=== PATIENT | male | born 1935 | race Caucasian/White ===

== ENCOUNTER 2018-04-18 07:54 | Inpatient (IN) | payer MEDICARE, MEDICAID, SELFPAY ==
[2018-04-12 12:10] VITALS: BMI 32.4
[2018-04-18] VITALS (24 sets, daily range): BP systolic 114–146; BP diastolic 55–81; PULSE 58–79; RESP 12–22; TEMP 36.2–36.8; O2SAT 90–100; BMI 32.4
--- NOTE | 2018-04-18 | DI.RAD.S_ITS ---
PROCEDURE: XR LUMBAR SPINE 2-3V INDICATIONS: L4-5 TLIF TECHNIQUE: 2 views of the lumbar spine were acquired. COMPARISON: None. FINDINGS: Spot fluoroscopic intraoperative images demonstrating L4-L5 posterior spinal fixation with paraspinal johann and pedicle screws. There is also interbody L4-L5 cage graft. Residual grade 1 anterolisthesis of L4 on L5. There is expected intraoperative alignment. Dictated by: Johnathon Isaac M.D. on 04/18/2018 at 14:58 Approved by: Johnathon Isaac M.D. on 04/18/2018 at 15:00
[2018-04-18] MEDS: LACTATED RINGERS 1,000 ML 42 ML IV ×2 (09:15→12:35)
--- NOTE | 2018-04-18 10:31 | PM.PREOP ---
Pre-operative Note Interval Note Pre-op Check: Yes History & Physical Reviewed by Physician, Yes Exam Performed and Yes History & Physical exam performed today by Physician Changes: No
[2018-04-18] MEDS: CEFAZOLIN 2 GM/100 ML FROZ.PIGGY IV ×2 (11:10→19:23)
--- NOTE | 2018-04-18 11:59 | SUR.OPER ---
Prone on spine table, head in foam head support, padded chest and pelvic supports, gel pad at knees, lower legs supported by pillows; nipples, genitalia and toes free of pressure, arms secured on foam padded arm boards at <90 degrees abduction. Tape over blanket at thigh secured to table.
[2018-04-18] MEDS: BUPIVACAINE 0.25% W/ EPI VIAL 30 ML INJ (12:08)
[2018-04-18] MEDS: BUPIVACAINE LIPOSOME 266 MG/20 ML VIAL INJ (12:08)
[2018-04-18] MEDS: ACETAMINOPHEN IV 1,000 MG/100 ML VIAL 400 MG IV (13:52)
--- NOTE | 2018-04-18 14:27 | PM.OP.1 ---
Operative Date/Time/Diagnoses Date of procedure: 04/18/18 Time of procedure: 11:49 Pre-op diagnosis: 1. L3-4, L4-5 spinal stenosis 2. L4-5 spondylolisthesis 3. 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 L4-5 Postero-lateral and posterior interbody fusion 2. L4-5 interbody cage placement. 3. L4-5 decompressive laminectomy with bilateral facetecomies 4. L4-5 Posterior non-segmental instrumentation 5. L3-4 hemilaminectomy 6. [place] of bone marrow from iliac crest 7. Utilization of microsurgical technique and operating microscope Same procedure as scheduled: Yes Indications: Patient has been having chronic back pain and worsening lumbar radiculopathy. Patient failed multiple conservative management with worsening pain weakness and numbness in her lower extremity. Patient has been having difficulty performing activity of daily living. After discussing risks benefits of treatment options, patient elected proceed with surgery. Surgeon: Ed Quezada Inpatient Pharmacist: Moon Wright Click Yes if Unassisted: No Anesthesia Type: General Operative Notes Closure Type: primary Specimen(s): none sent Implants & Drains: Globus revolve screws, Rise cage Estimated Blood Loss (mL): 50 Blood products transfused: none Procedure in detail: Patient was seen in the preoperative area. Risks and benefits of the surgery was discussed with the patient. Informed consent was obtained from the patient and placed in the chart. Surgical site was marked. Patient was taken to the operative room. General anesthesia was administered. Prophylactic antibiotic was given to the patient less than 30 min before the incision was made. Patient was placed into a prone position on the Adolfo table. Patient's back was then prepped and draped in the sterile fashion. Time-out was performed at this time. Using AP and lateral C-arm imaging the interval between L3-4 L4-5 was identified and marked on patient's back. A 2 inch incision 2 in from midline was made on the left side first. The fascia was incised in line with skin incision. Globus MARS retractors was placed inside the incision and docked onto the L4 lamina. Using microsurgical technique and operating microscope, a L4 laminectomy and L4-5 facetectomy was performed using a Kerrison rongeur. The disc space at L4-5 was identified. And a total diskectomy was performed at L4-5 level. The endplates were decorticated using a rasp and shaver. The total diskectomy and decortication was performed at L4-5 level in order to to accomplish a L4-5 fusion. The local bone from the laminectomy and facetectomy was saved for local bone grafting. After the total diskectomy and decortication was completed, Globus viacell bone graft material was combined with local bone that was harvested earlier. At this time, a separate skin is incision was made over the iliac crest. A Jamshidi needle was inserted into the iliac crest through a separate skin incision. 5 cc of bone marrow aspiration was obtained through the separate skin incision using a Jamshidi needle from the iliac crest. The bone marrow aspiration was combined with local bone and the via cell bone grafting material. The bone grafting material was placed into the L4-5 interbody space along with a expandable cage. The cage was expanded to its maximum height using the torque limiting screwdriver. At this time the MARS retractor was redirected over the L3 lamina. Using microsurgical technique and operating microscope, a L3-4 heminectomy was performed using the Kerrison rongeur. The ligamentum flavum was also resected at the side of the hemilaminectomy for further decompression of the epidural space. At this time a mirror image incision was made on the right side. The fascia was incised in line with the skin incision. Globus MARS retractor was inserted and docked onto the L4-5 posterolateral gutter. Using the power drill, posterior-lateral decortication was performed at L4-5 level until bleeding cortical bone was identified. The remaining bone grafting material was placed into the L4-5 posterior lateral gutter he order to accomplish posterolateral fusion at the L4-5 level. Using the double C-arm technique, pedicle screws were placed into the L4 and L5 pedicles bilaterally. This was done by placing the Jamshidi needle into the pedicles, then placing the guidewires over the Jamshidi needle, and finally placing the cannulated screws over the guidewires bilaterally. After the pedicle screws were placed, 2 titanium rods was locked into the heads of the pedicle screws using locking caps and torque limiting screwdriver. After all the hardware was placed, and confirmed with AP and lateral C-arm imaging, the wound was then irrigated with sterile normal saline and packed with Ray-Kimber gauze for 3 min to accomplish hemostasis. After the gauze was removed the deep fascia was closed with #1 Vicryl suture. The subcutaneous layer was closed with 2-0 Vicryl. The skin was closed with skin lina. Patient tolerated the procedure well. There were no complications. Complications: none Condition: stable Disposition: PACU Plan for aftercare: Admit to inpatient hospital
[2018-04-18] MEDS: HYDROMORPHONE 2 MG INJ 0.5 MG IV ×4 (15:05→15:27)
[2018-04-18] MEDS: fentaNYL 100 MCG/2 ML INJ 50 MCG IV ×2 (15:33→15:42)
--- NOTE | 2018-04-18 15:47 | SUR.PHASEI ---
stable pacu stay, pt arrived, cpap in place after water obtained, sats on 4 l with cpap 93-95% dressing to back remained c/d/i. pain 01/14- 10/14. pt states this is a tolerable level. report attempted x 2 both times rn unavailable.
--- NOTE | 2018-04-18 16:24 | SUR.PHASEI ---
p-t medicated for pain with fentanyl and dilaudid, pt transported via bed on 5/ n/c 02 and left in stable condition under the care of colleen alanis.
--- NOTE | 2018-04-18 16:33 | PC.NURSE ---
Pt admitted to AC from PACU. Alert/oriented. Gibraltarian speaking. Daughter at bedside to assist with admission. Pain 10/14, shift RN aware. Oriented to room and call light use. Bed alarm on. Working on getting impregnating helper phone to bedside.
[2018-04-18] MEDS: SODIUM CHLORIDE 0.9% 1,000 ML 100 ML IV (17:14)
[2018-04-18] MEDS: TIMOLOL 0.5% OPHTH 1 DROPS EYE-BOTH (20:46)
[2018-04-18] MEDS: ONDANSETRON 4 MG/2 ML INJ IV (20:53)
[2018-04-19] VITALS (16 sets, daily range): BP systolic 65–127; BP diastolic 35–71; PULSE 56–73; RESP 16–19; TEMP 37.1–37.5; O2SAT 86–99
[2018-04-19] MEDS: OXYCODONE IR 5 MG TABLET 10 MG PO ×3 (02:06→11:52)
--- NOTE | 2018-04-19 02:44 | PC.NURSE ---
Addendum entered by Christiane Dee R.N. 04/19/18 06:02: Slept most of shift. O2 sat this morning is 99% so oxygen decreased to 3L/min. No further complaints of pain and is currently asleep. Original Note: Patient is Solomon Islander speaking so assessment done using liquid flavor compounder phone. Patient is alert and oriented. Breath sounds CTA with sat of 96% with CPAP + 4.5L/min oxygen; noted to be at 80% on RA. HRR. BT present and abdomen is soft. Voiding per urinal and calls/bangs on side rail when needing to urinate. Is able to turn with minimal assistance. Dressing to back is CDI. Indicates pain is 8/10 using face chart provided; medicated with Oxycodone. CMS is intact. Wearing bilateral foot SCD's. Fall risk score is high and bed alarm is activated
[2018-04-19] MEDS: SODIUM CHLORIDE 0.9% 1,000 ML 100 ML IV ×2 (03:02→13:28)
[2018-04-19] MEDS: CEFAZOLIN 2 GM/100 ML FROZ.PIGGY IV (03:04)
[2018-04-19 05:49] LABS: Hematocrit 37.9 % (41-53); Hemoglobin 12.9 g/dL (13.5-17.5)
[2018-04-19] MEDS: hydrOXYzine pamoate 25 MG CAPSULE PO ×2 (08:34→13:29)
--- NOTE | 2018-04-19 09:30 | CM.DANOTE ---
Addendum entered by Connie Moe LPN 04/19/18 10:04: Met briefly with pt with intent for introduction of self and role. PT was in room at time. They confirmed that pt is Martiniquais speaking only and that his daughter Neema is expected to arrive soon. WB is updated. KEITH Parker is aware and will alert this dc conference planner when Neema arrives. PT in process of using the bilingual executive assistant phone as she begins her eval with pt. Pt is an 82 year old male who admitted yesterday for a planned spinal surgery. Surgeon: Dr. Quezada. Payer: Medicare and Medicaid. Will be following as POC unfolds to assist with d/c issues and options. Original Note: Discharge Planning/Care Management DCP: assessment: CM Discharge Assessment Start: 04/19/18 09:28 Freq: Status: Active Protocol: Document 04/19/18 09:30 ITV (Rec: 04/19/18 09:30 ITV [id number]) Discharge Planning Assessment History Provided By Medical Record Prior Living Arrangements Apartment/Condo Household Members spouse Whiteboard Updated in Patient Room with Yes name and ext. # of Office Manager Review Status In Process Next Review Type Continued Stay Review Pre-Anesthesia Assessment Start: 04/12/18 12:10 Freq: Status: Complete Protocol: Document 04/12/18 12:10 VLJ (Rec: 04/12/18 12:41 [id number] [id number]) Pre-Anesthesia Assessment Patient Information Reviewed Via Chart Review Lab Results EKG Primary Care Provider Jacob Kamara Seen Specialist in Last 12 Months Yes Specialist Seen Orthopedist Primary Language Martiniquais Director Of Testing Required Yes Comment Confirmed w/office that we will us the phone interpretive service Height 165.1 cm Weight 88.451 kg Body Mass Index (BMI) 32.4 Anesthesia Review Requested Yes: Unlisted Domestic Housekeeper No Musculoskeletal Symptoms Abnormal Gait Back Pain Difficulty Walking Neck Pain Patient is completely paralyzed or No: Exceedingly sedentary completely immobile Prosthesis or Orthotic Device Wheelchair Comment Motorized scooter Does patient have WAGGONER/SOB Yes Hx Sleep Apnea Yes CPAP/BIPAP use prescribed and used routinely Currently Taking a Beta Parvez Yes: Carvedilol; Can You Climb a Flight of Stairs Without No SOB Hx Chest Pain Yes: Chronic, non-cardiac per cardiology record Hx SOB Yes Has a [employer] Yes Hx Pacemaker/ICD No Pacemaker Rep Required? No Cardiac Clearance Received Yes Comment Intermediate Risk dysphagia Yes Diabetes Yes HgbA1C 5.8 Comment February
[2018-04-19] MEDS: DOCUSATE 100 MG CAPSULE PO ×2 (11:41→21:18)
[2018-04-19] MEDS: CARVEDILOL 25 MG TABLET PO (11:41)
[2018-04-19] MEDS: FINASTERIDE 5 MG TABLET PO (11:42)
[2018-04-19] MEDS: GABAPENTIN 300 MG CAPSULE 600 MG PO (11:43)
[2018-04-19] MEDS: AMLODIPINE 5 MG TABLET 10 MG PO (11:45)
[2018-04-19] MEDS: DOXAZOSIN 4 MG TABLET PO (11:45)
[2018-04-19] MEDS: LISINOPRIL 20 MG TABLET PO (11:45)
[2018-04-19] MEDS: TIMOLOL 0.5% OPHTH 1 DROPS EYE-BOTH ×2 (11:46→21:19)
--- NOTE | 2018-04-19 12:57 | PM.PNPO.1 ---
Subjective Date Patient Seen: 04/19/18 Time Patient Seen: 12:57 Interval history: POD #1 Status post L4-5 TLIF, and L3-[address] Quezada. Patient's daughter is translating today. Patient's pain was not well controlled last night. Nursing noted he only took 1 pill at 2:00 a.m.. Patient's blood sugars were well controlled, at 105 this morning. Patient has been slow to mobilize with physical therapy. Exam Vital Signs (past 8 hours): - 04/19/18 05:28 04/19/18 07:55 04/19/18 11:36 Temperature 99.3 F 98.8 F Pulse Rate 66 65 66 Respiratory Rate 16 18 Blood Pressure 127/66 105/62 118/63 Pulse Oximetry 99 96 Oxygen Delivery Method Room Air Oxygen Flow Rate 4.5 Narrative Exam Narrative: Patient lying in bed in no acute distress. He is alert and oriented x3. Sensation intact to light touch except for left lateral thigh, which he had prior to surgery. Calves are soft, compressible, nontender bilaterally. He is able to actively dorsiflex and plantar flex. Pulses are symmetrical. Objective Labs Result Diagrams: 04/19/18 05:09 Labs: Laboratory Results - last 24 hr 04/19/18 05:09 Hgb 12.9 L Hct 37.9 L Assessment & Plan Post-op (1) S/P lumbar fusion: Current Visit: Yes Status: Acute Postoperative Procedures Operation Date: 04/18/18 10:45 Actual Procedures Side Surgeon p L3-4 Hemilaminectomy, L4-5 TLIF w/Posterior Instru. Not Applicable Ed Quezada MD Patient will continue to mobilize with physical therapy. No excessive bending, lifting, or twisting. Continue current pain control, and recommending he take regular doses throughout the night. Continue to monitor blood sugars. Patient will discharged once mobilizing safely, and pain is adequately controlled, likely in next 1-2 days. Quality VTE Deep Vein Thrombosis/Pulmonary Embolism Present on Admission: No
--- NOTE | 2018-04-19 13:02 | P.PN_ITS ---
Subjective Date Patient Seen: 04/19/18 Time Patient Seen: 12:57 Interval history: POD #1 Status post L4-5 TLIF, and L3-[address] Quezada. Patient's daughter is translating today. Patient's pain was not well controlled last night. Nursing noted he only took 1 pill at 2:00 a.m.. Patient 's blood sugars were well controlled, at 105 this morning. Patient has been slow to mobilize with physical therapy. Exam Vital Signs (past 8 hours): - 04/19/18 05:28 04/19/18 07:55 04/19/18 11:36 Temperature 99.3 F 98.8 F Pulse Rate 66 65 66 Respiratory Rate 16 18 Blood Pressure 127/66 105/62 118/63 Pulse Oximetry 99 96 Oxygen Delivery Method Room Air Oxygen Flow Rate 4.5 Narrative Exam Narrative: Patient lying in bed in no acute distress. He is alert and oriented x3. Sensation intact to light touch except for left lateral thigh, which he had prior to surgery. Calves are soft, compressible, nontender bilaterally. He is able to actively dorsiflex and plantar flex. Pulses are symmetrical. Objective Labs Result Diagrams: 04/19/18 05:09 Labs: Laboratory Results - last 24 hr 04/19/18 05:09 Hgb 12.9 L Hct 37.9 L Assessment & Plan Post-op (1) S/P lumbar fusion: Current Visit: Yes Status: Acute Postoperative Procedures Operation Date: 04/18/18 10:45 Actual Procedures Side Surgeon p L3-4 Hemilaminectomy, L4-5 TLIF w/Posterior Instru. Not Applicable Ed Quezada MD Patient will continue to mobilize with physical therapy. No excessive bending , lifting, or twisting. Continue current pain control, and recommending he take regular doses throughout the night. Continue to monitor blood sugars. Patient will discharged once mobilizing safely, and pain is adequately controlled, likely in next 1-2 days. Quality VTE Deep Vein Thrombosis/Pulmonary Embolism Present on Admission: No
--- NOTE | 2018-04-19 13:08 | PT.IPTN ---
Addendum entered and electronically signed by Nella Montana PT 04/19/18 14:58: This is to certify that I have reviewed this documentation and POC. Original Note: Current Diagnoses Type 2 diabetes mellitus without complications (04/18/18) Obesity, unspecified (04/18/18) Hyperlipidemia, unspecified (04/18/18) Obstructive sleep apnea (adult) (pediatric) (04/18/18) Unspecified right bundle-branch block (04/18/18) Gastro-esophageal reflux disease without esophagitis (04/18/18) Cough (04/18/18) Dyspnea, unspecified (04/18/18) Dysphagia, unspecified (04/18/18) Personal history of transient ischemic attack (TIA), and cerebral infarction without residual deficits (04/18/18) Arthrodesis status (04/18/18) Dependence on other enabling machines and devices (04/18/18) Surgery Performed Operation Date: 04/18/18 10:45 Actual Procedures p L3-4 Hemilaminectomy, L4-5 TLIF w/Posterior Instru.(Not Applicable) - Ed Quezada MD Physical Therapy Treatment Note M2 PT-IP Current Condition Start: 04/18/18 17:06 Freq: NEEDED Status: Active Protocol: Document 04/19/18 10:53 (Rec: 04/19/18 12:18 [id number]) Physical Therapy Current Condition Current Condition Evaluation Date 04/19/18 Treatment Diagnosis Lumbar laminectomy/fusion; impaired mobility Onset Date 04/18/18 Precautions Lumbar Precautions Log Roll No Twisting Limit Bending Lifting Restriction of 10 lbs Gait Belt above Incisional Area Other Precautions fall risk M3 PT-IP Subjective Start: 04/18/18 17:06 Freq: NEEDED Status: Active Protocol: Document 04/19/18 13:08 (Rec: 04/19/18 14:34 [email or web address]) Subjective Physical Therapy Visit Type Type Treatment Note Visit Start Time 13:08 Visit Stop Time 13:31 Total Visit Minutes 23 Number of ELECTROMYOGRAPHIC TECHNICIAN Visits 0 Physical Therapy Visit Comments Patient Comments Daughter and present for visit. Pt in pleasant mood sitting up in chair when PT enters. Agreeable to mobilize and requesting to get back to bed. Therapy Pain Assessment Pain Present Pain Present Pain Reported Location Back Intensity 7 Scale Used Numeric (1 - 10) Pain Management Techniques Modification of Treatment Re-positioning Timing of Activity with Medications M4 PT-IP Mobility and Gait Start: 04/18/18 17:06 Freq: NEEDED Status: Active Protocol: Document 04/19/18 13:08 (Rec: 04/19/18 14:34 [email or web address]) PT-Bed Mobility Assessment Scooting Scooting to Edge of Bed Maximum Assistance PT-Transfer Assessment Sit to and From Stand Sit to and from Stand Maximum Assistance 2 Person Assistance Use of Upper Extremities Comments Mobility Comments Sit <> stand with fww requires maxAx2 and max cues and pt unable to complete on first 2 attempts. Able to complete on 3rd attempt and stands ~10 seconds priort to pt c/o of dizziness. Pt seated in recliner and instruced in deep breathing. Seated BP 72/41 HR 59. Nurse aware and present for the rest of session. After 1-2 mins. resting in seated BP is 65/38 HR 58. Pt reclined immediately in recliner and cued to continue deep breathing. After 1-2 mins. in reclined position BP 64/38 HR 59. Pt is left in reclined position with nursing. M5 PT-IP Objective Assessments Start: 04/18/18 17:06 Freq: NEEDED Status: Active Protocol: Document 04/19/18 10:53 (Rec: 04/19/18 12:18 [id number]) Orientation Orientation/Cognition Level of Alertness Alert Orientation Name Age Birthday Month Date Year Day of Week Place Situation Safety Awareness Decreased Safety Awareness Comments Pt is Montserratian speaking. Gross Range of Motion Lower Extremity ROM Assessment Within Functional Limits Strength Lower Extremity Strength Assessment Bilaterally Impaired Comments Strength Comments BLE 3+/5. Symetrical. Sensation Assessment Sensation Gross Sensation Right UE Impaired Left UE Impaired Right LE Impaired Left LE Impaired Light Touch Impaired Sensation Description Numbness Tingling Comments Sensation Comments Pt reports numbness and tingling in BUE. Reports B numbness in BLE. States sensation impairments are consistent with previous deficits due to prior health conditions (neck surgery and neuropathy) M6 PT-IP Treatment Start: 04/18/18 17:06 Freq: NEEDED Status: Active Protocol: Document 04/19/18 10:53 (Rec: 04/19/18 12:18 [id number]) Physical Therapy Treatment Education Education Provided Precautions Weight Bearing Status Post-Op Packet Safety M7 PT-IP Assessment and Plan Start: 04/18/18 17:06 Freq: NEEDED Status: Active Protocol: Document 04/19/18 13:08 (Rec: 04/19/18 14:34 [email or web address]) PT Summary Assessment and Plan Potential Rehabilitation Potential Fair Summary Impairments Pain ROM Strength Balance Bed Mobility Transfers Gait Activity Tolerance Assessment Summary Pt requiring 2p max to stand with fww and has significant drop in BP that did not stabilize during session. Pt was left with nursing. Continue to recomend d/c to SNF when pt is medically ready . Goals Bed Mobility Goal Minimal Assistance Transfer Goal Minimal Assistance Front Wheeled Walker Gait Goal Minimal Assistance Front Wheel Walker Gait Distance 5 Days to Meet Goals 3 Frequency of Treatment Frequency Of Treatment Twice a Day Treatment Plan Physical Therapy Treatment Plan Bed Mobility Training Transfer Training Gait Training Therapeutic Exercise Balance Retraining Post Op Education Discharge Planning Hot or Cold Pack Neuromuscular Re-ed Coordination Retraining Manual Therapy Other Recommendations and Next Treatment Family will be present at 930 Focus am for translation. Continue with bed mobitiy and transfer training. Review log roll and precautions. Recommendations To Nursing Amount of Assist Needed Mechanical Lift Discharge Recommendations PT Discharge Recommendations SNF Rehab
--- NOTE | 2018-04-19 13:08 | PT.IIE ---
Addendum entered and electronically signed by Nella Montana PT 04/19/18 14:40: This is to certify that I have reviewed this documenation and POC Original Note: Current Diagnoses Type 2 diabetes mellitus without complications (04/18/18) Obesity, unspecified (04/18/18) Hyperlipidemia, unspecified (04/18/18) Obstructive sleep apnea (adult) (pediatric) (04/18/18) Unspecified right bundle-branch block (04/18/18) Gastro-esophageal reflux disease without esophagitis (04/18/18) Cough (04/18/18) Dyspnea, unspecified (04/18/18) Dysphagia, unspecified (04/18/18) Personal history of transient ischemic attack (TIA), and cerebral infarction without residual deficits (04/18/18) Arthrodesis status (04/18/18) Dependence on other enabling machines and devices (04/18/18) Surgery Performed Operation Date: 04/18/18 10:45 Actual Procedures p L3-4 Hemilaminectomy, L4-5 TLIF w/Posterior Instru.(Not Applicable) - Ed Quezada MD Surgical History (Last Updated 04/12/18 @ 12:41 by Kenyatta Cherry, RN) History of colonoscopy with polypectomy (Acute ~04/2017) Hx of cardiac cath (Acute ~11/2013) Medical History (Last Updated 04/12/18 @ 12:53 by Kenyatta Cherry, RN) Arthritis (Acute) Chronic cough (Acute) Diabetes (Acute) Dysphagia (Acute) Dyspnea (Acute) First degree AV block (Acute) GERD (gastroesophageal reflux disease) (Acute) History of CVA (cerebrovascular accident) (Acute) Hyperlipidemia (Acute) Hypertension (Acute) Incomplete RBBB (Acute) Liver cyst (Acute) Low back pain (Acute) Non-cardiac chest pain (Acute) Normal echocardiogram (Acute ~10/2014) DONNA on CPAP (Acute) Obesity (Acute) Other spondylosis with radiculopathy, lumbar region (Acute) Raynauds disease (Acute) Sinus bradycardia (Acute) Spinal stenosis, lumbar region with neurogenic claudication (Acute) Spondylolisthesis, lumbar region (Acute) Stroke (Acute) Physical Therapy Inpatient Evaluation/Re-Eval M1 PT/OT-IP Prior Functional Status Start: 04/18/18 17:06 Freq: NEEDED Status: Active Protocol: Document 04/19/18 10:53 (Rec: 04/19/18 12:18 [id number]) Medical Review Prior Functional Status Medical History Reviewed Yes Communication Pt is Faroese Speaking. Daughter present to translate. No deficits noted. Mobility and Gait Previously very limited activity. Pt performs modified independent transfers . He performs squat-pivot transfers to manual wheelchair using no AD. Pt is modificed independent using manual wheelchair for all mobility. His Daughter or assist him with dressing and showering. He is modified indep for toileting. Prior Functional Level (Other details) Several recent falls are reported when pt performs transfers. 2 in the past month. Social History Household Members spouse Living Arrangements Apartment/Condo Number of Floors (Floors) One Floor Number of Stairs To Enter/Railing? no steps to enter. Home Environment Standard Height Toilet Tub/Shower Home Equipment Front Wheel Walker Four Wheel Walker Manual Wheelchair Power Wheelchair/Scooter Shower Seat with Backrest Hospital Bed Grab Bars In Shower Employment Status Retired Additional Social History Comment Pt has safety rails around toilet. M2 PT-IP Current Condition Start: 04/18/18 17:06 Freq: NEEDED Status: Active Protocol: Document 04/19/18 10:53 (Rec: 04/19/18 12:18 [id number]) Physical Therapy Current Condition Current Condition Evaluation Date 04/19/18 Treatment Diagnosis Lumbar laminectomy/fusion; impaired mobility Onset Date 04/18/18 Precautions Lumbar Precautions Log Roll No Twisting Limit Bending Lifting Restriction of 10 lbs Gait Belt above Incisional Area Other Precautions fall risk M3 PT-IP Subjective Start: 04/18/18 17:06 Freq: NEEDED Status: Active Protocol: Document 04/19/18 10:53 (Rec: 04/19/18 12:18 [id number]) Subjective Physical Therapy Visit Type Type Initial Evaluation Visit Start Time 10:53 Visit Stop Time 11:45 Total Visit Minutes 52 Number of SENIOR LOGISTICS MANAGER Visits 0 Physical Therapy Visit Comments Patient Comments Pt agreeable to mobilize with PT. His daughter and are present. Daughter acts as patrol police sergeant and assists with PLOF and environmental details Patient Goals Pt planning to d/c to [facility]. Therapy Pain Assessment Pain When Pain Assessed At Rest Pain Present Pain Present Pain Reported Location Back Scale Used not rated Pain Management Techniques Apply Cold Modification of Treatment Re-positioning Timing of Activity with Medications M4 PT-IP Mobility and Gait Start: 04/18/18 17:06 Freq: NEEDED Status: Active Protocol: Document 04/19/18 10:53 (Rec: 04/19/18 12:18 [id number]) PT-Bed Mobility Assessment Rolling Type of Rolling Log Rolling Roll to Left Level of Assist Maximal Assistance 1 Person Assistance 2 Person Assistance Supine to Sit Supine to Sit Maximum Assistance 1 Person Assistance 2 Person Assistance Bedrails Scooting Scooting to Edge of Bed Maximum Assistance PT-Transfer Assessment Sit to and From Stand Sit to and from Stand Maximum Assistance 2 Person Assistance Use of Upper Extremities Equipment Transfer Assistive Device Gait Belt Front Wheeled Walker Orthotic/Prosthetic Devices or Brace: No Transfers Transfer Destination Chair Transfer Technique Stand Step Pivot Transfer Ability Level of Assist Maximum Assistance 2 Person Assistance Use of Upper Extremities Comments Mobility Comments Resting/supine/HOB elevated BP 108/55. Pt performes supine > sit with maxA 1-2p and max cues for log rolling technique . Pt reporting dizziness. Seated BP 123/60. Pt instructed in deep breathing and rests 1-2 mins. prior to standing. Pt requiring minAX1 for seated balance. Pt stating dizziness is decreased . [id number] transfer with fww is performed with 2p max and 3rd person SBA. Pt noted to rely heavily on BUE for support and requires max cues. He is unable to control decent and plops in chair. PT-Balance Assessment Sitting Balance and Reactions Static Sitting Balance Ability Poor Dynamic Sitting Balance Ability Poor Standing Balance and Reactions Static Standing Balance Ability Poor Dynamic Standing Balance Ability Poor Device Used fww M5 PT-IP Objective Assessments Start: 04/18/18 17:06 Freq: NEEDED Status: Active Protocol: Document 04/19/18 10:53 (Rec: 04/19/18 12:18 [id number]) Orientation Orientation/Cognition Level of Alertness Alert Orientation Name Age Birthday Month Date Year Day of Week Place Situation Safety Awareness Decreased Safety Awareness Comments Pt is Faroese speaking. Gross Range of Motion Lower Extremity ROM Assessment Within Functional Limits Strength Lower Extremity Strength Assessment Bilaterally Impaired Comments Strength Comments BLE 3+/5. Symetrical. Sensation Assessment Sensation Gross Sensation Right UE Impaired Left UE Impaired Right LE Impaired Left LE Impaired Light Touch Impaired Sensation Description Numbness Tingling Comments Sensation Comments Pt reports numbness and tingling in BUE. Reports B numbness in BLE. States sensation impairments are consistent with previous deficits due to prior health conditions (neck surgery and neuropathy) M6 PT-IP Treatment Start: 04/18/18 17:06 Freq: NEEDED Status: Active Protocol: Document 04/19/18 10:53 (Rec: 04/19/18 12:18 [id number]) Physical Therapy Treatment Education Education Provided Precautions Weight Bearing Status Post-Op Packet Safety M7 PT-IP Assessment and Plan Start: 04/18/18 17:06 Freq: NEEDED Status: Active Protocol: Document 04/19/18 10:53 (Rec: 04/19/18 12:18 [id number]) PT Summary Assessment and Plan Potential Rehabilitation Potential Fair Status of Condition at Evaluation Stable Summary Impairments Pain ROM Strength Balance Bed Mobility Transfers Gait Activity Tolerance Assessment Summary Pt s/p lumbar laminectomy. Pt requiring 2-3 person assist with mobilities and is only able to complete stand-step- pivot transfer. Recommend d/c to SNF to improve pt mobilities when pt is medically stable. Goals Bed Mobility Goal Minimal Assistance Transfer Goal Minimal Assistance Front Wheeled Walker Gait Goal Minimal Assistance Front Wheel Walker Gait Distance 5 Days to Meet Goals 3 Frequency of Treatment Frequency Of Treatment Twice a Day Treatment Plan Physical Therapy Treatment Plan Bed Mobility Training Transfer Training Gait Training Therapeutic Exercise Balance Retraining Post Op Education Discharge Planning Hot or Cold Pack Neuromuscular Re-ed Coordination Retraining Manual Therapy Other Recommendations and Next Treatment Continue with bed mobitiy and Focus transfer training. Review log roll and precautions. Recommendations To Nursing Amount of Assist Needed Mechanical Lift Discharge Recommendations PT Discharge Recommendations SNF Rehab
[2018-04-19] MEDS: SODIUM CHLORIDE 0.9% 500 ML 1000 ML IV (13:40)
--- NOTE | 2018-04-19 14:13 | OT.IP.TRT ---
Current Diagnoses Type 2 diabetes mellitus without complications (04/18/18) Obesity, unspecified (04/18/18) Hyperlipidemia, unspecified (04/18/18) Obstructive sleep apnea (adult) (pediatric) (04/18/18) Unspecified right bundle-branch block (04/18/18) Gastro-esophageal reflux disease without esophagitis (04/18/18) Cough (04/18/18) Dyspnea, unspecified (04/18/18) Dysphagia, unspecified (04/18/18) Personal history of transient ischemic attack (TIA), and cerebral infarction without residual deficits (04/18/18) Arthrodesis status (04/18/18) Dependence on other enabling machines and devices (04/18/18) Surgery Performed Operation Date: 04/18/18 10:45 Actual Procedures p L3-4 Hemilaminectomy, L4-5 TLIF w/Posterior Instru.(Not Applicable) - Ed Quezada MD Occupational Therapy Treatment Note M3 OT- IP Subjective and Pain Start: 04/19/18 14:08 Freq: Status: Active Protocol: Document 04/19/18 14:09 [facility] (Rec: 04/19/18 14:12 [facility] [id number]) OT- Subjective Occupational Therapy Visit Type Type Administrative Note Notes Per PT and PT student just worked with pt and having low BP, therefore to check on pt tomorrow for OT eval when more medically appropriate.
--- NOTE | 2018-04-19 15:52 | PC.NURSE ---
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 Pt oriented to name, year, hospital, back surgery. CPAP removed this AM, pt 93% O2 on RA. Rates 8/10 pain to mid/low back, pain management plan discussed. Pt also reported having spasms. Prn Oxycodone given X2 at 0835/1150. Vistaril prn given at 0835/1330. Pt wanted to wait until his daughter Charline arrived before giving pt his regular scheduled medications. Pt OOB with PT/OT assist only. Pt to chair around 1130. Scheduled medications given after review with Charline at bedside. IVF remained infusing at current order. PT attempted to get pt out of chair and pt became light-headed and diaphoretic, pt assisted back to sitting in chair at BP 72/41 and HR 59. Pt placed in fully reclined position in chair. Rechecked at 1328 for BP 64/38 HR 59. Called and spoke with MONA Childs at 1340. order rec'd for NS 500ml bolus X1. BP and HR rechecked several times, see VS flowsheet. And pt stated feeling better around 1400, half way through NS bolus. Pt assisted back to bed at 1430 via ceiling lift. Latest vitals at 1435 were BP 68/35 and HR 67. O2 sat checked for 88% on RA, 2L NC placed and O2 increased to 93%.
[2018-04-19] MEDS: ROSUVASTATIN 10 MG TABLET 20 MG PO (18:59)
[2018-04-19] MEDS: SENNOSIDES 8.6 MG TABLET 17.2 MG PO (21:18)
[2018-04-19] MEDS: INSULIN GLARGINE 100 UNIT/ML 3ML PEN 30 UNIT SUBCUT (21:20)
--- NOTE | 2018-04-19 22:51 | PC.NURSE ---
PATIENTS IV FLUIDS REMAIN IN PLACE DUE TO LOWER BPS ,MANUAL BPS IN THE 110/60 AND A LITTLE ABOVE RANGE.PATIENT IS RESTING QUIETLY WITH CPAP AND 2L BLEED-IN. REPOSIONING,USING URINAL WELL.SCDS ACTIVE
[2018-04-20] VITALS (18 sets, daily range): BP systolic 90–105; BP diastolic 41–58; PULSE 64–78; RESP 14–22; TEMP 36.8–38.1; O2SAT 87–96
--- NOTE | 2018-04-20 | DI.RAD.S_ITS ---
PROCEDURE: XR CHEST 1V INDICATIONS: fever TECHNIQUE: One view of the chest was acquired. COMPARISON: None. FINDINGS: Surgical changes and devices: Cervical spinal fusion hardware and surgical clips are partially imaged on this exam. Lungs and pleura: No pleural effusions or pneumothorax. Mild right basilar hazy pulmonary opacities are noted. Mediastinum: Mediastinal contours appear normal. Heart size is normal. Bones and chest wall: There is mild separation of the right acromioclavicular joint. IMPRESSION: Mild hazy opacities at the right lung base, which are favored to represent atelectasis (versus pneumonia). Dictated by: Kian Albright M.D. on 04/20/2018 at 10:22 Approved by: Kian Albright M.D. on 04/20/2018 at 10:25
[2018-04-20] MEDS: OXYCODONE IR 5 MG TABLET 10 MG PO ×4 (02:27→14:32)
--- NOTE | 2018-04-20 02:49 | PC.NURSE ---
Addendum entered by Christiane Dee R.N. 04/20/18 06:26: Slept most of shift. Does indicated 8/10 pain using faces chart this morning so medicated with Oxycodone. Remains on O2 at 3L/min + CPAP with sat of 94% at this time. Original Note: Patient is alert but speaks only Bol[place]ian although can follow simple direction with use of gestures. Attempted to utilize detailer furniture phone but was told there is no [place]ian detailer furniture available at this time so complete assessment is not obtainable. Unknown as to what orientation is. Breath sounds CTA with sat of 92% on CPAP + 3L/min oxygen. HRR. BT present and abdomen is soft but round. Voiding per urinal. Can turn in bed with some assistance. Wearing bilateral foot SCD's. Color and capillary refill WNL. Does indicate pain in back and points to 8 on faces scale so medicated with Oxycodone. Dressing to back is CDI. Fall risk score is high as per previous reports does have hx of falls; bed alarm is activated.
[2018-04-20] MEDS: SODIUM CHLORIDE 0.9% 1,000 ML 100 ML IV ×2 (05:37→16:24)
--- NOTE | 2018-04-20 09:27 | PM.PNPO.1 ---
Subjective Date Patient Seen: 04/20/18 Time Patient Seen: 09:28 Interval history: Patient is Citizen Of [place] speaking and grandson helps interpret. Denies feeling feverish but does have chills. Denies cough, nausea, vomiting. Pain is 8/10. Exam Vital Signs (past 8 hours): - 04/20/18 03:57 04/20/18 05:46 04/20/18 07:15 Temperature 98.3 F Pulse Rate 76 Respiratory Rate 16 Blood Pressure 102/54 L Pulse Oximetry 92 93 88 L 04/20/18 07:20 04/20/18 08:10 Temperature 99.9 F H Pulse Rate 75 Respiratory Rate 20 Blood Pressure 94/48 L Pulse Oximetry 91 87 L Oxygen Delivery Method CPAP Oxygen Flow Rate 0 Narrative Exam Narrative: 82-year-old male resting comfortably in bed in no apparent distress. Patient is warming clammy. Dressing clean, dry and intact. Neurovascular status is grossly intact bilateral lower extremities. Objective Labs Result Diagrams: 04/19/18 05:09 Assessment & Plan Post-op Postoperative Procedures Operation Date: 04/18/18 10:45 Actual Procedures Side Surgeon p L3-4 Hemilaminectomy, L4-5 TLIF w/Posterior Instru. Not Applicable Ed Quezada MD Postop day 2 lumbar fusion. Mobilize with physical therapy. Limit bending, lifting, twisting. Will continue to work on pain control. Patient running low grade fever which is trending up and will order respiratory therapy, chest x-ray, CBC. Encourage use of incentive spirometer. Quality VTE Deep Vein Thrombosis/Pulmonary Embolism Present on Admission: No
--- NOTE | 2018-04-20 09:33 | P.PN_ITS ---
Subjective Date Patient Seen: 04/20/18 Time Patient Seen: 09:28 Interval history: Patient is Faroese speaking and grandson helps interpret. Denies feeling feverish but does have chills. Denies cough, nausea, vomiting. Pain is 8/10. Exam Vital Signs (past 8 hours): - 04/20/18 03:57 04/20/18 05:46 04/20/18 07:15 Temperature 98.3 F Pulse Rate 76 Respiratory Rate 16 Blood Pressure 102/54 L Pulse Oximetry 92 93 88 L 04/20/18 07:20 04/20/18 08:10 Temperature 99.9 F H Pulse Rate 75 Respiratory Rate 20 Blood Pressure 94/48 L Pulse Oximetry 91 87 L Oxygen Delivery Method CPAP Oxygen Flow Rate 0 Narrative Exam Narrative: 82-year-old male resting comfortably in bed in no apparent distress. Patient is warming clammy. Dressing clean, dry and intact. Neurovascular status is grossly intact bilateral lower extremities. Objective Labs Result Diagrams: 04/19/18 05:09 Assessment & Plan Post-op Postoperative Procedures Operation Date: 04/18/18 10:45 Actual Procedures Side Surgeon p L3-4 Hemilaminectomy, L4-5 TLIF w/Posterior Instru. Not Applicable Ed Quezada MD Postop day 2 lumbar fusion. Mobilize with physical therapy. Limit bending, lifting, twisting. Will continue to work on pain control. Patient running low grade fever which is trending up and will order respiratory therapy, chest x- ray, CBC. Encourage use of incentive spirometer. Quality VTE Deep Vein Thrombosis/Pulmonary Embolism Present on Admission: No
[2018-04-20] MEDS: DOCUSATE 100 MG CAPSULE PO ×2 (09:53→20:58)
[2018-04-20] MEDS: GABAPENTIN 600 MG TABLET PO ×3 (09:54→20:58)
[2018-04-20] MEDS: FINASTERIDE 5 MG TABLET PO (09:54)
--- NOTE | 2018-04-20 10:08 | PT.IPTN ---
Current Diagnoses Type 2 diabetes mellitus without complications (04/18/18) Obesity, unspecified (04/18/18) Hyperlipidemia, unspecified (04/18/18) Obstructive sleep apnea (adult) (pediatric) (04/18/18) Unspecified right bundle-branch block (04/18/18) Gastro-esophageal reflux disease without esophagitis (04/18/18) Cough (04/18/18) Dyspnea, unspecified (04/18/18) Dysphagia, unspecified (04/18/18) Personal history of transient ischemic attack (TIA), and cerebral infarction without residual deficits (04/18/18) Arthrodesis status (04/18/18) Dependence on other enabling machines and devices (04/18/18) Surgery Performed Operation Date: 04/18/18 10:45 Actual Procedures p L3-4 Hemilaminectomy, L4-5 TLIF w/Posterior Instru.(Not Applicable) - Ed Quezada MD Physical Therapy Treatment Note M2 PT-IP Current Condition Start: 04/18/18 17:06 Freq: NEEDED Status: Active Protocol: Document 04/19/18 10:53 (Rec: 04/19/18 12:18 [id number]) Physical Therapy Current Condition Current Condition Evaluation Date 04/19/18 Treatment Diagnosis Lumbar laminectomy/fusion; impaired mobility Onset Date 04/18/18 Precautions Lumbar Precautions Log Roll No Twisting Limit Bending Lifting Restriction of 10 lbs Gait Belt above Incisional Area Other Precautions fall risk M3 PT-IP Subjective Start: 04/18/18 17:06 Freq: NEEDED Status: Active Protocol: Document 04/20/18 10:08 AB (Rec: 04/20/18 11:44 AB [id number]) Subjective Physical Therapy Visit Type Visit Start Time 10:08 Visit Stop Time 11:15 Total Visit Minutes 40 Notes pt seen for split tx this morning Number of STITCHER AROUND Visits 0 Physical Therapy Visit Comments Patient Comments grandson present and assisted with translation. pt stated that he is feeling weak and cannot keep his eyes open Therapy Pain Assessment Pain When Pain Assessed At Rest Pain Present Pain Present Pain Reported Location Back Intensity 8 Scale Used Numeric (1 - 10) Pain Management Techniques Apply Cold Modification of Treatment Re-positioning Timing of Activity with Medications M4 PT-IP Mobility and Gait Start: 04/18/18 17:06 Freq: NEEDED Status: Active Protocol: Document 04/20/18 10:08 AB (Rec: 04/20/18 11:44 AB [id number]) PT-Bed Mobility Assessment Rolling Type of Rolling Log Rolling Level of Assist Maximal Assistance 1 Person Assistance Supine to Sit Supine to Sit Maximum Assistance 2 Person Assistance Bedrails Scooting Scooting to Edge of Bed Dependent Scooting Up and Down in Bed Dependent PT-Transfer Assessment Comments Mobility Comments pt requires constant cues to stay awake. completed supine to sit max A x 2 and max cues. pt was able to sit on EOB requiring max A to maintain sitting balance. noted increase posterior and lateral trunk leaning to the L during sitting on EOB. pt stated that he is too weak and sleepy to do any standing. pt dozing off in between mobility and opted to just assist pt back in bed and required max A x 2 for sit to supine. pt is dependent with scooting and positioning in bed. BP supine: 90/50 ; sitting on EOB: 108/55 supine in bed after sitting on EOB: 86/38 nurse aware of BP PT-Balance Assessment Sitting Balance and Reactions Static Sitting Balance Ability Poor Dynamic Sitting Balance Ability Poor M5 PT-IP Objective Assessments Start: 04/18/18 17:06 Freq: NEEDED Status: Active Protocol: Document 04/19/18 10:53 (Rec: 04/19/18 12:18 [id number]) Orientation Orientation/Cognition Level of Alertness Alert Orientation Name Age Birthday Month Date Year Day of Week Place Situation Safety Awareness Decreased Safety Awareness Comments Pt is Tongan speaking. Gross Range of Motion Lower Extremity ROM Assessment Within Functional Limits Strength Lower Extremity Strength Assessment Bilaterally Impaired Comments Strength Comments BLE 3+/5. Symetrical. Sensation Assessment Sensation Gross Sensation Right UE Impaired Left UE Impaired Right LE Impaired Left LE Impaired Light Touch Impaired Sensation Description Numbness Tingling Comments Sensation Comments Pt reports numbness and tingling in BUE. Reports B numbness in BLE. States sensation impairments are consistent with previous deficits due to prior health conditions (neck surgery and neuropathy) M6 PT-IP Treatment Start: 04/18/18 17:06 Freq: NEEDED Status: Active Protocol: Document 04/20/18 10:08 AB (Rec: 04/20/18 11:44 AB [id number]) Physical Therapy Treatment Education Education Provided Precautions Safety M7 PT-IP Assessment and Plan Start: 04/18/18 17:06 Freq: NEEDED Status: Active Protocol: Document 04/20/18 10:08 AB (Rec: 04/20/18 11:44 AB [id number]) PT Summary Assessment and Plan Potential Rehabilitation Potential Fair Summary Impairments Pain ROM Strength Balance Coordination Sensation Tone Cognition Bed Mobility Transfers Gait Activity Tolerance Progress Towards Goals Slow Progress due to Pain Slow Progress due to Medical Issues Slow Progress due to Activity Tolerance Assessment Summary pt requiring 2 person max A with mobility and will need SNF rehab to improve strength and function. pt has decrease activity tolerance and unable to do much this morning due to c/o drowsiness. Goals Bed Mobility Goal Minimal Assistance Transfer Goal Minimal Assistance Front Wheeled Walker Gait Goal Minimal Assistance Front Wheel Walker Gait Distance 5 Days to Meet Goals 5 Frequency of Treatment Frequency Of Treatment Twice a Day Treatment Plan Physical Therapy Treatment Plan Bed Mobility Training Transfer Training Gait Training Therapeutic Exercise Balance Retraining Post Op Education Discharge Planning Hot or Cold Pack Neuromuscular Re-ed Coordination Retraining Manual Therapy Other Recommendations and Next Treatment Family will be present at 930 Focus am for translation. Continue with bed mobitiy and transfer training. Review log roll and precautions. Recommendations To Nursing Amount of Assist Needed Mechanical Lift Discharge Recommendations PT Discharge Recommendations SNF Rehab
[2018-04-20 12:39] LABS: Add Manual Diff / Slide Review NO; Basophils Percent Auto 0.7 % (0-2); Eosinophils Percent Auto 0.4 % (2-4); Hematocrit 34.5 % (41-53); Hemoglobin 11.8 g/dL (13.5-17.5); Lymphocytes Percent Auto 23.9 % (25-40); Mean Corpuscular HGB Conc 34.3 % (30-36); Mean Corpuscular Hemoglobin 31.3 PG (26-34); Mean Corpuscular Volume 91.2 fL (80-100); Monocytes Percent Auto 12.3 % (3-14); Neutrophils Absolute Auto 3600 /uL (1500-7000); Neutrophils Percent Auto 62.7 % (50-75); Platelet Count 178 X10^3/uL (150-400); Red Blood Cell Count 3.78 X10^6/uL (4.5-5.9); Red Cell Distribution Width 14.3 % (11.6-14.8); White Blood Cell Count 5.8 X10^3/uL (4.5-11.0)
--- NOTE | 2018-04-20 15:02 | PT.IPTN ---
Current Diagnoses Type 2 diabetes mellitus without complications (04/18/18) Obesity, unspecified (04/18/18) Hyperlipidemia, unspecified (04/18/18) Obstructive sleep apnea (adult) (pediatric) (04/18/18) Unspecified right bundle-branch block (04/18/18) Gastro-esophageal reflux disease without esophagitis (04/18/18) Cough (04/18/18) Dyspnea, unspecified (04/18/18) Dysphagia, unspecified (04/18/18) Personal history of transient ischemic attack (TIA), and cerebral infarction without residual deficits (04/18/18) Arthrodesis status (04/18/18) Dependence on other enabling machines and devices (04/18/18) Surgery Performed Operation Date: 04/18/18 10:45 Actual Procedures p L3-4 Hemilaminectomy, L4-5 TLIF w/Posterior Instru.(Not Applicable) - Ed Quezada MD Physical Therapy Treatment Note M2 PT-IP Current Condition Start: 04/18/18 17:06 Freq: NEEDED Status: Active Protocol: Document 04/19/18 10:53 (Rec: 04/19/18 12:18 [id number]) Physical Therapy Current Condition Current Condition Evaluation Date 04/19/18 Treatment Diagnosis Lumbar laminectomy/fusion; impaired mobility Onset Date 04/18/18 Precautions Lumbar Precautions Log Roll No Twisting Limit Bending Lifting Restriction of 10 lbs Gait Belt above Incisional Area Other Precautions fall risk M3 PT-IP Subjective Start: 04/18/18 17:06 Freq: NEEDED Status: Active Protocol: Document 04/20/18 15:02 AB (Rec: 04/20/18 16:30 AB [id number]) Subjective Physical Therapy Visit Type Type Treatment Note Visit Start Time 15:02 Visit Stop Time 15:29 Total Visit Minutes 27 Number of FRAME OPENER Visits 0 Physical Therapy Visit Comments Patient Comments pt agreeable to do PT Therapy Pain Assessment Pain When Pain Assessed At Rest Pain Present Pain Present Pain Reported Location Back Scale Used pain scale not stated Pain Management Techniques Modification of Treatment Timing of Activity with Medications M4 PT-IP Mobility and Gait Start: 04/18/18 17:06 Freq: NEEDED Status: Active Protocol: Document 04/20/18 15:02 AB (Rec: 04/20/18 16:30 AB [id number]) PT-Bed Mobility Assessment Rolling Type of Rolling Log Rolling Level of Assist Maximal Assistance 2 Person Assistance Supine to Sit Supine to Sit Maximum Assistance 2 Person Assistance Head of Bed Elevated Sit to Supine Sit to Supine Maximum Assistance 2 Person Assistance Scooting Scooting to Edge of Bed Dependent Scooting Up and Down in Bed Dependent PT-Transfer Assessment Sit to and From Stand Sit to and from Stand Maximum Assistance 2 Person Assistance Use of Upper Extremities Equipment Transfer Assistive Device Gait Belt Front Wheeled Walker Orthotic/Prosthetic Devices or Brace: No Comments Mobility Comments pt continues to be drowsy but agreeable to do PT. HOB elevated to assist with supine to sit requiring max A x 2 to total A x 2 and max cues. pt was able to sit on EOB with initial max A and cues but able to sit with min A after repositioning. pt completed sit to stand max A x 2 and max cues and required max A x 2 to maintain standing using FWW for support. Assisted pt back in bed requiring total A x 2 and max cues. positioned pt in bed. call light and table placed within reach. BP prior to mobility: 97/54 in supine sitting on EOB: 100/ 55 M5 PT-IP Objective Assessments Start: 04/18/18 17:06 Freq: NEEDED Status: Active Protocol: Document 04/19/18 10:53 (Rec: 04/19/18 12:18 [id number]) Orientation Orientation/Cognition Level of Alertness Alert Orientation Name Age Birthday Month Date Year Day of Week Place Situation Safety Awareness Decreased Safety Awareness Comments Pt is Israeli speaking. Gross Range of Motion Lower Extremity ROM Assessment Within Functional Limits Strength Lower Extremity Strength Assessment Bilaterally Impaired Comments Strength Comments BLE 3+/5. Symetrical. Sensation Assessment Sensation Gross Sensation Right UE Impaired Left UE Impaired Right LE Impaired Left LE Impaired Light Touch Impaired Sensation Description Numbness Tingling Comments Sensation Comments Pt reports numbness and tingling in BUE. Reports B numbness in BLE. States sensation impairments are consistent with previous deficits due to prior health conditions (neck surgery and neuropathy) M6 PT-IP Treatment Start: 04/18/18 17:06 Freq: NEEDED Status: Active Protocol: Document 04/20/18 15:02 AB (Rec: 04/20/18 16:30 AB [id number]) Physical Therapy Treatment Education Education Provided Safety M7 PT-IP Assessment and Plan Start: 04/18/18 17:06 Freq: NEEDED Status: Active Protocol: Document 04/20/18 15:02 AB (Rec: 04/20/18 16:30 AB [id number]) PT Summary Assessment and Plan Potential Rehabilitation Potential Fair Summary Impairments Pain ROM Strength Balance Coordination Sensation Tone Cognition Bed Mobility Transfers Gait Activity Tolerance Progress Towards Goals Slow Progress due to Pain Slow Progress due to Medical Issues Slow Progress due to Activity Tolerance Assessment Summary pt able to stand this afternoon requiring max A x 2 and max cues. continues to require 2 person assist with mobility. pt will require SNF rehab to improve strength and functional mobility. Goals Bed Mobility Goal Minimal Assistance Transfer Goal Minimal Assistance Front Wheeled Walker Gait Goal Minimal Assistance Front Wheel Walker Gait Distance 10 Days to Meet Goals 5 Frequency of Treatment Frequency Of Treatment Twice a Day Treatment Plan Physical Therapy Treatment Plan Bed Mobility Training Transfer Training Gait Training Therapeutic Exercise Balance Retraining Post Op Education Discharge Planning Hot or Cold Pack Neuromuscular Re-ed Coordination Retraining Manual Therapy Other Recommendations and Next Treatment Family will be present 1100 to Focus assist with translation. bed mobility, transfer training Recommendations To Nursing Amount of Assist Needed Mechanical Lift Discharge Recommendations PT Discharge Recommendations SNF Rehab
[2018-04-20] MEDS: ACETAMINOPHEN 325 MG TABLET 650 MG PO (15:08)
--- NOTE | 2018-04-20 16:06 | CM.DPC ---
DCP: continued: met with pt and his daughter/Brazilian speaking only and his grandson Moe Munoz: [phone], here as spokesman today for the family. All were aware that the therapy team is recommending snf rehab and Moe stated that a family member Malcolm Mustafa had already had an initial discussion with [facility] in [place] re need for snf rehab. Sounds like this was done prior to the surgery. Called [facility] and spoke with weekend admission person: Sol. She confirmed that Malcolm works as a PT in their facility and said was happy to accept the referral and would bring it to the attention of the primary admission nurse Em for her review on Sunday. She noted that they could not accept pt over the weekend and it also does not appear that pt will be ready for a d/c before then. Pain management is a challenge at this time per care team report. Have now faxed info and including the scanned H&P to Em and Sol's attention: fx: [phone]. Tel # of the CC is #[phone] P: [facility] when stable for same. DCP team will need to check in with them on Sunday. Need: PASRR.
--- NOTE | 2018-04-20 16:11 | PC.NURSE ---
Day Shift- Family at bedside, pt's grandson and daughter used as interpreters at bedside. Pt A&OX4, states name, , hospital, unsure of which one, April 20, 2018, Dr. Quezada performed operation. Able to follow direction with cueing. AE to bases diminished with coarseness bilaterally. O2 sat 88% on RA, 2L NC placed throughout shift and pt 90-94% on 2L NC. Signal Operator Technical enc use of IS when checking in on pt and had him demonstrate. Pt using urinal in bed with staff assistance. Oxycodone po prn given X2 at 0950 & 1425 for 8/10 pain, pt uses paper face pain scale. When pain better controlled pain 7/10. Pt has no facial grimacing, guarding, restlessness. Very sleepy today, arouses when name called outloud or with touch. Temp 100.4F orally this afternoon, pt given tylenol po prn around 1510.
--- NOTE | 2018-04-20 17:31 | OT.IP.EVAL ---
Current Diagnoses Type 2 diabetes mellitus without complications (04/18/18) Obesity, unspecified (04/18/18) Hyperlipidemia, unspecified (04/18/18) Obstructive sleep apnea (adult) (pediatric) (04/18/18) Unspecified right bundle-branch block (04/18/18) Gastro-esophageal reflux disease without esophagitis (04/18/18) Cough (04/18/18) Dyspnea, unspecified (04/18/18) Dysphagia, unspecified (04/18/18) Personal history of transient ischemic attack (TIA), and cerebral infarction without residual deficits (04/18/18) Arthrodesis status (04/18/18) Dependence on other enabling machines and devices (04/18/18) Surgery Performed Operation Date: 04/18/18 10:45 Actual Procedures p L3-4 Hemilaminectomy, L4-5 TLIF w/Posterior Instru.(Not Applicable) - Ed Quezada MD Past Medical History (Last Updated 04/12/18 @ 12:53 by Kenyatta Cherry RN) Arthritis (Acute) Chronic cough (Acute) Diabetes (Acute) Dysphagia (Acute) Dyspnea (Acute) First degree AV block (Acute) GERD (gastroesophageal reflux disease) (Acute) History of CVA (cerebrovascular accident) (Acute) Hyperlipidemia (Acute) Hypertension (Acute) Incomplete RBBB (Acute) Liver cyst (Acute) Low back pain (Acute) Non-cardiac chest pain (Acute) Normal echocardiogram (Acute ~10/2014) DONNA on CPAP (Acute) Obesity (Acute) Other spondylosis with radiculopathy, lumbar region (Acute) Raynauds disease (Acute) Sinus bradycardia (Acute) Spinal stenosis, lumbar region with neurogenic claudication (Acute) Spondylolisthesis, lumbar region (Acute) Stroke (Acute) Surgical History (Last Updated 04/12/18 @ 12:41 by Kenyatta Cherry RN) History of colonoscopy with polypectomy (Acute ~04/2017) Hx of cardiac cath (Acute ~11/2013) Occupational Therapy Inpatient Evaluation/Re-Eval M1 PT/OT-IP Prior Functional Status Start: 04/18/18 17:06 Freq: NEEDED Status: Active Protocol: Document 04/19/18 10:53 (Rec: 04/19/18 12:18 [id number]) Medical Review Prior Functional Status Medical History Reviewed Yes Communication Pt is Swedish Speaking. Grandson present to translate. No deficits noted. Mobility and Gait Previously very limited activity. Pt performs modified independent transfers . He performs squat-pivot transfers to manual wheelchair using no AD. Pt is modificed independent using manual wheelchair for all mobility. His Daughter or assist him with dressing and showering. He is modified indep for toileting. Prior Functional Level (Other details) Several recent falls are reported when pt performs transfers. 2 in the past month. Social History Household Members spouse Living Arrangements Apartment/Condo Number of Floors (Floors) One Floor Number of Stairs To Enter/Railing? no steps to enter. Home Environment Standard Height Toilet Tub/Shower Home Equipment Front Wheel Walker Four Wheel Walker Manual Wheelchair Power Wheelchair/Scooter Shower Seat with [facility] Bed Grab Bars In Shower Employment Status Retired Additional Social History Comment Pt has safety rails around toilet. M1 PT/OT-IP Prior Functional Status Start: 04/19/18 14:08 Freq: NEEDED Status: Active Protocol: Document 04/20/18 17:17 [facility] (Rec: 04/20/18 17:30 [facility] [id number]) Medical Review Prior Functional Status Medical History Reviewed Yes Communication Pt is Swedish Speaking. Grandson present to translate. No deficits noted. Mobility and Gait Previously very limited activity. Pt performs modified independent transfers . He performs squat-pivot transfers to manual wheelchair using no AD. Pt is modificed independent using manual wheelchair for all mobility. His Daughter or assist him with dressing and showering. He is modified indep for toileting. Prior Functional Level (Other details) Several recent falls are reported when pt performs transfers. 2 in the past month. Social History Household Members spouse Living Arrangements Apartment/Condo Number of Floors (Floors) One Floor Number of Stairs To Enter/Railing? no steps to enter. Home Environment Standard Height Toilet Tub/Shower Home Equipment Front Wheel Walker Four Wheel Walker Manual Wheelchair Power Wheelchair/Scooter Shower Seat with [facility] Bed Grab Bars In Shower Employment Status Retired Additional Social History Comment Pt has safety rails around toilet. M2 OT-IP Current Condition Start: 04/19/18 14:08 Freq: Status: Active Protocol: Document 04/20/18 17:17 [facility] (Rec: 04/20/18 17:30 [facility] [id number]) Occupational Therapy Current Condition Current Condition Evaluation Date 04/20/18 Treatment Diagnosis spinal stenosis Diagnosis Onset Date 04/18/18 Post Operative Precautions Lumbar Precautions Log Roll No Twisting Limit Bending Lifting Restriction of 10 lbs Gait Belt above Incisional Area Other Precautions fall risk M3 OT- IP Subjective and Pain Start: 04/19/18 14:08 Freq: Status: Active Protocol: Document 04/20/18 17:17 [facility] (Rec: 04/20/18 17:30 [facility] [id number]) OT- Subjective Occupational Therapy Visit Type Type Initial Evaluation Visit Start Time 10:08 Visit Stop Time 11:15 Notes Pt seen for split txt due to wanting to wait until pain medications working. Occupational Therapy Visit Comments Patient/Caregiver Goals Pt and family to had pt go to skilled rehab prior to going home. OT Pain Assessment Pain When Pain Assessed At Rest Pain Present Pain Present Pain Reported Location Back Intensity 8 Scale Used Numeric (1 - 10) M4 OT- IP ADL's Start: 04/19/18 14:08 Freq: Status: Active Protocol: Document 04/20/18 17:17 [facility] (Rec: 04/20/18 17:30 [facility] [id number]) OT ADL-Grooming General Evaluation Grooming Ability Maximum Assistance Comments OT Grooming Comments Pt not able to use wash cloth to wash his face and needing assist. OT ADL-Dressing General Eval Upper Body Dressing Ability Total Assistance Lower Body Dressing Ability Total Assistance Comments OT Dressing Comments Total assist at this time. OT ADL-Toileting General Evaluation Toileting Ability Total Assistance Comments OT Toileting Comments bed moura or urinal M6 OT- IP Functional Cognition Start: 04/19/18 14:08 Freq: Status: Active Protocol: Document 04/20/18 17:17 [facility] (Rec: 04/20/18 17:30 [facility] [id number]) Cognitive Factors Limiting Selfcare Function Cognitive Ability Level of Alertness Drowsy Patient Orientation Name Cognitive Comments Cognitive Assessment Comments Pt very drowsy and falling asleep during treatment session. Pt Swedish is first language. M7 OT- IP Mobility and Balance Start: 04/19/18 14:08 Freq: Status: Active Protocol: Document 04/20/18 17:17 [facility] (Rec: 04/20/18 17:30 [facility] [id number]) OT- Bed Mobility Assessment Rolling Type of Rolling Roll to Right Level of Assistance Maximum Assistance 2 Person Assistance Supine to Sit Supine to Sit Assist Total Assistance 2 Person Assistance Scooting Scooting to Edge of Bed Total Assistance 2 Person Assistance Scooting Up and Down in Bed Maximum Assistance 2 Person Assistance OT-Transfer Assessment Comments Mobility Comments Pt MODA/MAX A to sit at edge of bed and MAX Ax2 to Total A for all bed mobilty at this time nd only able to tolerate sitting at edge of bed. OT- Balance Assessment Sitting Balance and Reactions Static Sitting Balance Ability Poor Dynamic Sitting Balance Ability Poor Standing Balance and Reactions Static Standing Balance Ability Poor Dynamic Standing Balance Ability Poor M8 OT- IP Objective Assessments Start: 04/19/18 14:08 Freq: Status: Active Protocol: Document 04/20/18 17:17 [facility] (Rec: 04/20/18 17:30 [facility] [id number]) OT Gross Range of Motion Upper Extremity Range of Motion Assessment Bilaterally Impaired OT Strength Comments Strength Comments Not able to fully assess due to pt very sleepy. M9 OT- IP Assessment and Plan Start: 04/19/18 14:08 Freq: Status: Active Protocol: Document 04/20/18 17:17 [facility] (Rec: 04/20/18 17:30 [facility] [id number]) OT Summary Assessment and Plan Potential Rehabilitation Potential Fair Analytic Complexity at Evaluation Moderate Summary OT Impairments Pain Range of Motion Strength Balance Coordination Functional Cognition Functional Mobility Self-Feeding Grooming Dressing Toileting Bathing Toilet Transfers Shower Transfers Progress Towards Goals Slow Progress due to Pain Slow Progress due to Medical Issues Slow Progress due to Activity Tolerance Slow Progress due to Cognition Assessment Summary Pt MOd complexity due to pain, decreased ability to follow commands, needing extensive ASSIST FOR adL'S, and pt far from prior mobility as prior able to squat pivot to wc on his own and now needing extensive assist of 2 to sit. Pt will benefit from SNF prior to going home. Goals Self-Feeding Goal Standby Assistance Grooming Goal Standby Assistance Dressing Goal Moderate Assistance Toileting Goal Moderate Assistance Toilet Transfer Goal Moderate Assistance Patient/Caregiver Education Goal Caregiver Independent Assisting Patient Days to Meet Goals 10 Frequency of Treatment Frequency Of Treatment Once a Day Treatment Plan OT Treatment Plan ADL Training Functional Cognition Training Functional Mobility Patient/Family Education Discharge Planning Other Treatment Recommendations and Next Transfer to [facility] with MAX A X2. Treatment Focus Discharge Recommendations OT Discharge Recommendations SNF Rehab
[2018-04-20] MEDS: ROSUVASTATIN 10 MG TABLET 20 MG PO (18:44)
[2018-04-20] MEDS: INSULIN GLARGINE 100 UNIT/ML 3ML PEN 30 UNIT SUBCUT (20:57)
[2018-04-20] MEDS: SENNOSIDES 8.6 MG TABLET 17.2 MG PO (20:58)
--- NOTE | 2018-04-20 23:49 | PC.NURSE ---
1500- assumed care o0f pt and pt asleep with nc on .5 L. saturation 90-93%. bed alarm on, sdie rails upx3. PT in to assess and work with pt. pt bp still low. fluids infusing. Pt states Pee pee for urinal. Pt Swazi speaking. pt can cooperate with nursing assessment. Pt slept the whole shift. arouses to pressure to sternum. Pt opens eyes but very sleepy and could not keep eyes open for very long. Pt compliant with med passes shook head and waved hands for eye drops. non admin. Pt back on cpap half hour after med pass. Pt put on cpap around 5, refused dinner. offered soups and apple sauces but pt refused. nc 1-2 l placed when pt off cpap. faced washed. moisture damage to bottom/ yamilka gluteal folds. pt repositioned on pillow and zinc barrier cream applied. diaper applied. bed alarm on. will continue to monitor.
[2018-04-21] VITALS (13 sets, daily range): BP systolic 97–134; BP diastolic 55–71; PULSE 57–73; RESP 15–20; TEMP 36.6–37.4; O2SAT 92–98
[2018-04-21] MEDS: SODIUM CHLORIDE 0.9% 1,000 ML 100 ML IV (02:26)
--- NOTE | 2018-04-21 03:46 | PC.NURSE ---
Addendum entered by Christiane Dee R.N. 04/21/18 06:03: Patient has slept entire shift except for when needing to urinate and/or be repositioned. This morning sat is 97% on CPAP + 3L oxygen. FLACC score remains 0. Original Note: 0230 Patient is alert and oriented but Italian speaking so communicates via spot sprayer phone and/or gestures. Does seem to understand and will follow direction. Breath sounds diminished and respirations are shallow. At shift change O2 sat was noted to be at 88% with 2L + CPAP so O2 was increased to 3L/min and now when asleep sats are 92%. HRR. BT present; has not had BM since 04/17. Voiding per urinal but has also been incontinent tonight. Is not turning himself and has been mostly sleeping so will schedule repositioning q2h. Evening RN reports perianal area to be macerated, but unable to assess due to zinc oxide cream on area. No verbal/nonverbal indications of pain when being repositioned and falls asleep quickly after cares completed so FLACC score is 0. Wearing bilateral foot SCD's. Does report chronic tingling/numbness in all extremities. Fall risk score is high and bed alarm is activated.
[2018-04-21] MEDS: OXYCODONE IR 5 MG TABLET 10 MG PO (10:23)
[2018-04-21] MEDS: GABAPENTIN 600 MG TABLET PO ×3 (10:23→20:38)
[2018-04-21] MEDS: FINASTERIDE 5 MG TABLET PO (10:23)
[2018-04-21] MEDS: DOCUSATE 100 MG CAPSULE PO ×2 (10:23→20:38)
--- NOTE | 2018-04-21 11:32 | PM.PN.1 ---
Exam Vital Signs (past 8 hours): - 04/21/18 06:30 04/21/18 08:00 Temperature 97.8 F 97.8 F Pulse Rate 61 59 L Respiratory Rate 18 20 Blood Pressure 97/63 107/55 L Pulse Oximetry 98 93 Fraction of Inspired Oxygen 24 Oxygen Delivery Method Nasal Cannula Oxygen Flow Rate 3 Objective Labs Result Diagrams: 04/20/18 11:31 Labs: Laboratory Results - last 24 hr 04/20/18 11:31 WBC 5.8 RBC 3.78 L Hgb 11.8 L Hct 34.5 L MCV 91.2 MCH 31.3 MCHC 34.3 RDW 14.3 Plt Count 178 Neut % (Auto) 62.7 Lymph % (Auto) 23.9 L [place] % (Auto) 12.3 Eos % (Auto) 0.4 L Baso % (Auto) 0.7 Neut # (Auto) 3600 Assessment & Plan Plan: Assessment/Plan Narrative: Patient is POD#3 s/p lumbar fusion. Patient had minimum mobility training up to this point. On exam, his incision and dressing is clean and dry. He is neuro intact with 4/5 hip flexion and knee extension unchanged compare to prior to surgery. Patient will need additional mobility training and then placement to SNF vs rehab. Has not had BM, will give patient medication to facilitate. Quality VTE Deep Vein Thrombosis/Pulmonary Embolism Present on Admission: No
--- NOTE | 2018-04-21 11:35 | P.PN_ITS ---
Exam Vital Signs (past 8 hours): - 04/21/18 06:30 04/21/18 08:00 Temperature 97.8 F 97.8 F Pulse Rate 61 59 L Respiratory Rate 18 20 Blood Pressure 97/63 107/55 L Pulse Oximetry 98 93 Fraction of Inspired Oxygen 24 Oxygen Delivery Method Nasal Cannula Oxygen Flow Rate 3 Objective Labs Result Diagrams: 04/20/18 11:31 Labs: Laboratory Results - last 24 hr 04/20/18 11:31 WBC 5.8 RBC 3.78 L Hgb 11.8 L Hct 34.5 L MCV 91.2 MCH 31.3 MCHC 34.3 RDW 14.3 Plt Count 178 Neut % (Auto) 62.7 Lymph % (Auto) 23.9 L [place] % (Auto) 12.3 Eos % (Auto) 0.4 L Baso % (Auto) 0.7 Neut # (Auto) 3600 Assessment & Plan Plan: Assessment/Plan Narrative: Patient is POD#3 s/p lumbar fusion. Patient had minimum mobility training up to this point. On exam, his incision and dressing is clean and dry. He is neuro intact with 4/ 5 hip flexion and knee extension unchanged compare to prior to surgery. Patient will need additional mobility training and then placement to SNF vs rehab. Has not had BM, will give patient medication to facilitate. Quality VTE Deep Vein Thrombosis/Pulmonary Embolism Present on Admission: No
--- NOTE | 2018-04-21 12:36 | PT.IPTN ---
Addendum entered and electronically signed by Neli Zheng, EDGAR 04/21/18 12:36: Supine BP 102/57, sitting BP 127/75, sitting BP after initial sit<>stand 117/17 Original Note: Current Diagnoses Type 2 diabetes mellitus without complications (04/18/18) Obesity, unspecified (04/18/18) Hyperlipidemia, unspecified (04/18/18) Obstructive sleep apnea (adult) (pediatric) (04/18/18) Unspecified right bundle-branch block (04/18/18) Atelectasis (04/18/18) Gastro-esophageal reflux disease without esophagitis (04/18/18) Cough (04/18/18) Dyspnea, unspecified (04/18/18) Dysphagia, unspecified (04/18/18) Personal history of transient ischemic attack (TIA), and cerebral infarction without residual deficits (04/18/18) Arthrodesis status (04/18/18) Dependence on other enabling machines and devices (04/18/18) Surgery Performed Operation Date: 04/18/18 10:45 Actual Procedures p L3-4 Hemilaminectomy, L4-5 TLIF w/Posterior Instru.(Not Applicable) - Ed Quezada MD Physical Therapy Treatment Note M2 PT-IP Current Condition Start: 04/18/18 17:06 Freq: NEEDED Status: Active Protocol: Document 04/19/18 10:53 (Rec: 04/19/18 12:18 [id number]) Physical Therapy Current Condition Current Condition Evaluation Date 04/19/18 Treatment Diagnosis Lumbar laminectomy/fusion; impaired mobility Onset Date 04/18/18 Precautions Lumbar Precautions Log Roll No Twisting Limit Bending Lifting Restriction of 10 lbs Gait Belt above Incisional Area Other Precautions fall risk M3 PT-IP Subjective Start: 04/18/18 17:06 Freq: NEEDED Status: Active Protocol: Document 04/21/18 11:55 CLB (Rec: 04/21/18 12:36 CLB [id number]) Subjective Physical Therapy Visit Type Type Treatment Note Visit Start Time 11:55 Visit Stop Time 12:20 Total Visit Minutes 25 Number of SALES REPRESENTATIVE ELECTRIC SERVICE Visits 1 Physical Therapy Visit Comments Patient Comments pt agreeable to do PT. Daughter present to translate tx. Therapy Pain Assessment Pain When Pain Assessed At Rest Pain Present Pain Present Pain Reported Location Back Intensity 8 Scale Used Numeric (1 - 10) Pain Management Techniques Modification of Treatment Timing of Activity with Medications M4 PT-IP Mobility and Gait Start: 04/18/18 17:06 Freq: NEEDED Status: Active Protocol: Document 04/21/18 11:55 CLB (Rec: 04/21/18 12:36 CLB [id number]) PT-Bed Mobility Assessment Rolling Type of Rolling Log Rolling Level of Assist Minimal Assistance 2 Person Assistance Supine to Sit Supine to Sit Moderate Assistance 2 Person Assistance Head of Bed Elevated Bedrails Sit to Supine Sit to Supine Maximum Assistance 2 Person Assistance Scooting Scooting to Edge of Bed Moderate Assistance Scooting Up and Down in Bed Dependent PT-Transfer Assessment Sit to and From Stand Sit to and from Stand Minimal Assistance 2 Person Assistance Use of Upper Extremities Equipment Transfer Assistive Device Gait Belt Front Wheeled Walker Orthotic/Prosthetic Devices or Brace: No Comments Mobility Comments Pt more alert today requiring less assist with Max cues for sequencing all bed mobility. Pt able to perform sit<>stand x2 but unable to ambulate due to LE weakness and pain. M5 PT-IP Objective Assessments Start: 04/18/18 17:06 Freq: NEEDED Status: Active Protocol: Document 04/19/18 10:53 (Rec: 04/19/18 12:18 [id number]) Orientation Orientation/Cognition Level of Alertness Alert Orientation Name Age Birthday Month Date Year Day of Week Place Situation Safety Awareness Decreased Safety Awareness Comments Pt is Stateless speaking. Gross Range of Motion Lower Extremity ROM Assessment Within Functional Limits Strength Lower Extremity Strength Assessment Bilaterally Impaired Comments Strength Comments BLE 3+/5. Symetrical. Sensation Assessment Sensation Gross Sensation Right UE Impaired Left UE Impaired Right LE Impaired Left LE Impaired Light Touch Impaired Sensation Description Numbness Tingling Comments Sensation Comments Pt reports numbness and tingling in BUE. Reports B numbness in BLE. States sensation impairments are consistent with previous deficits due to prior health conditions (neck surgery and neuropathy) M6 PT-IP Treatment Start: 04/18/18 17:06 Freq: NEEDED Status: Active Protocol: Document 04/20/18 15:02 AB (Rec: 04/20/18 16:30 AB [id number]) Physical Therapy Treatment Education Education Provided Safety M7 PT-IP Assessment and Plan Start: 04/18/18 17:06 Freq: NEEDED Status: Active Protocol: Document 04/21/18 11:55 CLB (Rec: 04/21/18 12:36 CLB [id number]) PT Summary Assessment and Plan Potential Rehabilitation Potential Fair Summary Impairments Pain ROM Strength Balance Coordination Sensation Tone Cognition Bed Mobility Transfers Gait Activity Tolerance Progress Towards Goals Slow Progress due to Pain Slow Progress due to Medical Issues Slow Progress due to Activity Tolerance Assessment Summary Pt requiring less assist with all bed mobility and was able to perform sit<>stand x2 with Min A x2. Pt continues to require max cues for all mobility for proper sequencing for safety. Goals Bed Mobility Goal Minimal Assistance Transfer Goal Minimal Assistance Front Wheeled Walker Gait Goal Minimal Assistance Front Wheel Walker Gait Distance 10 Days to Meet Goals 5 Frequency of Treatment Frequency Of Treatment Twice a Day Treatment Plan Physical Therapy Treatment Plan Bed Mobility Training Transfer Training Gait Training Therapeutic Exercise Balance Retraining Post Op Education Discharge Planning Hot or Cold Pack Neuromuscular Re-ed Coordination Retraining Manual Therapy Other Recommendations and Next Treatment bed mobility, sit<>stand, Focus transfers and gait as able. Recommendations To Nursing Amount of Assist Needed Mechanical Lift Discharge Recommendations PT Discharge Recommendations SNF Rehab
[2018-04-21] MEDS: MAGNESIUM HYDROXIDE 30 ML UDC PO (14:39)
--- NOTE | 2018-04-21 16:28 | PT.IPTN ---
Current Diagnoses Type 2 diabetes mellitus without complications (04/18/18) Obesity, unspecified (04/18/18) Hyperlipidemia, unspecified (04/18/18) Obstructive sleep apnea (adult) (pediatric) (04/18/18) Unspecified right bundle-branch block (04/18/18) Atelectasis (04/18/18) Gastro-esophageal reflux disease without esophagitis (04/18/18) Cough (04/18/18) Dyspnea, unspecified (04/18/18) Dysphagia, unspecified (04/18/18) Personal history of transient ischemic attack (TIA), and cerebral infarction without residual deficits (04/18/18) Arthrodesis status (04/18/18) Dependence on other enabling machines and devices (04/18/18) Surgery Performed Operation Date: 04/18/18 10:45 Actual Procedures p L3-4 Hemilaminectomy, L4-5 TLIF w/Posterior Instru.(Not Applicable) - Ed Quezada MD Physical Therapy Treatment Note M2 PT-IP Current Condition Start: 04/18/18 17:06 Freq: NEEDED Status: Active Protocol: Document 04/21/18 16:28 RCC (Rec: 04/21/18 16:35 [facility] [id number]) Physical Therapy Current Condition Current Condition Evaluation Date 04/19/18 Treatment Diagnosis Lumbar laminectomy/fusion; impaired mobility Onset Date 04/18/18 Precautions Lumbar Precautions Log Roll No Twisting Limit Bending Lifting Restriction of 10 lbs Gait Belt above Incisional Area Other Precautions fall risk M3 PT-IP Subjective Start: 04/18/18 17:06 Freq: NEEDED Status: Active Protocol: Document 04/21/18 16:28 RCC (Rec: 04/21/18 16:35 [facility] [id number]) Subjective Physical Therapy Visit Type Type Treatment Note Visit Start Time 16:08 Visit Stop Time 16:28 Total Visit Minutes 20 Number of DENTAL BILLING SPECIALIST Visits 0 Physical Therapy Visit Comments Patient Comments pt initially reporting pain, not wanting to get up but was agreeable to mobilize. Therapy Pain Assessment Pain When Pain Assessed At Rest Pain Present Pain Present Pain Reported M4 PT-IP Mobility and Gait Start: 04/18/18 17:06 Freq: NEEDED Status: Active Protocol: Document 04/21/18 16:28 RCC (Rec: 04/21/18 16:35 [facility] [id number]) PT-Bed Mobility Assessment Rolling Type of Rolling Log Rolling Level of Assist Maximal Assistance 1 Person Assistance Supine to Sit Supine to Sit Maximum Assistance 1 Person Assistance Sit to Supine Sit to Supine Maximum Assistance 1 Person Assistance Scooting Scooting to Edge of Bed Moderate Assistance Scooting Up and Down in Bed Dependent PT-Transfer Assessment Sit to and From Stand Sit to and from Stand Minimal Assistance 2 Person Assistance Use of Upper Extremities Equipment Transfer Assistive Device Gait Belt Front Wheeled Walker Orthotic/Prosthetic Devices or Brace: No Transfers Transfer Destination Bed Comments Mobility Comments sit<->stand x3 at bedside; attempted to weight shift pt anterior and lateral to initiate gait, pt unwilling to mobilize (no gait reaction). Standing at bedside, performed max weight assist weigh shifting laterally. M5 PT-IP Objective Assessments Start: 04/18/18 17:06 Freq: NEEDED Status: Active Protocol: Document 04/19/18 10:53 (Rec: 04/19/18 12:18 [id number]) Orientation Orientation/Cognition Level of Alertness Alert Orientation Name Age Birthday Month Date Year Day of Week Place Situation Safety Awareness Decreased Safety Awareness Comments Pt is Malawian speaking. Gross Range of Motion Lower Extremity ROM Assessment Within Functional Limits Strength Lower Extremity Strength Assessment Bilaterally Impaired Comments Strength Comments BLE 3+/5. Symetrical. Sensation Assessment Sensation Gross Sensation Right UE Impaired Left UE Impaired Right LE Impaired Left LE Impaired Light Touch Impaired Sensation Description Numbness Tingling Comments Sensation Comments Pt reports numbness and tingling in BUE. Reports B numbness in BLE. States sensation impairments are consistent with previous deficits due to prior health conditions (neck surgery and neuropathy) M6 PT-IP Treatment Start: 04/18/18 17:06 Freq: NEEDED Status: Active Protocol: Document 04/20/18 15:02 AB (Rec: 04/20/18 16:30 AB [id number]) Physical Therapy Treatment Education Education Provided Safety M7 PT-IP Assessment and Plan Start: 04/18/18 17:06 Freq: NEEDED Status: Active Protocol: Document 04/21/18 16:28 RCC (Rec: 04/21/18 16:35 [facility] [id number]) PT Summary Assessment and Plan Summary Progress Towards Goals Slow Progress due to Pain Slow Progress due to Medical Issues Slow Progress due to Activity Tolerance Assessment Summary Pt able to perform sit<->stand x3, no gait reaction with max assist weight-shifting anterior and lateral offloading the opposite side. Pt will require further intervention with rehabilitation prior to returning home. Goals Bed Mobility Goal Minimal Assistance Transfer Goal Minimal Assistance Front Wheeled Walker Gait Goal Minimal Assistance Front Wheel Walker Gait Distance 10 Days to Meet Goals 5 Frequency of Treatment Frequency Of Treatment Twice a Day Treatment Plan Other Recommendations and Next Treatment log roll, attempt transfer and Focus gait if able Recommendations To Nursing Amount of Assist Needed Mechanical Lift Discharge Recommendations PT Discharge Recommendations SNF Rehab
[2018-04-21] MEDS: ROSUVASTATIN 10 MG TABLET 20 MG PO (20:38)
[2018-04-21] MEDS: SENNOSIDES 8.6 MG TABLET 17.2 MG PO (20:39)
[2018-04-21] MEDS: SODIUM CHLORIDE 0.9% FLUSH 10 ML IV (20:40)
[2018-04-21] MEDS: INSULIN GLARGINE 100 UNIT/ML 3ML PEN 30 UNIT SUBCUT (20:40)
[2018-04-21] MEDS: TEMAZEPAM 15 MG CAPSULE PO (20:52)
[2018-04-22 04:00] VITALS: BP 117/69; PULSE 55; RESP 18; TEMP 36.2; O2SAT 95
--- NOTE | 2018-04-22 06:07 | PC.NURSE ---
Slept most of the night, asked if he's pain said no. Will cont. POC & monitor.
[2018-04-22 07:25] VITALS: BP 105/58; PULSE 61; RESP 18; TEMP 36.7; O2SAT 97
[2018-04-22 09:38] VITALS: BP 101/52; PULSE 70
[2018-04-22] MEDS: CARVEDILOL 25 MG TABLET PO (09:38)
[2018-04-22] MEDS: AMLODIPINE 5 MG TABLET 10 MG PO (09:38)
[2018-04-22] MEDS: GABAPENTIN 600 MG TABLET PO (09:38)
[2018-04-22] MEDS: LISINOPRIL 20 MG TABLET PO (09:39)
[2018-04-22] MEDS: TIMOLOL 0.5% OPHTH 1 DROPS EYE-BOTH (09:39)
[2018-04-22] MEDS: DOXAZOSIN 4 MG TABLET PO (09:39)
[2018-04-22] MEDS: DOCUSATE 100 MG CAPSULE PO (09:40)
[2018-04-22] MEDS: FINASTERIDE 5 MG TABLET PO (09:40)
[2018-04-22] MEDS: SODIUM CHLORIDE 0.9% FLUSH 10 ML IV (09:41)
[2018-04-22] MEDS: OXYCODONE IR 5 MG TABLET 10 MG PO ×2 (09:44→13:46)
[2018-04-22] MEDS: MAGNESIUM HYDROXIDE 30 ML UDC PO (09:45)
[2018-04-22 11:01] VITALS: O2SAT 95; O2SAT 97
--- NOTE | 2018-04-22 11:59 | PM.DS.1 ---
History of Present Illness Date Patient Seen: 04/22/18 Time Patient Seen: 12:00 Chief complaint: [id number] Narrative: Patient has been having chronic back pain and worsening lumbar radiculopathy. Patient failed multiple conservative management with worsening pain weakness and numbness in her lower extremity. Patient has been having difficulty performing activity of daily living. After discussing risks benefits of treatment options, patient elected proceed with surgery. Discharge Providers Date of admission: 04/18/18 07:54 Primary care physician: Davy Bai MD Consults: 04/12/18 12:53 Consult to Anesthesiology Routine Comment: Review: Cardiac per Dr. Quezada Consulting Provider: Anesthesiologist Reason for consultation: Abnormal EKG, Diabetes, DONNA w/CPAP, Stroke Consult to Respiratory Therapy Evaluate & Treat Comment: DONNA w/CPAP, chronic cough, SOB Physician Instructions: Evaluate and treat 04/18/18 16:18 Consult to Occupational Therapy Evaluate & Treat Comment: Physician Instructions: Evaluate and treat Consult to Physical Therapy Evaluate & Treat Comment: Physician Instructions: Evaluate and Treat 04/18/18 16:27 Consult to Cotton Chopper Routine Comment: Discharge provider: Jihan Lo PA-C Discharge Date: 04/22/18 Summary Discharge Diagnosis: s/p lumbar fusion History of stroke Parkinsons Disease History of NM Hypertension Diabetes Coronary artery disease Arthritis Hospital Course: Karlos was admitted for lumbar fusion with Dr. Quezada, and he consented to procedure. Hospital course was remarkable for slow to mobilize with therapy. On POD #4 patient was ready for DC to [facility]. He was eating and voiding without difficulty or assistance. He was working with physical therapy. He is requiring a Javed lift for assistance. Calves are soft, compressible, nontender bilaterally. Exam Vital Signs (past 8 hours): - 04/22/18 04:00 04/22/18 07:25 04/22/18 09:38 Temperature 97.1 F L 98.1 F Pulse Rate 55 L 61 70 Respiratory Rate 18 18 Blood Pressure 117/69 105/58 L 101/52 L Pulse Oximetry 95 97 04/22/18 11:01 Temperature Pulse Rate Respiratory Rate Blood Pressure Pulse Oximetry 95 Fraction of Inspired Oxygen 24 Oxygen Delivery Method Room Air Oxygen Flow Rate 2 Narrative Exam Narrative: Patient is sitting in bedside chair no acute distress. Background Investigator phone utilized today. He is alert and oriented x3. He is able to actively dorsiflex and plantar flex. Calves are soft, compressible, nontender bilaterally. Pulses are symmetrical. Dressing on back is CDI. Patient states his pain is tolerable. No complaints of shortness of breath or chest pain. He was encouraged to use his incentive spirometer. Objective Labs Result Diagrams: 04/20/18 11:31 Discharge Plan Discharge Plan Patient Disposition: SNF Other facility: [facility] Under care of provider: Facility MD Transportation: Cabulance Consult as needed: Dental, Hearing, Mental health, Podiatry and Vision I certify the postop hospital half-way care is medically necessary on a continuing basis for any conditions for which he/ she received care during this hospitalization.: Yes The receiving facility has agreed to accept transfer and provide medical treatment.: Yes Discharge Med Rec/Prescriptions Prescriptions: New acetaminophen 325 mg Tablet 650 mg PO Q6HR PRN (Reason: Pain, Mild (1-3)) Qty: 30 RF: 0 temazepam 15 mg Capsule 15 mg PO BEDTIME PRN (Reason: Insomnia) Qty: 30 RF: 0 oxycodone 5 mg capsule 5 mg PO Q4-6H PRN (Reason: pain) Qty: 60 RF: 0 Continue carvedilol 25 mg Tablet 25 mg PO BID RF: 0 sennosides [Senokot] 8.6 mg Tablet 8.6 mg PO DAILY PRN (Reason: Constipation) RF: 0 polyethylene glycol 3350 17 gram Powder In Packet 17 g PO DAILY RF: 0 lisinopril 20 mg Tablet 20 mg PO BID RF: 0 aspirin 81 mg Tablet,Delayed Release (Dr/Ec) 81 mg PO DAILY RF: 0 hydrocortisone [Proctosol HC] 2.5 % Cream With Perineal Applicator 1 applic OK BID PRN (Reason: Hemorrhoids or Pain) RF: 0 amlodipine 10 mg Tablet 10 mg PO DAILY RF: 0 timolol 0.5 % Drops 1 drp EYE-BOTH BID RF: 0 ranitidine HCl 150 mg Tablet 150 mg PO BID RF: 0 gabapentin 300 mg Capsule 600 mg PO TID RF: 0 doxazosin 4 mg Tablet 4 mg PO DAILY RF: 0 albuterol sulfate [Ventolin HFA] 90 mcg/actuation Hfa Aerosol Inhaler 2 puff INHALATION Q4-6H PRN (Reason: wheezing, shortness of breath) RF: 0 clotrimazole 1 % Cream 1 applic TOPICAL DAILY RF: 0 finasteride 5 mg Tablet 5 mg PO DAILY RF: 0 moxifloxacin [Vigamox] 0.5 % Drops 1 drp EYE-BOTH BID RF: 0 rosuvastatin 20 mg Tablet 20 mg PO QPM RF: 0 lactulose 10 gram/15 mL Solution 10 g PO BID RF: 0 budesonide [Pulmicort Flexhaler] 90 mcg/actuation Aerosol Powdr Breath Activated 1 inh INHALATION BID RF: 0 insulin glargine [Basaglar KwikPen U-100 Insulin] 100 unit/mL (3 mL) Insulin Pen 30 unit SUBCUT DAILY RF: 0 diclofenac sodium 1 % Gel 2 g TOPICAL QID PRN (Reason: Pain) RF: 0 magnesium oxide 400 mg magnesium Tablet 800 mg PO BEDTIME RF: 0 Discontinued tramadol 50 mg Tablet 50 mg PO Q6H PRN (Reason: Pain) RF: 0 temazepam 15 mg Capsule 15 mg PO BEDTIME PRN (Reason: Insomnia) RF: 0 Follow up/Referrals: Ed Quezada MD [Physician] - (Follow up in 10-14 days with PAYoni) Discharge Health Status Brief summary of current health status: Patient recovering following lumbar spine fusion. Patient slow to mobilizing requiring javed lift. Multidrug resistant organism: No MDRO Provider Discharge Instructions Diet: Diet as Tolerated Liquid consistency: Normal/Thin Food texture: Regular Activity: No excessive bending, lifting, or twisting. Cold/Heat Therapy: as needed Skin/Wound/Dressing Care Report to your healthcare provider any signs of infection, such as:: chills, fever, increased pain and unusual drainage Dressing: Leave dressing in place until appointment at 10-14 days. Call office if becomes saturated. Special Rehabilitation Services Reason for rehabilitation: Post-operative therapy Rehab type: Physical therapy and Occupational therapy Visit Report/Discharge Packet Instructions: DI for Transforaminal Lumbar Interbody Fusion Discharge Data Primary Care Provider: Davy Bai Attending Provider: Ed Quezada Admit Date/Time: 04/18/18 07:54 Quality VTE Deep Vein Thrombosis/Pulmonary Embolism Present on Admission: No
--- NOTE | 2018-04-22 12:01 | OT.IP.TRT ---
Current Diagnoses Type 2 diabetes mellitus without complications (04/18/18) Obesity, unspecified (04/18/18) Hyperlipidemia, unspecified (04/18/18) Obstructive sleep apnea (adult) (pediatric) (04/18/18) Unspecified right bundle-branch block (04/18/18) Atelectasis (04/18/18) Gastro-esophageal reflux disease without esophagitis (04/18/18) Cough (04/18/18) Dyspnea, unspecified (04/18/18) Dysphagia, unspecified (04/18/18) Personal history of transient ischemic attack (TIA), and cerebral infarction without residual deficits (04/18/18) Arthrodesis status (04/18/18) Dependence on other enabling machines and devices (04/18/18) Surgery Performed Operation Date: 04/18/18 10:45 Actual Procedures p L3-4 Hemilaminectomy, L4-5 TLIF w/Posterior Instru.(Not Applicable) - Ed Quezada MD Occupational Therapy Treatment Note M2 OT-IP Current Condition Start: 04/19/18 14:08 Freq: Status: Active Protocol: Document 04/20/18 17:17 [facility] (Rec: 04/20/18 17:30 [facility] [id number]) Occupational Therapy Current Condition Current Condition Evaluation Date 04/20/18 Treatment Diagnosis spinal stenosis Diagnosis Onset Date 04/18/18 Post Operative Precautions Lumbar Precautions Log Roll No Twisting Limit Bending Lifting Restriction of 10 lbs Gait Belt above Incisional Area Other Precautions fall risk M3 OT- IP Subjective and Pain Start: 04/19/18 14:08 Freq: Status: Active Protocol: Document 04/22/18 11:44 [facility] (Rec: 04/22/18 11:58 [facility] [id number]) OT- Subjective Occupational Therapy Visit Type Type Treatment Note Visit Start Time 10:52 Visit Stop Time 11:32 Total Visit Minutes 40 Occupational Therapy Visit Comments Patient Comments Pt agreeable to get up and try to take some steps with FWW. Cotxt with Pt and family present to translate. OT Pain Assessment Pain When Pain Assessed At Rest Pain Present Pain Present Pain Reported M4 OT- IP ADL's Start: 04/19/18 14:08 Freq: Status: Active Protocol: Document 04/22/18 11:44 [facility] (Rec: 04/22/18 11:58 [facility] [id number]) OT ADL-Grooming General Evaluation Grooming Ability Minimal Assistance Areas Needing Assistance Retrieving/Set-up of Grooming Items Comments OT Grooming Comments Pt able to brush his mouth with set-up and needing RIGO for completeness for his hair as pt has decreased Ruslan for BUE. OT ADL-Oral Care General Eval Oral Care Ability Independent OT ADL-Dressing General Eval Lower Body Dressing Ability Total Assistance Areas Needing Assistance Socks OT ADL-Toileting General Evaluation Toileting Ability Total Assistance Areas Needing Assistance Manage Clothing Perform Perineal Hygiene Devices Toileting Assistive Devices Urinal Comments OT Toileting Comments Pt able to stand with FWW and MOD x1 and another person to help hold urinal in place and assist for hygiene needs. M6 OT- IP Functional Cognition Start: 04/19/18 14:08 Freq: Status: Active Protocol: Document 04/22/18 11:44 [facility] (Rec: 04/22/18 11:58 [id number] Cognitive Factors Limiting Selfcare Function Cognitive Ability Level of Alertness Alert Patient Orientation Name Place Situation Attention Span Ability Capable of Focused Attention Capable of Sustained Attention Ability to Follow Commands Able to Follow One Step Commands Able to Follow Multi-Step Commands Memory Description Immediate Intact Short Term Impaired Cognitive Comments Cognitive Assessment Comments PT able to make signs for pt for back precautions in Bur[place]ian. Pt able to follow mulitple comands after translation from family and very cooperative. M7 OT- IP Mobility and Balance Start: 04/19/18 14:08 Freq: Status: Active Protocol: Document 04/22/18 11:44 [facility] (Rec: 04/22/18 11:58 [id number] OT-Transfer Assessment Sit to and From Stand Sit to and from Stand Minimal Assistance Moderate Assistance 2 Person Assistance Transfers Transfer Ability Minimal Assistance Moderate Assistance 2 Person Assistance Technique Transfer Destination Bed Chair Transfer Technique Stand Step Pivot Devices Transfer Assistive Devices Gait Belt Front Wheeled Walker Comments Mobility Comments Pt able to come to stand from MOD x2 to RIGO x2 to FWW, PT noted slight buckling to LLE and needing cues to tighten his quads. In addition when up taking steps , vc to keep his feet apart. Pt much imporved today and per Pt cleared to transfer [facility] nursing now -2 person transfer only. OT- Balance Assessment Sitting Balance and Reactions Static Sitting Balance Ability Normal Dynamic Sitting Balance Ability Good Standing Balance and Reactions Static Standing Balance Ability Poor M8 OT- IP Objective Assessments Start: 04/19/18 14:08 Freq: Status: Active Protocol: Document 04/20/18 17:17 [facility] (Rec: 04/20/18 17:30 [facility] [id number]) OT Gross Range of Motion Upper Extremity Range of Motion Assessment Bilaterally Impaired OT Strength Comments Strength Comments Not able to fully assess due to pt very sleepy. M9 OT- IP Assessment and Plan Start: 04/19/18 14:08 Freq: Status: Active Protocol: Document 04/22/18 11:44 [facility] (Rec: 04/22/18 11:58 [facility] [id number]) OT Summary Assessment and Plan Potential Rehabilitation Potential Good Analytic Complexity at Evaluation Moderate Summary OT Impairments Pain Range of Motion Strength Balance Coordination Functional Cognition Functional Mobility Self-Feeding Grooming Dressing Toileting Bathing Toilet Transfers Shower Transfers Progress Towards Goals Progressing Toward Goals Slow Progress due to Pain Slow Progress due to Activity Tolerance Assessment Summary Pt making good gains with mobility today and able to take a few steps with FWW and RIGO to MODA x 2. Pt will benefit from skilled rehab to continue to work on increasing independence with Adl and functional mobility needs. Goals Dressing Goal Moderate Assistance Toileting Goal Moderate Assistance Toilet Transfer Goal Moderate Assistance Patient/Caregiver Education Goal Caregiver Independent Assisting Patient Days to Meet Goals 5 Frequency of Treatment Frequency Of Treatment Once a Day Treatment Plan OT Treatment Plan ADL Training Functional Cognition Training Functional Mobility Patient/Family Education Discharge Planning Other Treatment Recommendations and Next LB dressing with AED. Treatment Focus Discharge Recommendations OT Discharge Recommendations SNF Rehab
--- NOTE | 2018-04-22 12:15 | PT.IPTN ---
Current Diagnoses Type 2 diabetes mellitus without complications (04/18/18) Obesity, unspecified (04/18/18) Hyperlipidemia, unspecified (04/18/18) Obstructive sleep apnea (adult) (pediatric) (04/18/18) Unspecified right bundle-branch block (04/18/18) Atelectasis (04/18/18) Gastro-esophageal reflux disease without esophagitis (04/18/18) Cough (04/18/18) Dyspnea, unspecified (04/18/18) Dysphagia, unspecified (04/18/18) Personal history of transient ischemic attack (TIA), and cerebral infarction without residual deficits (04/18/18) Arthrodesis status (04/18/18) Dependence on other enabling machines and devices (04/18/18) Surgery Performed Operation Date: 04/18/18 10:45 Actual Procedures p L3-4 Hemilaminectomy, L4-5 TLIF w/Posterior Instru.(Not Applicable) - Ed Quezada MD Physical Therapy Treatment Note M2 PT-IP Current Condition Start: 04/18/18 17:06 Freq: NEEDED Status: Active Protocol: Document 04/21/18 16:28 [facility] (Rec: 04/21/18 16:35 [facility] [id number]) Physical Therapy Current Condition Current Condition Evaluation Date 04/19/18 Treatment Diagnosis Lumbar laminectomy/fusion; impaired mobility Onset Date 04/18/18 Precautions Lumbar Precautions Log Roll No Twisting Limit Bending Lifting Restriction of 10 lbs Gait Belt above Incisional Area Other Precautions fall risk M3 PT-IP Subjective Start: 04/18/18 17:06 Freq: NEEDED Status: Active Protocol: Document 04/22/18 11:00 (Rec: 04/22/18 12:15 [id number]) Subjective Physical Therapy Visit Type Type Treatment Note Visit Start Time 11:00 Visit Stop Time 11:45 Total Visit Minutes 45 Notes Pt agreeable to mobilized with PT with family members at bedside. KEITH Diego reports pt was transferred to bedside chair with nury lift this morning due to pt's c/o pain. He sat in the chair since 9am this morning. Pt has not been amb yet. Physical Therapy Visit Comments Patient Comments Pt's family is able to translate today. Pt has pain 8/10 at his back but he is willing to try to walk today. Therapy Pain Assessment Pain When Pain Assessed At Rest Pain Present Pain Present Pain Reported Location Back Intensity 8 Scale Used Numeric (1 - 10) Description Acute Pain Management Techniques Re-positioning Timing of Activity with Medications M4 PT-IP Mobility and Gait Start: 04/18/18 17:06 Freq: NEEDED Status: Active Protocol: Document 04/22/18 11:00 [facility] (Rec: 04/22/18 12:15 [id number]) PT-Bed Mobility Assessment Scooting Scooting to Edge of Bed Contact Guard Assistance Minimal Assistance PT-Transfer Assessment Sit to and From Stand Sit to and from Stand Minimal Assistance Moderate Assistance Use of Upper Extremities Equipment Transfer Assistive Device Gait Belt Front Wheeled Walker Transfers Transfer Destination Bed Chair Toilet Transfer Technique Stand Step Pivot Transfer Ability Level of Assist Minimal Assistance Moderate Assistance Comments Mobility Comments sitting BP 102/63 HR 68 SpO2 95% post transfer BP 107/63 HR 95 SpO2 95% Pt was in his chair upon assessment. Pt scoot himself with min A for lateral shift to edge of chair. He then sit to stand with mod A x 2p for the first 3 trails and stand step pivot to EOB. Pt presents slight L knee buckling during transfer. Pt then transferred between EOB and bedside chair x 4 times with min to mod A. He requires cues to faciltiate L knee extension and maintain upright position. He then sit to stand x 3with min A FWW. Gait Assessment Gait Gait Assistance Required: Minimum Assistance Distance (Feet) 5 Assistive Devices Assistive Device Gait Belt Front Wheeled Walker Gait Deviations General Gait Pattern Antalgic Decreased Stride Length Decreased Feet Clearance Step-to Gait Factors Limiting Gait Function Factors Limiting Gait Function Decreased Activity Tolerance Decreased Strength Limited Range of Motion Pain Poor Balance Poor Safety Awareness Comments Gait Comments Pt amb from bedside commode to the sink with min A FWW x 1p followed with chair. Pt demonstrates decreased feet clearance, stride length and L antalgic gait due to pain. Pt demonstrates slight L knee buckling during transfer and amb and require cues to facilitate L knee quad contraction and maintain upright position. Pt also extensively uses his B UE to help in WB. PT-Balance Assessment Sitting Balance and Reactions Static Sitting Balance Ability Normal Dynamic Sitting Balance Ability Good Standing Balance and Reactions Static Standing Balance Ability Good Dynamic Standing Balance Ability Fair M5 PT-IP Objective Assessments Start: 04/18/18 17:06 Freq: NEEDED Status: Active Protocol: Document 04/19/18 10:53 (Rec: 04/19/18 12:18 [id number]) Orientation Orientation/Cognition Level of Alertness Alert Orientation Name Age Birthday Month Date Year Day of Week Place Situation Safety Awareness Decreased Safety Awareness Comments Pt is Mosotho speaking. Gross Range of Motion Lower Extremity ROM Assessment Within Functional Limits Strength Lower Extremity Strength Assessment Bilaterally Impaired Comments Strength Comments BLE 3+/5. Symetrical. Sensation Assessment Sensation Gross Sensation Right UE Impaired Left UE Impaired Right LE Impaired Left LE Impaired Light Touch Impaired Sensation Description Numbness Tingling Comments Sensation Comments Pt reports numbness and tingling in BUE. Reports B numbness in BLE. States sensation impairments are consistent with previous deficits due to prior health conditions (neck surgery and neuropathy) M6 PT-IP Treatment Start: 04/18/18 17:06 Freq: NEEDED Status: Active Protocol: Document 04/22/18 11:00 [facility] (Rec: 04/22/18 12:15 [id number]) Physical Therapy Treatment Exercises Exercises Quad Sets Other Treatments Other Treatment Performed standing L quad set Bilateral standing weight shift. M7 PT-IP Assessment and Plan Start: 04/18/18 17:06 Freq: NEEDED Status: Active Protocol: Document 04/22/18 11:00 [facility] (Rec: 04/22/18 12:15 [id number]) PT Summary Assessment and Plan Potential Rehabilitation Potential Good Status of Condition at Evaluation Evolving Summary Impairments Pain ROM Strength Balance Bed Mobility Transfers Gait Activity Tolerance Progress Towards Goals Slow Progress due to Pain Slow Progress due to Medical Issues Slow Progress due to Activity Tolerance Slow Progress - Other Assessment Summary Pt demonstrates significant improvements in overall functional mobility and strength today: increased amb distance, decreased assistance needed for transfer and improved B LE motor control. Pt is able to sit to stand with min/ mod A x 1/2p today followed by amb 5 feet with 1p min A. Pt reports his pain went down from 8 to 6 after amb. Pt was also given translated low back precaution handout today. Pt's family reports pt will be transferred to SNF in [place] for further whose son is a PT there that could also speak Mosotho. Communicated with KEITH Diego regarding pt's current assistance needed for transfer and amb. Recommend 2p mod A for OOB activity. Goals Bed Mobility Goal Contact Guard Assistance Transfer Goal Contact Guard Assistance Gait Goal Contact Guard Assistance Gait Distance 20 Other Goals commode transfer CGA Days to Meet Goals 3 Frequency of Treatment Frequency Of Treatment Twice a Day Treatment Plan Physical Therapy Treatment Plan Bed Mobility Training Transfer Training Gait Training Therapeutic Exercise Balance Retraining Post Op Education Discharge Planning Hot or Cold Pack Other Recommendations and Next Treatment sit to stand, stand pivot Focus transfer, bed mob Recommendations To Nursing Amount of Assist Needed 2 Person Assist Discharge Recommendations PT Discharge Recommendations SNF Rehab
--- NOTE | 2018-04-22 12:40 | CM.DPC ---
DCP Cont: Discussed patient with Luda Calix, [facility] [employer] [employer]. She is wanting to discharge patient today. Called [facility] and spoke to Sol in admissions. Stated that they received referral, wanted to discuss case with family member, Malcolm, before accepting, for she wants to be sure that there will be a discharge plan after he is in rehab. Sol called back from [facility]. Stated that after reviewing case with Malcolm, can accept patient today. Went ahead and faxed over signed med list and PASSR. Called S transport to set up transportation, as recommended by physical therapist. Set up for transport at 2:00. Updated nurse, Antony, [facility] P: [facility] is to be discharged today to [facility] in [place] via ambulance. Emelyn Gomez RN/Plan Examiner
--- NOTE | 2018-04-22 14:11 | PC.NURSE ---
Addendum entered by Johnathon Goff R.N. 04/22/18 14:39: Called report to nurse Sharp at [facility]. Original Note: 1345- Changed back dsg per SARINA from [facility]. Removed old dsg and replaced with clean opsite. Incisions are well approximated without drainage, swelling, redness. Pt tolerated well. Removed IV with cath tip intact. 1412- Pt transferred to stretcher 2PA MAX assist with FWW, gait belt. Left in no acute distress with BLS routine to transport to [facility]. All belongings gathered and sent with pt. Ambulance staff took paperwork packet.
== END 2018-04-22 14:12 | DRG 454 ==
PROVIDERS: Physician Assistant Medical; Admitting Provider Orthopaedic Surgery Orthopaedic Surgery of the Spine; PCP Family Medicine; Visit Provider Orthopaedic Surgery Orthopaedic Surgery of the Spine
PROC: 0SG00AJ Fusion of Lumbar Vertebral Joint with Interbody Fusion Device, Posterior Approach, Anterior Column, Open Approach (ICD-10-PCS; principal; 2018-04-18 10:45)
DX: M48.062 Spinal stenosis, lumbar region with neurogenic claudication (principal); J98.11 Atelectasis; M43.16 Spondylolisthesis, lumbar region; M47.26 Other spondylosis with radiculopathy, lumbar region; G20 Parkinson's disease; E11.9 Type 2 diabetes mellitus without complications; I10 Essential (primary) hypertension; I25.10 Atherosclerotic heart disease of native coronary artery without angina pectoris; G47.33 Obstructive sleep apnea (adult) (pediatric); E66.9 Obesity, unspecified; Z68.32 Body mass index [BMI] 32.0-32.9, adult; E78.5 Hyperlipidemia, unspecified; I44.39 Other atrioventricular block; Z79.4 Long term (current) use of insulin
CPT/HCPCS: 36415; 71045; 72100; 76001; 82962; 85014; 85018; 85025; 94760; 94762; 97116; 97163; 97166; 97530; 97535; C1776; C9290; J0131; J0330; J0690; J1100; J1170; J2405; J2704; J3010

== ENCOUNTER 2018-08-21 06:24 | Inpatient (IN) | payer MEDICARE, MEDICAID, SELFPAY ==
[2018-04-18 16:17] VITALS: BMI 32.4
[2018-08-19 10:51] VITALS: BMI 33.3
[2018-08-21] VITALS (18 sets, daily range): BP systolic 115–145; BP diastolic 50–82; PULSE 58–91; RESP 10–18; TEMP 36.3–37.4; O2SAT 94–100; BMI 33.3
--- NOTE | 2018-08-21 | DI.RAD.S_ITS ---
PROCEDURE: XR LUMBAR SPINE 2-3V INDICATIONS: L 3-4 TLIF TECHNIQUE: 2 views of the lumbar spine were acquired. COMPARISON: [facility], CR, XR LUMBAR SPINE 2-3V, 04/18/2018, 11:54. FINDINGS: Bones: Prior L4-5 fusion procedure. The current examination shows extension of fusion to now include L3-L5, with interbody cage disc prostheses devices and vertical fixation rods bilaterally. Soft tissues: Overlying bowel gas pattern is normal. No suspicious soft tissue calcifications. IMPRESSION: Normal alignment established after extension of lumbosacral spine fusion to now include the area from L3-L5 contiguously. Prior L4-L5 fusion have been performed. Dictated by: Ed Kennedy M.D. on 08/21/2018 at 13:09 Approved by: Ed Kennedy M.D. on 08/21/2018 at 13:11
[2018-08-21] MEDS: LACTATED RINGERS 1,000 ML 42 ML IV (07:30)
--- NOTE | 2018-08-21 07:58 | SUR.PREOP ---
PT SPEAKS NO LUXEMBOURGER, SPEAKS SOLOMON ISLANDER, HIS DAUGHTER KAREN IS INTERPRETING FOR HIM, PT IS VAGUE ON MANY HEALTH ISSUES AT TIME OF ASSESSMENT.
[2018-08-21] MEDS: CEFAZOLIN 2 GM/100 ML FROZ.PIGGY IV ×2 (09:22→16:54)
[2018-08-21] MEDS: BUPIVACAINE 0.25% W/ EPI 30 ML VIAL INJ (10:01)
[2018-08-21] MEDS: BUPIVACAINE LIPOSOME 266 MG/20 ML VIAL INJ (10:01)
[2018-08-21] MEDS: ACETAMINOPHEN IV 1,000 MG/100 ML VIAL 400 MG IV (11:40)
--- NOTE | 2018-08-21 12:32 | PM.OP.1 ---
Operative Date/Time/Diagnoses Date of procedure: 08/21/18 Time of procedure: 09:10 Pre-op diagnosis: 1. Hx of L4-5 fusion with hardware loosening 2. L2-3, L3-4, L4-5 spinal stenosis 3. Lumbar spondylosis with radiculopathy 4. Neurogenic claudication Post-op diagnosis: same Procedure & Clinicians Procedure: 1. L3-4 posterolateral and posterior interbody fusion 2. L3-4 posterior interbody cage placement 3. L4-5 posterior non-segmental instrumentation removal 4. L4-5 revision laminectomy with exploration of fusion 5. L3-4, L4-5 posterior segmental instrumentation with pedicle screw placement 6. L4-5 posterolatearl fusion 7. [place] of bone marrow from iliac crest through a separate incision 8. Utilization of microsurgical technique and operating microscope Same procedure as scheduled: Yes Indications: Patient has been having chronic back pain and worsening lumbar radiculopathy. Patient underwent L4-5 lumbar fusion with good improved strength in his legs initially. Patient had multiple falls over the last 6 weeks and worsening mobility. Repeat CT lumbar spine with myelogram shows worsened spinal stenosis. Patient failed multiple conservative management with worsening pain weakness and numbness in her lower extremity. Patient has been having difficulty performing activity of daily living. After discussing risks benefits of treatment options, patient elected proceed with surgery. Surgeon: Ed Quezada Mercerizing Range Controller: Moon Wright Click Yes if Unassisted: No Anesthesia Type: General Operative Notes Closure Type: primary Prosthetic devices, grafts, tissues, transplants, or devices: Globus revolve screws, Rise cage Applied: catheter Estimated Blood Loss (mL): 50 Blood products transfused: none Procedure in detail: Patient was seen in the preoperative area. Risks and benefits of the surgery was discussed with the patient. Informed consent was obtained from the patient and placed in the chart. Surgical site was marked. Patient was taken to the operative room. General anesthesia was administered. Prophylactic antibiotic was given to the patient less than 30 min before the incision was made. Patient was placed into a prone position on the Adolfo table. Patient's back was then prepped and draped in the sterile fashion. Time-out was performed at this time. Using patient's previous scar incision was made over the L2-3, L3-4 L4-5 interval on the right side. Fascia was incised in line with skin incision. Patient's previously placed hardware over the L4-5 level was identified by dissecting down to the level the hardware using a Bovie and a Pete. The locking caps which was removed using globus screwdriver. The locking johann was then removed from the tulips of the pedicle screws using a Vignesh. The pedicle screws were then removed using the screwdriver. The screws were found to have good purchase at L4 and loose at L5 bilaterally. The Globus and MARS retractors was then placed into the wound and docked onto the L2 and L3 lamina using C-arm guidance. Using microsurgical technique and operating microscope a laminectomy facetectomy was performed by removing the L2, L3 lamina and the L3-4 facet for decompression purposes. The disc space at L3-4 level was identified next. And a total diskectomy was performed at L3-4 level. The endplates were decorticated using a rasp and shaver. The total diskectomy and decortication was performed at L3-4 level in order to to accomplish a L3-4 fusion. The local bone from the laminectomy and facetectomy was saved for local bone grafting. After the total diskectomy and decortication was completed, Bio4 bone graft material was combined with local bone that was harvested earlier. At this time, a separate skin is incision was made over the iliac crest. A Jamshidi needle was inserted into the iliac crest through a separate skin incision. 5 cc of bone marrow aspiration was obtained through the separate skin incision using a Jamshidi needle from the iliac crest. The bone marrow aspiration was combined with local bone and the Bio4 bone grafting material. The bone grafting material was placed into the L3-4 interbody space along with a expandable cage. The cage was expanded to its maximum height using the torque limiting screwdriver. At this time a mirror image incision was made on the left side. The fascia was incised in line with the skin incision. Patient's previously placed hardware on the left side was then removed in the same fashion as it was on the right side. The hardware was also found to have good purchase. The fusion mass on the left side was exposed by performing a left-sided hemilaminectomy at L4-5 level. The hemilaminectomy was performed using the Kerrison rongeur to undercut the lamina as well removing additional epidural scar tissue for purpose of decompressing the epidural space. The fusion mass was explored and was found have visible motion indicating pseudoarthrosis. Globus MARS retractor was inserted and docked onto the L3-4 L4-5 posterolateral gutter. Using the power drill, posterior-lateral decortication was performed at L3-4 L4-5 level until bleeding cortical bone was identified. The remaining bone grafting material was placed into the L3-4 L4-5 posterior lateral gutter he order to accomplish posterolateral fusion at the L3-4 L4-5 level. Using the double C-arm technique, pedicle screws were placed into the L3, L4 and L5 pedicles bilaterally. This was done by placing the Jamshidi needle into the pedicles, then placing the guidewires over the Jamshidi needle, and finally placing the cannulated screws over the guidewires bilaterally. After the pedicle screws were placed, 2 titanium rods was locked into the heads of the pedicle screws using locking caps and torque limiting screwdriver. After all the hardware was placed, and confirmed with AP and lateral C-arm imaging, the wound was then irrigated with sterile normal saline and packed with Ray-Kimber gauze for 3 min to accomplish hemostasis. After the gauze was removed the deep fascia was closed with #1 Vicryl suture. The subcutaneous layer was closed with 2-0 Vicryl. The skin was closed with skin lina. Patient tolerated the procedure well. There were no complications. Complications: none Condition: stable Disposition: PACU Plan for aftercare: Admit to inpatient hospital
[2018-08-21] MEDS: fentaNYL 100 MCG/2 ML INJ 50 MCG IV ×2 (12:45→12:55)
[2018-08-21] MEDS: SODIUM CHLORIDE 0.9% 1,000 ML 100 ML IV (14:17)
[2018-08-21] MEDS: OXYCODONE IR 5 MG TABLET 10 MG PO ×2 (14:29→18:25)
[2018-08-21] MEDS: GABAPENTIN 600 MG TABLET PO ×2 (14:33→20:40)
--- NOTE | 2018-08-21 14:53 | PC.NURSE ---
POST OP ARRIVAL - 1345, dtr and spouse at bedside, 2l 94%, p 88, own cpap at bedside, thru dtr interpretation can state pain 8 on scale 0/10, barrier dsg back cdi, footie scd on, denies nausea and marlon cran juice in pacu, ramachandran w/cl yellow urine, able to move his fingers and wiggle toes on command and denies numbness, ns@ 100/hr started, given 10mg po oxycodone for discomfort.
--- NOTE | 2018-08-21 16:46 | PT.IPTN ---
Current Diagnoses Other spondylosis with radiculopathy, lumbar region (08/21/18) Spinal stenosis, lumbar region without neurogenic claudication (08/21/18) Arthrodesis status (08/21/18) Surgery Performed Operation Date: 08/21/18 08:45 Actual Procedures p L4-5 HWR, L3-4 TLIF, L2-3 Laminectomy, L3-4,L4-5 PSF w/Instru.(Not Applicable) - Ed Quezada MD Physical Therapy Treatment Note M3 PT-IP Subjective Start: 08/21/18 16:45 Freq: NEEDED Status: Active Protocol: Document 08/21/18 16:45 AB (Rec: 08/21/18 16:46 AB [id number]) Subjective Physical Therapy Visit Type Notes checked on pt and pt refused PT eval at this time but agreed to do it tomorrow. will f/u.
[2018-08-21] MEDS: ROSUVASTATIN 10 MG TABLET 20 MG PO (16:54)
[2018-08-21] MEDS: DOXAZOSIN 4 MG TABLET PO (20:38)
[2018-08-21] MEDS: CARVEDILOL 25 MG TABLET PO (20:39)
[2018-08-21] MEDS: AMLODIPINE 5 MG TABLET 10 MG PO (20:39)
[2018-08-21] MEDS: LISINOPRIL 20 MG TABLET PO (20:39)
[2018-08-21] MEDS: TEMAZEPAM 15 MG CAPSULE PO (20:40)
[2018-08-21] MEDS: DOCUSATE 100 MG CAPSULE PO (20:40)
[2018-08-21] MEDS: SENNOSIDES 8.6 MG TABLET 17.2 MG PO (20:41)
[2018-08-21] MEDS: LACTULOSE 20 GM/30 ML SOLUTION 10 GM PO (20:41)
[2018-08-22] VITALS (9 sets, daily range): BP systolic 77–119; BP diastolic 42–71; PULSE 59–100; RESP 13–20; TEMP 36–38.3; O2SAT 91–99
[2018-08-22] MEDS: SODIUM CHLORIDE 0.9% 1,000 ML 100 ML IV ×3 (01:05→19:54)
[2018-08-22] MEDS: CEFAZOLIN 2 GM/100 ML FROZ.PIGGY IV (01:06)
[2018-08-22] MEDS: OXYCODONE IR 5 MG TABLET 10 MG PO ×2 (01:11→09:15)
[2018-08-22] MEDS: ACETAMINOPHEN 325 MG TABLET 650 MG PO ×3 (01:11→21:03)
[2018-08-22] MEDS: HYDROMORPHONE 0.5 MG INJ IV (05:22)
[2018-08-22 06:04] LABS: Hematocrit 40.8 % (41-53); Hemoglobin 13.2 g/dL (13.5-17.5)
--- NOTE | 2018-08-22 06:49 | PC.NURSE ---
Addendum entered by Payal Grady R.N. 08/22/18 07:30: Spoke in person with the orthopedic PA Sharyn regarding pt's BP of 70/46. Pt remains alert and otherwise asymptomatic. H&H labs stable, BG stable at 125. Dressing to surgical site on lower back remains C/D/I. Pt is in no distress. [facility] acknowledged findings. Original Note: Call put in for Dr. Ashley answering service regarding pt's BP. Waiting for call back. yard coordinator informed. Pt alert and otherwise asymptomatic.
[2018-08-22] MEDS: SODIUM CHLORIDE 0.9% 500 ML 1000 ML IV (09:09)
[2018-08-22] MEDS: DOCUSATE 100 MG CAPSULE PO ×2 (09:10→21:02)
[2018-08-22] MEDS: GABAPENTIN 600 MG TABLET PO ×2 (09:11→14:40)
[2018-08-22] MEDS: CLOTRIMAZOLE 1% CRM 30 GM 1 APPLIC TOP (09:11)
[2018-08-22] MEDS: FINASTERIDE 5 MG TABLET PO (09:11)
--- NOTE | 2018-08-22 09:58 | P.PN_ITS ---
Subjective Date Patient Seen: 08/22/18 Time Patient Seen: 09:56 Interval history: Hospital day 2, postop day 1 following L4-5 hardware removal; L3-4, L4-5 TLIF, cage, posterior screw fixation by Dr. Quezada. Patient has remained stable postoperatively. Has had some low blood pressures in the 70/40 range he has not been out of bed since surgery. no physical therapy yet. Has been taking oxycodone 10 mg and occasional Dilaudid IV. H&H stable this morning. Patient is Malaysian speaking with limited Mozambican. He does not have any family members present at this time. Exam Vital Signs (past 8 hours): - 08/22/18 05:52 08/22/18 06:33 08/22/18 07:45 Temperature 96.8 F L 100.0 F H Pulse Rate 68 79 Respiratory Rate 16 13 Blood Pressure 77/44 L 80/42 L 89/52 L Pulse Oximetry 92 91 92 Oxygen Delivery Method Nasal Cannula Oxygen Flow Rate 0 Narrative Exam Narrative: Patient is alert and responsive appearing in no acute distress lying in bed. back. Dressing to lumbar area is dry. legs. No calf pain or swelling. Pulses symmetrical. Objective Labs Result Diagrams: 08/22/18 05:30 Labs: Laboratory Results - last 24 hr 08/22/18 05:30 Hgb 13.2 L Hct 40.8 L Assessment & Plan Post-op Postoperative Procedures Operation Date: 08/21/18 08:45 Actual Procedures Side Surgeon p L4-5 HWR, L3-4 TLIF, L2-3 Laminectomy, L3-4,L4-5 PSF w/Instru. Not Applicable Ed Quezada MD Plan: We will give patient a bolus of 500 mL NS. Observe for improvement in blood pressure. He will begin working with PT today. will DC IV Dilaudid and try to use only p.o. medication. Anticipate discharge home in the next 1-2 days if stable.
--- NOTE | 2018-08-22 10:53 | PC.NURSE ---
Addendum entered by Adrienne Gayle R.N. 08/22/18 14:10: PAIN - when dtr [place] and spouse arrived, questioned pt regarding pain, he does have back discomfort, pt did not want to eat today because he was fearful of having stool incont in bed, discussed bed moura, commode, pads and provided reassurance to pt and family that we would provide care with personal hygiene and we encourage pt to take po, while family here pt did marlon soup from home and 1/2 sandwich. Pain mgt discussed with family and they said pt does become lightheaded with narcotics, after meal, pt positioned for comfort and quickly fell asleep. Original Note: AM NOTE - pt awakens easily, at shift changed report of earlier decr bp and rechecked now, bp 70's/40's, hr reg 70, speech is limited, able respond to some questions, skin moist, temp 100 this am, spoke to Goran DUNN and a 500ml NS bolus completed, pt was repositioned, back dsg cdi, bs are coarse, ra 96%, states he has pain, holding up 6 fingers, signed onto interpreter translator service and asked questions regarding discomfort, back, side and lower abd area, asked if pt needed bm, states yes but when pt in to mobilize to bsc, pt declined, bed exercises performed, with assistance, phys therapy sat up dangle, pt would lean to side and unable to remain upright on his own, due to continued bps 70's - 80's/40's did not keep pt up, returned to comfortable position, RT in and pt was able to demonstrate use IS to approx 1000 with RT, footie scd's removed, small puncture site plantar aspect foot cleaned and replaced with bandaid, footies replaced, ramachandran w/paula urine, discussed bp with PA and will continue ns at 100'hr at this time, pt refused food but did drink a clear ensure and water, cbg 122 this am, given 10mg po oxycodone.
--- NOTE | 2018-08-22 11:16 | PT.IIE ---
Current Diagnoses Other spondylosis with radiculopathy, lumbar region (08/21/18) Spinal stenosis, lumbar region without neurogenic claudication (08/21/18) Arthrodesis status (08/21/18) Surgery Performed Operation Date: 08/21/18 08:45 Actual Procedures p L4-5 HWR, L3-4 TLIF, L2-3 Laminectomy, L3-4,L4-5 PSF w/Instru.(Not Applicable) - Ed Quezada MD Surgical History (Last Updated 08/19/18 @ 11:23 by Brigette Camacho RN) Hx of hernia repair (Acute) Hx of shoulder surgery (Acute) S/P cervical spinal fusion (Acute) History of colonoscopy with polypectomy (Acute ~04/2017) Hx of cardiac cath (Acute ~11/2013) S/P lumbar fusion (Acute 04/18/18) Medical History (Last Updated 08/19/18 @ 11:23 by Brigette Camacho RN) Adrenal gland cyst (Acute) Arthritis (Acute) Chronic cough (Acute) Diabetes (Acute) Dysphagia (Acute) Dyspnea (Acute) First degree AV block (Acute) GERD (gastroesophageal reflux disease) (Acute) History of CVA (cerebrovascular accident) (Acute) Hyperlipidemia (Acute) Hypertension (Acute) Incomplete RBBB (Acute) Liver cyst (Acute) Low back pain (Acute) Non-cardiac chest pain (Acute) Normal echocardiogram (Acute ~10/2014) DONNA on CPAP (Acute) Obesity (Acute) Other spondylosis with radiculopathy, lumbar region (Acute) Raynauds disease (Acute) Sinus bradycardia (Acute) Spinal stenosis, lumbar region with neurogenic claudication (Acute) Spondylolisthesis, lumbar region (Acute) Stroke (Acute) Physical Therapy Inpatient Evaluation/Re-Eval M1 PT/OT-IP Prior Functional Status Start: 08/21/18 16:45 Freq: NEEDED Status: Active Protocol: Document 08/22/18 09:45 (Rec: 08/22/18 11:16 [email or web address]) Medical Review Prior Functional Status Medical History Reviewed Yes Diet/Fluid Consistency Regular Communication Pt is Singaporean Speaking. Daughter did not present to translate upon assessment. No deficits noted. Mobility and Gait Per EMR from previous admission for his first back surgery in , Previously very limited activity. Pt performs modified independent transfers . He performs squat-pivot transfers to manual wheelchair using no AD. Pt is modificed independent using manual wheelchair for all mobility. His Daughter or assist him with dressing and showering. He is modified indep for toileting. However, pt has been mostly w/c bound over the last 2 months due to worsening back pain. [ End ] Activities of Daily Living and IADL's Dtr and assist most ADLs and all IADLS. Prior Functional Level (Other details) Pt reports bilateral low lweg numbness/ tingling and lower extremity instability/ weakness and spasms, which has caused severel recent falls. Social History Household Members spouse Living Arrangements Apartment/Condo Number of Floors (Floors) One Floor Number of Stairs To Enter/Railing? No SYBIL Home Environment Standard Height Toilet Tub/Shower Home Equipment Front Wheel Walker Four Wheel Walker Manual Wheelchair Power Wheelchair/Scooter Raised Toilet Seat w/Armrests Hospital Bed Grab Bars In Shower Employment Status Retired Additional Social History Comment Pt has safety rails around toilet. Per H&P, pt had L4-L5 HWR, L3-4 TLIF, L2-3 laminectomy, L3-5 PSF with instrumentation with . He is 4 months status post L3-4 hemilaminectomy, L4-5 TLIF done on 04/18/2018. He reports mild LBP and signfiicant persisting lower extremity pain. He also reports bilateral low leg numbeness/ tingling and lower extremity instability /weakness and spasms, which has casuses several recent falls. He reports that lately his legs are completely numb and make standing very difficult. He is nearly W/C bound due to right leg pain and weakness over the last 2 months. M2 PT-IP Current Condition Start: 08/21/18 16:45 Freq: NEEDED Status: Active Protocol: Document 08/22/18 09:45 (Rec: 08/22/18 11:16 [email or web address]) Physical Therapy Current Condition Current Condition Evaluation Date 08/21/18 Treatment Diagnosis L4-L5 HWR, L3-4 TLIF, L2-3 laminectomy, L3-5 PSF, impaired mobility Onset Date 08/21/18 Precautions Lumbar Precautions Log Roll No Twisting Limit Bending Lifting Restriction of 10 lbs Gait Belt above Incisional Area Weight Bearing Status Weight Bearing Status Weight Bear as Tolerated M3 PT-IP Subjective Start: 08/21/18 16:45 Freq: NEEDED Status: Active Protocol: Document 08/22/18 09:45 (Rec: 08/22/18 11:16 [email or web address]) Subjective Physical Therapy Visit Type Type Initial Evaluation Visit Start Time 09:45 Visit Stop Time 10:20 Total Visit Minutes 35 Notes Per RN Adrienne, pt has been c/o lower abdominal pain since AM possibly due to BM. Requested to assist pt to use BSC. Pt also has hypotension around 70s/40s since this AM. Number of VETERINARY TOXICOLOGIST Visits 0 Physical Therapy Visit Comments Patient Comments Pt states he has pain at low back area, lower abdominal and B distal LEs. Patient Goals unable to assess due to pt is danish speaking. Will reassess when dtr presents Therapy Pain Assessment Pain When Pain Assessed During Mobility Pain Present Pain Present Pain Reported Location Back Intensity 7 Scale Used Tonja (Faces) Description Acute Pain Behaviors Facial Grimacing Pain Management Techniques Modification of Treatment Re-positioning Timing of Activity with Medications M4 PT-IP Mobility and Gait Start: 08/21/18 16:45 Freq: NEEDED Status: Active Protocol: Document 08/22/18 09:45 (Rec: 08/22/18 11:16 [email or web address]) PT-Bed Mobility Assessment Rolling Type of Rolling Bilateral Level of Assist Maximal Assistance 2 Person Assistance Supine to Sit Supine to Sit Total Assistance 2 Person Assistance Bedrails Sit to Supine Sit to Supine Total Assistance 2 Person Assistance Bedrails PT-Transfer Assessment Comments Mobility Comments Pt is in elevated bed with BP at 77/46 HR 66 supine with BP 78/44 HR 74 sitting EOB with BP 82/46 HR 77 Pt is able to wiggle his toes and mobilize his ankles but limited movement with knees and hips. Pt has significant weakness with supine leg press . He required max A x 2 for rolling to side and max A x 3 for supine to sit. Pt has poor trunk control and sitting balance at this point and needed B UE for support on bed / bedrails. Pt also tends to lean towards his L side. Did not attempt transfer/ sit to stand due to weakness. Pt also denies his need for BM. Gait Assessment Comments Gait Comments unable to assess Stair Climbing Assessment Comments Stair Climbing Comments unable to assess PT-Balance Assessment Sitting Balance and Reactions Static Sitting Balance Ability Fair Dynamic Sitting Balance Ability Poor M5 PT-IP Objective Assessments Start: 08/21/18 16:45 Freq: NEEDED Status: Active Protocol: Document 08/22/18 09:45 HH (Rec: 08/22/18 11:16 [email or web address]) Orientation Orientation/Cognition Level of Alertness Alert Comments unable to assess due to language barrier. Will reassess when dtr is present Gross Range of Motion Upper Extremity ROM Assessment Within Functional Limits Lower Extremity ROM Assessment Bilaterally Impaired Strength Upper Extremity Strength Assessment Within Functional Limits Lower Extremity Strength Assessment Bilaterally Impaired Comments Strength Comments 3- to 3 /5 for B LEs strength Coordination Assessment Assessment Coordination Comments unable to assess due to language barrier. Will reassess when dtr is present Sensation Assessment Comments Sensation Comments unable to assess due to language barrier. Will reassess when dtr is present M6 PT-IP Treatment Start: 08/21/18 16:45 Freq: NEEDED Status: Active Protocol: Document 08/22/18 09:45 HH (Rec: 08/22/18 11:16 [email or web address]) Physical Therapy Treatment Exercises Exercises Quad Sets M7 PT-IP Assessment and Plan Start: 08/21/18 16:45 Freq: NEEDED Status: Active Protocol: Document 08/22/18 09:45 (Rec: 08/22/18 11:16 [email or web address]) PT Summary Assessment and Plan Potential Rehabilitation Potential Fair Status of Condition at Evaluation Evolving Summary Impairments Pain ROM Strength Balance Bed Mobility Transfers Gait Activity Tolerance Assessment Summary Pt is high complexity who required max A x 2/3 pa for bed mobility and nury lift for transfer at this point. Pt shows significant weakness grossly and currently has asymptomatic hypotension at 70s/40s. His BP elevates slightly after supine to sit but he was unable to transfer/ sit<>stand due to weakness and poor trunk control. Pt also c/o pain at low back, lower abdominal and B distal LEs by pointing at those areas . Although pt was mostly w/c bound prior to surgery, he is still far from baseline at this point who needs extensive assistance even for bed mobility. Pt will need cont assessment and to obtain more information regarding pt's recent PLOF from his dtr once she is present. Pt will need SNF care for his extensive medical/ mobility need at this point. Goals Bed Mobility Goal Minimal Assistance Transfer Goal Minimal Assistance Front Wheeled Walker Gait Goal Minimal Assistance Front Wheel Walker Gait Distance 10 Other Goals w/c / chair/ toilet transfer with min A Days to Meet Goals 10 Frequency of Treatment Frequency Of Treatment Twice a Day Treatment Plan Physical Therapy Treatment Plan Bed Mobility Training Transfer Training Gait Training Therapeutic Exercise Balance Retraining Post Op Education Discharge Planning Hot or Cold Pack Other Recommendations and Next Treatment attempt to see pt when his dtr Focus is here. Reassess pt's sensation, cognition, strength, VSS bed mob, transfer as marlon with 2/3 persons Recommendations To Nursing Amount of Assist Needed Mechanical Lift Discharge Recommendations PT Discharge Recommendations SNF Rehab Other Discharge Recommendations Although pt was mostly w/c bound prior to surgery, he is still far from baseline at this point who needs extensive assistance even for bed mobility. Pt will need cont assessment and to obtain more information regarding pt's recent PLOF from his dtr once she is present. Pt will need SNF care for his extensive medical/ mobility need at this point.
[2018-08-22] MEDS: LACTULOSE 20 GM/30 ML SOLUTION 10 GM PO ×2 (11:56→21:01)
[2018-08-22] MEDS: POLYETHYLENE GLYCOL 3350 17 GM POWD.PACK PO (11:57)
--- NOTE | 2018-08-22 16:03 | CM.DPNOTE ---
Faxed [facility] today per pt's family request. Jane at [facility] states pt has been accepted for admission earliest being Sunday if pt is DC. [facility] P# [phone] F# [phone] Following closely for coordination of safe DCP. Transportation TBD. TRINA Pardo
--- NOTE | 2018-08-22 16:07 | PT.IPTN ---
Current Diagnoses Other spondylosis with radiculopathy, lumbar region (08/21/18) Spinal stenosis, lumbar region without neurogenic claudication (08/21/18) Arthrodesis status (08/21/18) Surgery Performed Operation Date: 08/21/18 08:45 Actual Procedures p L4-5 HWR, L3-4 TLIF, L2-3 Laminectomy, L3-4,L4-5 PSF w/Instru.(Not Applicable) - Ed Quezada MD Physical Therapy Treatment Note M2 PT-IP Current Condition Start: 08/21/18 16:45 Freq: NEEDED Status: Active Protocol: Document 08/22/18 09:45 HH (Rec: 08/22/18 11:16 [email or web address]) Physical Therapy Current Condition Current Condition Evaluation Date 08/21/18 Treatment Diagnosis L4-L5 HWR, L3-4 TLIF, L2-3 laminectomy, L3-5 PSF, impaired mobility Onset Date 08/21/18 Precautions Lumbar Precautions Log Roll No Twisting Limit Bending Lifting Restriction of 10 lbs Gait Belt above Incisional Area Weight Bearing Status Weight Bearing Status Weight Bear as Tolerated M3 PT-IP Subjective Start: 08/21/18 16:45 Freq: NEEDED Status: Active Protocol: Document 08/22/18 16:04 SA (Rec: 08/22/18 16:07 SA [id number]) Subjective Physical Therapy Visit Type Type Patient Refusal Notes Pt sleeping, unable to arouse. Daughter/ present 12-1 most days, attempt to treat then as pt responds better when they are here and is Malian speaking only. M4 PT-IP Mobility and Gait Start: 08/21/18 16:45 Freq: NEEDED Status: Active Protocol: Document 08/22/18 09:45 HH (Rec: 08/22/18 11:16 [email or web address]) PT-Bed Mobility Assessment Rolling Type of Rolling Bilateral Level of Assist Maximal Assistance 2 Person Assistance Supine to Sit Supine to Sit Total Assistance 2 Person Assistance Bedrails Sit to Supine Sit to Supine Total Assistance 2 Person Assistance Bedrails PT-Transfer Assessment Comments Mobility Comments Pt is in elevated bed with BP at 77/46 HR 66 supine with BP 78/44 HR 74 sitting EOB with BP 82/46 HR 77 Pt is able to wiggle his toes and mobilize his ankles but limited movement with knees and hips. Pt has significant weakness with supine leg press . He required max A x 2 for rolling to side and max A x 3 for supine to sit. Pt has poor trunk control and sitting balance at this point and needed B UE for support on bed / bedrails. Pt also tends to lean towards his L side. Did not attempt transfer/ sit to stand due to weakness. Pt also denies his need for BM. Gait Assessment Comments Gait Comments unable to assess Stair Climbing Assessment Comments Stair Climbing Comments unable to assess PT-Balance Assessment Sitting Balance and Reactions Static Sitting Balance Ability Fair Dynamic Sitting Balance Ability Poor M5 PT-IP Objective Assessments Start: 08/21/18 16:45 Freq: NEEDED Status: Active Protocol: Document 08/22/18 09:45 (Rec: 08/22/18 11:16 [email or web address]) Orientation Orientation/Cognition Level of Alertness Alert Comments unable to assess due to language barrier. Will reassess when dtr is present Gross Range of Motion Upper Extremity ROM Assessment Within Functional Limits Lower Extremity ROM Assessment Bilaterally Impaired Strength Upper Extremity Strength Assessment Within Functional Limits Lower Extremity Strength Assessment Bilaterally Impaired Comments Strength Comments 3- to 3 /5 for B LEs strength Coordination Assessment Assessment Coordination Comments unable to assess due to language barrier. Will reassess when dtr is present Sensation Assessment Comments Sensation Comments unable to assess due to language barrier. Will reassess when dtr is present M6 PT-IP Treatment Start: 08/21/18 16:45 Freq: NEEDED Status: Active Protocol: Document 08/22/18 09:45 (Rec: 08/22/18 11:16 [email or web address]) Physical Therapy Treatment Exercises Exercises Quad Sets M7 PT-IP Assessment and Plan Start: 08/21/18 16:45 Freq: NEEDED Status: Active Protocol: Document 08/22/18 09:45 (Rec: 08/22/18 11:16 [email or web address]) PT Summary Assessment and Plan Potential Rehabilitation Potential Fair Status of Condition at Evaluation Evolving Summary Impairments Pain ROM Strength Balance Bed Mobility Transfers Gait Activity Tolerance Assessment Summary Pt is high complexity who required max A x 2/3 pa for bed mobility and nury lift for transfer at this point. Pt shows significant weakness grossly and currently has asymptomatic hypotension aat 70s/40s. His BP elevates slightly after supine to sit but he was unable to transfer/ sit<>stand due to weakness and poor trunk control. Pt also c/o pain at low back, lower abdominal and B distal LEs by pointing at those areas . Although pt was mostly w/c bound prior to surgery, he is still far from baseline at this point who needs extensive assistance even for bed mobility. Pt will need cont assessment and to obtain more information regarding pt's recent PLOF from his dtr once she is present. Pt will need SNF care for his extensive medical/ mobility need at this point. Goals Bed Mobility Goal Minimal Assistance Transfer Goal Minimal Assistance Front Wheeled Walker Gait Goal Minimal Assistance Front Wheel Walker Gait Distance 10 Other Goals w/c / chair/ toilet transfer with min A Days to Meet Goals 10 Frequency of Treatment Frequency Of Treatment Twice a Day Treatment Plan Physical Therapy Treatment Plan Bed Mobility Training Transfer Training Gait Training Therapeutic Exercise Balance Retraining Post Op Education Discharge Planning Hot or Cold Pack Other Recommendations and Next Treatment attempt to see pt when his dtr Focus is here. Reassess pt's sensation, cognition, strength, VSS bed mob, transfer as marlon with 2/3 persons Recommendations To Nursing Amount of Assist Needed Mechanical Lift Discharge Recommendations PT Discharge Recommendations SNF Rehab Other Discharge Recommendations Although pt was mostly w/c bound prior to surgery, he is still far from baseline at this point who needs extensive assistance even for bed mobility. Pt will need cont assessment and to obtain more information regarding pt's recent PLOF from his dtr once she is present. Pt will need SNF care for his extensive medical/ mobility need at this point.
--- NOTE | 2018-08-22 16:13 | OT.IP.TRT ---
Current Diagnoses Other spondylosis with radiculopathy, lumbar region (08/21/18) Spinal stenosis, lumbar region without neurogenic claudication (08/21/18) Arthrodesis status (08/21/18) Surgery Performed Operation Date: 08/21/18 08:45 Actual Procedures p L4-5 HWR, L3-4 TLIF, L2-3 Laminectomy, L3-4,L4-5 PSF w/Instru.(Not Applicable) - Ed Quezada MD Occupational Therapy Treatment Note M3 OT- IP Subjective and Pain Start: 08/22/18 16:08 Freq: Status: Active Protocol: Document 08/22/18 16:08 [facility] (Rec: 08/22/18 16:13 [facility] [id number]) OT- Subjective Occupational Therapy Visit Type Type Patient Unavailable Notes Pt still having low BP earlier when checked on and nurse requesting OT/REGIONAL BRANCH MANAGER to come back later. When checking on pt again,hard to arouse, and falling back asleep. To check on pt tomorrow when family present as pt a Hungarian speaking.
[2018-08-22] MEDS: ROSUVASTATIN 10 MG TABLET 20 MG PO (17:13)
[2018-08-22] MEDS: ALBUTEROL HFA 60 PUFF/8 GM INH INH (17:52)
[2018-08-22] MEDS: BUDESONIDE 60 PUFF/DEVICE INHALER INH (17:54)
[2018-08-22] MEDS: MAGNESIUM OXIDE 400 MG TABLET 800 MG PO (21:01)
[2018-08-22] MEDS: SENNOSIDES 8.6 MG TABLET 17.2 MG PO (21:02)
[2018-08-22] MEDS: INSULIN GLARGINE 100 UNIT/ML 3ML PEN 38 UNIT SUBCUT (21:04)
[2018-08-23] VITALS (30 sets, daily range): BP systolic 67–146; BP diastolic 42–78; PULSE 57–90; RESP 12–24; TEMP 36.9–39.6; O2SAT 90–99
--- NOTE | 2018-08-23 | DI.RAD.S_ITS ---
PROCEDURE: XR CHEST 1V INDICATIONS: r/o atelectasis, pneumonia TECHNIQUE: One view of the chest was acquired. COMPARISON: [facility], CR, XR CHEST 1V, 04/20/2018, 10:01. FINDINGS: Surgical changes and devices: Cervical fusion hardware is present. Lungs and pleura: Moderate air space opacity within the right lung base. Mild airspace opacity within the left medial lung base. No pleural effusions or pneumothorax. Mediastinum: Mediastinal contours appear normal. Heart size is normal. Bones and chest wall: No suspicious bony lesions. Overlying soft tissues appear unremarkable. IMPRESSION: Bibasilar pneumonia. Continued plain film surveillance is recommended to ensure resolution, and to exclude underlying or central malignancy. Dictated by: Ector Mckeon M.D. on 08/23/2018 at 8:36 Approved by: Ector Mckeon M.D. on 08/23/2018 at 8:36
[2018-08-23] MEDS: OXYCODONE IR 5 MG TABLET 10 MG PO (00:41)
[2018-08-23] MEDS: SODIUM CHLORIDE 0.9% 1,000 ML 100 ML IV ×2 (06:16→14:08)
[2018-08-23] MEDS: BUDESONIDE 60 PUFF/DEVICE INHALER INH ×2 (07:40→17:52)
[2018-08-23] MEDS: ACETAMINOPHEN 325 MG TABLET 650 MG PO ×2 (07:51→17:49)
[2018-08-23 08:17] LABS: Appearance Urine UA SL CLOUDY; Bilirubin Urine UA NEGATIVE (NEGATIVE); Color Urine UA YELLOW; Glucose Urine UA NEGATIVE (Negative); Ketones Urine UA NEGATIVE (NEGATIVE); Leukocyte Esterase Urine UA TRACE (NEGATIVE); Nitrite Urine UA NEGATIVE (Negative); Occult Blood Urine UA 1+ (Negative); Protein Urine UA TRACE (Negative); Urobilinogen Urine UA 0.2 E.U./dL (0.2)
[2018-08-23 08:28] LABS: Add Manual Diff / Slide Review NO; Basophils Absolute Auto 0 /uL (0-100); Basophils Percent Auto 0.4 % (0-2); Eosinophils Absolute Auto 0 /uL (0-450); Hematocrit 37.3 % (41-53); Hemoglobin 12.2 g/dL (13.5-17.5); Lymphocytes Absolute Auto 600 /uL (1100-4500); Lymphocytes Percent Auto 6.1 % (25-40); Mean Corpuscular HGB Conc 32.6 % (30-36); Mean Corpuscular Hemoglobin 29.4 PG (26-34); Mean Corpuscular Volume 90.2 fL (80-100); Monocytes Absolute Auto 400 /uL (0-900); Monocytes Percent Auto 4.6 % (3-14); Neutrophils Absolute Auto 8500 /uL (1500-7000); Neutrophils Percent Auto 88.9 % (50-75); Platelet Count 162 X10^3/uL (150-400); Red Blood Cell Count 4.14 X10^6/uL (4.5-5.9); Red Cell Distribution Width 14.4 % (11.6-14.8); White Blood Cell Count 9.6 X10^3/uL (4.5-11.0)
[2018-08-23 08:28] LABS: RBC Urine 1-5/HPF (0-5/HPF); WBC Urine 0-1/HPF (0-5/HPF)
[2018-08-23 08:29] LABS: Bacteria Urine Many (>30); Culture Indicated Urine Specimen Cultured
[2018-08-23 08:41] LABS: Blood Urea Nitrogen 17 mg/dL (9-20); Calcium 8.1 mg/dL (8.4-10.2); Carbon Dioxide 23 mmol/L (22-32); Chloride 106 mmol/L (98-107); Estimated Glomerular Filt Rate > 60.0 mL/min (>60); Glucose 86 mg/dL (80-110); HEMOLYSIS 34 (0-50); Potassium 3.7 mmol/L (3.4-5.1); Sodium 138 mmol/L (137-145)
--- NOTE | 2018-08-23 08:55 | P.PN_ITS ---
Subjective Date Patient Seen: 08/23/18 Interval history: Patient is seen bedside status post L4-5 HWR, L3-4 TLIF, L2-3 Laminectomy, L3-4,L4-[address] Quezada on 08/21/18. It is postop day 2. Patient has not been very mobile and hypotension yesterday. He was bolused yesterday and has fluids running 100 mL/hour today. This morning he had a T-max of 103?. He is also mildly hypotensive. His blood pressure medications were held this morning. Patient was essentially wheelchair-bound prior to surgery and is difficult to mobilize now. He has been having some anorexia as well. No chest pain, no nausea/vomiting. Exam Vital Signs (past 8 hours): - 08/23/18 00:20 08/23/18 05:13 Temperature 98.7 F 98.4 F Pulse Rate 58 L 86 Respiratory Rate 20 24 Blood Pressure 90/46 L 107/49 L Pulse Oximetry 99 95 Oxygen Delivery Method Nasal Cannula Oxygen Flow Rate 2 Narrative Exam Narrative: Well-developed well-nourished. Patient is flushed and alert. He speaks Burkinan. Incisions on lumbar spine are clean dry and intact. Sahu is in place. He has diminished breath sounds bilateral bases but no wheezes, crackles heard. Calves are soft and compressible. No focal deficits noted. Objective Labs Result Diagrams: 08/23/18 08:20 08/23/18 08:20 Assessment & Plan Post-op Postoperative Procedures Operation Date: 08/21/18 08:45 Actual Procedures Side Surgeon p L4-5 HWR, L3-4 TLIF, L2-3 Laminectomy, L3-4,L4-5 PSF w/Instru. Not Applicable Ed Quezada MD 1. Postop day 2. Status post above procedure-attempt to ambulate with therapy but be mindful of blood pressure. Continue fluids. He has been accepted to [facility], but discharge is dependent on medical stabilization. 2. Fever of unknown origin-chest x-ray as well as UA ordered to rule out atelectasis, pneumonia, UTI. Will consult hospitalist team for management this. Dispo-pending medical stabilization. Quality VTE Deep Vein Thrombosis/Pulmonary Embolism Present on Admission: No
[2018-08-23] MEDS: CLOTRIMAZOLE 1% CRM 30 GM 1 APPLIC TOP (09:04)
[2018-08-23] MEDS: TIMOLOL 0.5% OPHTH 1 DROPS EYE-BOTH ×2 (09:04→21:01)
[2018-08-23] MEDS: CEFTRIAXONE 2 GM/50 ML FROZ.PIGGY IV (09:04)
[2018-08-23 09:14] LABS: Procalcitonin 5.58 ng/mL (<0.5)
[2018-08-23] MEDS: LACTULOSE 20 GM/30 ML SOLUTION 10 GM PO ×2 (09:18→21:00)
[2018-08-23] MEDS: DOCUSATE 100 MG CAPSULE PO ×2 (09:18→20:56)
[2018-08-23] MEDS: POLYETHYLENE GLYCOL 3350 17 GM POWD.PACK PO (09:19)
[2018-08-23] MEDS: FINASTERIDE 5 MG TABLET PO (09:19)
[2018-08-23] MEDS: OXYCODONE IR 5 MG TABLET 2.5 MG PO (10:10)
[2018-08-23] MEDS: HYDROMORPHONE 0.5 MG INJ IV ×2 (10:52→12:10)
[2018-08-23] MEDS: SODIUM CHLORIDE 0.9% 1,000 ML 1000 ML IV (11:05)
--- NOTE | 2018-08-23 11:28 | PT.IPTN ---
Current Diagnoses Other spondylosis with radiculopathy, lumbar region (08/21/18) Spinal stenosis, lumbar region without neurogenic claudication (08/21/18) Arthrodesis status (08/21/18) Surgery Performed Operation Date: 08/21/18 08:45 Actual Procedures p L4-5 HWR, L3-4 TLIF, L2-3 Laminectomy, L3-4,L4-5 PSF w/Instru.(Not Applicable) - Ed Quezada MD Physical Therapy Treatment Note M2 PT-IP Current Condition Start: 08/21/18 16:45 Freq: NEEDED Status: Active Protocol: Document 08/22/18 09:45 HH (Rec: 08/22/18 11:16 HH [id number]) Physical Therapy Current Condition Current Condition Evaluation Date 08/21/18 Treatment Diagnosis L4-L5 HWR, L3-4 TLIF, L2-3 laminectomy, L3-5 PSF, impaired mobility Onset Date 08/21/18 Precautions Lumbar Precautions Log Roll No Twisting Limit Bending Lifting Restriction of 10 lbs Gait Belt above Incisional Area Weight Bearing Status Weight Bearing Status Weight Bear as Tolerated M3 PT-IP Subjective Start: 08/21/18 16:45 Freq: NEEDED Status: Active Protocol: Document 08/23/18 10:30 HH (Rec: 08/23/18 11:28 HH [id number]) Subjective Physical Therapy Visit Type Type Administrative Note Visit Start Time 10:30 Notes Per RN, Patient has not been very mobile and hypotension yesterday. He was bolused yesterday and has fluids running 100 mL/hour today. This morning he had a T-max of 103?. He is also mildly hypotensive. Pt's and dtr at bedside assisted for info of pt's PLOF. In the meantime, pt begins to appear in distress with new onset of abrupt resting tremors on BLEs , c/o cold, lips turning purple-cody. Pt's O2 also began to desat from 95% to 67% within minutre with HR elevated from 90s to 200s (may not be accurate due to tremors). Nursing and medical team were notified and staff emergency was activated. On hold for PT at this point due to unstable medical condition. Will consult with nursing before PT this pm.
[2018-08-23] MEDS: PIPERACILLIN-TAZO 3.375 GM/50 ML FROZ.PIGGY IV ×2 (11:44→17:54)
--- NOTE | 2018-08-23 12:10 | PC.NURSE ---
AM NOTE - at bedside report, noted pt to be flushed and diaphoretic, breathing labored, spoke to Felicitas DUNN and stat orders done cxr and ua from madie, given 650mg tylenol with water thru straw, pt was thirsty, repositioned, bs dim throughout, 02 sat 2L 93%, discussed pain mgt and narcotic reduced, PA consulted hospitalist and IV abx started, bp 90'2/40's, hr 80, at temp recheck, pt developed shaking chills, when it appeared that his lips were dusky a rapid response called, 02 incr 4L as sat decr mid 80's, pt dtr had been called earlier am to notify her that pt appeared to have post op complications and she left [facility] and arrived approx 1030, in a rapid response and stat orders were started, a stat order of 0.5mg iv dilaudid was admininstered, pt bp decr to 67/42, 67/52, as iv r hand had been compromised after turning, DI came up and a midline was placed with pt in trendelenburg position, subsequent bps 85/49, 87/[address] Bustos req placement of his cpap, pt could not tolerate and he did have 02 at 4L to maintain sat 94-95% while iv restarted, NS at 100ml/hr was updated to new order and a fluid bolus of NS started and new abx started, stat troponin ordered, pt was trsf to icu.
[2018-08-23 12:18] LABS: Creatine Kinase 435 U/L (55-170)
--- NOTE | 2018-08-23 12:22 | OT.IP.TRT ---
Current Diagnoses Other spondylosis with radiculopathy, lumbar region (08/21/18) Spinal stenosis, lumbar region without neurogenic claudication (08/21/18) Arthrodesis status (08/21/18) Surgery Performed Operation Date: 08/21/18 08:45 Actual Procedures p L4-5 HWR, L3-4 TLIF, L2-3 Laminectomy, L3-4,L4-5 PSF w/Instru.(Not Applicable) - Ed Quezada MD Occupational Therapy Treatment Note M3 OT- IP Subjective and Pain Start: 08/22/18 16:08 Freq: Status: Active Protocol: Document 08/23/18 12:19 [facility] (Rec: 08/23/18 12:22 [facility] [id number]) OT- Subjective Occupational Therapy Visit Type Type Administrative Note Notes Pt moved down to ICU at this time, per nursing hold pt from therapy today and to check on pt tomorrow when more medically stable for OT eval.
[2018-08-23 12:30] LABS: Troponin I 0.022 ng/mL (0.01-0.034)
[2018-08-23 12:33] LABS: CKMB % Relative Index 0.3 % (1.5-5.0); Creatine Kinase MB 1.31 ng/mL (<2.37)
--- NOTE | 2018-08-23 13:19 | PC.NURSE ---
PT TRANSFERRD TO ICU FROM FLOOR CARE AFTER BECOMING SIGNIFICANTLY HYPOTENSIVE AND DIAPHORETIC WELL SHAKING CHILLS - HE IS GUINE[place] SPEAKING ONLY AND HIS DAUGHTER ( WHEN AVAILABLE) IS VERY HELPFUL OTHERWISE MAY HAVE OT USE TRANSLATION PHONE- HIS LUNGS ARE DIM BUT NO ADVENTITIOUS SOUNDS HEARD, FOOT SCD'S IN PLACE - DRESSING TO BACK C/D/I. NEW MIDLINE PLACED TO LEFT UPPER ARM- NSR PER TELEMETRY, AND USING HOSPITAL CPAP MASK WITH 4L NC BLED IN FOR SPO2 98% - COMPLETED 1 LITER BOLUS OF NS AND GIVEN 0.5MG IV DILAUDID PER MD ORDERS UPON TRANSFER- DR. WILLS HERE TO ASSESS PT-DOE PATENT AND MRSA SWAB SENT
--- NOTE | 2018-08-23 13:43 | P.CONS_ITS ---
History of Present Illness Date Patient Seen: 08/23/18 Chief complaint: Translaminar Interbody Fusion/Laminotomy Reason for consult: Fever Requesting provider: Felicitas Becker Narrative: Karlos Valentino is an 82-year-old male with a past medical history significant for CAD status post TN, hypertension, hyperlipidemia, diabetes mellitus type 2, non-insulin using, chronic constipation on lactulose, GERD, BPH who presented for revision TLIF. The patient had revision TLIF successfully and without complication on 08/21/2018. He became hypotensive and significantly sedated yesterday which was thought to be secondary to narcotics, therefore, narcotic dose was decreased. The patient then spiked 103F temperature this morning and medicine team was consulted for possible infection. The patient became diaphoretic, tremulous, shaking and hypotensive and a rapid r esponse was called as I was arriving to the room. Requested the patient receive Dilaudid 0.5 mg IV x1 for back and left lower quadrant abdominal pain with relief and resolution of shaking. A peripheral IV infiltrated and IV access was lost. He continued to be hypotensive requiring Trendelenburg positioning. IV nurse was called and a midline was placed. The patient was bolused with 1 L NS with improvement in hypotension. Chest x-ray demonstrated bibasilar pneumonia versus atelectasis and urinalysis looked grossly positive for infection. Patient was started on ceftriaxone empirically which was switched to Zosyn was started for broad-spectrum coverage of gram-positive and gram-negative bacteria, as well as, anaerobes for possible aspiration. The patient did complain of shortness of breath and was on 4 L of supplemental oxygen. Requested patient be on CPAP when napping/sleeping. Transferred patient to ICU for closer monitoring and possible requirement of vasopressors. [facility] Medical History Adrenal gland cyst (Acute) Arthritis (Acute) Chronic cough (Acute) Diabetes (Acute) Dysphagia (Acute) Dyspnea (Acute) First degree AV block (Acute) GERD (gastroesophageal reflux disease) (Acute) History of CVA (cerebrovascular accident) (Acute) Hyperlipidemia (Acute) Hypertension (Acute) Incomplete RBBB (Acute) Liver cyst (Acute) Low back pain (Acute) Non-cardiac chest pain (Acute) Normal echocardiogram (Acute ~10/2014) DONNA on CPAP (Acute) Obesity (Acute) Other spondylosis with radiculopathy, lumbar region (Acute) Raynauds disease (Acute) Sinus bradycardia (Acute) Spinal stenosis, lumbar region with neurogenic claudication (Acute) Spondylolisthesis, lumbar region (Acute) Stroke (Acute) Surgical History Hx of hernia repair (Acute) Hx of shoulder surgery (Acute) S/P cervical spinal fusion (Acute) History of colonoscopy with polypectomy (Acute ~04/2017) Hx of cardiac cath (Acute ~11/2013) S/P lumbar fusion (Acute 04/18/18) Family History (Updated 08/23/18 @ 19:49 by Cyndy Bustos DO) Father Heart attack Mother No problems noted. Social History household members: spouse Smoking Status: Never smoker alcohol intake: never Family History Father Heart attack Mother No problems noted. Social History household members: spouse Smoking Status: Never smoker alcohol intake: never Meds Home Medications Medication Instructions Recorded Confirmed Type Basaglar KwikPen U-100 Insulin 38 unit SUBCUT BEDTIME 04/12/18 08/21/18 History Pulmicort Flexhaler 1 inh INHALATION BID 04/12/18 08/19/18 History albuterol sulfate [Ventolin HFA] 2 puff INHALATION Q4-6H PRN 04/12/18 08/21/18 History amlodipine 10 mg PO BEDTIME 04/12/18 08/19/18 History aspirin 81 mg PO DAILY 04/12/18 08/21/18 History carvedilol 25 mg PO BID 04/12/18 08/21/18 History clotrimazole 1 applic TOPICAL DAILY 04/12/18 08/19/18 History diclofenac sodium 2 g TOPICAL QID PRN 04/12/18 08/19/18 History doxazosin 4 mg PO BEDTIME 04/12/18 08/19/18 History finasteride 5 mg PO DAILY 04/12/18 08/19/18 History gabapentin 600 mg PO TID 04/12/18 08/19/18 History hydrocortisone [Proctosol HC] 1 applic [place] BID PRN 04/12/18 08/19/18 History lactulose 10 g PO BID 04/12/18 08/19/18 History lisinopril 20 mg PO BID 04/12/18 08/19/18 History magnesium oxide 800 mg PO BEDTIME 04/12/18 08/19/18 History polyethylene glycol 3350 17 g PO DAILY 04/12/18 08/19/18 History ranitidine HCl 150 mg PO BID 04/12/18 08/21/18 History rosuvastatin 20 mg PO QPM 04/12/18 08/19/18 History sennosides [Senokot] 8.6 mg PO DAILY PRN 04/12/18 08/19/18 History timolol 1 drp EYE-BOTH BID 04/12/18 08/19/18 History acetaminophen 650 mg PO Q6HR PRN #30 tab 04/22/18 08/19/18 Rx temazepam 15 mg PO BEDTIME PRN #30 cap 04/22/18 08/19/18 Rx tramadol 50 mg PO Q6H PRN 08/19/18 08/19/18 History Allergies Allergy/AdvReac Type Severity Reaction Status Date / Time nifedipine Allergy Mild Rash Verified 08/21/18 08:00 Review of Systems Review of Systems A 10 system comprehensive review of systems was conducted with the patient and found to be negative except as above in the History of Present Illness. Exam Vital Signs (past 8 hours): - 08/23/18 07:41 08/23/18 08:00 08/23/18 08:30 Temperature 103.2 F H 102.4 F H Pulse Rate 90 90 Respiratory Rate 20 23 Blood Pressure 96/48 L Pulse Oximetry 96 96 08/23/18 09:03 08/23/18 10:45 08/23/18 11:15 Temperature 99.8 F H 98.6 F 102.7 F H Pulse Rate 84 72 Respiratory Rate 22 22 Blood Pressure 123/78 88/43 L Pulse Oximetry 96 95 08/23/18 11:51 08/23/18 12:46 08/23/18 13:01 Temperature 98.9 F Pulse Rate 73 71 Respiratory Rate 15 16 Blood Pressure 67/42 L 104/53 L 100/47 L Pulse Oximetry 97 96 Oxygen Delivery Method CPAP Oxygen Flow Rate 4 Narrative Exam Narrative: General: Elderly gentleman lying in bed in mild distress, tremulous and shaking violently, diaphoretic, appropriately interactive. HEENT: Normocephalic, atraumatic. External ears without defect. Pupils equal, round, and reactive to light. Anicteric sclerae, moist conjunctivae, and no lid lag. Oropharynx free of erythema and cobble stoning with moist mucosa. Neck: Supple with full range of motion. No jugular venous distension. No bruits. No lymphadenopathy or thyromegaly. Cardiovascular: Regular rate and rhythm without murmurs, rubs, or gallops appreciated. Pulmonary: Diminished throughout with rhonchi at bilateral bases. Normal respiratory effort with no use of accessory muscles. Abdomen: Soft, obese, bowel sounds present, mild diffuse tenderness to palpation, nondistended. No hepatosplenomegaly or masses appreciated. Extremities: No clubbing, cyanosis, or edema. Back: Dressing in place at midline of low back C/D/I without surrounding erythema. Skin: Normal temperature, turgor, and texture; no rash, ulcers, or subcutaneous nodules appreciated. Neurological: Cranial nerves grossly intact. Psychiatric: Normal mood and affect. Alert and oriented to person, place, and time. Objective Labs Result Diagrams: 08/23/18 08:20 08/23/18 08:20 Labs: Laboratory Results - last 24 hr 08/23/18 08/23/18 08/23/18 08:00 08:20 08:20 WBC 9.6 RBC 4.14 L Hgb 12.2 L Hct 37.3 L MCV 90.2 MCH 29.4 MCHC 32.6 RDW 14.4 Plt Count 162 Neut % (Auto) 88.9 H Lymph % (Auto) 6.1 L [place] % (Auto) 4.6 Eos % (Auto) 0.0 L Baso % (Auto) 0.4 Neut # (Auto) 8500 H Lymph # (Auto) 600 L [place] # (Auto) 400 Eos # (Auto) 0 Baso # (Auto) 0 Sodium 138 Potassium 3.7 Chloride 106 Carbon Dioxide 23 BUN 17 Creatinine 1.00 Estimated GFR > 60.0 BUN/Creatinine Ratio 17.0 Glucose 86 Calcium 8.1 L Total Creatine Kinase CK-MB (CK-2) CK-MB (CK-2) Rel Index Troponin I Procalcitonin Urine Color Yellow Urine Appearance Sl cloudy Urine pH 5.0 Ur Specific [place] 1.020 Urine Protein Trace H Urine Glucose (UA) Negative Urine Ketones Negative Urine Occult Blood 1+ H Urine Nitrate Negative Urine Bilirubin Negative Urine Urobilinogen 0.2 Ur Leukocyte Esterase Trace H Urine RBC 1-5/hpf Urine WBC 0-1/hpf Urine Bacteria Many (>30) H Ur Culture Indicated? Specimen cultured Micro UA Comment 08/23/18 08/23/18 08:20 12:02 WBC RBC Hgb Hct MCV MCH MCHC RDW Plt Count Neut % (Auto) Lymph % (Auto) [place] % (Auto) Eos % (Auto) Baso % (Auto) Neut # (Auto) Lymph # (Auto) [place] # (Auto) Eos # (Auto) Baso # (Auto) Sodium Potassium Chloride Carbon Dioxide BUN Creatinine Estimated GFR BUN/Creatinine Ratio Glucose Calcium Total Creatine Kinase 435 H CK-MB (CK-2) 1.31 CK-MB (CK-2) Rel Index 0.3 L Troponin I 0.022 Procalcitonin 5.58 H Urine Color Urine Appearance Urine pH Ur Specific [place] Urine Protein Urine Glucose (UA) Urine Ketones Urine Occult Blood Urine Nitrate Urine Bilirubin Urine Urobilinogen Ur Leukocyte Esterase Urine RBC Urine WBC Urine Bacteria Ur Culture Indicated? Micro UA Comment Assessment & Plan Assessment & Plan narrative: Karlos Valentino is an 82-year-old male with a past medical history significant for CAD status post TN, hypertension, hyperlipidemia, diabetes mellitus type 2, insulin using, chronic constipation on lactulose, GERD, BPH who presented for revision TLIF. 1. Acute severe sepsis, not present on admission. Active. -Patient meets sepsis criteria with fever, hypotension, no leukocytosis but high a procalcitonin 5.58 with source both pulmonary and urinary. -Started early goal-directed therapy including: IV fluids and broad-spectrum antibiotics. -Did not check lactic acid as patient just underwent significant surgery. 2. Bilateral lower lobe pneumonia, not present on admission. Active. -Likely postoperative pneumonia versus aspiration. Patient does have likely restrictive lung disease due to being wheelchair bound and is on several inhale rs. Lung volumes very low on chest x-ray. -Chest x-ray interpreted by me demonstrated bilateral infiltrate on chronic atelectasis. -WBC 9.6 with 88.9% PMNs and Procalcitonin highly elevated at 5.58. Continue to trend daily. -Started Zosyn 3.375 g every 8 hours for broad-spectrum Gram-positive, Gram- negative and anaerobic coverage. Patient is diabetic so will cover pseudomonal species. -Ordered complete pneumonia workup including: Respiratory viral PCR, strep pneumoniae and Legionella urine antigens, sputum culture, and blood culture x2. -Continue IV fluids with normal saline at 75 mL/hr. Will bolus as needed for hypotension. Will be conservative with narcotic administration. If continues to be hypotensive and becomes fluid unresponsive may need to start vasopressor with Levophed. 3. Possible UTI, secondary to catheter, not present on admission. Active. -Urinalysis looks grossly positive. Urine culture pending. -Continue Zosyn 3.375 g every 8 hours as above. 4. Lumbar osteoarthritis status post revision TLIF, present on admission. Active. -Continue pain and postoperative management per Ortho. -Incision and bandage are clean, dry, intact. No surrounding erythema. 5. Coronary artery disease status post TN, chronic, present on admission. Stable. -Patient endorses chronic chest pain/pressure mostly at night that is unchanged. Troponin within normal limits at 0.022. -EKG demonstrated sinus rhythm, heart rate 67 borderline normal axis, significantly increased OH interval at 380 ms , otherwise normal intervals, incomplete right bundle branch block, q waves in V1-3, no acute ischemic changes such as ST elevation or depression. -Continue to monitor closely on telemetry. -Held cardiac meds including aspirin, amlodipine, carvedilol and lisinopril. Will restart as blood pressure allows. 6. Hypertension, chronic, present on admission. Stable. -Held amlodipine 10 mg daily at bedtime, carvedilol 25 mg twice daily, and lisinopril 20 mg twice daily. Will restart antihypertensives as blood pressure permits. 7. Hyperlipidemia, chronic, present on admission. Presumed stable. -Continue rosuvastatin 20 mg daily at bedtime. Aspirin has been held due to spinal surgery. 8. Diabetes mellitus type 2, insulin using, chronic, present on admission. Stable. -Ordered hemoglobin A1c, pending. -Decreased Lantus from 38 units to 25 units daily at bedtime as patient is not eating his usual amount of PO intake. -Ordered blood glucose checks ACHS and medium dose correctional scale insulin. -Continue gabapentin 600 mg 3 times daily. 9. Chronic constipation on lactulose, present on admission. Stable. -Continue lactulose 10 g twice daily. As needed bowel regimen in place. 10. GERD, chronic, present on admission. Stable. -Continue ranitidine 150 mg twice daily. 11. BPH, chronic, present on admission. Stable. -Continue finasteride 5 mg daily and doxazosin 4 mg daily at bedtime. Significant amount of time was spent on multiple occasions for repeat assess ments and interventions. Greater than 90 minutes ICU time. Thank you for consulting our services. We will continue to follow along with you. If the patient acutely decompensates overnight would recommend CT abdomen and pelvis with contrast to assess for other infectious sources in setting of c hronic constipation and LLQ pain, possible LP and initiation of vasopressors with Levophed if fluid unresponsive.
--- NOTE | 2018-08-23 13:48 | P.PN_ITS ---
Exam Vital Signs (past 8 hours): - 08/23/18 07:41 08/23/18 08:00 08/23/18 08:30 Temperature 103.2 F H 102.4 F H Pulse Rate 90 90 Respiratory Rate 20 23 Blood Pressure 96/48 L Pulse Oximetry 96 96 08/23/18 09:03 08/23/18 10:45 08/23/18 11:15 Temperature 99.8 F H 98.6 F 102.7 F H Pulse Rate 84 72 Respiratory Rate 22 22 Blood Pressure 123/78 88/43 L Pulse Oximetry 96 95 08/23/18 11:51 08/23/18 12:46 08/23/18 13:01 Temperature 98.9 F Pulse Rate 73 71 Respiratory Rate 15 16 Blood Pressure 67/42 L 104/53 L 100/47 L Pulse Oximetry 97 96 Oxygen Delivery Method CPAP Oxygen Flow Rate 4 Objective Labs Result Diagrams: 08/23/18 08:20 08/23/18 08:20 Labs: Laboratory Results - last 24 hr 08/23/18 08/23/18 08/23/18 08:00 08:20 08:20 WBC 9.6 RBC 4.14 L Hgb 12.2 L Hct 37.3 L MCV 90.2 MCH 29.4 MCHC 32.6 RDW 14.4 Plt Count 162 Neut % (Auto) 88.9 H Lymph % (Auto) 6.1 L [place] % (Auto) 4.6 Eos % (Auto) 0.0 L Baso % (Auto) 0.4 Neut # (Auto) 8500 H Lymph # (Auto) 600 L [place] # (Auto) 400 Eos # (Auto) 0 Baso # (Auto) 0 Sodium 138 Potassium 3.7 Chloride 106 Carbon Dioxide 23 BUN 17 Creatinine 1.00 Estimated GFR > 60.0 BUN/Creatinine Ratio 17.0 Glucose 86 Calcium 8.1 L Total Creatine Kinase CK-MB (CK-2) CK-MB (CK-2) Rel Index Troponin I Procalcitonin Urine Color Yellow Urine Appearance Sl cloudy Urine pH 5.0 Ur Specific [place] 1.020 Urine Protein Trace H Urine Glucose (UA) Negative Urine Ketones Negative Urine Occult Blood 1+ H Urine Nitrate Negative Urine Bilirubin Negative Urine Urobilinogen 0.2 Ur Leukocyte Esterase Trace H Urine RBC 1-5/hpf Urine WBC 0-1/hpf Urine Bacteria Many (>30) H Ur Culture Indicated? Specimen cultured Micro UA Comment 08/23/18 08/23/18 08:20 12:02 WBC RBC Hgb Hct MCV MCH MCHC RDW Plt Count Neut % (Auto) Lymph % (Auto) [place] % (Auto) Eos % (Auto) Baso % (Auto) Neut # (Auto) Lymph # (Auto) [place] # (Auto) Eos # (Auto) Baso # (Auto) Sodium Potassium Chloride Carbon Dioxide BUN Creatinine Estimated GFR BUN/Creatinine Ratio Glucose Calcium Total Creatine Kinase 435 H CK-MB (CK-2) 1.31 CK-MB (CK-2) Rel Index 0.3 L Troponin I 0.022 Procalcitonin 5.58 H Urine Color Urine Appearance Urine pH Ur Specific [place] Urine Protein Urine Glucose (UA) Urine Ketones Urine Occult Blood Urine Nitrate Urine Bilirubin Urine Urobilinogen Ur Leukocyte Esterase Urine RBC Urine WBC Urine Bacteria Ur Culture Indicated? Micro UA Comment Assessment & Plan Assessment & Plan narrative: Mr. Valentino is POD#2 status post revision lumbar fusion. He had episode of fever and hypotension. UA shows significant bracteremia being treated with antibiotics by hospitalist. His Hct is 37, unlike to be source of hypotension. Current systoic is 100's. Patient is A&O and responsive on exam. His incision is clean and dry and he is neuro intact. Will continue to follow and continue medical management. Quality VTE Deep Vein Thrombosis/Pulmonary Embolism Present on Admission: No
[2018-08-23] MEDS: SENNOSIDES 8.6 MG TABLET PO (14:12)
[2018-08-23] MEDS: GABAPENTIN 600 MG TABLET PO ×2 (14:12→20:59)
[2018-08-23] MEDS: OXYCODONE IR 5 MG TABLET PO ×3 (14:18→20:55)
--- NOTE | 2018-08-23 15:00 | CM.IDA ---
Hospitalist team consulted this morning, and subsequently, Pt was transferred to the ICU today after becoming significantly hypotensive, diaphoretic w/shaking chills. according to KEITH Deleon and Dr Bustos, pt is very compromised at this time. Following closely for coordination of safe DCP. Discharge Planning/Care Management CM Discharge Assessment Start: 08/23/18 09:53 Freq: Status: Active Protocol: Document 08/23/18 09:53 WENDIE (Rec: 08/23/18 14:33 WENDIE [id number]) Discharge Planning Assessment Assigned Financial Administration Officer TRINA Cesar DPOA/Assigned Designee Name spouse Yolanda Blackwell and dtr Anne Rodríguez assists w/translation Contact Information Spouse [phone], dtr Anne same number Advance Directives? Yes History Provided By Family Member Medical Record Prior Living Arrangements Apartment/Condo Household Members spouse Type of transporation used prior to Relies on Others admit Independent with ADL's No: electric w/c bound Is patient alert and oriented? Yes: Dutch speaking only, dtr assists w/translation Needs Assistance With Bathing Grooming Meal Prep Toileting Managing Medications Home Chores / Shopping Caregiver for Another No Comment Non compliant w/ CPAP Name of Agency [facility] Comment Pt has approx 100 hours of [facility] cg mo, likely will be increased soon per Dtr Anne. Anne provides caregiving, another dtr may be starting to provide care for pt soon. [facility] CM is Berta Michael P# [phone] ext [phone]. Pt's spouse Yolanda also recieves [facility] hours, amount unknown, same CM. Patient/Family Preference Senior Care Facility Comment Preference is [facility] in [place], family member that speaks fluent Dutch is a PT at this SNF Barriers to Discharge Yes Comment Needs SNF before return home. Discharge Plan Senior Care Facility Transportation Arrangement TBD Referrals Initiated Senior Care Additional Comment [facility] in [place] accepts Medicare Choice List Provided Yes Has Agency SNF been contacted Yes Whiteboard Updated in Patient Room with Yes name and ext. # of Financial Administration Officer Review Status In Process
[2018-08-23] MEDS: ROSUVASTATIN 10 MG TABLET 20 MG PO (17:49)
[2018-08-23] MEDS: DICLOFENAC 1% GEL 100 GM 1 APPLIC TOP (20:52)
[2018-08-23] MEDS: SENNOSIDES 8.6 MG TABLET 17.2 MG PO (21:01)
[2018-08-23] MEDS: MAGNESIUM OXIDE 400 MG TABLET 800 MG PO (21:01)
[2018-08-23] MEDS: SODIUM CHLORIDE 0.9% FLUSH 10 ML IV (21:03)
[2018-08-23] MEDS: INSULIN GLARGINE 100 UNIT/ML 3ML PEN 25 UNIT SUBCUT (21:10)
[2018-08-23] MEDS: TEMAZEPAM 15 MG CAPSULE PO (21:16)
[2018-08-23 22:37] LABS: Adenovirus Not Detected (Not Detect); Bordetella pertussis Not Detected (Not Detect); Chlamydophila pneumoniae Not Detected (Not Detect); Coronavirus 229E Not Detected (Not Detect); Coronavirus HKU1 Not Detected (Not Detect); Coronavirus NL 63 Not Detected (Not Detect); Coronavirus OC43 Not Detected (Not Detect); Human Metapneumovirus Not Detected (Not Detect); Human Rhinovirus/Enterovirus Not Detected (Not Detect); Influenza A Not Detected (Not Detect); Influenza B Not Detected (Not Detect); Mycoplasma pneumoniae Not Detected (Not Detect); Parainfluenza Virus 1 Not Detected (Not Detect); Parainfluenza Virus 2 Not Detected (Not Detect); Parainfluenza Virus 3 Not Detected (Not Detect); Parainfluenza Virus 4 Not Detected (Not Detect); Respiratory Syncytial Virus Not Detected (Not Detect)
--- NOTE | 2018-08-23 23:04 | PC.NURSE ---
preethi king pt medicated for pain twice with oxycodone. Pt is [place] speaking only and family went home. Used software administrator telephone once when pt obviously uncomfortable during repositioning and staff unable to figure out why. No answer from daughter's telephone. Pt has been wearing cpap mask while sleeping until 22:00. Pt did not want to wear mask. O2 at 2 L applied. Continuous pulse oximeter in place. Bedtime glucose was 113. Gave pt meds with Glucerna and did give new reduced dose of Lantus. HR dipping into 50s, B/P 90s/50s. Held doxazosin. Pt has poor fine motor control in hands, and is unable to use call light or information receptionist desk palumbo. Gave pt large plastic spoon and instructed him to bang it on side rail of bed if he needs help, or to call out.
[2018-08-24] VITALS (25 sets, daily range): BP systolic 86–130; BP diastolic 43–69; PULSE 53–74; RESP 12–19; TEMP 36.1–39.3; O2SAT 94–100
--- NOTE | 2018-08-24 | DI.CT.S_ITS ---
PROCEDURE: CT ABDOMEN PELVIS W CON INDICATIONS: Pain TECHNIQUE: After the administration of intravenous contrast, 5 mm thick sections acquired from the diaphragm to the symphysis. 5 mm coronal and sagittal reformats were acquired. For radiation dose reduction, the following was used: automated exposure control, adjustment of mA and/or kV according to patient size. COMPARISON: None. FINDINGS: Image quality: Mild patient motion artifact ABDOMEN: Lung bases: Bilateral pleural effusions with associated compressive atelectasis.. Heart size is normal. Solid organs: Liver is normal in size and enhancement. A few scattered hepatic hypodensities most of which are too small to characterize. The largest measures 1.8 cm in diameter and is noted in the right hepatic lobe measuring fluid attenuation. These are likely cysts versus hemangiomas. Gallbladder is mildly distended. No gallstones identified. Biliary system is non dilated. Pancreas enhances normally. Spleen is normal in size and enhancement. No adrenal nodules. Kidneys demonstrate normal size and enhancement, without hydronephrosis. There is a 3.2 cm right renal cyst. Subcentimeter renal hypodensities are too small to characterize but likely represent cysts as well. Peritoneum and bowel: Numerous scattered colonic diverticula without acute inflammation. The appendix is dilated measuring up to 1.4 cm in diameter with associated periappendiceal stranding and wall thickening. Inflammatory changes extend to the right lateral abdominal wall adjacent to the appendix. No free air or abscess formation. Bowel loops demonstrate normal wall thickness and caliber. No free fluid or air. Nodes and vessels: No retroperitoneal or mesenteric adenopathy by size criteria. Aorta and inferior vena cava are normal in size. Miscellaneous: No ventral hernias. PELVIS: Genitourinary: The bladder is decompressed by Sahu catheter. Miscellaneous: Small bilateral fat containing inguinal hernias. No pelvic adenopathy. Bones: No suspicious bony lesions. No acute vertebral body compression fractures. Postoperative changes from spinal fusion of L3-L5. IMPRESSION: 1. Acute appendicitis without evidence for perforation or abscess formation. 2. Scattered colonic diverticulosis without acute diverticulitis. 3. Small bilateral pleural effusions with associated compressive atelectasis. 4. Other chronic findings as above. Findings were discussed with patient's nurse, Jada, of the ICU. Dictated by: Mert Martins M.D. on 08/24/2018 at 12:41 Approved by: Mert Martins M.D. on 08/24/2018 at 12:52
[2018-08-24] MEDS: PIPERACILLIN-TAZO 3.375 GM/50 ML FROZ.PIGGY IV ×3 (00:26→17:06)
[2018-08-24] MEDS: SODIUM CHLORIDE 0.9% 500 ML 1000 ML IV (03:00)
[2018-08-24] MEDS: SODIUM CHLORIDE 0.9% 1,000 ML 75 ML IV (05:05)
[2018-08-24 05:12] LABS: Add Manual Diff / Slide Review NO; Basophils Absolute Auto 0 /uL (0-100); Basophils Percent Auto 0.6 % (0-2); Eosinophils Absolute Auto 100 /uL (0-450); Eosinophils Percent Auto 1.9 % (2-4); Hematocrit 31.7 % (41-53); Hemoglobin 10.3 g/dL (13.5-17.5); Lymphocytes Absolute Auto 500 /uL (1100-4500); Lymphocytes Percent Auto 7.5 % (25-40); Mean Corpuscular HGB Conc 32.6 % (30-36); Mean Corpuscular Hemoglobin 29.5 PG (26-34); Mean Corpuscular Volume 90.5 fL (80-100); Monocytes Absolute Auto 400 /uL (0-900); Monocytes Percent Auto 5.6 % (3-14); Neutrophils Absolute Auto 6100 /uL (1500-7000); Neutrophils Percent Auto 84.4 % (50-75); Platelet Count 139 X10^3/uL (150-400); Red Cell Distribution Width 14.6 % (11.6-14.8); White Blood Cell Count 7.3 X10^3/uL (4.5-11.0)
[2018-08-24 05:22] LABS: Alanine Aminotransferase 24 IU/L (21-72); Albumin 2.7 g/dL (3.5-5.0); Albumin Globulin Ratio 1.1 (1.0-2.8); Alkaline Phosphatase 41 U/L (38-126); Aspartate Aminotransferase 28 IU/L (17-59); BUN Creatinine Ratio 19.2 (6-22); Bilirubin Total 0.4 mg/dL (0.2-1.3); Blood Urea Nitrogen 25 mg/dL (9-20); Calcium 7.9 mg/dL (8.4-10.2); Carbon Dioxide 25 mmol/L (22-32); Chloride 109 mmol/L (98-107); Estimated Glomerular Filt Rate 53.1 mL/min (>60); Globulin 2.4 g/dL (1.7-4.1); Glucose 90 mg/dL (80-110); HEMOLYSIS < 15 (0-50); Magnesium 1.9 mg/dL (1.6-2.3); Potassium 3.5 mmol/L (3.4-5.1); Sodium 139 mmol/L (137-145); Total Protein 5.1 g/dL (6.3-8.2)
[2018-08-24 05:26] LABS: Hemoglobin A1C% w Est Avg Glu 5.6 % (4.0-6.0)
--- NOTE | 2018-08-24 05:29 | PC.NURSE ---
0250 VACUUM CLEANER REPAIRER entered pt room to check CBG and noted pt was quite diaphoretic. CBG 112, afebrile. BP mostly with MAPS >65, currently around 63. TERI Trevino to bedside, order for IVF bolus of 500 mL. BP responding well to fluids. 0500 BP trending down again and UO barely 30 mL/hour this shift. Orders for maintenance IVF obtained and started.
[2018-08-24 05:36] LABS: Procalcitonin 18.26 ng/mL (<0.5)
--- NOTE | 2018-08-24 07:15 | PM.PNPO.1 ---
Subjective Date Patient Seen: 08/24/18 Interval history: Patient is seen bedside Exam Vital Signs (past 8 hours): - 08/24/18 00:00 08/24/18 01:00 08/24/18 02:00 Temperature Pulse Rate 58 L 56 L 56 L Respiratory Rate 17 17 18 Blood Pressure 100/52 L 108/55 L 94/45 L Pulse Oximetry 98 97 97 08/24/18 03:18 08/24/18 04:00 08/24/18 05:00 Temperature 97.8 F Pulse Rate 56 L 53 L 55 L Respiratory Rate 16 16 15 Blood Pressure 103/52 L 99/51 L 97/43 L Pulse Oximetry 99 99 98 08/24/18 06:00 Temperature Pulse Rate 57 L Respiratory Rate 14 Blood Pressure 102/49 L Pulse Oximetry 99 Oxygen Delivery Method Nasal Cannula Oxygen Flow Rate 2 Objective Labs Result Diagrams: 08/24/18 04:50 08/24/18 04:50 Labs: Laboratory Results - last 24 hr 08/23/18 08/23/18 08/23/18 08:00 08:20 08:20 WBC 9.6 RBC 4.14 L Hgb 12.2 L Hct 37.3 L MCV 90.2 MCH 29.4 MCHC 32.6 RDW 14.4 Plt Count 162 Neut % (Auto) 88.9 H Lymph % (Auto) 6.1 L [place] % (Auto) 4.6 Eos % (Auto) 0.0 L Baso % (Auto) 0.4 Neut # (Auto) 8500 H Lymph # (Auto) 600 L [place] # (Auto) 400 Eos # (Auto) 0 Baso # (Auto) 0 Sodium 138 Potassium 3.7 Chloride 106 Carbon Dioxide 23 BUN 17 Creatinine 1.00 Estimated GFR > 60.0 BUN/Creatinine Ratio 17.0 Glucose 86 Hemoglobin A1c Calcium 8.1 L Magnesium Total Bilirubin AST ALT Alkaline Phosphatase Total Creatine Kinase CK-MB (CK-2) CK-MB (CK-2) Rel Index Troponin I Total Protein Albumin Globulin Albumin/Globulin Ratio Procalcitonin Urine Color Yellow Urine Appearance Sl cloudy Urine pH 5.0 Ur Specific [place] 1.020 Urine Protein Trace H Urine Glucose (UA) Negative Urine Ketones Negative Urine Occult Blood 1+ H Urine Nitrate Negative Urine Bilirubin Negative Urine Urobilinogen 0.2 Ur Leukocyte Esterase Trace H Urine RBC 1-5/hpf Urine WBC 0-1/hpf Urine Bacteria Many (>30) H Ur Culture Indicated? Specimen cultured Micro UA Comment Nasal Screen MRSA (PCR) Chlamy pneumoniae PCR Adenovirus (PCR) B.parapertussis DNA PCR Coronavirus OC43 (PCR) Coronavirus HKU1 (PCR) Coronavirus 229E (PCR) Coronavirus NL63 (PCR) Human Metapneumovir PCR Influenza Type A (PCR) Influenza Type B (PCR) M. pneumoniae (PCR) Parainfluenza 1 (PCR) Parainfluenza 2 (PCR) Parainfluenza 3 (PCR) Parainfluenza 4 (PCR) RSV (PCR) Entero/Rhino (PCR) 08/23/18 08/23/18 08/23/18 08:20 12:02 20:50 WBC RBC Hgb Hct MCV MCH MCHC RDW Plt Count Neut % (Auto) Lymph % (Auto) [place] % (Auto) Eos % (Auto) Baso % (Auto) Neut # (Auto) Lymph # (Auto) [place] # (Auto) Eos # (Auto) Baso # (Auto) Sodium Potassium Chloride Carbon Dioxide BUN Creatinine Estimated GFR BUN/Creatinine Ratio Glucose Hemoglobin A1c Calcium Magnesium Total Bilirubin AST ALT Alkaline Phosphatase Total Creatine Kinase 435 H CK-MB (CK-2) 1.31 CK-MB (CK-2) Rel Index 0.3 L Troponin I 0.022 Total Protein Albumin Globulin Albumin/Globulin Ratio Procalcitonin 5.58 H Urine Color Urine Appearance Urine pH Ur Specific [place] Urine Protein Urine Glucose (UA) Urine Ketones Urine Occult Blood Urine Nitrate Urine Bilirubin Urine Urobilinogen Ur Leukocyte Esterase Urine RBC Urine WBC Urine Bacteria Ur Culture Indicated? Micro UA Comment Nasal Screen MRSA (PCR) Negative for mrsa Chlamy pneumoniae PCR Adenovirus (PCR) B.parapertussis DNA PCR Coronavirus OC43 (PCR) Coronavirus HKU1 (PCR) Coronavirus 229E (PCR) Coronavirus NL63 (PCR) Human Metapneumovir PCR Influenza Type A (PCR) Influenza Type B (PCR) M. pneumoniae (PCR) Parainfluenza 1 (PCR) Parainfluenza 2 (PCR) Parainfluenza 3 (PCR) Parainfluenza 4 (PCR) RSV (PCR) Entero/Rhino (PCR) 08/23/18 08/24/18 08/24/18 21:15 04:50 04:50 WBC 7.3 RBC 3.50 L Hgb 10.3 L Hct 31.7 L MCV 90.5 MCH 29.5 MCHC 32.6 RDW 14.6 Plt Count 139 L Neut % (Auto) 84.4 H Lymph % (Auto) 7.5 L [place] % (Auto) 5.6 Eos % (Auto) 1.9 L Baso % (Auto) 0.6 Neut # (Auto) 6100 Lymph # (Auto) 500 L [place] # (Auto) 400 Eos # (Auto) 100 Baso # (Auto) 0 Sodium Potassium Chloride Carbon Dioxide BUN Creatinine Estimated GFR BUN/Creatinine Ratio Glucose Hemoglobin A1c Calcium Magnesium Total Bilirubin AST ALT Alkaline Phosphatase Total Creatine Kinase CK-MB (CK-2) CK-MB (CK-2) Rel Index Troponin I Total Protein Albumin Globulin Albumin/Globulin Ratio Procalcitonin 18.26 H Urine Color Urine Appearance Urine pH Ur Specific [place] Urine Protein Urine Glucose (UA) Urine Ketones Urine Occult Blood Urine Nitrate Urine Bilirubin Urine Urobilinogen Ur Leukocyte Esterase Urine RBC Urine WBC Urine Bacteria Ur Culture Indicated? Micro UA Comment Nasal Screen MRSA (PCR) Chlamy pneumoniae PCR Not detected Adenovirus (PCR) Not detected B.parapertussis DNA PCR Not detected Coronavirus OC43 (PCR) Not detected Coronavirus HKU1 (PCR) Not detected Coronavirus 229E (PCR) Not detected Coronavirus NL63 (PCR) Not detected Human Metapneumovir PCR Not detected Influenza Type A (PCR) Not detected Influenza Type B (PCR) Not detected M. pneumoniae (PCR) Not detected Parainfluenza 1 (PCR) Not detected Parainfluenza 2 (PCR) Not detected Parainfluenza 3 (PCR) Not detected Parainfluenza 4 (PCR) Not detected RSV (PCR) Not detected Entero/Rhino (PCR) Not detected 08/24/18 08/24/18 04:50 04:50 WBC RBC Hgb Hct MCV MCH MCHC RDW Plt Count Neut % (Auto) Lymph % (Auto) [place] % (Auto) Eos % (Auto) Baso % (Auto) Neut # (Auto) Lymph # (Auto) [place] # (Auto) Eos # (Auto) Baso # (Auto) Sodium 139 Potassium 3.5 Chloride 109 H Carbon Dioxide 25 BUN 25 H Creatinine 1.30 H Estimated GFR 53.1 L BUN/Creatinine Ratio 19.2 Glucose 90 Hemoglobin A1c 5.6 Calcium 7.9 L Magnesium 1.9 Total Bilirubin 0.4 AST 28 ALT 24 Alkaline Phosphatase 41 Total Creatine Kinase CK-MB (CK-2) CK-MB (CK-2) Rel Index Troponin I Total Protein 5.1 L Albumin 2.7 L Globulin 2.4 Albumin/Globulin Ratio 1.1 Procalcitonin Urine Color Urine Appearance Urine pH Ur Specific [place] Urine Protein Urine Glucose (UA) Urine Ketones Urine Occult Blood Urine Nitrate Urine Bilirubin Urine Urobilinogen Ur Leukocyte Esterase Urine RBC Urine WBC Urine Bacteria Ur Culture Indicated? Micro UA Comment Nasal Screen MRSA (PCR) Chlamy pneumoniae PCR Adenovirus (PCR) B.parapertussis DNA PCR Coronavirus OC43 (PCR) Coronavirus HKU1 (PCR) Coronavirus 229E (PCR) Coronavirus NL63 (PCR) Human Metapneumovir PCR Influenza Type A (PCR) Influenza Type B (PCR) M. pneumoniae (PCR) Parainfluenza 1 (PCR) Parainfluenza 2 (PCR) Parainfluenza 3 (PCR) Parainfluenza 4 (PCR) RSV (PCR) Entero/Rhino (PCR) Assessment & Plan Post-op Postoperative Procedures Operation Date: 08/21/18 08:45 Actual Procedures Side Surgeon p L4-5 HWR, L3-4 TLIF, L2-3 Laminectomy, L3-4,L4-5 PSF w/Instru. Not Applicable Ed Quezada MD 1. POD #3 s/p above procedure-mobilize as much as patient tolerates. Control pain. Follow lumbar activity restrictions. 2. Postoperative fever-appears to be caused by pneumonia, cultures growing out legionella at this time. Defer to medicine for antibiotic recommendations. Health departments in [facility] will be alerted. Tmax for past 24 hours 103.2 at 8:00am yesterday. Most recent temperature is 97.8. Blood pressure has stabilized and patient is currently not hypotensive. Medicine is handling all care in this regard. Dispo-d/c to [facility] when medically stabilized. Quality VTE Deep Vein Thrombosis/Pulmonary Embolism Present on Admission: No
[2018-08-24] MEDS: AZITHROMYCIN 500 MG in DEXTROSE 5% IN WATER 250 ML IV (08:38)
[2018-08-24] MEDS: OXYCODONE IR 5 MG TABLET PO ×3 (08:42→21:20)
[2018-08-24] MEDS: BUDESONIDE 60 PUFF/DEVICE INHALER INH ×2 (08:56→17:58)
--- NOTE | 2018-08-24 09:19 | P.PN_ITS ---
Subjective Date Patient Seen: 08/24/18 Time Patient Seen: 09:19 Interval history: He is seen today to follow-up the bilateral pneumonia, postoperative lumbar spine fusion, apparent sepsis. A phone assurance specialist is used and later in the day a 2nd visit with his daughter and is done. He sleeps very soundly. The white blood count of 7.3. His T-max was 100.3? at 9:00 p.m. last night. The metabolic panel is normal. The CK is 435. He did receive a IV fluid bolus of 500 mL last night and is now on some maintenance fluid. His albumin is 2.7. His procalcitonin is still high at 18.26. By my 2nd visit he was experiencing a mixture of abdominal pain and chest pain with the an EKG that showed T-wave changes in the precordial leads compared to yesterday's EKG. Exam Vital Signs (past 8 hours): - 08/24/18 02:00 08/24/18 03:18 08/24/18 04:00 Temperature 97.8 F Pulse Rate 56 L 56 L 53 L Respiratory Rate 18 16 16 Blood Pressure 94/45 L 103/52 L 99/51 L Pulse Oximetry 97 99 99 08/24/18 05:00 08/24/18 06:00 08/24/18 08:00 Temperature 97.4 F L Pulse Rate 55 L 57 L 66 Respiratory Rate 15 14 14 Blood Pressure 97/43 L 102/49 L 118/59 L Pulse Oximetry 98 99 97 08/24/18 08:56 08/24/18 09:00 Temperature Pulse Rate 61 61 Respiratory Rate 12 16 Blood Pressure 130/69 Pulse Oximetry 98 98 Oxygen Delivery Method Nasal Cannula Oxygen Flow Rate 2 Narrative Exam Narrative: He is sleeping very soundly and is difficult to wake up for the phone assurance specialist. He is oriented x3 and in no apparent distress but later on in the morning experiences some substernal chest pain. heart is regular rate and rhythm without murmur. Lungs have wheezes bilaterally. Extremities have no ankle edema. He does have a Sahu catheter in place. Strangely there is a large kitchen serving spoon in his right upper gown pocket. Objective Labs Result Diagrams: 08/24/18 04:50 08/24/18 04:50 Labs: Laboratory Results - last 24 hr 04/08/23/18 08/23/18 12:02 20:50 21:15 WBC RBC Hgb Hct MCV MCH MCHC RDW Plt Count Neut % (Auto) Lymph % (Auto) [place] % (Auto) Eos % (Auto) Baso % (Auto) Neut # (Auto) Lymph # (Auto) [place] # (Auto) Eos # (Auto) Baso # (Auto) Sodium Potassium Chloride Carbon Dioxide BUN Creatinine Estimated GFR BUN/Creatinine Ratio Glucose Hemoglobin A1c Calcium Magnesium Total Bilirubin AST ALT Alkaline Phosphatase Total Creatine Kinase 435 H CK-MB (CK-2) 1.31 CK-MB (CK-2) Rel Index 0.3 L Troponin I 0.022 Total Protein Albumin Globulin Albumin/Globulin Ratio Procalcitonin Nasal Screen MRSA (PCR) Negative for mrsa Chlamy pneumoniae PCR Not detected Adenovirus (PCR) Not detected B.parapertussis DNA PCR Not detected Coronavirus OC43 (PCR) Not detected Coronavirus HKU1 (PCR) Not detected Coronavirus 229E (PCR) Not detected Coronavirus NL63 (PCR) Not detected Human Metapneumovir PCR Not detected Influenza Type A (PCR) Not detected Influenza Type B (PCR) Not detected M. pneumoniae (PCR) Not detected Parainfluenza 1 (PCR) Not detected Parainfluenza 2 (PCR) Not detected Parainfluenza 3 (PCR) Not detected Parainfluenza 4 (PCR) Not detected RSV (PCR) Not detected Entero/Rhino (PCR) Not detected 08/24/18 08/24/18 08/24/18 04:50 04:50 04:50 WBC 7.3 RBC 3.50 L Hgb 10.3 L Hct 31.7 L MCV 90.5 MCH 29.5 MCHC 32.6 RDW 14.6 Plt Count 139 L Neut % (Auto) 84.4 H Lymph % (Auto) 7.5 L [place] % (Auto) 5.6 Eos % (Auto) 1.9 L Baso % (Auto) 0.6 Neut # (Auto) 6100 Lymph # (Auto) 500 L [place] # (Auto) 400 Eos # (Auto) 100 Baso # (Auto) 0 Sodium 139 Potassium 3.5 Chloride 109 H Carbon Dioxide 25 BUN 25 H Creatinine 1.30 H Estimated GFR 53.1 L BUN/Creatinine Ratio 19.2 Glucose 90 Hemoglobin A1c Calcium 7.9 L Magnesium 1.9 Total Bilirubin 0.4 AST 28 ALT 24 Alkaline Phosphatase 41 Total Creatine Kinase CK-MB (CK-2) CK-MB (CK-2) Rel Index Troponin I Total Protein 5.1 L Albumin 2.7 L Globulin 2.4 Albumin/Globulin Ratio 1.1 Procalcitonin 18.26 H Nasal Screen MRSA (PCR) Chlamy pneumoniae PCR Adenovirus (PCR) B.parapertussis DNA PCR Coronavirus OC43 (PCR) Coronavirus HKU1 (PCR) Coronavirus 229E (PCR) Coronavirus NL63 (PCR) Human Metapneumovir PCR Influenza Type A (PCR) Influenza Type B (PCR) M. pneumoniae (PCR) Parainfluenza 1 (PCR) Parainfluenza 2 (PCR) Parainfluenza 3 (PCR) Parainfluenza 4 (PCR) RSV (PCR) Entero/Rhino (PCR) 08/24/18 04:50 WBC RBC Hgb Hct MCV MCH MCHC RDW Plt Count Neut % (Auto) Lymph % (Auto) [place] % (Auto) Eos % (Auto) Baso % (Auto) Neut # (Auto) Lymph # (Auto) [place] # (Auto) Eos # (Auto) Baso # (Auto) Sodium Potassium Chloride Carbon Dioxide BUN Creatinine Estimated GFR BUN/Creatinine Ratio Glucose Hemoglobin A1c 5.6 Calcium Magnesium Total Bilirubin AST ALT Alkaline Phosphatase Total Creatine Kinase CK-MB (CK-2) CK-MB (CK-2) Rel Index Troponin I Total Protein Albumin Globulin Albumin/Globulin Ratio Procalcitonin Nasal Screen MRSA (PCR) Chlamy pneumoniae PCR Adenovirus (PCR) B.parapertussis DNA PCR Coronavirus OC43 (PCR) Coronavirus HKU1 (PCR) Coronavirus 229E (PCR) Coronavirus NL63 (PCR) Human Metapneumovir PCR Influenza Type A (PCR) Influenza Type B (PCR) M. pneumoniae (PCR) Parainfluenza 1 (PCR) Parainfluenza 2 (PCR) Parainfluenza 3 (PCR) Parainfluenza 4 (PCR) RSV (PCR) Entero/Rhino (PCR) Assessment & Plan Assessment & Plan narrative: 1. Acute severe sepsis, not present on admission. Active. -Patient met sepsis criteria with fever, hypotension, no leukocytosis but high procalcitonin 18.26 with source both pulmonary and urinary. -Started early goal-directed therapy yesterday including: IV fluids and broad- spectrum antibiotics. -Did not check lactic acid as patient just underwent significant surgery. 2. Bilateral lower lobe pneumonia, not present on admission. Active. -Likely postoperative pneumonia versus aspiration. 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 Lung volumes very low on chest x-ray. -Chest x-ray with bilateral infiltrates and chronic atelectasis. -WBC 7.3 today -continue Zosyn 3.375 g every 8 hours for broad-spectrum Gram-positive, Gram- negative and anaerobic coverage. Patient is diabetic so will cover pseudomonal species. -Ordered complete pneumonia workup including: Respiratory viral PCR, strep pneumoniae and Legionella urine antigens, sputum culture, and blood culture x2. -Continue IV fluids with normal saline at 75 mL/hr. Will bolus as needed for hypotension. Will be conservative with narcotic administration. If continues to be hypotensive and becomes fluid unresponsive may need to start vasopressor with Levophed. -the Legionella antigen report initially came back positive but was later changed to pending, or alternatively, several of us may have misinterpreted the original report. At this point there is no confirmed Legionella. 3. Possible UTI, secondary to catheter, not present on admission. Active. -Urinalysis looks grossly positive. Urine culture pending. -Continue Zosyn 3.375 g every 8 hours as above. 4. Lumbar osteoarthritis status post revision TLIF, present on admission. Active. -Continue pain and postoperative management per Ortho. -Incision and bandage are clean, dry, intact. No surrounding erythema. -no signs or symptoms so far of wound infection/postoperative infection. 5. Coronary artery disease status post AL, chronic, present on admission. Stable. -Patient endorses chronic chest pain/pressure mostly at night that is unchanged. Troponin within normal limits at 0.022 yesterday and will be repeated now that the EKG shows changes.. -EKG yesterday demonstrated sinus rhythm, heart rate 67 borderline normal axis, significantly increased LA interval at 380 ms , otherwise normal intervals, incomplete right bundle branch block, q waves in V1-3, no acute ischemic changes such as ST elevation or depression. -EKG today is changed only in the appearance of an inverted T-wave new in V3. -Continue to monitor closely on telemetry. -restart cardiac meds including aspirin, amlodipine, carvedilol and lisinopril as blood pressure allows. 6. Hypertension, chronic, present on admission. Stable. -Held amlodipine 10 mg daily at bedtime, carvedilol 25 mg twice daily, and lisinopril 20 mg twice daily. Will restart antihypertensives as blood pressure permits. 7. Hyperlipidemia, chronic, present on admission. Presumed stable. -Continue rosuvastatin 20 mg daily at bedtime. Aspirin has been held due to spinal surgery. 8. Diabetes mellitus type 2, insulin using, chronic, present on admission. Stable. -Ordered hemoglobin A1c, pending. -Decreased Lantus from 38 units to 25 units daily at bedtime as patient is not eating his usual amount of PO intake. -Continue blood glucose checks ACHS and medium dose correctional scale insulin. -Continue gabapentin 600 mg 3 times daily. 9. Chronic constipation on lactulose, present on admission. Stable. -Continue lactulose 10 g twice daily. As needed bowel regimen in place. 10. GERD, chronic, present on admission. Stable. -Continue ranitidine 150 mg twice daily. 11. BPH, chronic, present on admission. Stable. -Continue finasteride 5 mg daily and doxazosin 4 mg daily at bedtime. 12. Abdominal Pain -stat abdominal pelvic CT ordered He continue to need an ICU level of hospital care due to multiple medical factors and changes throughout the day. He remains unstable Quality VTE Deep Vein Thrombosis/Pulmonary Embolism Present on Admission: No
--- NOTE | 2018-08-24 10:00 | PC.NURSE ---
Addendum entered by Radha Dowd R.N. 08/24/18 13:48: 1045 pt reported chest pain, worsens with deep breath and abd pain. Dr. Cuellar notified. EKG done and 1 nitro given. when pt asked if pain lessened with nitro via [employer], he stated give me some time to think about it. reported abd pain 8 out of 10. family here at [address] cuellar in to speak with family. pt's Cpap brought in and is in closet. pt reported abd pain. CT done. surgery consult and pt now NPO. Dr. Cuellar in to speak with pt and family. pt bedrest. skin warm and moist. Original Note: pt resting with eyes closed. [employer] phone used with Dr. Cuellar, Felicitas DUNN, and for nursing care. pt alert and oriented while phone in use. at one time, sv[employer] business development with Dr. Cuellar stated, patient is talking gibberish. pt has a serving spoon with him he states because he is too weak to use bed buttons. CBG 69, pt drank one OJ box. reports feeling chilled; pt is afebrile, diaphoretic. warm blankets given to pt.
[2018-08-24] MEDS: LACTULOSE 20 GM/30 ML SOLUTION 10 GM PO ×2 (10:05→21:13)
[2018-08-24] MEDS: CEFTRIAXONE 2 GM/50 ML FROZ.PIGGY IV (10:05)
[2018-08-24] MEDS: DOXAZOSIN 4 MG TABLET PO (10:06)
[2018-08-24] MEDS: GABAPENTIN 600 MG TABLET PO ×3 (10:06→21:13)
[2018-08-24] MEDS: FINASTERIDE 5 MG TABLET PO (10:07)
[2018-08-24] MEDS: CLOTRIMAZOLE 1% CRM 30 GM 1 APPLIC TOP (10:07)
[2018-08-24] MEDS: DOCUSATE 100 MG CAPSULE PO (10:08)
[2018-08-24] MEDS: TIMOLOL 0.5% OPHTH 1 DROPS EYE-BOTH ×2 (10:09→21:14)
[2018-08-24] MEDS: SODIUM CHLORIDE 0.9% FLUSH 10 ML IV (10:09)
[2018-08-24] MEDS: POLYETHYLENE GLYCOL 3350 17 GM POWD.PACK PO (10:09)
[2018-08-24] MEDS: NITROGLYCERIN 0.4 MG SL TAB SL (11:00)
--- NOTE | 2018-08-24 11:01 | PT.IPTN ---
Current Diagnoses Other spondylosis with radiculopathy, lumbar region (08/21/18) Spinal stenosis, lumbar region without neurogenic claudication (08/21/18) Arthrodesis status (08/21/18) Surgery Performed Operation Date: 08/21/18 08:45 Actual Procedures p L4-5 HWR, L3-4 TLIF, L2-3 Laminectomy, L3-4,L4-5 PSF w/Instru.(Not Applicable) - Ed Quezada MD Physical Therapy Treatment Note M2 PT-IP Current Condition Start: 08/21/18 16:45 Freq: NEEDED Status: Active Protocol: Document 08/22/18 09:45 HH (Rec: 08/22/18 11:16 [id number]) Physical Therapy Current Condition Current Condition Evaluation Date 08/21/18 Treatment Diagnosis L4-L5 HWR, L3-4 TLIF, L2-3 laminectomy, L3-5 PSF, impaired mobility Onset Date 08/21/18 Precautions Lumbar Precautions Log Roll No Twisting Limit Bending Lifting Restriction of 10 lbs Gait Belt above Incisional Area Weight Bearing Status Weight Bearing Status Weight Bear as Tolerated M3 PT-IP Subjective Start: 08/21/18 16:45 Freq: NEEDED Status: Active Protocol: Document 08/24/18 11:00 GGD (Rec: 08/24/18 12:01 GGD [id number]) Subjective Physical Therapy Visit Type Type Administrative Note Notes attempt to assist pt out of bed, but had increase in moura to 8/10 in chest and abdominal . Will see when medically stable.
[2018-08-24 12:07] LABS: Troponin I 0.064 ng/mL (0.01-0.034)
[2018-08-24 13:51] LABS: Creatine Kinase 535 U/L (55-170)
[2018-08-24 14:03] LABS: Troponin I 0.086 ng/mL (0.01-0.034)
[2018-08-24 14:07] LABS: CKMB % Relative Index 0.5 % (1.5-5.0); Creatine Kinase MB 2.68 ng/mL (<2.37)
--- NOTE | 2018-08-24 14:10 | OT.IP.TRT ---
Current Diagnoses Other spondylosis with radiculopathy, lumbar region (08/21/18) Spinal stenosis, lumbar region without neurogenic claudication (08/21/18) Arthrodesis status (08/21/18) Surgery Performed Operation Date: 08/21/18 08:45 Actual Procedures p L4-5 HWR, L3-4 TLIF, L2-3 Laminectomy, L3-4,L4-5 PSF w/Instru.(Not Applicable) - Ed Quezada MD Occupational Therapy Treatment Note M3 OT- IP Subjective and Pain Start: 08/22/18 16:08 Freq: Status: Active Protocol: Document 08/24/18 14:09 CGR (Rec: 08/24/18 14:10 CGR [id number]) OT- Subjective Occupational Therapy Visit Type Type Administrative Note Notes Discussed with P.T. Pt with chest pain this AM with bed mobility. Stat EKG showed changes now going for Stat Ct. Will Hold today and continue to follow.
--- NOTE | 2018-08-24 14:50 | CM.DPNOTE ---
Faxed Dr Cuellar's prog note today to [facility] F# [phone] to update on medical status and expected LOS, DC date unknown at this time. WENDIE
--- NOTE | 2018-08-24 15:49 | PM.CN ---
History of Present Illness Date Patient Seen: 08/24/18 Time Patient Seen: 15:49 Chief complaint: Translaminar Interbody Fusion/Laminotomy Reason for consult: appendicitis Requesting provider: Kaylyn Cuellar Narrative: Medically complex 82yo M s/p lumbar fusion with subsequent development of BL lobar PNA, a UTI, and cardiac ischemia apparently from demand mismatch. He began to have some abd pain when sitting up two days ago, POD#1, but it was minimal. Yesterday it was primarily LLQ and pelvis. Today, pain is more diffuse and he c/o nausea but has not vomited. He is febrile with a normal WBC. CT today shows appendicitis without free fluid or appendicolith noted. Pt is awake and alert, non-toxic, oriented and appropriate. He feels quite weak overall. He has had no abd surgery but did have what looks like a retroperitoneal R adrenalectomy in the [facility] and has had an incisional hernia in this site fixed. Pt has had a few colonoscopies, last listed 2017 with polyp removal. His daughter assists with translation. [facility] Medical History Adrenal gland cyst (Acute) Arthritis (Acute) Chronic cough (Acute) Diabetes (Acute) Dysphagia (Acute) Dyspnea (Acute) First degree AV block (Acute) GERD (gastroesophageal reflux disease) (Acute) History of CVA (cerebrovascular accident) (Acute) Hyperlipidemia (Acute) Hypertension (Acute) Incomplete RBBB (Acute) Liver cyst (Acute) Low back pain (Acute) Non-cardiac chest pain (Acute) Normal echocardiogram (Acute ~10/2014) DONNA on CPAP (Acute) Obesity (Acute) Other spondylosis with radiculopathy, lumbar region (Acute) Raynauds disease (Acute) Sinus bradycardia (Acute) Spinal stenosis, lumbar region with neurogenic claudication (Acute) Spondylolisthesis, lumbar region (Acute) Stroke (Acute) Surgical History Hx of hernia repair (Acute) Hx of shoulder surgery (Acute) S/P cervical spinal fusion (Acute) History of colonoscopy with polypectomy (Acute ~04/2017) Hx of cardiac cath (Acute ~11/2013) S/P lumbar fusion (Acute 04/18/18) Family History Father Heart attack Mother No problems noted. Social History household members: spouse Smoking Status: Never smoker alcohol intake: never Family History Father Heart attack Mother No problems noted. Social History household members: spouse Smoking Status: Never smoker alcohol intake: never Meds Home Medications Medication Instructions Recorded Confirmed Type Basaglar KwikPen U-100 Insulin 38 unit SUBCUT BEDTIME 04/12/18 08/21/18 History Pulmicort Flexhaler 1 inh INHALATION BID 04/12/18 08/19/18 History albuterol sulfate [Ventolin HFA] 2 puff INHALATION Q4-6H PRN 04/12/18 08/21/18 History amlodipine 10 mg PO BEDTIME 04/12/18 08/19/18 History aspirin 81 mg PO DAILY 04/12/18 08/21/18 History carvedilol 25 mg PO BID 04/12/18 08/21/18 History clotrimazole 1 applic TOPICAL DAILY 04/12/18 08/19/18 History diclofenac sodium 2 g TOPICAL QID PRN 04/12/18 08/19/18 History doxazosin 4 mg PO BEDTIME 04/12/18 08/19/18 History finasteride 5 mg PO DAILY 04/12/18 08/19/18 History gabapentin 600 mg PO TID 04/12/18 08/19/18 History hydrocortisone [Proctosol HC] 1 applic RI BID PRN 04/12/18 08/19/18 History lactulose 10 g PO BID 04/12/18 08/19/18 History lisinopril 20 mg PO BID 04/12/18 08/19/18 History magnesium oxide 800 mg PO BEDTIME 04/12/18 08/19/18 History polyethylene glycol 3350 17 g PO DAILY 04/12/18 08/19/18 History ranitidine HCl 150 mg PO BID 04/12/18 08/21/18 History rosuvastatin 20 mg PO QPM 04/12/18 08/19/18 History sennosides [Senokot] 8.6 mg PO DAILY PRN 04/12/18 08/19/18 History timolol 1 drp EYE-BOTH BID 04/12/18 08/19/18 History acetaminophen 650 mg PO Q6HR PRN #30 tab 04/22/18 08/19/18 Rx temazepam 15 mg PO BEDTIME PRN #30 cap 04/22/18 08/19/18 Rx tramadol 50 mg PO Q6H PRN 08/19/18 08/19/18 History Allergies Allergy/AdvReac Type Severity Reaction Status Date / Time nifedipine Allergy Mild Rash Verified 08/21/18 08:00 Review of Systems Constitutional Constitutional: Reports as per HPI Exam Vital Signs (past 8 hours): - 08/24/18 08:00 08/24/18 08:56 08/24/18 09:00 Temperature 97.4 F L Pulse Rate 66 61 61 Respiratory Rate 14 12 16 Blood Pressure 118/59 L 130/69 Pulse Oximetry 97 98 98 08/24/18 10:00 08/24/18 11:00 08/24/18 12:00 Temperature 98.7 F Pulse Rate 64 64 69 Respiratory Rate 15 14 17 Blood Pressure 120/59 L 120/54 L 126/68 Pulse Oximetry 100 99 94 08/24/18 13:00 08/24/18 13:45 Temperature 102.2 F H Pulse Rate 74 Respiratory Rate 17 Blood Pressure 111/58 L Pulse Oximetry 94 Oxygen Delivery Method Nasal Cannula Oxygen Flow Rate 0 Narrative Exam Narrative: AAO, NAD, obese male EOMI, MMM, no scleral icterus unlabored NC abd soft, non-distended, moderate ttp RONNY & RLQ; small fat-containing UH MAEW visibile skin dry and intact Objective Labs Result Diagrams: 08/24/18 04:50 08/24/18 04:50 Labs: Laboratory Results - last 24 hr 08/23/18 08/23/18 08/24/18 20:50 21:15 04:50 WBC 7.3 RBC 3.50 L Hgb 10.3 L Hct 31.7 L MCV 90.5 MCH 29.5 MCHC 32.6 RDW 14.6 Plt Count 139 L Neut % (Auto) 84.4 H Lymph % (Auto) 7.5 L [place] % (Auto) 5.6 Eos % (Auto) 1.9 L Baso % (Auto) 0.6 Neut # (Auto) 6100 Lymph # (Auto) 500 L [place] # (Auto) 400 Eos # (Auto) 100 Baso # (Auto) 0 Sodium Potassium Chloride Carbon Dioxide BUN Creatinine Estimated GFR BUN/Creatinine Ratio Glucose Hemoglobin A1c Calcium Magnesium Total Bilirubin AST ALT Alkaline Phosphatase Total Creatine Kinase CK-MB (CK-2) CK-MB (CK-2) Rel Index Troponin I Total Protein Albumin Globulin Albumin/Globulin Ratio Procalcitonin Nasal Screen MRSA (PCR) Negative for mrsa Chlamy pneumoniae PCR Not detected Adenovirus (PCR) Not detected B.parapertussis DNA PCR Not detected Coronavirus OC43 (PCR) Not detected Coronavirus HKU1 (PCR) Not detected Coronavirus 229E (PCR) Not detected Coronavirus NL63 (PCR) Not detected Human Metapneumovir PCR Not detected Influenza Type A (PCR) Not detected Influenza Type B (PCR) Not detected M. pneumoniae (PCR) Not detected Parainfluenza 1 (PCR) Not detected Parainfluenza 2 (PCR) Not detected Parainfluenza 3 (PCR) Not detected Parainfluenza 4 (PCR) Not detected RSV (PCR) Not detected Entero/Rhino (PCR) Not detected 08/24/18 08/24/18 08/24/18 04:50 04:50 04:50 WBC RBC Hgb Hct MCV MCH MCHC RDW Plt Count Neut % (Auto) Lymph % (Auto) [place] % (Auto) Eos % (Auto) Baso % (Auto) Neut # (Auto) Lymph # (Auto) [place] # (Auto) Eos # (Auto) Baso # (Auto) Sodium 139 Potassium 3.5 Chloride 109 H Carbon Dioxide 25 BUN 25 H Creatinine 1.30 H Estimated GFR 53.1 L BUN/Creatinine Ratio 19.2 Glucose 90 Hemoglobin A1c 5.6 Calcium 7.9 L Magnesium 1.9 Total Bilirubin 0.4 AST 28 ALT 24 Alkaline Phosphatase 41 Total Creatine Kinase CK-MB (CK-2) CK-MB (CK-2) Rel Index Troponin I Total Protein 5.1 L Albumin 2.7 L Globulin 2.4 Albumin/Globulin Ratio 1.1 Procalcitonin 18.26 H Nasal Screen MRSA (PCR) Chlamy pneumoniae PCR Adenovirus (PCR) B.parapertussis DNA PCR Coronavirus OC43 (PCR) Coronavirus HKU1 (PCR) Coronavirus 229E (PCR) Coronavirus NL63 (PCR) Human Metapneumovir PCR Influenza Type A (PCR) Influenza Type B (PCR) M. pneumoniae (PCR) Parainfluenza 1 (PCR) Parainfluenza 2 (PCR) Parainfluenza 3 (PCR) Parainfluenza 4 (PCR) RSV (PCR) Entero/Rhino (PCR) 08/24/18 08/24/18 04:50 13:15 WBC RBC Hgb Hct MCV MCH MCHC RDW Plt Count Neut % (Auto) Lymph % (Auto) [place] % (Auto) Eos % (Auto) Baso % (Auto) Neut # (Auto) Lymph # (Auto) [place] # (Auto) Eos # (Auto) Baso # (Auto) Sodium Potassium Chloride Carbon Dioxide BUN Creatinine Estimated GFR BUN/Creatinine Ratio Glucose Hemoglobin A1c Calcium Magnesium Total Bilirubin AST ALT Alkaline Phosphatase Total Creatine Kinase 535 H CK-MB (CK-2) 2.68 H CK-MB (CK-2) Rel Index 0.5 L Troponin I 0.064 H 0.086 H Total Protein Albumin Globulin Albumin/Globulin Ratio Procalcitonin Nasal Screen MRSA (PCR) Chlamy pneumoniae PCR Adenovirus (PCR) B.parapertussis DNA PCR Coronavirus OC43 (PCR) Coronavirus HKU1 (PCR) Coronavirus 229E (PCR) Coronavirus NL63 (PCR) Human Metapneumovir PCR Influenza Type A (PCR) Influenza Type B (PCR) M. pneumoniae (PCR) Parainfluenza 1 (PCR) Parainfluenza 2 (PCR) Parainfluenza 3 (PCR) Parainfluenza 4 (PCR) RSV (PCR) Entero/Rhino (PCR) Assessment & Plan (1) Appendicitis: Current visit: Yes Status: Acute Assessment & Plan narrative: - appendicitis in the face of numerous other issues including post op spinal fusion, BLL PNA, cardiac demand ischemia, and a UTI --> given above, josefa with the acuity of the cardiac issue which is just recently diagnosed, general anesthesia would be quite a hit on him at the moment. It may also be difficult to extubate given his BLL PNA. per the imaging, no fluid/ perforation is noted and no appendicolith is noted. His abd is tender but not remarkably so and while he is febrile, he has no leukocytosis and his skin is perfused but not flushed and non-diaphoretic. The optimal current plan is to treat his appendicitis with antibiotics (Zosyn started yesterday) and continue to reassess for improvement or worsening as he hopefully improves his other medical parameters. If he seems to be worsening, we will revisit the discussion of surgery. Pt and family understand and agree with plan.
[2018-08-24] MEDS: ACETAMINOPHEN 650 MG SUPP PR (16:00)
--- NOTE | 2018-08-24 16:15 | SLP.IPNOTE ---
Order received for speech/swallow evaluation. Chart review completed. Pt too ill for ST at this time. Discussed with MD, who agreed. Will F/U on Sunday. Non-billable report.
[2018-08-24] MEDS: DEXTROSE 5%-0.9% NS 1,000 ML 84 ML IV (17:07)
--- NOTE | 2018-08-24 17:25 | PC.NURSE ---
Addendum entered by Marlene Juarez R.N. 08/24/18 21:40: 2130 - Pt significantly moist. Linen damp. Pt very resistive to repositioning. Pt nephew reports pt does not wish to be turned r/t increased in pain. Educated pt and family to skin integrity, moisture, and pain control. Pt agreeable to slight repositioning, however declines to have bottom sheet changed at this time. Removed extra blanket, however then pt c/o of feeling chilled. A-febril. Able to take med with sips of water although pt reports feeling too weak to hold glass independently. Mostly keeping eyes closed during care. Continues to be hypotensive, BP 86/47 MAP 63. Pt c/o pain to LLQ of abd as well as back. Grimace with care. Slight turn to right side, bed angle turned 2 degrees. Monitor. Original Note: Addendum entered by Marlene Juarez R.N. 08/24/18 18:41: 1840 - Dr. Cuellar follow up with pt status. Notified of low BP 87/48 MAP 62. Reviewed pain RX. Does not need home c-pap cultured at this time. RT notified that pt family requesting larger mask for hospital use c-pap machine however also state that pt is frequently non-compliant with use. Original Note: 1600 - Pt expressing to family that he does not like to use the automatic bandsaw tender phone. They say he is having difficulty hearing over the phone, family states that pt is requesting translation through family members and that they will be rotating their visits to assist pt with communication. Pt febril and c/o chills, face flushed. Also c/o pain to back and lower abd, 7 of 10, percolone and apap given. 1700 - Reinforced treatment plan with pt and his nephew at bedside. Pt stating that he was going to surgery. Reinforced conservative approach, antibiotics and monitoring. Encourage pt to notify staff with increased pain, nausea or return of chills. Dr. Cuellar notified of BG of 72, reviewed IVF and po medications. awaiting orders.
[2018-08-24] MEDS: SENNOSIDES 8.6 MG TABLET 17.2 MG PO (21:14)
[2018-08-25] VITALS (27 sets, daily range): BP systolic 93–125; BP diastolic 49–72; PULSE 58–76; RESP 12–23; TEMP 36.1–38.8; O2SAT 91–99
[2018-08-25] MEDS: OXYCODONE IR 5 MG TABLET PO (00:43)
[2018-08-25] MEDS: PIPERACILLIN-TAZO 3.375 GM/50 ML FROZ.PIGGY IV ×3 (01:18→16:46)
[2018-08-25] MEDS: DEXTROSE 5%-0.9% NS 1,000 ML 84 ML IV (05:52)
[2018-08-25 08:13] LABS: Add Manual Diff / Slide Review NO; Basophils Absolute Auto 0 /uL (0-100); Basophils Percent Auto 0.6 % (0-2); Eosinophils Absolute Auto 200 /uL (0-450); Eosinophils Percent Auto 2.4 % (2-4); Hematocrit 32.4 % (41-53); Hemoglobin 10.6 g/dL (13.5-17.5); Lymphocytes Absolute Auto 600 /uL (1100-4500); Mean Corpuscular HGB Conc 32.8 % (30-36); Mean Corpuscular Hemoglobin 29.7 PG (26-34); Mean Corpuscular Volume 90.4 fL (80-100); Monocytes Absolute Auto 300 /uL (0-900); Monocytes Percent Auto 4.7 % (3-14); Neutrophils Absolute Auto 5200 /uL (1500-7000); Neutrophils Percent Auto 82.3 % (50-75); Platelet Count 160 X10^3/uL (150-400); Red Blood Cell Count 3.59 X10^6/uL (4.5-5.9); Red Cell Distribution Width 14.6 % (11.6-14.8); White Blood Cell Count 6.3 X10^3/uL (4.5-11.0)
[2018-08-25 08:23] LABS: Blood Urea Nitrogen 18 mg/dL (9-20); Calcium 8.2 mg/dL (8.4-10.2); Carbon Dioxide 23 mmol/L (22-32); Chloride 109 mmol/L (98-107); Estimated Glomerular Filt Rate > 60.0 mL/min (>60); Glucose 79 mg/dL (80-110); HEMOLYSIS < 15 (0-50); Potassium 3.6 mmol/L (3.4-5.1); Sodium 141 mmol/L (137-145)
[2018-08-25] MEDS: BUDESONIDE 60 PUFF/DEVICE INHALER INH ×2 (08:24→21:03)
[2018-08-25 08:35] LABS: Troponin I 0.059 ng/mL (0.01-0.034)
[2018-08-25 08:42] LABS: Procalcitonin 7.73 ng/mL (<0.5)
[2018-08-25] MEDS: MORPHINE 2 MG/ML INJ IV ×2 (08:43→11:25)
[2018-08-25] MEDS: SODIUM CHLORIDE 0.9% FLUSH 10 ML IV (08:43)
[2018-08-25] MEDS: AZITHROMYCIN 500 MG in DEXTROSE 5% IN WATER 250 ML IV (08:43)
--- NOTE | 2018-08-25 08:58 | DI.ECHO.S_ITS ---
[place] +---------+ [facility] +---------+ : : [address] [place] [address] : : : : [id number] : : : : Phone: [phone]+ Echocardiogram Report + + :Name: SAUL GARCIA Study Date: 08/25/2018 Height: 65 in : :[facility] Weight: 206 lb : : Gender: Male BSA: 2.0 m2 : :: 1935 Age: 82 yrs BP: 107/63 mmHg: :Reason For Study: ACS : :Ordering Physician: Domingo : :Hospitalist Performed By: Harry Diop : :Referring: JOURDAN SCHUSTER : + + Interpretation Summary The left ventricle is normal in size. Left ventricular systolic function is normal. The ejection fraction is estimated to be 55-60%. Flattened septum is consistent with RV pressure/volume overload. Cannot rule out subtle anterior hypokinesis. The right ventricle is moderately dilated. Right ventricular systolic function is mildly reduced. There is RV free wall severe hypokinesis. RVSP is at at least moderately increased with flatenning of IVS as mentioned above. Findings should prompt PE workup. The right ventricular systolic pressure is estimated to be at least 48 mmHg based on an estimated right atrial pressure of 8 mm Hg. Borderline left atrial enlargement. The right atrium grossly appears normal in size. There is mild mitral regurgitation. There is mild aortic regurgitation. There is moderate tricuspid regurgitation. The ascending aorta is mildly enlarged. Procedure: A two-dimensional transthoracic echocardiogram with color flow and Doppler was performed. The study quality was technically adequate. A contrast injection of Definity was performed to improve assessment of LV function. There is no prior echocardiogram noted for this patient. Left Ventricle: The left ventricle is normal in size. There is normal left ventricular wall thickness. Left ventricular systolic function is normal. The ejection fraction is estimated to be 55-60%. Flattened septum is consistent with RV pressure/volume overload. Cannot rule out subtle anterior hypokinesis. Right Ventricle: The right ventricle is moderately dilated. Right ventricular systolic function is mildly reduced. There is RV free wall severe hypokinesis. RVSP is at at least moderately increased with flatenning of IVS as mentioned above. Findings should prompt PE workup. Atria: Borderline left atrial enlargement. The right atrium grossly appears normal in size. The interatrial septum is intact with no evidence for an atrial septal defect. Mitral Valve: The mitral valve is grossly normal. There is mild mitral regurgitation. Aortic Valve: The aortic valve is grossly normal. There is mild aortic regurgitation. Tricuspid Valve: The tricuspid valve is not well visualized, but is grossly normal. There is moderate tricuspid regurgitation. The right ventricular systolic pressure is estimated to be at least 48 mmHg based on an estimated right atrial pressure of 8 mm Hg. Pulmonic Valve: The pulmonic valve is not well visualized. Great Vessels: The aortic root is normal size. The ascending aorta is mildly enlarged. The pulmonary is not well visualized. The IVC is dilated (diameter is greater than 2.1 cm) yet it collapses greater than 50% with a sniff. This suggests a right atrial pressure of 8 mm Hg. Pericardium/ Pleura There is no pericardial effusion. There is no pleural effusion. MMode/2D Measurements & Calculations LVIDd: 4.9 cm LVOT diam: 2.2 cm LVIDs: 3.4 cm Ao root diam: 3.6 cm FS: 30.7 % asc Aorta Diam: 4.0 cm IVSd: 0.77 cm Ao Arch Diam (Prox Trans): 3.0 cm LVPWd: 0.80 cm LV farley. diameter/BSA (cm/m^2): 2.4 LV sys. diameter/BSA (cm/m^2): 1.7 LA A2 area: 20.6 cm2 RA long axis: 5.1 cm LA A4 area: 23.8 cm2 RA area: 16.6 cm2 LA length (vol): 6.7 cm RA vol: 46.0 ml LA vol: 62.1 ml RA : 23.0 ml/m2 LA vol index: 31.0 ml/m2 IVC diam: 2.3 cm RVD2 (mid): 4.7 cm TAPSE: 1.4 cm Doppler Measurements & Calculations Ao V2 max: 142.4 cm/sec LVOT Max Eliseo: 101.0 cm/sec Ao V2 mean: 105.7 cm/sec LV V1 max P.1 mmHg Ao max P.1 mmHg LV V1 VTI: 19.9 cm Ao mean P.8 mmHg TEO(I,D): 2.6 cm2 Ao V2 VTI: 27.5 cm TEO(V,D): 2.6 cm2 sev ratio: 0.72 TEO indexed to BSA (cm^2/m^2): 1.3 MV E max eliseo: 112.2 cm/sec TR max eliseo: 317.8 cm/sec MV A max eliseo: 56.6 cm/sec TR max P.4 mmHg MV E/A: 2.0 Med Peak E' Eliseo: 6.5 cm/sec E/E' med: 17.2 Lat Peak E' Eliseo: 6.6 cm/sec E/E' lat: 16.9 E/e' average: 17.1 MV dec time: 0.22 sec SV(LVOT): 72.8 ml Reading Physician:01:30 PM
--- NOTE | 2018-08-25 10:15 | PC.NURSE ---
COSTUME CUTTER note: Nurse notified of elevated temp as well as low pulse ox. 1L of O2 applied at 1010 as well as 1 blanket removed
[2018-08-25] MEDS: TIMOLOL 0.5% OPHTH 1 DROPS EYE-BOTH ×2 (10:34→21:02)
[2018-08-25] MEDS: CLOTRIMAZOLE 1% CRM 30 GM 1 APPLIC TOP (10:35)
--- NOTE | 2018-08-25 11:13 | PM.PNPO.1 ---
Subjective Date Patient Seen: 08/25/18 Time Patient Seen: 11:13 Interval history: The patient is now approximately 1 week status post posterior spinal instrumentation and fusion. His postoperative course has been complicated by sepsis, UTI and now appendicitis. There was a question of pneumonia but Dr. Pereira thinks this could be due to P and a CT scan has been ordered today. cultures are still pending. He has been on IV antibiotics. He reports pain in his back as well as in the anterior aspect of both thighs to about the knee level. He was having similar pain before surgery. he reports a lot of discomfort in his lower abdomen. Exam Vital Signs (past 8 hours): - 08/25/18 04:01 08/25/18 04:16 08/25/18 05:02 Temperature 98.6 F Pulse Rate 72 68 Respiratory Rate 18 19 Blood Pressure 105/52 L 94/55 L Pulse Oximetry 95 96 08/25/18 06:11 08/25/18 07:00 08/25/18 08:00 Temperature 99.0 F 99.2 F Pulse Rate 68 67 66 Respiratory Rate 20 15 Blood Pressure 105/52 L 101/55 L 114/61 Pulse Oximetry 92 97 08/25/18 08:25 08/25/18 09:00 08/25/18 10:00 Temperature 101.8 F H Pulse Rate 69 68 72 Respiratory Rate 12 22 Blood Pressure 107/63 93/50 L Pulse Oximetry 94 93 91 08/25/18 11:00 Temperature 100.2 F H Pulse Rate 67 Respiratory Rate 20 Blood Pressure 109/56 L Pulse Oximetry 98 Oxygen Delivery Method Room Air Oxygen Flow Rate 1 Narrative Exam Narrative: The patient is awake and alert. His daughter is present acting as an energy conservation engineer. He does not appear to be in acute distress. Dressings are dry. he is grossly neurovascularly intact throughout the lower extremities. Minimal swelling of the extremities. Objective Labs Result Diagrams: 08/25/18 08:00 08/25/18 08:00 Labs: Laboratory Results - last 24 hr 08/24/18 08/24/18 08/25/18 04:50 13:15 08:00 WBC 6.3 RBC 3.59 L Hgb 10.6 L Hct 32.4 L MCV 90.4 MCH 29.7 MCHC 32.8 RDW 14.6 Plt Count 160 Neut % (Auto) 82.3 H Lymph % (Auto) 10.0 L [place] % (Auto) 4.7 Eos % (Auto) 2.4 Baso % (Auto) 0.6 Neut # (Auto) 5200 Lymph # (Auto) 600 L [place] # (Auto) 300 Eos # (Auto) 200 Baso # (Auto) 0 Sodium Potassium Chloride Carbon Dioxide BUN Creatinine Estimated GFR BUN/Creatinine Ratio Glucose Calcium Total Creatine Kinase 535 H CK-MB (CK-2) 2.68 H CK-MB (CK-2) Rel Index 0.5 L Troponin I 0.064 H 0.086 H Procalcitonin 08/25/18 08/25/18 08:00 08:00 WBC RBC Hgb Hct MCV MCH MCHC RDW Plt Count Neut % (Auto) Lymph % (Auto) Mor[place] % (Auto) Eos % (Auto) Baso % (Auto) Neut # (Auto) Lymph # (Auto) Mor[place] # (Auto) Eos # (Auto) Baso # (Auto) Sodium 141 Potassium 3.6 Chloride 109 H Carbon Dioxide 23 BUN 18 Creatinine 1.00 Estimated GFR > 60.0 BUN/Creatinine Ratio 18.0 Glucose 79 L Calcium 8.2 L Total Creatine Kinase CK-MB (CK-2) CK-MB (CK-2) Rel Index Troponin I 0.059 H Procalcitonin 7.73 H Assessment & Plan Post-op Postoperative Procedures Operation Date: 08/21/18 08:45 Actual Procedures Side Surgeon p L4-5 HWR, L3-4 TLIF, L2-3 Laminectomy, L3-4,L4-5 PSF w/Instru. Not Applicable Ed Quezada MD Postoperative status narrative: One week status post posterior spinal instrumentation and fusion complicated by sepsis, UTI and appendicitis. The patient is scheduled for a chest CT to rule out PE. He will continue on current antibiotics as we await cultures. Medicine and General surgery will continue to follow and direct care as needed. Time Spent With Patient less than 15 minutes Quality VTE Deep Vein Thrombosis/Pulmonary Embolism Present on Admission: No
--- NOTE | 2018-08-25 11:28 | PC.NURSE ---
Addendum entered by Radha Dowd R.N. 08/25/18 14:27: Heparin bolus and gtt started at 1255. bed bath done and pt tolerated ok. Morphine 4mg IV given. Temp elevated and tylenol supp given. Original Note: pt back from CT of chest; Echo done. Temp 101.2. Morphine 2mg IV q2hr with moderate relief of abd pain. daughter in room to assist in translating. per daughter, pt doesn't hear the business objects report developer on the phone well enough to understand. family wants to help with translating 24hrs. Gilma Haro and Maggie in to see pt. pt reports chest pain/pressure, increasing with deep breath. abd pain moderate to severe and increases with any movement.
--- NOTE | 2018-08-25 11:56 | DI.CT.S_ITS ---
PROCEDURE: CT ANGIO CHEST PE PROTOCOL INDICATIONS: chest pain, r/o PE TECHNIQUE: After the administration of intravenous contrast, 2 mm thick sections acquired from the pulmonary apices to the posterior costophrenic angles. 3-dimensional maximum intensity projection (MIP) coronal and sagittal reformats were then acquired through the thorax. For radiation dose reduction, the following was used: automated exposure control, adjustment of mA and/or kV according to patient size. COMPARISON: [facility], CT, CT ABDOMEN PELVIS W CON, 08/24/2018, 12:03. FINDINGS: Image quality: Excellent. Pulmonary arteries: There are 2 subsegmental filling defects present in basilar right lower lobe pulmonary arteries. No central pulmonary emboli. Lungs and pleura: There is bibasilar atelectasis. There are small bilateral pleural effusions. Mediastinum: Heart size is normal, without pericardial effusion. Shoddy mediastinal adenopathy. Thoracic aorta is normal in caliber and enhancement. Esophagus is normal in caliber, without hiatal hernia. Bones and chest wall: No suspicious bony lesions. Ribs and thoracic spine appear intact throughout. Thyroid gland is unremarkable. No axillary or supraclavicular adenopathy. Abdomen: Visualized upper abdominal solid organs appear normal in the early arterial phase of enhancement. IMPRESSION: 1. There are 2 small, subsegmental right lower lobe basilar pulmonary emboli. 2. Bibasilar atelectasis. Small bilateral pleural effusions. Dictated by: Guillermo Gandhi M.D. on 08/25/2018 at 11:46 Approved by: Guillermo Gandhi M.D. on 08/25/2018 at 11:54
[2018-08-25] MEDS: HEPARIN 5,000 UNIT/ML VIAL 7500 UNIT IV (12:55)
[2018-08-25] MEDS: HEPARIN DRIP 25,000 UNIT/500 ML IV.SOLN 33.696 UNIT IV (12:55)
--- NOTE | 2018-08-25 13:14 | P.PN_ITS ---
Subjective Date Patient Seen: 08/25/18 Time Patient Seen: 09:43 Interval history: Doing well overall, c/o same abd pain and chest pressure- the latter increased some after recent morphine dose. Labs and vitals normal, breathing and talking comfortably. Exam Vital Signs (past 8 hours): - 08/25/18 06:11 08/25/18 07:00 08/25/18 08:00 Temperature 99.0 F 99.2 F Pulse Rate 68 67 66 Respiratory Rate 20 15 Blood Pressure 105/52 L 101/55 L 114/61 Pulse Oximetry 92 97 08/25/18 08:25 08/25/18 09:00 08/25/18 10:00 Temperature 101.8 F H Pulse Rate 69 68 72 Respiratory Rate 12 22 Blood Pressure 107/63 93/50 L Pulse Oximetry 94 93 91 08/25/18 11:00 08/25/18 12:34 Temperature 100.2 F H Pulse Rate 67 71 Respiratory Rate 20 23 Blood Pressure 109/56 L 107/61 Pulse Oximetry 98 93 Oxygen Delivery Method Room Air Oxygen Flow Rate 1 Narrative Exam Narrative: AAO, NAD, obese male EOMI, MMM unlabored RA soft, nd, moderate diffuse ttp, no peritoneal signs ramachandran in place with clear yellow drainage MAEW visible skin dry and intact Objective Labs Result Diagrams: 08/25/18 08:00 08/25/18 08:00 Labs: Laboratory Results - last 24 hr 08/24/18 08/25/18 08/25/18 13:15 08:00 08:00 WBC 6.3 RBC 3.59 L Hgb 10.6 L Hct 32.4 L MCV 90.4 MCH 29.7 MCHC 32.8 RDW 14.6 Plt Count 160 Neut % (Auto) 82.3 H Lymph % (Auto) 10.0 L Roberts % (Auto) 4.7 Eos % (Auto) 2.4 Baso % (Auto) 0.6 Neut # (Auto) 5200 Lymph # (Auto) 600 L Roberts # (Auto) 300 Eos # (Auto) 200 Baso # (Auto) 0 Sodium 141 Potassium 3.6 Chloride 109 H Carbon Dioxide 23 BUN 18 Creatinine 1.00 Estimated GFR > 60.0 BUN/Creatinine Ratio 18.0 Glucose 79 L Calcium 8.2 L Total Creatine Kinase 535 H CK-MB (CK-2) 2.68 H CK-MB (CK-2) Rel Index 0.5 L Troponin I 0.086 H 0.059 H Procalcitonin 08/25/18 08:00 WBC RBC Hgb Hct MCV MCH MCHC RDW Plt Count Neut % (Auto) Lymph % (Auto) Roberts % (Auto) Eos % (Auto) Baso % (Auto) Neut # (Auto) Lymph # (Auto) Roberts # (Auto) Eos # (Auto) Baso # (Auto) Sodium Potassium Chloride Carbon Dioxide BUN Creatinine Estimated GFR BUN/Creatinine Ratio Glucose Calcium Total Creatine Kinase CK-MB (CK-2) CK-MB (CK-2) Rel Index Troponin I Procalcitonin 7.73 H Assessment & Plan Assessment & Plan narrative: - still c/o abd pain but not worsening, no significant nausea --> WBC normal, afebrile, vitals normal - ECHO pending today, troponins downtrending --> also appears a CT chest is ordered to r/o PE likely due to his ongoing c/o chest pressure - still high risk for surgery and objective findings do not indicate worsening or uncontrolled infection so will continue non-operative mgmt unless course changes Quality VTE Deep Vein Thrombosis/Pulmonary Embolism Present on Admission: No
[2018-08-25] MEDS: ACETAMINOPHEN 650 MG SUPP PR (13:26)
--- NOTE | 2018-08-25 13:33 | PM.PN.1 ---
Subjective Date Patient Seen: 08/25/18 Interval history: Patient is critically ill and managed in ICU. He is Irish speaking but daughter is very reliable production consultant. He states he was unable to adequately hear the revenue inspector via telephone. He is postop day 4. Status post lumbar fusion on 08/21/2018. Postop course has been complicated by coincidental acute appendicitis developing in hospital, possible pneumonia, acute subsegmental PE diagnosed today based on ongoing chest pain and ECHO showing right heart strain. He has not been hypoxic. His major complaints are ongoing chest pain worse with movement and severe pain across his abdomen. No vomiting. Exam Vital Signs (past 8 hours): - 08/25/18 06:11 08/25/18 07:00 08/25/18 08:00 Temperature 99.0 F 99.2 F Pulse Rate 68 67 66 Respiratory Rate 20 15 Blood Pressure 105/52 L 101/55 L 114/61 Pulse Oximetry 92 97 08/25/18 08:25 08/25/18 09:00 08/25/18 10:00 Temperature 101.8 F H Pulse Rate 69 68 72 Respiratory Rate 12 22 Blood Pressure 107/63 93/50 L Pulse Oximetry 94 93 91 08/25/18 11:00 08/25/18 12:34 08/25/18 13:00 Temperature 100.2 F H 101.9 F H Pulse Rate 67 71 72 Respiratory Rate 20 23 23 Blood Pressure 109/56 L 107/61 115/59 L Pulse Oximetry 98 93 93 08/25/18 13:26 Temperature 101.2 F H Pulse Rate Respiratory Rate Blood Pressure Pulse Oximetry Oxygen Delivery Method Room Air Oxygen Flow Rate 0 Narrative Exam Narrative: GENERAL: Elderly male who looks uncomfortable HEENT: Pupils equal bilateral CHEST: Diminished in bases otherwise clear to auscultation CARDIAC: Regular rate and rhythm. ABDOMEN: Obese, bowel sounds present, diffusely tender with mild guarding, no rebound EXTREMITIES: no pretibial edema. NEUROLOGICAL: Alert, appears well oriented, nonfocal SKIN: Warm, dry, no petechiae, no rash Objective Labs Result Diagrams: 08/25/18 08:00 08/25/18 08:00 Labs: Laboratory Results - last 24 hr 08/24/18 08/25/18 08/25/18 13:15 08:00 08:00 WBC 6.3 RBC 3.59 L Hgb 10.6 L Hct 32.4 L MCV 90.4 MCH 29.7 MCHC 32.8 RDW 14.6 Plt Count 160 Neut % (Auto) 82.3 H Lymph % (Auto) 10.0 L [place] % (Auto) 4.7 Eos % (Auto) 2.4 Baso % (Auto) 0.6 Neut # (Auto) 5200 Lymph # (Auto) 600 L [place] # (Auto) 300 Eos # (Auto) 200 Baso # (Auto) 0 Sodium 141 Potassium 3.6 Chloride 109 H Carbon Dioxide 23 BUN 18 Creatinine 1.00 Estimated GFR > 60.0 BUN/Creatinine Ratio 18.0 Glucose 79 L Calcium 8.2 L Total Creatine Kinase 535 H CK-MB (CK-2) 2.68 H CK-MB (CK-2) Rel Index 0.5 L Troponin I 0.086 H 0.059 H Procalcitonin 08/25/18 08:00 WBC RBC Hgb Hct MCV MCH MCHC RDW Plt Count Neut % (Auto) Lymph % (Auto) [place]oup % (Auto) Eos % (Auto) Baso % (Auto) Neut # (Auto) Lymph # (Auto) [place]oup # (Auto) Eos # (Auto) Baso # (Auto) Sodium Potassium Chloride Carbon Dioxide BUN Creatinine Estimated GFR BUN/Creatinine Ratio Glucose Calcium Total Creatine Kinase CK-MB (CK-2) CK-MB (CK-2) Rel Index Troponin I Procalcitonin 7.73 H Assessment & Plan Assessment & Plan narrative: Patient is 82-year-old male status post lumbar fusion on 08/21/2018. Postop course has been complicated by coincidental acute appendicitis developing in hospital, possible pneumonia, acute subsegmental PE diagnosed 08/25/2018 based on ongoing chest pain and ECHO showing right heart strain. 1. Acute appendicitis -findings on CT 08/24/2018 -patient is being managed conservatively due to very high surgical risk with postop lumbar surgery status, acute PE, possible pneumonia -continue Zosyn 3.375 g q.8 hours and IV fluid -morphine 2-4 mg IV q.2 hours as needed -NPO status -Dr. Seaman following for surgery 2. Acute PE, right lung subsegmental -noted on CT angio 08/25/2018 which was ordered due to ongoing chest pain and echo findings of dilated RV with septal flattening and decreased RV function -started heparin bolus and drip on 08/25/2018, per Ortho considered patient's postop lumbar surgery status was not contraindication to anticoagulation for PE -bilateral venous duplex ultrasound ordered for Sunday -monitor PTT, platelets on IV heparin 3. Possible pneumonia -lung imaging CT and x-ray showing consolidation versus atelectasis in lower lobes -patient does not have cough or hypoxia and therefore postop atelectasis is more likely -already covered on antibiotic as for acute appendicitis 4. Sepsis, likely due to acute appendicitis -remains febrile though blood pressure improved with antibiotics and IV fluids -WBC has been normal and creatinine improving (was up to 1.3 and now 1.00) -continue treating underlying infection 5. Troponin leak -history of CAD not well documented -likely demand related ischemia from sepsis and/or right heart strain due to acute PE -EKG on 08/24/2018 showed incomplete right bundle branch block, new slight T-wave inversion anteriorly which was new, no change in EKG on 08/25/2018, no ST depression or elevation -no acute ME with troponin staying below ME cut off -holding patient's routine aspirin and other cardiac meds to NPO status and BP fluctuations with sepsis 6. Lumbar osteoarthritis status post revision TLIF, present on admission. Active. -Continue pain and postoperative management per Ortho. -Incision and bandage are clean, dry, intact. No surrounding erythema. -no signs or symptoms so far of wound infection/postoperative infection. 7. Type 2 diabetes, insulin using -has been mildly hypoglycemic with NPO status -long-acting insulin was discontinued -A1c 5.6 -continue as needed insulin with D5 in IV fluids Patient is critically ill and managed in ICU. Total critical care time of approximately 60 minutes during course of this day's encounter. Quality VTE Deep Vein Thrombosis/Pulmonary Embolism Present on Admission: No
[2018-08-25] MEDS: MORPHINE 4 MG/ML INJ IV ×3 (13:45→21:03)
[2018-08-25 13:46] LABS: INR 1.3 (0.9-1.3); Prothrombin Time 14.8 SECONDS (10.1-12.7)
[2018-08-25 13:48] LABS: PTT Partial Thromboplastin Tim 32 SECONDS (26.4-36.2)
--- NOTE | 2018-08-25 13:57 | P.PN_ITS ---
Subjective Date Patient Seen: 08/25/18 Interval history: Patient is critically ill and managed in ICU. He is Nicaraguan speaking but daughter is very reliable director correctional agency. He states he was unable to adequately hear the website project manager via telephone. He is postop day 4. Status post lumbar fusion on 08/21/2018. Postop course has been complicated by coincidental acute appendicitis developing in hospital, possible pneumonia, acute subsegmental PE diagnosed today based on ongoing chest pain and ECHO showing right heart strain. He has not been hypoxic. His major complaints are ongoing chest pain worse with movement and severe pain across his abdomen. No vomiting. Exam Vital Signs (past 8 hours): - 08/25/18 06:11 08/25/18 07:00 08/25/18 08:00 Temperature 99.0 F 99.2 F Pulse Rate 68 67 66 Respiratory Rate 20 15 Blood Pressure 105/52 L 101/55 L 114/61 Pulse Oximetry 92 97 08/25/18 08:25 08/25/18 09:00 08/25/18 10:00 Temperature 101.8 F H Pulse Rate 69 68 72 Respiratory Rate 12 22 Blood Pressure 107/63 93/50 L Pulse Oximetry 94 93 91 08/25/18 11:00 08/25/18 12:34 08/25/18 13:00 Temperature 100.2 F H 101.9 F H Pulse Rate 67 71 72 Respiratory Rate 20 23 23 Blood Pressure 109/56 L 107/61 115/59 L Pulse Oximetry 98 93 93 08/25/18 13:26 Temperature 101.2 F H Pulse Rate Respiratory Rate Blood Pressure Pulse Oximetry Oxygen Delivery Method Room Air Oxygen Flow Rate 0 Narrative Exam Narrative: GENERAL: Elderly male who looks uncomfortable HEENT: Pupils equal bilateral CHEST: Diminished in bases otherwise clear to auscultation CARDIAC: Regular rate and rhythm. ABDOMEN: Obese, bowel sounds present, diffusely tender with mild guarding, no rebound EXTREMITIES: no pretibial edema. NEUROLOGICAL: Alert, appears well oriented, nonfocal SKIN: Warm, dry, no petechiae, no rash Objective Labs Result Diagrams: 08/25/18 08:00 08/25/18 08:00 Labs: Laboratory Results - last 24 hr 08/24/18 08/25/18 08/25/18 13:15 08:00 08:00 WBC 6.3 RBC 3.59 L Hgb 10.6 L Hct 32.4 L MCV 90.4 MCH 29.7 MCHC 32.8 RDW 14.6 Plt Count 160 Neut % (Auto) 82.3 H Lymph % (Auto) 10.0 L [place]ok % (Auto) 4.7 Eos % (Auto) 2.4 Baso % (Auto) 0.6 Neut # (Auto) 5200 Lymph # (Auto) 600 L [place] # (Auto) 300 Eos # (Auto) 200 Baso # (Auto) 0 Sodium 141 Potassium 3.6 Chloride 109 H Carbon Dioxide 23 BUN 18 Creatinine 1.00 Estimated GFR > 60.0 BUN/Creatinine Ratio 18.0 Glucose 79 L Calcium 8.2 L Total Creatine Kinase 535 H CK-MB (CK-2) 2.68 H CK-MB (CK-2) Rel Index 0.5 L Troponin I 0.086 H 0.059 H Procalcitonin 08/25/18 08:00 WBC RBC Hgb Hct MCV MCH MCHC RDW Plt Count Neut % (Auto) Lymph % (Auto) [place]ok % (Auto) Eos % (Auto) Baso % (Auto) Neut # (Auto) Lymph # (Auto) [place] # (Auto) Eos # (Auto) Baso # (Auto) Sodium Potassium Chloride Carbon Dioxide BUN Creatinine Estimated GFR BUN/Creatinine Ratio Glucose Calcium Total Creatine Kinase CK-MB (CK-2) CK-MB (CK-2) Rel Index Troponin I Procalcitonin 7.73 H Assessment & Plan Assessment & Plan narrative: Patient is 82-year-old male status post lumbar fusion on 08/21/2018. Postop course has been complicated by coincidental acute appendicitis developing in hospital, possible pneumonia, acute subsegmental PE diagnosed 08/25/2018 based on ongoing chest pain and ECHO showing right heart strain. 1. Acute appendicitis -findings on CT 08/24/2018 -patient is being managed conservatively due to very high surgical risk with postop lumbar surgery status, acute PE, possible pneumonia -continue Zosyn 3.375 g q.8 hours and IV fluid -morphine 2-4 mg IV q.2 hours as needed -NPO status -Dr. Seaman following for surgery 2. Acute PE, right lung subsegmental -noted on CT angio 08/25/2018 which was ordered due to ongoing chest pain and echo findings of dilated RV with septal flattening and decreased RV function -started heparin bolus and drip on 08/25/2018, per Ortho considered patient's postop lumbar surgery status was not contraindication to anticoagulation for PE -bilateral venous duplex ultrasound ordered for Sunday -monitor PTT, platelets on IV heparin 3. Possible pneumonia -lung imaging CT and x-ray showing consolidation versus atelectasis in lower lobes -patient does not have cough or hypoxia and therefore postop atelectasis is more likely -already covered on antibiotic as for acute appendicitis 4. Sepsis, likely due to acute appendicitis -remains febrile though blood pressure improved with antibiotics and IV fluids -WBC has been normal and creatinine improving (was up to 1.3 and now 1.00) -continue treating underlying infection 5. Troponin leak -history of CAD not well documented -likely demand related ischemia from sepsis and/or right heart strain due to acute PE -EKG on 08/24/2018 showed incomplete right bundle branch block, new slight T- wave inversion anteriorly which was new, no change in EKG on 08/25/2018, no ST depression or elevation -no acute PA with troponin staying below PA cut off -holding patient's routine aspirin and other cardiac meds to NPO status and BP fluctuations with sepsis 6. Lumbar osteoarthritis status post revision TLIF, present on admission. Active. -Continue pain and postoperative management per Ortho. -Incision and bandage are clean, dry, intact. No surrounding erythema. -no signs or symptoms so far of wound infection/postoperative infection. 7. Type 2 diabetes, insulin using -has been mildly hypoglycemic with NPO status -long-acting insulin was discontinued -A1c 5.6 -continue as needed insulin with D5 in IV fluids Patient is critically ill and managed in ICU. Total critical care time of approximately 60 minutes during course of this day's encounter. Quality VTE Deep Vein Thrombosis/Pulmonary Embolism Present on Admission: No
--- NOTE | 2018-08-25 16:49 | PT.IPTN ---
Current Diagnoses Unspecified appendicitis (08/21/18) Other spondylosis with radiculopathy, lumbar region (08/21/18) Spinal stenosis, lumbar region without neurogenic claudication (08/21/18) Arthrodesis status (08/21/18) Surgery Performed Operation Date: 08/21/18 08:45 Actual Procedures p L4-5 HWR, L3-4 TLIF, L2-3 Laminectomy, L3-4,L4-5 PSF w/Instru.(Not Applicable) - Ed Quezada MD Physical Therapy Treatment Note M2 PT-IP Current Condition Start: 08/21/18 16:45 Freq: NEEDED Status: Active Protocol: Document 08/22/18 09:45 HH (Rec: 08/22/18 11:16 [email or web address]) Physical Therapy Current Condition Current Condition Evaluation Date 08/21/18 Treatment Diagnosis L4-L5 HWR, L3-4 TLIF, L2-3 laminectomy, L3-5 PSF, impaired mobility Onset Date 08/21/18 Precautions Lumbar Precautions Log Roll No Twisting Limit Bending Lifting Restriction of 10 lbs Gait Belt above Incisional Area Weight Bearing Status Weight Bearing Status Weight Bear as Tolerated M3 PT-IP Subjective Start: 08/21/18 16:45 Freq: NEEDED Status: Active Protocol: Document 08/25/18 16:48 NFW (Rec: 08/25/18 16:49 [id number]) Subjective Physical Therapy Visit Type Type Treatment Note Notes Contacted nursing, hold on PT due to Pulmonary Embolism. M4 PT-IP Mobility and Gait Start: 08/21/18 16:45 Freq: NEEDED Status: Active Protocol: Document 08/22/18 09:45 HH (Rec: 08/22/18 11:16 [email or web address]) PT-Bed Mobility Assessment Rolling Type of Rolling Bilateral Level of Assist Maximal Assistance 2 Person Assistance Supine to Sit Supine to Sit Total Assistance 2 Person Assistance Bedrails Sit to Supine Sit to Supine Total Assistance 2 Person Assistance Bedrails PT-Transfer Assessment Comments Mobility Comments Pt is in elevated bed with BP at 77/46 HR 66 supine with BP 78/44 HR 74 sitting EOB with BP 82/46 HR 77 Pt is able to wiggle his toes and mobilize his ankles but limited movement with knees and hips. Pt has significant weakness with supine leg press . He required max A x 2 for rolling to side and max A x 3 for supine to sit. Pt has poor trunk control and sitting balance at this point and needed B UE for support on bed / bedrails. Pt also tends to lean towards his L side. Did not attempt transfer/ sit to stand due to weakness. Pt also denies his need for BM. Gait Assessment Comments Gait Comments unable to assess Stair Climbing Assessment Comments Stair Climbing Comments unable to assess PT-Balance Assessment Sitting Balance and Reactions Static Sitting Balance Ability Fair Dynamic Sitting Balance Ability Poor M5 PT-IP Objective Assessments Start: 08/21/18 16:45 Freq: NEEDED Status: Active Protocol: Document 08/22/18 09:45 HH (Rec: 08/22/18 11:16 [email or web address]) Orientation Orientation/Cognition Level of Alertness Alert Comments unable to assess due to language barrier. Will reassess when dtr is present Gross Range of Motion Upper Extremity ROM Assessment Within Functional Limits Lower Extremity ROM Assessment Bilaterally Impaired Strength Upper Extremity Strength Assessment Within Functional Limits Lower Extremity Strength Assessment Bilaterally Impaired Comments Strength Comments 3- to 3 /5 for B LEs strength Coordination Assessment Assessment Coordination Comments unable to assess due to language barrier. Will reassess when dtr is present Sensation Assessment Comments Sensation Comments unable to assess due to language barrier. Will reassess when dtr is present M6 PT-IP Treatment Start: 08/21/18 16:45 Freq: NEEDED Status: Active Protocol: Document 08/22/18 09:45 HH (Rec: 08/22/18 11:16 [email or web address]) Physical Therapy Treatment Exercises Exercises Quad Sets M7 PT-IP Assessment and Plan Start: 08/21/18 16:45 Freq: NEEDED Status: Active Protocol: Document 08/22/18 09:45 HH (Rec: 08/22/18 11:16 [email or web address]) PT Summary Assessment and Plan Potential Rehabilitation Potential Fair Status of Condition at Evaluation Evolving Summary Impairments Pain ROM Strength Balance Bed Mobility Transfers Gait Activity Tolerance Assessment Summary Pt is high complexity who required max A x 2/3 pa for bed mobility and nury lift for transfer at this point. Pt shows significant weakness grossly and currently has asymptomatic hypotension aat 70s/40s. His BP elevates slightly after supine to sit but he was unable to transfer/ sit<>stand due to weakness and poor trunk control. Pt also c/o pain at low back, lower abdominal and B distal LEs by pointing at those areas . Although pt was mostly w/c bound prior to surgery, he is still far from baseline at this point who needs extensive assistance even for bed mobility. Pt will need cont assessment and to obtain more information regarding pt's recent PLOF from his dtr once she is present. Pt will need SNF care for his extensive medical/ mobility need at this point. Goals Bed Mobility Goal Minimal Assistance Transfer Goal Minimal Assistance Front Wheeled Walker Gait Goal Minimal Assistance Front Wheel Walker Gait Distance 10 Other Goals w/c / chair/ toilet transfer with min A Days to Meet Goals 10 Frequency of Treatment Frequency Of Treatment Twice a Day Treatment Plan Physical Therapy Treatment Plan Bed Mobility Training Transfer Training Gait Training Therapeutic Exercise Balance Retraining Post Op Education Discharge Planning Hot or Cold Pack Other Recommendations and Next Treatment attempt to see pt when his dtr Focus is here. Reassess pt's sensation, cognition, strength, VSS bed mob, transfer as marlon with 2/3 persons Recommendations To Nursing Amount of Assist Needed Mechanical Lift Discharge Recommendations PT Discharge Recommendations SNF Rehab Other Discharge Recommendations Although pt was mostly w/c bound prior to surgery, he is still far from baseline at this point who needs extensive assistance even for bed mobility. Pt will need cont assessment and to obtain more information regarding pt's recent PLOF from his dtr once she is present. Pt will need SNF care for his extensive medical/ mobility need at this point.
--- NOTE | 2018-08-25 17:09 | PC.NURSE ---
Addendum entered by Marlene Juarez R.N. 08/25/18 22:16: 2150 - Pt family reports pt is having, burning leg pain, restlessness to RLE. Family reports as chronic problem. Review with SANTY Marvin. Yon down to see pt. Reviewed fluid volume status. Pain control. Medication. Orders obtained. 2029 - Pt request to use bedpan. No results. + Flatus. LS fine crackles, diminished throughout. Denies SOB. Abd pain with activity. 1814 - Pt agreeable to reposition and linen change. Monitor. Original Note: 1649 - Pt significantly diaphoretic. Linen very moist. Pt declines to be changed and repositioned r/t to increased pain. Reports abd pain of 8 of 10. Morphine 4mg given. Family at bedside. Reinforced need for care and reposition, skin integrity, deep breath. Pt and family acknowledged. Monitor.
[2018-08-25 19:35] LABS: PTT Partial Thromboplastin Tim 98 SECONDS (26.4-36.2)
[2018-08-25] MEDS: DEXTROSE 5%-0.9% NS 1,000 ML 21 ML IV (20:00)
[2018-08-25] MEDS: GABAPENTIN 600 MG TABLET PO (22:25)
[2018-08-26] VITALS (15 sets, daily range): BP systolic 106–138; BP diastolic 57–71; PULSE 59–69; RESP 16–24; TEMP 36.4–37.8; O2SAT 92–99
--- NOTE | 2018-08-26 | DI.US.S_ITS ---
PROCEDURE: US PERIPH VENOUS LOW EXTREM BI INDICATIONS: PE, r/o DVT TECHNIQUE: Real-time imaging, as well as color and pulse Doppler interrogation, were performed of the deep veins of both legs from the inguinal ligament to the popliteal fossa. COMPARISON: None. FINDINGS: Right: The common femoral, femoral and popliteal veins are normally compressible, and free of intraluminal thrombus. Color and pulse Doppler demonstrate normal phasic intravascular flow. There is normal augmentation response to distal compression maneuver. Left: The common femoral, femoral and popliteal veins are normally compressible, and free of intraluminal thrombus. Color and pulse Doppler demonstrate normal phasic intravascular flow. There is normal augmentation response to distal compression maneuver. IMPRESSION: No evidence of deep vein thrombosis within the bilateral lower extremities. Dictated by: Blu Ruvalcaba M.D. on 08/26/2018 at 11:44 Approved by: Blu Ruvalcaba M.D. on 08/26/2018 at 11:48
[2018-08-26] MEDS: PIPERACILLIN-TAZO 3.375 GM/50 ML FROZ.PIGGY IV ×3 (00:42→17:20)
[2018-08-26] MEDS: OXYCODONE IR 5 MG TABLET PO ×5 (00:43→22:48)
[2018-08-26 01:10] LABS: Add Manual Diff / Slide Review NO; Basophils Absolute Auto 0 /uL (0-100); Basophils Percent Auto 0.2 % (0-2); Eosinophils Absolute Auto 200 /uL (0-450); Eosinophils Percent Auto 2.8 % (2-4); Hematocrit 31.7 % (41-53); Hemoglobin 10.4 g/dL (13.5-17.5); Lymphocytes Absolute Auto 600 /uL (1100-4500); Lymphocytes Percent Auto 10.3 % (25-40); Mean Corpuscular HGB Conc 32.9 % (30-36); Mean Corpuscular Hemoglobin 29.4 PG (26-34); Mean Corpuscular Volume 89.4 fL (80-100); Monocytes Absolute Auto 300 /uL (0-900); Monocytes Percent Auto 5.4 % (3-14); Neutrophils Absolute Auto 4900 /uL (1500-7000); Neutrophils Percent Auto 81.3 % (50-75); Platelet Count 180 X10^3/uL (150-400); Red Blood Cell Count 3.55 X10^6/uL (4.5-5.9); Red Cell Distribution Width 14.4 % (11.6-14.8)
[2018-08-26 01:21] LABS: PTT Partial Thromboplastin Tim 86 SECONDS (26.4-36.2)
[2018-08-26 01:23] LABS: Blood Urea Nitrogen 15 mg/dL (9-20); Calcium 8.4 mg/dL (8.4-10.2); Carbon Dioxide 24 mmol/L (22-32); Chloride 110 mmol/L (98-107); Estimated Glomerular Filt Rate > 60.0 mL/min (>60); Glucose 119 mg/dL (80-110); HEMOLYSIS < 15 (0-50); Potassium 3.6 mmol/L (3.4-5.1); Sodium 141 mmol/L (137-145)
[2018-08-26] MEDS: HEPARIN DRIP 25,000 UNIT/500 ML IV.SOLN 33.696 UNIT IV ×2 (04:21→19:28)
[2018-08-26 07:27] LABS: PTT Partial Thromboplastin Tim 78 SECONDS (26.4-36.2)
[2018-08-26] MEDS: AZITHROMYCIN 500 MG in DEXTROSE 5% IN WATER 250 ML IV (08:00)
[2018-08-26] MEDS: TIMOLOL 0.5% OPHTH 1 DROPS EYE-BOTH ×2 (08:12→21:34)
[2018-08-26] MEDS: BUDESONIDE 60 PUFF/DEVICE INHALER INH ×2 (09:27→19:32)
[2018-08-26] MEDS: ALBUTEROL HFA 60 PUFF/8 GM INH INH ×2 (09:28→19:32)
--- NOTE | 2018-08-26 09:45 | OT.IP.TRT ---
Current Diagnoses Unspecified appendicitis (08/21/18) Other spondylosis with radiculopathy, lumbar region (08/21/18) Spinal stenosis, lumbar region without neurogenic claudication (08/21/18) Arthrodesis status (08/21/18) Surgery Performed Operation Date: 08/21/18 08:45 Actual Procedures p L4-5 HWR, L3-4 TLIF, L2-3 Laminectomy, L3-4,L4-5 PSF w/Instru.(Not Applicable) - Ed Quezada MD Occupational Therapy Treatment Note M3 OT- IP Subjective and Pain Start: 08/22/18 16:08 Freq: Status: Active Protocol: Document 08/26/18 09:42 [facility] (Rec: 08/26/18 09:45 [facility] [email or web address]) OT- Subjective Occupational Therapy Visit Type Type Patient Unavailable Notes Called down to try to see pt for OT eval, pt to has bilateral venous duplex ultrasound today, therefore per nursing as pt resting as well okay to hold for therapy.
--- NOTE | 2018-08-26 09:51 | PT.IPTN ---
Current Diagnoses Unspecified appendicitis (08/21/18) Other spondylosis with radiculopathy, lumbar region (08/21/18) Spinal stenosis, lumbar region without neurogenic claudication (08/21/18) Arthrodesis status (08/21/18) Surgery Performed Operation Date: 08/21/18 08:45 Actual Procedures p L4-5 HWR, L3-4 TLIF, L2-3 Laminectomy, L3-4,L4-5 PSF w/Instru.(Not Applicable) - Ed Quezada MD Physical Therapy Treatment Note M2 PT-IP Current Condition Start: 08/21/18 16:45 Freq: NEEDED Status: Active Protocol: Document 08/22/18 09:45 HH (Rec: 08/22/18 11:16 HH [email or web address]) Physical Therapy Current Condition Current Condition Evaluation Date 08/21/18 Treatment Diagnosis L4-L5 HWR, L3-4 TLIF, L2-3 laminectomy, L3-5 PSF, impaired mobility Onset Date 08/21/18 Precautions Lumbar Precautions Log Roll No Twisting Limit Bending Lifting Restriction of 10 lbs Gait Belt above Incisional Area Weight Bearing Status Weight Bearing Status Weight Bear as Tolerated M3 PT-IP Subjective Start: 08/21/18 16:45 Freq: NEEDED Status: Active Protocol: Document 08/26/18 09:48 HH (Rec: 08/26/18 09:51 HH [id number]) Subjective Physical Therapy Visit Type Type Administrative Note Visit Start Time 09:45 Notes Called down to ICU nursing this am .Pt will have bilateral venous duplex ultrasound for DVT screen today. Was suggested to hold PT first until result is back. (Pt's Postop course has been complicated by coincidental acute appendicitis developing in hospital, possible pneumonia, acute subsegmental PE diagnosed 08/25/2018 based on ongoing chest pain and ECHO showing right heart strain.)
--- NOTE | 2018-08-26 10:10 | CM.DPC ---
Addendum entered by Molly Rojas 08/26/18 10:27: Received call from Anne at [facility]. She reports that they can accept when medically stable. However, she needs as much warning as possible. Notified her today that d/c not anticipated for 24-48hrs., leaning more towards the 48hrs. KJS Original Note: DCP/continued: Reviewed chart. Met with patient and daughter/Yana cell# [phone] at bedside. Daughter confirms that d/c plan is for patient to go to [facility] when medically stable. Placed call to [facility] at [phone] left vm. Per MD in AM rounds d/c anticipated in the next 24-48hrs. No additional needs identified. Questions were answered by TRINA and white board updated. P: Hopeful that [facility] will accept and have bed when patient medically stable. VM left with admitting. TRINA Rojas
[2018-08-26] MEDS: GABAPENTIN 600 MG TABLET PO ×2 (11:05→21:35)
--- NOTE | 2018-08-26 11:06 | PM.PN.1 ---
Subjective Date Patient Seen: 08/26/18 Time Patient Seen: 10:38 Interval history: Feels much better today, chest pressure improved and abd pain still present but better. Exam Vital Signs (past 8 hours): - 08/26/18 03:42 08/26/18 04:14 08/26/18 05:09 Temperature 98.3 F Pulse Rate 59 L 61 60 Respiratory Rate 17 18 17 Blood Pressure 122/66 117/58 L 123/62 Pulse Oximetry 98 98 98 08/26/18 06:12 08/26/18 07:46 08/26/18 09:20 Temperature 98.4 F Pulse Rate 63 65 62 Respiratory Rate 16 24 16 Blood Pressure 106/57 L 123/70 Pulse Oximetry 92 96 99 Oxygen Delivery Method Nasal Cannula Oxygen Flow Rate 2.5 Narrative Exam Narrative: AAO, NAD, obese male EOMI, MMM unlabored NC soft, nd, mild diffuse ttp R>L MAEW visible skin dry and intact Objective Imaging CT scan - chest: Radiologist's impression: BLL atelectasis and/ or pleural effusions 2 small subsegmental RLL PEs Echo: Radiologist's impression: EF 55-60% R heart strain Labs Result Diagrams: 08/26/18 01:00 08/26/18 01:00 Labs: Laboratory Results - last 24 hr 08/25/18 08/25/18 08/26/18 13:10 19:10 01:00 WBC 6.0 RBC 3.55 L Hgb 10.4 L Hct 31.7 L MCV 89.4 MCH 29.4 MCHC 32.9 RDW 14.4 Plt Count 180 Neut % (Auto) 81.3 H Lymph % (Auto) 10.3 L [place] % (Auto) 5.4 Eos % (Auto) 2.8 Baso % (Auto) 0.2 Neut # (Auto) 4900 Lymph # (Auto) 600 L [place] # (Auto) 300 Eos # (Auto) 200 Baso # (Auto) 0 PT 14.8 H INR 1.3 APTT 32 98 H* D Sodium Potassium Chloride Carbon Dioxide BUN Creatinine Estimated GFR BUN/Creatinine Ratio Glucose Calcium 08/26/18 08/26/18 08/26/18 01:00 01:00 07:05 WBC RBC Hgb Hct MCV MCH MCHC RDW Plt Count Neut % (Auto) Lymph % (Auto) [place] % (Auto) Eos % (Auto) Baso % (Auto) Neut # (Auto) Lymph # (Auto) [place] # (Auto) Eos # (Auto) Baso # (Auto) PT INR APTT 86 H* D 78 H* D Sodium 141 Potassium 3.6 Chloride 110 H Carbon Dioxide 24 BUN 15 Creatinine 1.00 Estimated GFR > 60.0 BUN/Creatinine Ratio 15.0 Glucose 119 H Calcium 8.4 Assessment & Plan Assessment & Plan narrative: - still more abd pain than I would like but improving - WBC normal but left shift present, remains afebrile and non-tachycardic - new findings of small PEs causing R heart strain, also perhaps not PNA but effusions --> ECHO confirms R heart strain but good EF --> on heparin gtt - cont' course with abx, still high risk for surgery and not worsening Quality VTE Deep Vein Thrombosis/Pulmonary Embolism Present on Admission: No
--- NOTE | 2018-08-26 11:36 | DIET.PN ---
Consult request received r/t low victor manuel score indicating skin at risk of impairment. Poor POs X several days r/t hospitalization w/NPO for surgery; liquid diets. 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 Has increased nutrient needs for post op healing. Intervention: Add Tee to meals while on clear liquid diet; When diet advances change to Ensure Surgery.
--- NOTE | 2018-08-26 11:56 | SLP.IPNOTE ---
Reviewed pt's current status with MD during inpatient rounds. ST will continue on hold status pending pt's improvement and ability to tolerate assessment/treatment
[2018-08-26] MEDS: INSULIN ASPART 100 UNIT/ML INSULN PEN SUBCUT ×3 (12:08→21:35)
--- NOTE | 2018-08-26 13:27 | PT.IPTN ---
Current Diagnoses Unspecified appendicitis (08/21/18) Other spondylosis with radiculopathy, lumbar region (08/21/18) Spinal stenosis, lumbar region without neurogenic claudication (08/21/18) Arthrodesis status (08/21/18) Surgery Performed Operation Date: 08/21/18 08:45 Actual Procedures p L4-5 HWR, L3-4 TLIF, L2-3 Laminectomy, L3-4,L4-5 PSF w/Instru.(Not Applicable) - Ed Quezada MD Physical Therapy Treatment Note M2 PT-IP Current Condition Start: 08/21/18 16:45 Freq: NEEDED Status: Active Protocol: Document 08/22/18 09:45 HH (Rec: 08/22/18 11:16 [email or web address]) Physical Therapy Current Condition Current Condition Evaluation Date 08/21/18 Treatment Diagnosis L4-L5 HWR, L3-4 TLIF, L2-3 laminectomy, L3-5 PSF, impaired mobility Onset Date 08/21/18 Precautions Lumbar Precautions Log Roll No Twisting Limit Bending Lifting Restriction of 10 lbs Gait Belt above Incisional Area Weight Bearing Status Weight Bearing Status Weight Bear as Tolerated M3 PT-IP Subjective Start: 08/21/18 16:45 Freq: NEEDED Status: Active Protocol: Document 08/26/18 11:15 HH (Rec: 08/26/18 13:26 [email or web address]) Subjective Physical Therapy Visit Type Type Treatment Note Visit Start Time 11:15 Visit Stop Time 11:55 Total Visit Minutes 40 Notes ICU nursing stated pt is -ve for DVT. Ready for PT and OT co-tx due to his extensive assistance need for mobility. Physical Therapy Visit Comments Patient Comments Pt's dtr at [facility] for translation. Pt stated he is much better today. Therapy Pain Assessment Pain When Pain Assessed During Mobility Pain Present Pain Present Pain Reported Location Abdomen Intensity 7 Scale Used Isaac-Chi (Faces) Description Acute Pain Behaviors Facial Grimacing M4 PT-IP Mobility and Gait Start: 08/21/18 16:45 Freq: NEEDED Status: Active Protocol: Document 08/26/18 11:15 HH (Rec: 08/26/18 13:26 [email or web address]) PT-Bed Mobility Assessment Rolling Type of Rolling Log Rolling Roll to Left Level of Assist Moderate Assistance 2 Person Assistance Supine to Sit Supine to Sit Maximum Assistance 2 Person Assistance Scooting Scooting to Edge of Bed Maximum Assistance PT-Transfer Assessment Sit to and From Stand Sit to and from Stand Maximum Assistance 2 Person Assistance Use of Upper Extremities Equipment Transfer Assistive Device Gait Belt Front Wheeled Walker Orthotic/Prosthetic Devices or Brace: No Transfers Transfer Destination Chair Transfer Technique Stand Step Pivot Transfer Ability Level of Assist Maximum Assistance 2 Person Assistance Use of Upper Extremities Comments Mobility Comments Pt tends to hold his breath during bed roll and log roll and O2 sat went down to 80s but able to recover in 10secs with deep breathing. Pt required max A for supine to sit and needed min A to maintain sitting balance. He then stood up and performed stand pivot transfer to chair on his L side by shuffling his feet. Pt was unable to take step and his LEs buckled right before he sat down but he was safely lowered down to chair wtih 2pa. Pt's B UEs are very weak and unable to hold on to walker for stability. Gait Assessment Comments Gait Comments unable to amb M5 PT-IP Objective Assessments Start: 08/21/18 16:45 Freq: NEEDED Status: Active Protocol: Document 08/22/18 09:45 (Rec: 08/22/18 11:16 [email or web address]) Orientation Orientation/Cognition Level of Alertness Alert Comments unable to assess due to language barrier. Will reassess when dtr is present Gross Range of Motion Upper Extremity ROM Assessment Within Functional Limits Lower Extremity ROM Assessment Bilaterally Impaired Strength Upper Extremity Strength Assessment Within Functional Limits Lower Extremity Strength Assessment Bilaterally Impaired Comments Strength Comments 3- to 3 /5 for B LEs strength Coordination Assessment Assessment Coordination Comments unable to assess due to language barrier. Will reassess when dtr is present Sensation Assessment Comments Sensation Comments unable to assess due to language barrier. Will reassess when dtr is present M6 PT-IP Treatment Start: 08/21/18 16:45 Freq: NEEDED Status: Active Protocol: Document 08/22/18 09:45 (Rec: 08/22/18 11:16 [email or web address]) Physical Therapy Treatment Exercises Exercises Quad Sets M7 PT-IP Assessment and Plan Start: 08/21/18 16:45 Freq: NEEDED Status: Active Protocol: Document 08/26/18 11:15 HH (Rec: 08/26/18 13:26 [email or web address]) PT Summary Assessment and Plan Potential Rehabilitation Potential Fair Status of Condition at Evaluation Evolving Summary Progress Towards Goals Progressing Toward Goals Slow Progress due to Pain Slow Progress due to Medical Issues Slow Progress due to Activity Tolerance Slow Progress - Other Assessment Summary Pt showed improved mobility today and transferred from bed to chair. However, his UE and LE are significantly weak who was able to take steps and went buckled during transfer. Pt's sensation to LT and pressure seems to be affected as well especially B wrists, hip and ankles. However, pt's VSS was stable today at BP 120s/60s O2 Sat 88-95% during mobilty. Recommended nursing to use nury lift for transfers at this point. Changed frequency of tx to QD at this point until he is able to increase his activity marlon. Goals Bed Mobility Goal Minimal Assistance Transfer Goal Minimal Assistance Front Wheeled Walker Gait Goal Minimal Assistance Front Wheel Walker Gait Distance 10 Days to Meet Goals 10 Frequency of Treatment Frequency Of Treatment Once a Day Treatment Plan Physical Therapy Treatment Plan Bed Mobility Training Transfer Training Gait Training Therapeutic Exercise Balance Retraining Post Op Education Discharge Planning Hot or Cold Pack Other Recommendations and Next Treatment bed mob, BSC transfer and gait Focus training as marlon cont assess pt's VSS, strength and mobility. Recommendations To Nursing Amount of Assist Needed Mechanical Lift Discharge Recommendations PT Discharge Recommendations SNF Rehab
--- NOTE | 2018-08-26 13:38 | PM.PN.1 ---
Subjective Date Patient Seen: 08/26/18 Interval history: Patient is an 82-year-old male who was admitted to the hospital for a revision of a trans lumbar interbody fusion. Subsequently the patient developed abdominal pain and was found to have acute appendicitis. He then developed chest pain and also was found to have acute pulmonary emboli. He is currently being treated with IV antibiotics for the appendicitis. He is on IV heparin for the acute PE. He is felt not to be a candidate for surgery at this time. And he is being managed medically. The patient continues to have abdominal pain. he reports some chest pain although this is improved. He denies any shortness of breath. He has no back pain. Exam Vital Signs (past 8 hours): - 08/26/18 06:12 08/26/18 07:46 08/26/18 09:20 Temperature 98.4 F Pulse Rate 63 65 62 Respiratory Rate 16 24 16 Blood Pressure 106/57 L 123/70 Pulse Oximetry 92 96 99 08/26/18 11:59 Temperature 97.6 F Pulse Rate 59 L Respiratory Rate 16 Blood Pressure 117/64 Pulse Oximetry 93 Oxygen Delivery Method Nasal Cannula Oxygen Flow Rate 0 Narrative Exam Narrative: Elderly Cuban-speaking male lying in bed Lungs: Clear to auscultation Cardiac exam: Regular rate and rhythm normal S1-S2 Abdomen: Soft, tender in the right lower quadrant, no rebound tenderness, no board-like rigidity. There is no fluid wave noted. no hepatosplenomegaly noted. Extremities: No edema Objective Labs Result Diagrams: 08/26/18 01:00 08/26/18 01:00 Labs: Laboratory Results - last 24 hr 08/25/18 08/25/18 08/26/18 13:10 19:10 01:00 WBC 6.0 RBC 3.55 L Hgb 10.4 L Hct 31.7 L MCV 89.4 MCH 29.4 MCHC 32.9 RDW 14.4 Plt Count 180 Neut % (Auto) 81.3 H Lymph % (Auto) 10.3 L [place] % (Auto) 5.4 Eos % (Auto) 2.8 Baso % (Auto) 0.2 Neut # (Auto) 4900 Lymph # (Auto) 600 L [place] # (Auto) 300 Eos # (Auto) 200 Baso # (Auto) 0 PT 14.8 H INR 1.3 APTT 32 98 H* D Sodium Potassium Chloride Carbon Dioxide BUN Creatinine Estimated GFR BUN/Creatinine Ratio Glucose Calcium 08/26/18 08/26/18 08/26/18 01:00 01:00 07:05 WBC RBC Hgb Hct MCV MCH MCHC RDW Plt Count Neut % (Auto) Lymph % (Auto) [place] % (Auto) Eos % (Auto) Baso % (Auto) Neut # (Auto) Lymph # (Auto) [place] # (Auto) Eos # (Auto) Baso # (Auto) PT INR APTT 86 H* D 78 H* D Sodium 141 Potassium 3.6 Chloride 110 H Carbon Dioxide 24 BUN 15 Creatinine 1.00 Estimated GFR > 60.0 BUN/Creatinine Ratio 15.0 Glucose 119 H Calcium 8.4 Assessment & Plan (1) Acute pulmonary embolus: Problem details: Patient is status post trans lumbar interbody fusion revision with subsequent development of pulmonary embolus. He is currently being treated with IV heparin would consider transitioning him to Lovenox and Coumadin once we are certain he is not going to surgery. Current visit: Yes Status: Acute (2) Type 2 diabetes mellitus: Problem details: Type 2 diabetes, present on admission. Continue his insulin as written. Current visit: Yes Status: Acute (3) Osteoarthritis: Problem details: Lumbar osteoarthritis present on admission, status post trans lumbar interbody fusion revision. Current visit: Yes Status: Acute (4) Appendicitis: Problem details: Acute appendicitis will continue IV antibiotics. There appears to be no plans for immediate surgical intervention. Current visit: Yes Status: Acute (5) CAD (coronary artery disease): Problem details: Chronic present on admission Current visit: Yes Status: Acute (6) Type 2 myocardial infarction: Problem details: Acute, present on admission will continue medical management Current visit: Yes Status: Acute (7) Hypertension: Problem details: Chronic, present on admission Current visit: Yes Status: Acute (8) Hyperlipidemia: Problem details: Chronic, continue statin Current visit: Yes Status: Acute Quality VTE Deep Vein Thrombosis/Pulmonary Embolism Present on Admission: No
[2018-08-26] MEDS: metroNIDAZOLE 500 MG/100 ML PIGGYBACK 100 MG IV ×2 (14:13→21:34)
--- NOTE | 2018-08-26 14:48 | OT.IP.EVAL ---
Current Diagnoses Type 2 diabetes mellitus without complications (08/21/18) Hyperlipidemia, unspecified (08/21/18) Essential (primary) hypertension (08/21/18) Myocardial infarction type 2 (08/21/18) Atherosclerotic heart disease of [place] coronary artery without angina pectoris (08/21/18) Other pulmonary embolism without acute cor pulmonale (08/21/18) Unspecified appendicitis (08/21/18) Unspecified osteoarthritis, unspecified site (08/21/18) Other spondylosis with radiculopathy, lumbar region (08/21/18) Spinal stenosis, lumbar region without neurogenic claudication (08/21/18) Arthrodesis status (08/21/18) Surgery Performed Operation Date: 08/21/18 08:45 Actual Procedures p L4-5 HWR, L3-4 TLIF, L2-3 Laminectomy, L3-4,L4-5 PSF w/Instru.(Not Applicable) - Ed Quezada MD Past Medical History (Last Reviewed 08/24/18 @ 15:55 by Melyssa Seaman MD) Adrenal gland cyst (Acute) Arthritis (Acute) Chronic cough (Acute) Diabetes (Acute) Dysphagia (Acute) Dyspnea (Acute) First degree AV block (Acute) GERD (gastroesophageal reflux disease) (Acute) History of CVA (cerebrovascular accident) (Acute) Hyperlipidemia (Acute) Hypertension (Acute) Incomplete RBBB (Acute) Liver cyst (Acute) Low back pain (Acute) Non-cardiac chest pain (Acute) Normal echocardiogram (Acute ~10/2014) DONNA on CPAP (Acute) Obesity (Acute) Other spondylosis with radiculopathy, lumbar region (Acute) Raynauds disease (Acute) Sinus bradycardia (Acute) Spinal stenosis, lumbar region with neurogenic claudication (Acute) Spondylolisthesis, lumbar region (Acute) Stroke (Acute) Surgical History (Last Reviewed 08/24/18 @ 15:55 by Melyssa Seaman MD) Hx of hernia repair (Acute) Hx of shoulder surgery (Acute) S/P cervical spinal fusion (Acute) History of colonoscopy with polypectomy (Acute ~04/2017) Hx of cardiac cath (Acute ~11/2013) S/P lumbar fusion (Acute 04/18/18) Occupational Therapy Inpatient Evaluation/Re-Eval M1 PT/OT-IP Prior Functional Status Start: 08/22/18 16:08 Freq: NEEDED Status: Active Protocol: Document 08/26/18 14:23 [facility] (Rec: 08/26/18 14:46 [facility] [id number]) Medical Review Prior Functional Status Medical History Reviewed Yes Diet/Fluid Consistency Regular Communication Pt is [place] Speaking. Daughter did not present to translate upon assessment. No deficits noted. Mobility and Gait Per EMR from previous admission for his first back surgery in , Previously very limited activity. Pt performs modified independent transfers . He performs squat-pivot transfers to manual wheelchair using no AD. Pt is modified independent using manual wheelchair for all mobility. His Daughter or assist him with dressing and showering. He is modified indep for toileting. However, pt has been mostly w/c bound over the last 2 months due to worsening back pain. [ End ] Activities of Daily Living and IADL's Dtr and assist most ADLs and all IADLS. Prior Functional Level (Other details) Pt reports bilateral low lweg numbness/ tingling and lower extremity instability/ weakness and spasms, which has caused severel recent falls. Social History Household Members spouse Living Arrangements Apartment/Condo Number of Stairs To Enter/Railing? no steps Home Environment Standard Height Toilet Tub/Shower Home Equipment Front Wheel Walker Four Wheel Walker Manual Wheelchair Power Wheelchair/Scooter Raised Toilet Seat w/Armrests Hospital Bed Grab Bars In Shower Additional Social History Comment Pt has safety rails around toilet. Per H&P, pt had L4-L5 HWR, L3-4 TLIF, L2-3 laminectomy, L3-5 PSF with instrumentation with . He is 4 months status post L3-4 hemilaminectomy, L4-5 TLIF done on 04/18/2018. He reports mild LBP and signfiicant persisting lower extremity pain. He also reports bilateral low leg numbeness/ tingling and lower extremity instability /weakness and spasms, which has casuses several recent falls. He reports that lately his legs are completely numb and make standing very difficult. He is nearly W/C bound due to right leg pain and weakness over the last 2 months. M2 OT-IP Current Condition Start: 08/22/18 16:08 Freq: Status: Active Protocol: Document 08/26/18 14:23 [facility] (Rec: 08/26/18 14:46 [facility] [email or web address]) Occupational Therapy Current Condition Current Condition Evaluation Date 08/26/18 Treatment Diagnosis spinal stenosis, acute appendicitis, PE Diagnosis Onset Date 08/21/18 Weight Bearing Status Weight Bearing Status Weight Bear as Tolerated M3 OT- IP Subjective and Pain Start: 08/22/18 16:08 Freq: Status: Active Protocol: Document 08/26/18 14:23 [facility] (Rec: 08/26/18 14:46 [facility] [email or web address]) OT- Subjective Occupational Therapy Visit Type Type Initial Evaluation Visit Start Time 11:17 Visit Stop Time 11:55 Total Visit Minutes 38 Notes Nurse call up to say that it was clear to be able to see pt , negative for doppler. Occupational Therapy Visit Comments Patient Comments Pt [place] speaking and pt's daughter present to translate, pt will ing to get up. OT Pain Assessment Pain When Pain Assessed During Mobility Pain Present Pain Present Pain Reported Location Abdomen Intensity 7 Scale Used Numeric (1 - 10) M4 OT- IP ADL's Start: 08/22/18 16:08 Freq: Status: Active Protocol: Document 08/26/18 14:23 [facility] (Rec: 08/26/18 14:46 [facility] [email or web address]) OT ADL-Grooming General Evaluation Grooming Ability Moderate Assistance Comments OT Grooming Comments Pt able to use wash cloth to wash his hands but only able to reach up to his mouth at this time due to BUE weakness. OT ADL-Dressing General Eval Lower Body Dressing Ability Total Assistance Areas Needing Assistance Socks Comments OT Dressing Comments Dependent at this time. M5 OT- IP IADL's Start: 08/22/18 16:08 Freq: Status: Active Protocol: Document 08/26/18 14:23 [facility] (Rec: 08/26/18 14:46 [facility] [email or web address]) OT-Instrumental Activities of Daily Living Home Safety Awareness Home Safety Comments Pt's family did all IADl needs prior. M6 OT- IP Functional Cognition Start: 08/22/18 16:08 Freq: Status: Active Protocol: Document 08/26/18 14:23 [facility] (Rec: 08/26/18 14:46 [facility] [email or web address]) Cognitive Factors Limiting Selfcare Function Cognitive Ability Level of Alertness Alert Patient Orientation Name Ability to Follow Commands Able to Follow One Step Commands with Increased Time Able to Follow One Step Commands with Repetition Cognitive Comments Cognitive Assessment Comments Pt [place] speaking only therefore pt's daughter there to translate. OT- Vision and Hearing OT- Hearing Assessment OT- Hearing Assessment Hearing Impaired M7 OT- IP Mobility and Balance Start: 08/22/18 16:08 Freq: Status: Active Protocol: Document 08/26/18 14:23 [facility] (Rec: 08/26/18 14:46 [facility] [email or web address]) OT- Bed Mobility Assessment Rolling Type of Rolling Roll to Left Level of Assistance Moderate Assistance 2 Person Assistance Supine to Sit Supine to Sit Assist Maximum Assistance 2 Person Assistance OT-Transfer Assessment Sit to and From Stand Sit to and from Stand Maximum Assistance 2 Person Assistance Transfers Transfer Ability Maximum Assistance 2 Person Assistance Technique Transfer Destination Chair Transfer Technique Stand Step Pivot Devices Transfer Assistive Devices Gait Belt Front Wheeled Walker Comments Mobility Comments MAX A x 2 to stand and help to turn to recliner, pt's legs buckled prior to getting all the way turned around to recliner and assist to ease down to the chair. M8 OT- IP Objective Assessments Start: 08/22/18 16:08 Freq: Status: Active Protocol: Document 08/26/18 14:23 [facility] (Rec: 08/26/18 14:46 [facility] [email or web address]) OT Gross Range of Motion Upper Extremity Range of Motion Assessment Bilaterally Impaired ROM Impairments Pt WFL for elbow and wrist, slight decreased for flexion in fingers due to swollen hands. Pt only able to raise amrs up 0-20 degrees shower flexion. OT Strength Comments Strength Comments BUE 3-/5 OT- Coordination Assessment Comments Coordination Comments Decreased , unable to touch thumb to 5th digit and needing assist for all set-up for needs. OT-Muscle Tone Assessment Muscle Tone WNL No OT Sensation Assessment Comments Summary Comments Decreased sensation at right wrist, fingers, hip, and ankle . Edema Edema Comments swelling in hands M9 OT- IP Assessment and Plan Start: 08/22/18 16:08 Freq: Status: Active Protocol: Document 08/26/18 14:23 [facility] (Rec: 08/26/18 14:46 [facility] [email or web address]) OT Summary Assessment and Plan Potential Rehabilitation Potential Good Analytic Complexity at Evaluation Low Summary OT Impairments Pain Strength Balance Coordination Sensation Functional Mobility Self-Feeding Grooming Dressing Toileting Bathing Toilet Transfers Shower Transfers Progress Towards Goals Slow Progress due to Pain Slow Progress due to Medical Issues Slow Progress due to Activity Tolerance Assessment Summary Pt high complexity due to additional medical diagnosis of acute appendicitis and PE, along with orginal diagnosis of spinal stenosis. Pt needing extensive two person assist for all ADl and functional mobility needs. Pt far from baseline and will benefit from skilled rehab. Goals Self-Feeding Goal Standby Assistance Grooming Goal Standby Assistance Dressing Goal Moderate Assistance Toileting Goal Moderate Assistance Toilet Transfer Goal Minimal Assistance Patient/Caregiver Education Goal Caregiver Independent Assisting Patient Days to Meet Goals 7 Frequency of Treatment Frequency Of Treatment Once a Day Treatment Plan OT Treatment Plan ADL Training Functional Cognition Training Functional Mobility Patient/Family Education Discharge Planning Other Treatment Recommendations and Next access self feeding, grooming Treatment Focus while sitting from recliner Discharge Recommendations OT Discharge Recommendations SNF Rehab Home Equipment Needs defer to SNF
[2018-08-26] MEDS: DOCUSATE 250 MG CAPSULE PO (17:43)
[2018-08-26] MEDS: DEXTROSE 5%-0.9% NS 1,000 ML 75 ML IV (19:27)
[2018-08-26] MEDS: SENNOSIDES 8.6 MG TABLET 17.2 MG PO (21:35)
--- NOTE | 2018-08-26 21:59 | PC.NURSE ---
Addendum entered by Claudia Montejo R.N. 08/26/18 23:06: Patient continues to have weak, wet-sounding cough. Lungs clear on ausculation. Discussed with Yon Ward; ordered Acapella/flutter valve. Pt. requested sleep aid and increased oxycodone (patient declines the ordered morphine). Discussed these requests with Yon Ward, as well. No new orders at this time. Discussed with patient and family. Original Note: Shift [id number] Report received, care assumed. Pt is alert, oriented. Family member at bedside, translating, as pt does not speak [place]. Throughout shift, pt. c/o pain 7 or 8 out of 10, both before and after interventions. However, he also states that pain interventions do help, and his affect is calm. Turn/Cough/Deep Breathe reminded throughout shift. IS encouraged throughout shift, and patient demonstrated its use appropriately. Pt. complains that it is difficult to cough productively; he states this is due to weakness, rather than pain. Pillow given for abdominal splinting, HOB raised, and pulmonary toilet further encouraged. Patient and family member verbalize understanding. Coccyx reddened, but blanches. A&D ointment applied Waffle cushion used and pt. turned q2h. Pt. felt he needed to have a bowel movement and sat on bedpan for awhile without results. Availability of laxative made known to patient and family, if it is wanted.
[2018-08-27] VITALS (9 sets, daily range): BP systolic 129–143; BP diastolic 63–82; PULSE 55–67; RESP 14–19; TEMP 36.8–37.4; O2SAT 92–97
[2018-08-27] MEDS: PIPERACILLIN-TAZO 3.375 GM/50 ML FROZ.PIGGY IV ×3 (00:50→16:26)
[2018-08-27 05:59] LABS: PTT Partial Thromboplastin Tim 65 SECONDS (26.4-36.2)
[2018-08-27] MEDS: metroNIDAZOLE 500 MG/100 ML PIGGYBACK 100 MG IV ×3 (06:03→22:30)
[2018-08-27] MEDS: OXYCODONE IR 5 MG TABLET PO ×4 (06:04→22:24)
--- NOTE | 2018-08-27 08:52 | PM.PNPO.1 ---
Subjective Date Patient Seen: 08/27/18 Time Patient Seen: 08:54 Interval history: Hospital day 7, postop day 6 following L3-4, L4-5 TLIF, L4-5 revision laminectomy and L3-4 through L4-5 posterior screw fixation. patient developed postoperative sepsis with UTI. He then was thought to have pneumonia which turned out to be right lower lobe pulmonary embolus. Also developed pad appendicitis. He is being followed by hospitalist and surgeon. Appendicitis is being treated with antibiotics. Patient was up to chair yesterday with PT. His daughter is in Room helping to interpret as patient is [place] and speaks very little [place]. Through his daughter he states that his legs are doing better. Back pain has been improved. Mostly complaining of abdominal discomfort. Exam Vital Signs (past 8 hours): - 08/27/18 06:13 08/27/18 07:58 Temperature 98.9 F 99.3 F Pulse Rate 61 57 L Respiratory Rate 19 17 Blood Pressure 129/71 131/64 Pulse Oximetry 92 93 Oxygen Delivery Method Nasal Cannula Oxygen Flow Rate 0 Narrative Exam Narrative: Patient is alert and responsive lying in bed. legs. No calf pain or swelling. Pulses and sensation to lower legs symmetrical. Good strength on foot dorsiflexion plantar flexion. Objective Labs Result Diagrams: 08/26/18 01:00 08/26/18 01:00 Labs: Laboratory Results - last 24 hr 08/27/18 05:37 APTT 65 H D Assessment & Plan Post-op Postoperative Procedures Operation Date: 08/21/18 08:45 Actual Procedures Side Surgeon p L4-5 HWR, L3-4 TLIF, L2-3 Laminectomy, L3-4,L4-5 PSF w/Instru. Not Applicable Ed Quezada MD Plan: Patient is orthopedically stable. he is planned to go to [facility] in [place] once he is stable by hospitalist and surgeon. Continue PT as tolerated. Quality VTE Deep Vein Thrombosis/Pulmonary Embolism Present on Admission: No
--- NOTE | 2018-08-27 08:58 | P.PN_ITS ---
Subjective Date Patient Seen: 08/27/18 Time Patient Seen: 08:54 Interval history: Hospital day 7, postop day 6 following L3-4, L4-5 TLIF, L4-5 revision laminectomy and L3-4 through L4-5 posterior screw fixation. patient developed postoperative sepsis with UTI. He then was thought to have pneumonia which turned out to be right lower lobe pulmonary embolus. Also developed pad appendicitis. He is being followed by hospitalist and surgeon. Appendicitis is being treated with antibiotics. Patient was up to chair yesterday with PT. His daughter is in Room helping to interpret as patient is [place] and speaks very little [place]. Through his daughter he states that his legs are doing better. Back pain has been improved. Mostly complaining of abdominal discomfort. Exam Vital Signs (past 8 hours): - 08/27/18 06:13 08/27/18 07:58 Temperature 98.9 F 99.3 F Pulse Rate 61 57 L Respiratory Rate 19 17 Blood Pressure 129/71 131/64 Pulse Oximetry 92 93 Oxygen Delivery Method Nasal Cannula Oxygen Flow Rate 0 Narrative Exam Narrative: Patient is alert and responsive lying in bed. legs. No calf pain or swelling. Pulses and sensation to lower legs symmetrical. Good strength on foot dorsiflexion plantar flexion. Objective Labs Result Diagrams: 08/26/18 01:00 08/26/18 01:00 Labs: Laboratory Results - last 24 hr 08/27/18 05:37 APTT 65 H D Assessment & Plan Post-op Postoperative Procedures Operation Date: 08/21/18 08:45 Actual Procedures Side Surgeon p L4-5 HWR, L3-4 TLIF, L2-3 Laminectomy, L3-4,L4-5 PSF w/Instru. Not Applicable Ed Quezada MD Plan: Patient is orthopedically stable. he is planned to go to [facility] in [place] once he is stable by hospitalist and surgeon. Continue PT as tolerated. Quality VTE Deep Vein Thrombosis/Pulmonary Embolism Present on Admission: No
[2018-08-27] MEDS: BUDESONIDE 60 PUFF/DEVICE INHALER INH ×2 (09:31→19:23)
--- NOTE | 2018-08-27 10:00 | PT.IPTN ---
Current Diagnoses Type 2 diabetes mellitus without complications (08/21/18) Hyperlipidemia, unspecified (08/21/18) Essential (primary) hypertension (08/21/18) Myocardial infarction type 2 (08/21/18) Atherosclerotic heart disease of [place] coronary artery without angina pectoris (08/21/18) Other pulmonary embolism without acute cor pulmonale (08/21/18) Unspecified appendicitis (08/21/18) Unspecified osteoarthritis, unspecified site (08/21/18) Other spondylosis with radiculopathy, lumbar region (08/21/18) Spinal stenosis, lumbar region without neurogenic claudication (08/21/18) Arthrodesis status (08/21/18) Surgery Performed Operation Date: 08/21/18 08:45 Actual Procedures p L4-5 HWR, L3-4 TLIF, L2-3 Laminectomy, L3-4,L4-5 PSF w/Instru.(Not Applicable) - Ed Quezada MD Physical Therapy Treatment Note M2 PT-IP Current Condition Start: 08/21/18 16:45 Freq: NEEDED Status: Active Protocol: Document 08/22/18 09:45 (Rec: 08/22/18 11:16 [email or web address]) Physical Therapy Current Condition Current Condition Evaluation Date 08/21/18 Treatment Diagnosis L4-L5 HWR, L3-4 TLIF, L2-3 laminectomy, L3-5 PSF, impaired mobility Onset Date 08/21/18 Precautions Lumbar Precautions Log Roll No Twisting Limit Bending Lifting Restriction of 10 lbs Gait Belt above Incisional Area Weight Bearing Status Weight Bearing Status Weight Bear as Tolerated M3 PT-IP Subjective Start: 08/21/18 16:45 Freq: NEEDED Status: Active Protocol: Document 08/27/18 10:00 AB (Rec: 08/27/18 12:34 AB [id number]) Subjective Physical Therapy Visit Type Type Treatment Note Visit Start Time 10:00 Visit Stop Time 10:59 Total Visit Minutes 50 Number of FARM HELPER Visits 0 Physical Therapy Visit Comments Patient Comments pt requested to use the toilet ; refused to sit up on chair pt's daughter present and assisted the translation Therapy Pain Assessment Pain When Pain Assessed During Mobility Pain Present Pain Present Pain Reported Location Abdomen Intensity 8 Scale Used Numeric (1 - 10) Pain Management Techniques Timing of Activity with Medications Back Intensity 8 Pain Management Techniques Timing of Activity with Medications M4 PT-IP Mobility and Gait Start: 08/21/18 16:45 Freq: NEEDED Status: Active Protocol: Document 08/27/18 10:00 AB (Rec: 08/27/18 12:34 AB [id number]) PT-Bed Mobility Assessment Rolling Type of Rolling Bilateral Level of Assist Maximal Assistance 1 Person Assistance Supine to Sit Supine to Sit Maximum Assistance 2 Person Assistance Bedrails Sit to Supine Sit to Supine Maximum Assistance 2 Person Assistance Bedrails Scooting Scooting to Edge of Bed Maximum Assistance Dependent Scooting Up and Down in Bed Maximum Assistance Dependent PT-Transfer Assessment Sit to and From Stand Sit to and from Stand Maximum Assistance 2 Person Assistance Use of Upper Extremities Equipment Transfer Assistive Device Gait Belt Large Based Quad Cane Orthotic/Prosthetic Devices or Brace: No Transfers Transfer Destination Bed Bedside Commode Transfer Technique Stand Step Pivot Transfer Ability Level of Assist Maximum Assistance 2 Person Assistance Use of Upper Extremities Comments Mobility Comments pt completed sit to stand from EOB max A x 2 and max cues and completed stand step pivot transfer to bedside commode using FWW max A x 2 and max cues. required max A x2 for stability and to prevent B knee from buckling. pt completed sit to stand from bedside commode max A x 2 and max cues and was able to maintain standing balance using FWW max A x 2 while NAC assisted with hygiene care and brief management. pt tends to stand up with increase forward bend, unable to use UE much for support due to weakness. Pt completed sit <> stand from bedside commode x 3 reps for hygiene care since pt has decrease activity tolerance requiring seated rest breaks. pt refused to sit up on chair after toileting and requested to go back to bed. pt completed stand step pivot transfer max A x 2 and max cues using FWW. completed sit to stand from EOB again max A x 2 and max cues and was able to take side steps using FWW max A x 2 towards HOB. PT-Balance Assessment Sitting Balance and Reactions Static Sitting Balance Ability Fair Dynamic Sitting Balance Ability Fair Standing Balance and Reactions Static Standing Balance Ability Poor Dynamic Standing Balance Ability Poor Device Used FWW M5 PT-IP Objective Assessments Start: 08/21/18 16:45 Freq: NEEDED Status: Active Protocol: Document 08/22/18 09:45 (Rec: 08/22/18 11:16 [id number]) Orientation Orientation/Cognition Level of Alertness Alert Comments unable to assess due to language barrier. Will reassess when dtr is present Gross Range of Motion Upper Extremity ROM Assessment Within Functional Limits Lower Extremity ROM Assessment Bilaterally Impaired Strength Upper Extremity Strength Assessment Within Functional Limits Lower Extremity Strength Assessment Bilaterally Impaired Comments Strength Comments 3- to 3 /5 for B LEs strength Coordination Assessment Assessment Coordination Comments unable to assess due to language barrier. Will reassess when dtr is present Sensation Assessment Comments Sensation Comments unable to assess due to language barrier. Will reassess when dtr is present M6 PT-IP Treatment Start: 08/21/18 16:45 Freq: NEEDED Status: Active Protocol: Document 08/27/18 10:00 AB (Rec: 08/27/18 12:34 AB [id number]) Physical Therapy Treatment Education Education Provided Precautions Safety M7 PT-IP Assessment and Plan Start: 08/21/18 16:45 Freq: NEEDED Status: Active Protocol: Document 08/27/18 10:00 AB (Rec: 08/27/18 12:34 AB [id number]) PT Summary Assessment and Plan Potential Rehabilitation Potential Fair Summary Impairments Pain ROM Strength Balance Coordination Sensation Tone Cognition Bed Mobility Transfers Gait Activity Tolerance Progress Towards Goals Slow Progress due to Pain Slow Progress due to Medical Issues Slow Progress due to Activity Tolerance Assessment Summary pt continous to require 2 person assist with all mobilities and will require SNF rehab to improve strength and function prior to d/c home . Goals Bed Mobility Goal Minimal Assistance Transfer Goal Minimal Assistance Front Wheeled Walker Gait Goal Minimal Assistance Front Wheel Walker Gait Distance 10 Days to Meet Goals 10 Frequency of Treatment Frequency Of Treatment Once a Day Treatment Plan Physical Therapy Treatment Plan Bed Mobility Training Transfer Training Gait Training Therapeutic Exercise Balance Retraining Post Op Education Discharge Planning Hot or Cold Pack Other Recommendations and Next Treatment bed mobility, transfers Focus Recommendations To Nursing Amount of Assist Needed Mechanical Lift Discharge Recommendations PT Discharge Recommendations SNF Rehab
--- NOTE | 2018-08-27 10:11 | SLP.IPNOTE ---
Attempted to see pt this am. Pt's family in the room with him. Pt was somnolent. Could open eyes to his name. Discussed with family pt's high risk for aspiration. Suspect aspiration of secretions. If pt can tolerate, am recommending MBS to r/o aspiration. Non billable visit.
[2018-08-27] MEDS: HEPARIN DRIP 25,000 UNIT/500 ML IV.SOLN 33.696 UNIT IV (10:47)
[2018-08-27] MEDS: GABAPENTIN 600 MG TABLET PO ×2 (11:08→22:25)
[2018-08-27] MEDS: TIMOLOL 0.5% OPHTH 1 DROPS EYE-BOTH ×2 (11:11→22:30)
[2018-08-27] MEDS: DEXTROSE 5%-0.9% NS 1,000 ML 75 ML IV (11:23)
--- NOTE | 2018-08-27 12:10 | PM.PN.1 ---
Subjective Date Patient Seen: 08/27/18 Time Patient Seen: 10:10 Interval history: Feels better today, out of ICU, abd pain improving, marlon CLD well. Working with therapies to get OOB. Exam Vital Signs (past 8 hours): - 08/27/18 06:13 08/27/18 07:58 08/27/18 09:30 Temperature 98.9 F 99.3 F Pulse Rate 61 57 L 67 Respiratory Rate 19 17 14 Blood Pressure 129/71 131/64 Pulse Oximetry 92 93 97 08/27/18 11:00 Temperature 99.1 F Pulse Rate 65 Respiratory Rate 18 Blood Pressure 132/70 Pulse Oximetry 94 Oxygen Delivery Method Room Air Oxygen Flow Rate 0 Narrative Exam Narrative: AAO, NAD, obese male EOMI, MMM unlabored RA soft, nd, minimal ttp MAEW Objective Labs Result Diagrams: 08/26/18 01:00 08/26/18 01:00 Labs: Laboratory Results - last 24 hr 08/27/18 05:37 APTT 65 H D Assessment & Plan Assessment & Plan narrative: - added Flagyl to Zosyn yesterday --> afebrile, no labs this AM but vitals good - OOB, ambulate - marlon CLD, ok to advance to FLD today - cont' heparin gtt today, if pain continues to improve tomorrow with no fevers or leukocytosis probably fine to say we are highly unlikely to have to operate and he can be transitioned to a more permanent anti-coagulant Quality VTE Deep Vein Thrombosis/Pulmonary Embolism Present on Admission: No
--- NOTE | 2018-08-27 12:40 | P.PN_ITS ---
Subjective Date Patient Seen: 08/27/18 Interval history: 82 y/o male with appendicitis, s/p TLFO, now with an acute subsegmental PE's on anticoagulation who reports continued chest pain 10/14. He is not short of breath and not hypoxic. He is functionally required a 2 person Max Assist and has been unable to ambulat e independently. He is still with a ramachandran catheter but is tolerating his diet well. His back pain persists as well. Appreciate General Surgery evaluation. Exam Vital Signs (past 8 hours): - 08/27/18 06:13 08/27/18 07:58 08/27/18 09:30 Temperature 98.9 F 99.3 F Pulse Rate 61 57 L 67 Respiratory Rate 19 17 14 Blood Pressure 129/71 131/64 Pulse Oximetry 92 93 97 08/27/18 11:00 Temperature 99.1 F Pulse Rate 65 Respiratory Rate 18 Blood Pressure 132/70 Pulse Oximetry 94 Oxygen Delivery Method Room Air Oxygen Flow Rate 0 Narrative Exam Narrative: Lungs: clear to auscultation CV: RRR nl Sl S2 2/6 NIURKA ABD: soft/ mildly tender/ no rebound or board like rigidity, mild right lower quadrant tenderness Back: wound clean and dry, no erythema or exudates Ext: no edema Objective Labs Result Diagrams: 08/26/18 01:00 08/26/18 01:00 Labs: Laboratory Results - last 24 hr 08/27/18 05:37 APTT 65 H D Assessment & Plan (1) Acute pulmonary embolus: Problem details: Patient is status post trans lumbar interbody fusion revision with subsequent development of pulmonary embolus. He is currently being treated with IV heparin would consider transitioning him to Lovenox and Coumadin once we are certain he is not going to surgery. Continue IV heparin for now. Hopefully can transition tomorrow Current visit: Yes Status: Acute (2) Appendicitis: Problem details: Acute appendicitis will continue IV antibiotics. There appears to be no plans for immediate surgical intervention. Current visit: Yes Status: Acute (3) S/P lumbar fusion: Problem details: Improving nicely Current visit: No Status: Acute (4) Type 2 diabetes mellitus: Problem details: Type 2 diabetes, present on admission. Continue his insulin as written. Current visit: Yes Status: Acute (5) Type 2 myocardial infarction: Problem details: Acute, present as of august 24, 2018 Current visit: Yes Status: Acute (6) Hypertension: Problem details: Chronic, present on admission Current visit: Yes Status: Acute (7) Hyperlipidemia: Problem details: Chronic, continue statin Current visit: Yes Status: Acute (8) Sepsis: Problem details: Patient had severe sepsis, not present on admission now resolved This was present and treated Current visit: Yes Status: Acute (9) Bilateral pneumonia: Problem details: Patient initially felt to have pneumonia, however CTA confirmed atelectasis and subsegmental PE. No evidence of pneumonia Current visit: Yes Status: Acute Quality VTE Deep Vein Thrombosis/Pulmonary Embolism Present on Admission: No
--- NOTE | 2018-08-27 13:11 | OT.IP.TRT ---
Current Diagnoses Sepsis, unspecified organism (08/21/18) Type 2 diabetes mellitus without complications (08/21/18) Hyperlipidemia, unspecified (08/21/18) Essential (primary) hypertension (08/21/18) Myocardial infarction type 2 (08/21/18) Atherosclerotic heart disease of [place] coronary artery without angina pectoris (08/21/18) Other pulmonary embolism without acute cor pulmonale (08/21/18) Pneumonia, unspecified organism (08/21/18) Unspecified appendicitis (08/21/18) Unspecified osteoarthritis, unspecified site (08/21/18) Other spondylosis with radiculopathy, lumbar region (08/21/18) Spinal stenosis, lumbar region without neurogenic claudication (08/21/18) Arthrodesis status (08/21/18) Surgery Performed Operation Date: 08/21/18 08:45 Actual Procedures p L4-5 HWR, L3-4 TLIF, L2-3 Laminectomy, L3-4,L4-5 PSF w/Instru.(Not Applicable) - Ed Quezada MD Occupational Therapy Treatment Note M2 OT-IP Current Condition Start: 08/22/18 16:08 Freq: Status: Active Protocol: Document 08/26/18 14:23 [facility] (Rec: 08/26/18 14:46 [facility] [id number]) Occupational Therapy Current Condition Current Condition Evaluation Date 08/26/18 Treatment Diagnosis spinal stenosis, acute appendicitis, PE Diagnosis Onset Date 08/21/18 Weight Bearing Status Weight Bearing Status Weight Bear as Tolerated M3 OT- IP Subjective and Pain Start: 08/22/18 16:08 Freq: Status: Active Protocol: Document 08/27/18 12:52 [facility] (Rec: 08/27/18 13:11 [facility] [id number]) OT- Subjective Occupational Therapy Visit Type Type Treatment Note Visit Start Time 09:00 Visit Stop Time 10:55 Total Visit Minutes 115 Occupational Therapy Visit Comments Patient Comments Pt states needing to have a bowel movement. Therefore Pt seen with PT for part of the session and daughter there to assist to translate as pt Cam[place]onian speaking only. OT Pain Assessment Pain When Pain Assessed During Mobility Pain Present Pain Present Pain Reported Location Abdomen Intensity 8 Scale Used Numeric (1 - 10) M4 OT- IP ADL's Start: 08/22/18 16:08 Freq: Status: Active Protocol: Document 08/27/18 12:52 [facility] (Rec: 08/27/18 13:11 [facility] [email or web address]) OT LQJ-[id number]-[id number] General Evaluation Self-Feeding Ability Moderate Assistance Areas Needing Assistance Cutting Food Drinking From Cup/Glass Opening Containers Devices Self-Feeding Devices Adapted Utensil Comments OT Self-Feeding Comments Pt able to use adapted large handled spoon better to be able to scoop jello. Left hand able to assist to hold the bowl while use of right hand for spoon. Due to weakness, pt still having trouble to to raise up right arm and needing support on rolled towel at his elbow to increase ease from hand to mouth. OT ADL-Grooming General Evaluation Grooming Ability Moderate Assistance Areas Needing Assistance Retrieving/Set-up of Grooming Items Combing/Brushing Hair Comments OT Grooming Comments Pt able to wash his hands and face after set-up on wash cloth, pt needs assist to comb his hair. OT ADL-Dressing General Eval Lower Body Dressing Ability Total Assistance Areas Needing Assistance Socks Comments OT Dressing Comments Dependent at this time. OT ADL-Toileting General Evaluation Toileting Ability Total Assistance Areas Needing Assistance Empty Catheter or Colostomy Manage Clothing Perform Perineal Hygiene Comments OT Toileting Comments MAX A x 2 with FWW to the BSC and assist of NEURO PSYCH SALES SPECIALIST as well for brief management needs. MAX A x2 to stand with FWW while NEURO PSYCH SALES SPECIALIST assist for brief and hygiene needs. Pt legs tend to buckle RLE> LLE. Pt still does not have lot on printer repair technician strength and having trouble to hold to FWW handles. M5 OT- IP IADL's Start: 08/22/18 16:08 Freq: Status: Active Protocol: Document 08/26/18 14:23 [facility] (Rec: 08/26/18 14:46 [facility] [email or web address]) OT-Instrumental Activities of Daily Living Home Safety Awareness Home Safety Comments Pt's family did all IADl needs prior. M6 OT- IP Functional Cognition Start: 08/22/18 16:08 Freq: Status: Active Protocol: Document 08/27/18 12:52 [facility] (Rec: 08/27/18 13:11 [facility] [email or web address]) Cognitive Factors Limiting Selfcare Function Cognitive Ability Level of Alertness Alert Patient Orientation Name Ability to Follow Commands Able to Follow One Step Commands with Increased Time Able to Follow One Step Commands with Repetition Cognitive Comments Cognitive Assessment Comments Pt [place] speaking only therefore pt's daughter there to translate. OT- Vision and Hearing OT- Hearing Assessment OT- Hearing Assessment Hearing Impaired M7 OT- IP Mobility and Balance Start: 08/22/18 16:08 Freq: Status: Active Protocol: Document 08/27/18 12:52 [facility] (Rec: 08/27/18 13:11 [facility] [email or web address]) OT- Bed Mobility Assessment Rolling Type of Rolling Roll to Right Level of Assistance Maximum Assistance Total Assistance Supine to Sit Supine to Sit Assist Maximum Assistance 2 Person Assistance OT-Transfer Assessment Sit to and From Stand Sit to and from Stand Maximum Assistance 2 Person Assistance Transfers Transfer Ability Maximum Assistance 2 Person Assistance Technique Transfer Destination Bedside Commode Chair Devices Transfer Assistive Devices Gait Belt Front Wheeled Walker Comments Mobility Comments MAX AX 2 with FWW assist for balance, to help keep legs from buckling, and to guide FWW. Transfer to recliner from [facility] MAX X A with FWW . OT- Balance Assessment Sitting Balance and Reactions Static Sitting Balance Ability Fair Dynamic Sitting Balance Ability Poor Standing Balance and Reactions Static Standing Balance Ability Poor OT Sensation Assessment Comments Summary Comments Decreased sensation at right wrist, fingers, hip, and ankle . Edema Edema Comments swelling in hands M9 OT- IP Assessment and Plan Start: 08/22/18 16:08 Freq: Status: Active Protocol: Document 08/27/18 12:52 [facility] (Rec: 08/27/18 13:11 [facility] [email or web address]) OT Summary Assessment and Plan Potential Rehabilitation Potential Good Analytic Complexity at Evaluation Low Summary OT Impairments Pain Strength Balance Coordination Sensation Functional Mobility Self-Feeding Grooming Dressing Toileting Bathing Toilet Transfers Shower Transfers Progress Towards Goals Slow Progress due to Pain Slow Progress due to Medical Issues Slow Progress due to Activity Tolerance Assessment Summary Able to do gentle mobilization to right hand to help increase AROM for Pt able to transfer x 2 today and successful on having a bowel movement. Pt will benefit from extensive skilled rehab prior to going home. Goals Self-Feeding Goal Standby Assistance Grooming Goal Standby Assistance Dressing Goal Moderate Assistance Toileting Goal Moderate Assistance Toilet Transfer Goal Moderate Assistance Patient/Caregiver Education Goal Caregiver Independent Assisting Patient Days to Meet Goals 10 Frequency of Treatment Frequency Of Treatment Once a Day Treatment Plan OT Treatment Plan ADL Training Functional Cognition Training Functional Mobility Patient/Family Education Discharge Planning Other Treatment Recommendations and Next Transfer to [facility] MODA x2, Treatment Focus grooming from recliner. Discharge Recommendations OT Discharge Recommendations SNF Rehab Home Equipment Needs defer to SNF
[2018-08-27] MEDS: INSULIN ASPART 100 UNIT/ML INSULN PEN SUBCUT ×2 (13:55→16:27)
[2018-08-27 14:20] LABS: Anti-Streptolysin O Antibody < 50 IU/mL (< 200)
--- NOTE | 2018-08-27 17:39 | SLP.IPNOTE ---
Consulted with Dr. Joe re: swallow evaluation. ST has been on hold x 4 days. Pt currently on a clear liquid diet per surgeon's order. ST will discharge at this time. St to f/u when pt s stable
[2018-08-27] MEDS: ALBUTEROL HFA 60 PUFF/8 GM INH INH (19:23)
[2018-08-28] VITALS (7 sets, daily range): BP systolic 132–142; BP diastolic 64–83; PULSE 52–73; RESP 16–56; TEMP 36.3–37.4; O2SAT 93–96
--- NOTE | 2018-08-28 00:40 | PC.NURSE ---
2300- Pt resting in bed w/ grandson in room translating as pt is primarily Bulgarian speaking. Back drsg CDI from lumbar fusion on 08/21; pt unable to walk on his own (per prev nurses report using nury lift for this pt). Clear liquid diet w/ Heparin, NS, D5 NS running as ordered. AC/HS BG checks taking place w/ no need for insulin replacement before bed. Luis Alberto DC'd @ 1400 today, good output noted since removal. Pt denies pain; following Heparin protocol.
[2018-08-28] MEDS: PIPERACILLIN-TAZO 3.375 GM/50 ML FROZ.PIGGY IV ×3 (01:07→16:12)
[2018-08-28] MEDS: OXYCODONE IR 5 MG TABLET PO ×3 (01:07→16:10)
[2018-08-28] MEDS: HEPARIN DRIP 25,000 UNIT/500 ML IV.SOLN 34 UNIT IV (01:50)
[2018-08-28] MEDS: DEXTROSE 5%-0.9% NS 1,000 ML 75 ML IV (03:57)
[2018-08-28] MEDS: metroNIDAZOLE 500 MG/100 ML PIGGYBACK 100 MG IV ×3 (05:38→21:42)
[2018-08-28] MEDS: ALBUTEROL HFA 60 PUFF/8 GM INH INH (06:52)
[2018-08-28] MEDS: BUDESONIDE 60 PUFF/DEVICE INHALER INH ×2 (07:10→20:11)
--- NOTE | 2018-08-28 08:17 | P.PN_ITS ---
Subjective Date Patient Seen: 08/28/18 Time Patient Seen: 08:12 Interval history: Hospital day 8, postop day 7 following L3-4, L4-5 TLIF, revision laminectomy and posterior screw fixation. he developed postoperative sepsis with UTI, Panda site as and pulmonary embolus. He is being followed by hospitalist and a general surgeon. He has had improvement with abdominal pain and breathing. He is currently on heparin for his PE. Sahu catheter was DC yesterday afternoon and patient has voided. Has had very little activity with PT. They did try to get him up to the side of the bed yesterday and his legs feel weak. Has been needing Javed lift. Exam Vital Signs (past 8 hours): - 08/28/18 05:10 08/28/18 07:19 Temperature 98.2 F Pulse Rate 66 60 Respiratory Rate 16 16 Blood Pressure 132/74 Pulse Oximetry 95 96 Oxygen Delivery Method Nasal Cannula Oxygen Flow Rate 2 Narrative Exam Narrative: Patient is alert and responsive and smiling this morning. His daughter in the room with the interpreting for him. Patient states his legs feel weak. Does have some abdominal discomfort. Legs. No calf pain or swelling. Pulses symmetrical. Good sensation to touch the lower legs. Abdomen. Soft to palpation with complaint of some tenderness to left upper quadrant. Objective Labs Result Diagrams: 08/26/18 01:00 08/26/18 01:00 Labs: Laboratory Results - last 24 hr 08/23/18 20:50 Anti-Streptolysin O Ab < 50 Assessment & Plan Post-op Postoperative Procedures Operation Date: 08/21/18 08:45 Actual Procedures Side Surgeon p L4-5 HWR, L3-4 TLIF, L2-3 Laminectomy, L3-4,L4-5 PSF w/Instru. Not Applicable Ed Quezada MD Plan: Orthopedically patient appears stable. he does need to try to be up out of bed more if possible and getting his leg strength back. He will continue to be followed by his surgeon and hospitalist for medical and abdominal issues. Plan is for transfer to [facility] in [place] when stable. Quality VTE Deep Vein Thrombosis/Pulmonary Embolism Present on Admission: No
[2018-08-28 08:47] LABS: Add Manual Diff / Slide Review NO; Basophils Absolute Auto 0 /uL (0-100); Basophils Percent Auto 0.6 % (0-2); Eosinophils Absolute Auto 300 /uL (0-450); Hematocrit 31.1 % (41-53); Hemoglobin 10.5 g/dL (13.5-17.5); Lymphocytes Absolute Auto 1000 /uL (1100-4500); Lymphocytes Percent Auto 17.5 % (25-40); Mean Corpuscular HGB Conc 33.8 % (30-36); Mean Corpuscular Hemoglobin 29.8 PG (26-34); Mean Corpuscular Volume 88.1 fL (80-100); Monocytes Absolute Auto 500 /uL (0-900); Monocytes Percent Auto 8.5 % (3-14); Neutrophils Absolute Auto 4000 /uL (1500-7000); Neutrophils Percent Auto 68.4 % (50-75); Platelet Count 256 X10^3/uL (150-400); Red Blood Cell Count 3.53 X10^6/uL (4.5-5.9); Red Cell Distribution Width 13.9 % (11.6-14.8); White Blood Cell Count 5.9 X10^3/uL (4.5-11.0)
[2018-08-28 09:04] LABS: PTT Partial Thromboplastin Tim 67 SECONDS (26.4-36.2)
--- NOTE | 2018-08-28 09:09 | P.PN_ITS ---
Subjective Date Patient Seen: 08/28/18 Time Patient Seen: 09:06 Interval history: No changes other than some nausea this AM. Pain overall improving but 'new pain' in RONNY today. AF, VSS. Says he feels better in general. Started OOB yesterday, very deconditioned. Exam Vital Signs (past 8 hours): - 08/28/18 05:10 08/28/18 07:19 Temperature 98.2 F Pulse Rate 66 60 Respiratory Rate 16 16 Blood Pressure 132/74 Pulse Oximetry 95 96 Oxygen Delivery Method Nasal Cannula Oxygen Flow Rate 2 Narrative Exam Narrative: AAO, NAD, obese male EOMI, MMM unlabored RA soft, nd, minimal ttp RONNY & raul-umbilical area MAEW skin dry Objective Labs Result Diagrams: 08/28/18 08:27 08/26/18 01:00 Labs: Laboratory Results - last 24 hr 08/23/18 08/28/18 08/28/18 20:50 08:27 08:27 WBC 5.9 RBC 3.53 L Hgb 10.5 L Hct 31.1 L MCV 88.1 MCH 29.8 MCHC 33.8 RDW 13.9 Plt Count 256 Neut % (Auto) 68.4 Lymph % (Auto) 17.5 L [place] % (Auto) 8.5 Eos % (Auto) 5.0 H Baso % (Auto) 0.6 Neut # (Auto) 4000 Lymph # (Auto) 1000 L [place] # (Auto) 500 Eos # (Auto) 300 Baso # (Auto) 0 APTT 67 H Anti-Streptolysin O Ab < 50 Assessment & Plan Assessment & Plan narrative: - continues to slowly improve - cont' dual abx for now, still no indication for surgery in this high risk patient --> AF, exam improving, labs today pending - OOB, very deconditioned after difficult course Quality VTE Deep Vein Thrombosis/Pulmonary Embolism Present on Admission: No
[2018-08-28] MEDS: TIMOLOL 0.5% OPHTH 1 DROPS EYE-BOTH ×2 (09:23→21:42)
[2018-08-28] MEDS: GABAPENTIN 600 MG TABLET PO ×2 (09:24→21:42)
[2018-08-28] MEDS: ONDANSETRON 4 MG/2 ML INJ IV (09:26)
--- NOTE | 2018-08-28 11:46 | P.PN_ITS ---
Subjective Date Patient Seen: 08/28/18 Interval history: The patient is an 82-year-old male status post trans lumbar fusion, complicated by acute pannus items and subsegmental pulmonary embolus. The patient reports 6/10 pain. that has been persistent all week. He has shortness of breath which is chronic as well. His abdominal pain appears to be improved. He does have some intermittent pain. he does not complain of back pain. he is slow to move due but is working with PT and OT. His oxygenation has improved patient has significant amount of gas out this morning. He reports some mid epigastric pain and bloating as well. Exam Vital Signs (past 8 hours): - 08/28/18 05:10 08/28/18 07:19 08/28/18 09:00 Temperature 98.2 F 99.3 F Pulse Rate 66 60 73 Respiratory Rate 16 16 16 Blood Pressure 132/74 139/83 Pulse Oximetry 95 96 94 Oxygen Delivery Method Nasal Cannula Oxygen Flow Rate 0 Narrative Exam Narrative: Elderly male lying in bed Lungs: Decreased breath Cardiac exam: Regular rate and rhythm normal S1-S2 Abdomen: Soft mildly dizzy, mildly tender in the midepigastric area, no tenderness in the right lower quadrant, no rebound tenderness, no board-like rigidity, no palpable mass Extremities: No edema Objective Labs Result Diagrams: 08/28/18 08:27 08/26/18 01:00 Labs: Laboratory Results - last 24 hr 08/23/18 08/28/18 08/28/18 20:50 08:27 08:27 WBC 5.9 RBC 3.53 L Hgb 10.5 L Hct 31.1 L MCV 88.1 MCH 29.8 MCHC 33.8 RDW 13.9 Plt Count 256 Neut % (Auto) 68.4 Lymph % (Auto) 17.5 L [place] % (Auto) 8.5 Eos % (Auto) 5.0 H Baso % (Auto) 0.6 Neut # (Auto) 4000 Lymph # (Auto) 1000 L [place] # (Auto) 500 Eos # (Auto) 300 Baso # (Auto) 0 APTT 67 H Anti-Streptolysin O Ab < 50 Assessment & Plan (1) Sepsis: Problem details: Patient had severe sepsis, not present on admission now resolved This was present and treated Current visit: Yes Status: Acute (2) Hyperlipidemia: Problem details: Chronic, continue statin Current visit: Yes Status: Acute (3) Hypertension: Problem details: Chronic, present on admission Current visit: Yes Status: Acute (4) Type 2 myocardial infarction: Problem details: Acute, present as of august 24, 2018 Current visit: Yes Status: Acute (5) CAD (coronary artery disease): Problem details: Chronic present on admission Current visit: Yes Status: Acute (6) Osteoarthritis: Problem details: Lumbar osteoarthritis present on admission, status post trans lumbar interbody fusion revision. Current visit: Yes Status: Acute (7) Type 2 diabetes mellitus: Problem details: Type 2 diabetes, present on admission. Continue his insulin as written. Current visit: Yes Status: Acute (8) Acute pulmonary embolus: Problem details: Patient is status post trans lumbar interbody fusion revision with subsequent development of pulmonary embolus. He is currently being treated with IV heparin would consider transitioning him to Lovenox and Coumadin once we are certain he is not going to surgery. Continue IV heparin for now. Hopefully can transition tomorrow Heparin will be discontinued today. Will start Xarelto today as well. Current visit: Yes Status: Acute (9) Appendicitis: Problem details: Acute appendicitis will continue IV antibiotics. There appears to be no plans for immediate surgical intervention. Patient has some nausea last evening. This may be related to Flagyl. Will def er to surgery whether they want to continue Flagyl or pursue Zosyn alone. Current visit: Yes Status: Acute (10) S/P lumbar fusion: Problem details: Improving nicely Current visit: No Status: Acute Assessment & Plan narrative: Discharged to sniff when okay with surgery. Quality VTE Deep Vein Thrombosis/Pulmonary Embolism Present on Admission: No
--- NOTE | 2018-08-28 11:48 | PT.IPTN ---
Current Diagnoses Sepsis, unspecified organism (08/21/18) Type 2 diabetes mellitus without complications (08/21/18) Hyperlipidemia, unspecified (08/21/18) Essential (primary) hypertension (08/21/18) Myocardial infarction type 2 (08/21/18) Atherosclerotic heart disease of [place] coronary artery without angina pectoris (08/21/18) Other pulmonary embolism without acute cor pulmonale (08/21/18) Pneumonia, unspecified organism (08/21/18) Unspecified appendicitis (08/21/18) Unspecified osteoarthritis, unspecified site (08/21/18) Other spondylosis with radiculopathy, lumbar region (08/21/18) Spinal stenosis, lumbar region without neurogenic claudication (08/21/18) Arthrodesis status (08/21/18) Surgery Performed Operation Date: 08/21/18 08:45 Actual Procedures p L4-5 HWR, L3-4 TLIF, L2-3 Laminectomy, L3-4,L4-5 PSF w/Instru.(Not Applicable) - Ed Quezada MD Physical Therapy Treatment Note M2 PT-IP Current Condition Start: 08/21/18 16:45 Freq: NEEDED Status: Active Protocol: Document 08/22/18 09:45 HH (Rec: 08/22/18 11:16 [email or web address]) Physical Therapy Current Condition Current Condition Evaluation Date 08/21/18 Treatment Diagnosis L4-L5 HWR, L3-4 TLIF, L2-3 laminectomy, L3-5 PSF, impaired mobility Onset Date 08/21/18 Precautions Lumbar Precautions Log Roll No Twisting Limit Bending Lifting Restriction of 10 lbs Gait Belt above Incisional Area Weight Bearing Status Weight Bearing Status Weight Bear as Tolerated M3 PT-IP Subjective Start: 08/21/18 16:45 Freq: NEEDED Status: Active Protocol: Document 08/28/18 10:30 HH (Rec: 08/28/18 11:48 [id number]) Subjective Physical Therapy Visit Type Type Treatment Note Visit Start Time 10:30 Visit Stop Time 11:00 Total Visit Minutes 30 Notes pt's dtr at bedside Number of TEXTILE KNITTER Visits 0 Physical Therapy Visit Comments Patient Comments Pt agreeable to get to bedside chair. Therapy Pain Assessment Pain When Pain Assessed During Mobility Pain Present Pain Present Pain Reported Location Back Intensity 6 Pain Management Techniques Timing of Activity with Medications M4 PT-IP Mobility and Gait Start: 04/17/19 16:45 Freq: NEEDED Status: Active Protocol: Document 08/28/18 10:30 (Rec: 08/28/18 11:48 [id number]) PT-Bed Mobility Assessment Rolling Type of Rolling Bilateral Level of Assist Moderate Assistance 1 Person Assistance Supine to Sit Supine to Sit Maximum Assistance 2 Person Assistance Bedrails Scooting Scooting to Edge of Bed Maximum Assistance Dependent Scooting Up and Down in Bed Maximum Assistance Dependent PT-Transfer Assessment Sit to and From Stand Sit to and from Stand Minimal Assistance Maximum Assistance 1 Person Assistance 2 Person Assistance Use of Upper Extremities Equipment Transfer Assistive Device Gait Belt Front Wheeled Walker Orthotic/Prosthetic Devices or Brace: No Transfers Transfer Destination Bed Chair Transfer Technique Stand Step Pivot Transfer Ability Level of Assist Maximum Assistance 2 Person Assistance Use of Upper Extremities Comments Mobility Comments Pt needed mod A X 1 for bed rolling but max A x 2 for supine to sit. He stood up from bed with FWW max A x2 . He has difficult time to take steps and hold on to FWW due to UE weakness. Overall max A for bed to chair transfer. However, pt stood up x 3 in front of sink counter and needed CGA/ min A by holding on to counter. He was able to stand up straight and comb his hair with 1UE support. Gait Assessment Comments Gait Comments unable to amb PT-Balance Assessment Sitting Balance and Reactions Static Sitting Balance Ability Fair Dynamic Sitting Balance Ability Fair Standing Balance and Reactions Static Standing Balance Ability Poor Dynamic Standing Balance Ability Poor Device Used FWW M5 PT-IP Objective Assessments Start: 08/21/18 16:45 Freq: NEEDED Status: Active Protocol: Document 08/22/18 09:45 (Rec: 08/22/18 11:16 [email or web address]) Orientation Orientation/Cognition Level of Alertness Alert Comments unable to assess due to language barrier. Will reassess when dtr is present Gross Range of Motion Upper Extremity ROM Assessment Within Functional Limits Lower Extremity ROM Assessment Bilaterally Impaired Strength Upper Extremity Strength Assessment Within Functional Limits Lower Extremity Strength Assessment Bilaterally Impaired Comments Strength Comments 3- to 3 /5 for B LEs strength Coordination Assessment Assessment Coordination Comments unable to assess due to language barrier. Will reassess when dtr is present Sensation Assessment Comments Sensation Comments unable to assess due to language barrier. Will reassess when dtr is present M6 PT-IP Treatment Start: 08/21/18 16:45 Freq: NEEDED Status: Active Protocol: Document 08/27/18 10:00 AB (Rec: 08/27/18 12:34 AB [id number]) Physical Therapy Treatment Education Education Provided Precautions Safety M7 PT-IP Assessment and Plan Start: 08/21/18 16:45 Freq: NEEDED Status: Active Protocol: Document 08/28/18 10:30 HH (Rec: 08/28/18 11:48 HH [id number]) PT Summary Assessment and Plan Potential Rehabilitation Potential Fair Status of Condition at Evaluation Evolving Summary Impairments Pain ROM Strength Balance Coordination Sensation Tone Cognition Bed Mobility Transfers Gait Activity Tolerance Progress Towards Goals Slow Progress due to Pain Slow Progress due to Medical Issues Slow Progress due to Activity Tolerance Assessment Summary Pt showed improvements today who is able to STS x 3times with counter support (CGA/min A) but cont needed max A x 2 for supine to sit and transfers. Will cont require SNF to improve overall mobility. Change to BID for frequency of tx since pt has improved regarding mobility. Goals Bed Mobility Goal Minimal Assistance Transfer Goal Minimal Assistance Front Wheeled Walker Gait Goal Minimal Assistance Front Wheel Walker Gait Distance 10 Days to Meet Goals 10 Frequency of Treatment Frequency Of Treatment Twice a Day Treatment Plan Physical Therapy Treatment Plan Bed Mobility Training Transfer Training Gait Training Therapeutic Exercise Balance Retraining Post Op Education Discharge Planning Hot or Cold Pack Other Recommendations and Next Treatment bed mobility, transfers Focus Recommendations To Nursing Amount of Assist Needed Mechanical Lift Discharge Recommendations PT Discharge Recommendations SNF Rehab
[2018-08-28] MEDS: RIVAROXABAN 10 MG TABLET 15 MG PO ×2 (12:49→16:11)
--- NOTE | 2018-08-28 13:52 | PT.IPTN ---
Current Diagnoses Sepsis, unspecified organism (08/21/18) Type 2 diabetes mellitus without complications (08/21/18) Hyperlipidemia, unspecified (08/21/18) Essential (primary) hypertension (08/21/18) Myocardial infarction type 2 (08/21/18) Atherosclerotic heart disease of [place] coronary artery without angina pectoris (08/21/18) Other pulmonary embolism without acute cor pulmonale (08/21/18) Pneumonia, unspecified organism (08/21/18) Unspecified appendicitis (08/21/18) Unspecified osteoarthritis, unspecified site (08/21/18) Other spondylosis with radiculopathy, lumbar region (08/21/18) Spinal stenosis, lumbar region without neurogenic claudication (08/21/18) Arthrodesis status (08/21/18) Surgery Performed Operation Date: 08/21/18 08:45 Actual Procedures p L4-5 HWR, L3-4 TLIF, L2-3 Laminectomy, L3-4,L4-5 PSF w/Instru.(Not Applicable) - Ed Quezada MD Physical Therapy Treatment Note M2 PT-IP Current Condition Start: 08/21/18 16:45 Freq: NEEDED Status: Active Protocol: Document 08/22/18 09:45 (Rec: 08/22/18 11:16 [email or web address]) Physical Therapy Current Condition Current Condition Evaluation Date 08/21/18 Treatment Diagnosis L4-L5 HWR, L3-4 TLIF, L2-3 laminectomy, L3-5 PSF, impaired mobility Onset Date 08/21/18 Precautions Lumbar Precautions Log Roll No Twisting Limit Bending Lifting Restriction of 10 lbs Gait Belt above Incisional Area Weight Bearing Status Weight Bearing Status Weight Bear as Tolerated M3 PT-IP Subjective Start: 08/21/18 16:45 Freq: NEEDED Status: Active Protocol: Document 08/28/18 13:00 HH (Rec: 08/28/18 13:52 [id number]) Subjective Physical Therapy Visit Type Type Treatment Note Visit Start Time 13:00 Visit Stop Time 13:35 Total Visit Minutes 35 Notes Pt requested to use [facility] for BW . Co-tx with OT. pt's dtr at bedside Number of GASKET MAKER Visits 0 Physical Therapy Visit Comments Patient Comments Pt wanted to use BSC Therapy Pain Assessment Pain When Pain Assessed During Mobility Pain Present Pain Present Pain Reported Location Back Intensity 6 Pain Management Techniques Timing of Activity with Medications M4 PT-IP Mobility and Gait Start: 08/21/18 16:45 Freq: NEEDED Status: Active Protocol: Document 08/28/18 13:00 HH (Rec: 08/28/18 13:52 [id number]) PT-Bed Mobility Assessment Sit to Supine Sit to Supine Maximum Assistance 2 Person Assistance Scooting Scooting to Edge of Bed Maximum Assistance Dependent Scooting Up and Down in Bed Maximum Assistance Dependent PT-Transfer Assessment Sit to and From Stand Sit to and from Stand Minimal Assistance Moderate Assistance 1 Person Assistance 2 Person Assistance Use of Upper Extremities Equipment Transfer Assistive Device Gait Belt Front Wheeled Walker Orthotic/Prosthetic Devices or Brace: No Transfers Transfer Destination Bed Chair Bedside Commode Transfer Technique Stand Step Pivot Transfer Ability Level of Assist Maximum Assistance 2 Person Assistance Use of Upper Extremities Comments Mobility Comments Pt needed max A x 2 for sit to supine. He stood up from chair with FWW mod A x2 , and able to perform 2 more times in front of counter with min A . He then transferred from chair to bed with max A x 2 with stand pivot. Gait Assessment Gait Gait Assistance Required: Moderate Assistance 2 Person Assist Distance (Feet) 4 Able to Maintain Weight Bearing Status Yes During Gait Assistive Devices Assistive Device Gait Belt Front Wheeled Walker Orthotic/Prosthetic Devices or Brace: No Gait Deviations General Gait Pattern Decreased Stride Length Decreased Feet Clearance Flexed Trunk Step-to Gait Factors Limiting Gait Function Factors Limiting Gait Function Decreased Activity Tolerance Decreased Strength Limited Range of Motion Pain Poor Balance Poor Safety Awareness Respiratory Distress Comments Gait Comments Pt's chair set 5 feet away from counter. He then stood up and amb from chair to counter with mod Ax 2. OT has to hold his LUE to maintain support on walker due to weakness. Pt amb with a flexed trunk and step to gait. PT-Balance Assessment Sitting Balance and Reactions Static Sitting Balance Ability Fair Dynamic Sitting Balance Ability Fair Standing Balance and Reactions Static Standing Balance Ability Poor Dynamic Standing Balance Ability Poor Device Used FWW M5 PT-IP Objective Assessments Start: 08/21/18 16:45 Freq: NEEDED Status: Active Protocol: Document 08/22/18 09:45 HH (Rec: 08/22/18 11:16 [email or web address]) Orientation Orientation/Cognition Level of Alertness Alert Comments unable to assess due to language barrier. Will reassess when dtr is present Gross Range of Motion Upper Extremity ROM Assessment Within Functional Limits Lower Extremity ROM Assessment Bilaterally Impaired Strength Upper Extremity Strength Assessment Within Functional Limits Lower Extremity Strength Assessment Bilaterally Impaired Comments Strength Comments 3- to 3 /5 for B LEs strength Coordination Assessment Assessment Coordination Comments unable to assess due to language barrier. Will reassess when dtr is present Sensation Assessment Comments Sensation Comments unable to assess due to language barrier. Will reassess when dtr is present M6 PT-IP Treatment Start: 08/21/18 16:45 Freq: NEEDED Status: Active Protocol: Document 08/27/18 10:00 AB (Rec: 08/27/18 12:34 AB [id number]) Physical Therapy Treatment Education Education Provided Precautions Safety M7 PT-IP Assessment and Plan Start: 08/21/18 16:45 Freq: NEEDED Status: Active Protocol: Document 08/28/18 13:00 HH (Rec: 08/28/18 13:52 HH [id number]) PT Summary Assessment and Plan Potential Rehabilitation Potential Fair Status of Condition at Evaluation Evolving Summary Impairments Pain ROM Strength Balance Coordination Sensation Tone Cognition Bed Mobility Transfers Gait Activity Tolerance Progress Towards Goals Slow Progress due to Pain Slow Progress due to Medical Issues Slow Progress due to Activity Tolerance Assessment Summary Pt was able to amb this pm from chair to counter with mod A x2. He also stood up for 3mins with elbow support on counter. He then transferred from chair to bed with max A x 2 stand step pivot and sit to supine. Pt denies distress and wanted to take a nap due to fatigue. Pt will cont need SNF care to improve mobility Goals Bed Mobility Goal Minimal Assistance Transfer Goal Minimal Assistance Front Wheeled Walker Gait Goal Minimal Assistance Front Wheel Walker Gait Distance 10 Days to Meet Goals 10 Frequency of Treatment Frequency Of Treatment Twice a Day Treatment Plan Physical Therapy Treatment Plan Bed Mobility Training Transfer Training Gait Training Therapeutic Exercise Balance Retraining Post Op Education Discharge Planning Hot or Cold Pack Other Recommendations and Next Treatment bed mobility, transfers Focus Recommendations To Nursing Amount of Assist Needed Mechanical Lift Discharge Recommendations PT Discharge Recommendations SNF Rehab
--- NOTE | 2018-08-28 14:05 | OT.IP.TRT ---
Current Diagnoses Sepsis, unspecified organism (08/21/18) Type 2 diabetes mellitus without complications (08/21/18) Hyperlipidemia, unspecified (08/21/18) Essential (primary) hypertension (08/21/18) Myocardial infarction type 2 (08/21/18) Atherosclerotic heart disease of [place] coronary artery without angina pectoris (08/21/18) Other pulmonary embolism without acute cor pulmonale (08/21/18) Pneumonia, unspecified organism (08/21/18) Unspecified appendicitis (08/21/18) Unspecified osteoarthritis, unspecified site (08/21/18) Other spondylosis with radiculopathy, lumbar region (08/21/18) Spinal stenosis, lumbar region without neurogenic claudication (08/21/18) Arthrodesis status (08/21/18) Surgery Performed Operation Date: 08/21/18 08:45 Actual Procedures p L4-5 HWR, L3-4 TLIF, L2-3 Laminectomy, L3-4,L4-5 PSF w/Instru.(Not Applicable) - Ed Quezada MD Occupational Therapy Treatment Note M2 OT-IP Current Condition Start: 08/22/18 16:08 Freq: Status: Active Protocol: Document 08/26/18 14:23 [facility] (Rec: 08/26/18 14:46 [facility] [email or web address]) Occupational Therapy Current Condition Current Condition Evaluation Date 08/26/18 Treatment Diagnosis spinal stenosis, acute appendicitis, PE Diagnosis Onset Date 08/21/18 Weight Bearing Status Weight Bearing Status Weight Bear as Tolerated M3 OT- IP Subjective and Pain Start: 08/22/18 16:08 Freq: Status: Active Protocol: Document 08/28/18 13:44 [facility] (Rec: 08/28/18 14:05 [facility] [email or web address]) OT- Subjective Occupational Therapy Visit Type Type Treatment Note Visit Start Time 12:10 Visit Stop Time 13:00 Total Visit Minutes 70 Notes Pt also seen from 1315 to 1335 for toileting needs. Occupational Therapy Visit Comments Patient Comments Pt states right arm feels glove boarder and better from yesterday's OT treatment. Pt' s daughter there to translate as pt [place] speaking only. OT Pain Assessment Pain When Pain Assessed At Rest Pain Present Pain Present Denied Pain M4 OT- IP ADL's Start: 08/22/18 16:08 Freq: Status: Active Protocol: Document 08/28/18 13:44 [facility] (Rec: 08/28/18 14:05 [facility] [email or web address]) OT ADL-Grooming Comments OT Grooming Comments Per daughter pt able to use right hand better and even able to reach up to his hair to comb on his own today. OT ADL-Toileting General Evaluation Toileting Ability Total Assistance Areas Needing Assistance Manage Clothing Perform Perineal Hygiene Comments OT Toileting Comments Pt able to stand with use of sink and PT RIGO to stand while therapist able to assist for hygiene and brief management needs. M5 OT- IP IADL's Start: 08/22/18 16:08 Freq: Status: Active Protocol: Document 08/26/18 14:23 [facility] (Rec: 08/26/18 14:46 [facility] [email or web address]) OT-Instrumental Activities of Daily Living Home Safety Awareness Home Safety Comments Pt's family did all IADl needs prior. M6 OT- IP Functional Cognition Start: 08/22/18 16:08 Freq: Status: Active Protocol: Document 08/28/18 13:44 [facility] (Rec: 08/28/18 14:05 [facility] [email or web address]) Cognitive Factors Limiting Selfcare Function Cognitive Ability Level of Alertness Alert Patient Orientation Name Place Situation Attention Span Ability Capable of Focused Attention Capable of Sustained Attention Ability to Follow Commands Able to Follow Multi-Step Commands Cognitive Comments Cognitive Assessment Comments Pt [place] speaking only therefore pt's daughter there to translate. Pt able to follow multiple commands and appears to be intact cognitively however unable to fully assess as pt [place] speaking and daughter always translating. OT- Vision and Hearing OT- Hearing Assessment OT- Hearing Assessment Hearing Impaired M7 OT- IP Mobility and Balance Start: 08/22/18 16:08 Freq: Status: Active Protocol: Document 08/28/18 13:44 [facility] (Rec: 08/28/18 14:05 [facility] [email or web address]) OT- Bed Mobility Assessment Sit to Supine Sit to Supine Assist Maximum Assistance 2 Person Assistance OT-Transfer Assessment Sit to and From Stand Sit to and from Stand Minimal Assistance Moderate Assistance 1 Person Assistance 2 Person Assistance Transfers Transfer Ability Maximum Assistance 2 Person Assistance Technique Transfer Destination Bed Bedside Commode Chair Devices Transfer Assistive Devices Gait Belt Front Wheeled Walker Comments Mobility Comments Sit to stand varies depending on if pt pulling up to stand with sink RIGO, if coming up from recliner MODA X 2. Pt needing MAX A x 2 for transfer as needing assist to help hold LUE onto the handle of FWW and put weight through LUE at elbow. OT- Balance Assessment Sitting Balance and Reactions Static Sitting Balance Ability Good Dynamic Sitting Balance Ability Fair Standing Balance and Reactions Static Standing Balance Ability Fair M8 OT- IP Objective Assessments Start: 08/22/18 16:08 Freq: Status: Active Protocol: Document 08/28/18 13:44 [facility] (Rec: 08/28/18 14:05 [facility] [email or web address]) OT Gross Range of Motion Upper Extremity Range of Motion Assessment Bilaterally Impaired ROM Impairments RUE now able to raise with elbow flexed 0-45 degrees, WFL for fingers and wrist due to less swelling. AAROM for RUE arm movement to help strength RUE for functional needs. Unable to work with LUE as having 2 IV in his arm. OT Strength Comments Strength Comments BUE 3-/5 OT- Coordination Assessment Comments Coordination Comments Pt able to close right hand all the way and touch each digit now. M9 OT- IP Assessment and Plan Start: 08/22/18 16:08 Freq: Status: Active Protocol: Document 08/28/18 13:44 [facility] (Rec: 08/28/18 14:05 [facility] [email or web address]) OT Summary Assessment and Plan Potential Rehabilitation Potential Good Analytic Complexity at Evaluation Low Summary OT Impairments Pain Strength Balance Coordination Sensation Functional Mobility Self-Feeding Grooming Dressing Toileting Bathing Toilet Transfers Shower Transfers Progress Towards Goals Progressing Toward Goals Slow Progress due to Activity Tolerance Assessment Summary Pt doing better today and able to actively use BUE especially RUE for grooming needs. Pt able to walk short distance and tolerated several transfer today. Pt looking to go to skilled rehab soon. Goals Self-Feeding Goal Standby Assistance Grooming Goal Standby Assistance Dressing Goal Moderate Assistance Toileting Goal Moderate Assistance Toilet Transfer Goal Moderate Assistance Patient/Caregiver Education Goal Caregiver Independent Assisting Patient Days to Meet Goals 7 Frequency of Treatment Frequency Of Treatment Once a Day Treatment Plan OT Treatment Plan ADL Training Functional Cognition Training Functional Mobility Patient/Family Education Discharge Planning Other Treatment Recommendations and Next Standing at sink from grooming Treatment Focus . Discharge Recommendations OT Discharge Recommendations SNF Rehab Home Equipment Needs defer to SNF
--- NOTE | 2018-08-28 15:09 | CM.DPC ---
DCP Cont: Per Ortho and Hospitalist , pt cleared and awaiting Surgeon to clear pt for discharge. RN Waleska contacted Surgeon and confirmed that since pt not needing further surgical intervention at this time then he was started on Xaralto and will likely be stable for discharge to SNF tomorrow () or at latest Sunday. EVELIN called [facility] ([phone]) admissions Elyssa and updated her on pt status and likely d/c tomorrow or Sun at latest and she is appreciative and confirms they can accept him at d/c. Pt with hx at [facility] and they are aware of his needs. Plan: EVELIN to follow for likely pt d/c to [facility] tomorrow if still medically stable. SW to fax d/c packet and PASRR to [facility] when available. TRINA Jules
[2018-08-28] MEDS: ACETAMINOPHEN 325 MG TABLET 650 MG PO (16:30)
[2018-08-28] MEDS: SENNOSIDES 8.6 MG TABLET 17.2 MG PO (21:42)
[2018-08-28] MEDS: DOCUSATE 250 MG CAPSULE PO (21:42)
[2018-08-28] MEDS: TEMAZEPAM 15 MG CAPSULE PO (22:48)
[2018-08-29] VITALS (9 sets, daily range): BP systolic 137–156; BP diastolic 66–88; PULSE 55–67; RESP 16–20; TEMP 36.8–37.1; O2SAT 92–97
[2018-08-29] MEDS: OXYCODONE IR 5 MG TABLET PO ×6 (00:07→19:40)
--- NOTE | 2018-08-29 00:52 | PC.NURSE ---
2300- Pt resting in bed w/ family member present in room helping pt understand as he is primarily [place] speaking. On RA upon initial assessment; midline on upper L arm hep locked. Pt is a 2PA to turn in bed; using Javed Lift to get OOB. Full liquid diet being tolerated at this time. 0010- Pt turned in bed, stating he is having pain w/ breathing. O2 sats at 91-92% on RA; 2L NC applied for pt's comfort w/ breathing. PO Oxy given per pt's request rating pain 10/14. 0115- IV Abx hung per orders, pt being turned q2hrs & brief checked. 0400- CO 11/13 pain, PO oxy given as requested.
[2018-08-29] MEDS: PIPERACILLIN-TAZO 3.375 GM/50 ML FROZ.PIGGY IV ×2 (01:21→08:44)
[2018-08-29] MEDS: metroNIDAZOLE 500 MG/100 ML PIGGYBACK 100 MG IV ×2 (06:15→13:10)
[2018-08-29] MEDS: RIVAROXABAN 10 MG TABLET 15 MG PO ×2 (08:45→16:18)
[2018-08-29] MEDS: SENNOSIDES 8.6 MG TABLET 17.2 MG PO ×2 (08:47→21:43)
[2018-08-29] MEDS: GABAPENTIN 600 MG TABLET PO ×2 (08:47→21:14)
[2018-08-29] MEDS: DOCUSATE 250 MG CAPSULE PO ×2 (08:47→21:14)
[2018-08-29] MEDS: ONDANSETRON 4 MG/2 ML INJ IV (08:50)
[2018-08-29] MEDS: BUDESONIDE 60 PUFF/DEVICE INHALER INH ×2 (09:31→17:31)
--- NOTE | 2018-08-29 10:25 | PM.PNPO.1 ---
Subjective Date Patient Seen: 08/29/18 Time Patient Seen: 10:25 Interval history: Patient is an 82 year old male who is HD#9, POD#8 s/p L3-4, L4-5 TLIF, revision laminectomy and posterior screw fixation. His post op course has been complicated by sepsis secondary to appendicitis and pulmonary embolism. He continues to be followed by hospitalist and general surgery. Today he reports continued improvement in his low back pain, and a continuation of the burning sensation in his legs that is unchanged since prior to surgery. He currently complains of muscle spasms in the legs that are disrupting his sleep. He has been slow to mobilize, but has been to up to the chair and commode with Javed lift. He reports a bowel movement today. Exam Vital Signs (past 8 hours): - 08/29/18 04:00 08/29/18 08:00 08/29/18 09:32 Temperature 98.3 F 98.3 F Pulse Rate 60 57 L 58 L Respiratory Rate 18 17 16 Blood Pressure 156/88 H 141/73 H Pulse Oximetry 96 94 94 Oxygen Delivery Method Room Air Oxygen Flow Rate 0 Narrative Exam Narrative: Pleasant 82 year old male resting in bed in no acute distress. Daughter present for exam. Dressing in place is C/D/I. Good sensation in bilateral lower extremities. 2+ distal pulses. Able to dorsiflex/plantar flex the feet. Objective Labs Result Diagrams: 08/28/18 08:27 08/26/18 01:00 Assessment & Plan Post-op Postoperative Procedures Operation Date: 08/21/18 08:45 Actual Procedures Side Surgeon p L4-5 HWR, L3-4 TLIF, L2-3 Laminectomy, L3-4,L4-5 PSF w/Instru. Not Applicable Ed Quezada MD Patient continues to remain stable from orthopedics standpoint. He is to continue to mobilize with PT and OT. Started on vistaril for complaints of muscle spasms. He has transitioned to Xarelto for DVT prophylaxis. Still being followed by medicine and general surgery for antibiotic management. He will likely discharge to [facility] in [place] when deemed medically stable. Quality VTE Deep Vein Thrombosis/Pulmonary Embolism Present on Admission: No
--- NOTE | 2018-08-29 11:51 | PM.CHAP ---
Nice visit with patient and daughter. Very receptive to blessing!
--- NOTE | 2018-08-29 12:09 | PM.PN.1 ---
Subjective Date Patient Seen: 08/29/18 Time Patient Seen: 07:39 Interval history: Doing well, continues to feel better. Marlon FLD, no nausea or pain. Getting ready for move to SNF. Exam Vital Signs (past 8 hours): - 08/29/18 08:00 08/29/18 09:32 08/29/18 11:17 Temperature 98.3 F 98.8 F Pulse Rate 57 L 58 L 55 L Respiratory Rate 17 16 16 Blood Pressure 141/73 H 137/66 Pulse Oximetry 94 94 92 Oxygen Delivery Method Room Air Oxygen Flow Rate 0 Narrative Exam Narrative: AAO, NAD EOMI, MMM unlabored RA soft, nt/nd Objective Labs Result Diagrams: 08/28/18 08:27 08/26/18 01:00 Assessment & Plan Assessment & Plan narrative: - continues to improve, marlon diet, bowels moving, abd pain essentially resolved, afebrile - ok for d/c to SNF from my standpoint - cont' abx PO, cipro & flagyl, for at least another 4 days - diet as tolerated - discussed with pt and daughter that if pain or fevers recur, we may need to continue abx longer or re-investigate for perforation, etc. Also, he has a small chance of developing appendicitis again later in life. - may follow up prn with me, had a colonoscopy in 2017 so does not necessarily need another sooner than planned follow up Quality VTE Deep Vein Thrombosis/Pulmonary Embolism Present on Admission: No
--- NOTE | 2018-08-29 12:39 | PT.IPTN ---
Current Diagnoses Sepsis, unspecified organism (08/21/18) Type 2 diabetes mellitus without complications (08/21/18) Hyperlipidemia, unspecified (08/21/18) Essential (primary) hypertension (08/21/18) Myocardial infarction type 2 (08/21/18) Atherosclerotic heart disease of [place] coronary artery without angina pectoris (08/21/18) Other pulmonary embolism without acute cor pulmonale (08/21/18) Pneumonia, unspecified organism (08/21/18) Unspecified appendicitis (08/21/18) Unspecified osteoarthritis, unspecified site (08/21/18) Other spondylosis with radiculopathy, lumbar region (08/21/18) Spinal stenosis, lumbar region without neurogenic claudication (08/21/18) Arthrodesis status (08/21/18) Surgery Performed Operation Date: 08/21/18 08:45 Actual Procedures p L4-5 HWR, L3-4 TLIF, L2-3 Laminectomy, L3-4,L4-5 PSF w/Instru.(Not Applicable) - Ed Quezada MD Physical Therapy Treatment Note M2 PT-IP Current Condition Start: 08/21/18 16:45 Freq: NEEDED Status: Active Protocol: Document 08/22/18 09:45 (Rec: 08/22/18 11:16 [email or web address]) Physical Therapy Current Condition Current Condition Evaluation Date 08/21/18 Treatment Diagnosis L4-L5 HWR, L3-4 TLIF, L2-3 laminectomy, L3-5 PSF, impaired mobility Onset Date 08/21/18 Precautions Lumbar Precautions Log Roll No Twisting Limit Bending Lifting Restriction of 10 lbs Gait Belt above Incisional Area Weight Bearing Status Weight Bearing Status Weight Bear as Tolerated M3 PT-IP Subjective Start: 08/21/18 16:45 Freq: NEEDED Status: Active Protocol: Document 08/29/18 12:00 HH (Rec: 08/29/18 12:39 [id number]) Subjective Physical Therapy Visit Type Type Treatment Note Visit Start Time 12:00 Visit Stop Time 12:25 Total Visit Minutes 25 Notes Pt;s dtr at bedside assisted translation Number of LPN OR MEDICAL ASSISTANT Visits 0 Physical Therapy Visit Comments Patient Comments states My legs feeling better and stronger. Pt agreeable to mobilize with PT. Therapy Pain Assessment Pain When Pain Assessed During Mobility Pain Present Pain Present Pain Reported Location Back Intensity 5 Pain Management Techniques Re-positioning Timing of Activity with Medications M4 PT-IP Mobility and Gait Start: 08/21/18 16:45 Freq: NEEDED Status: Active Protocol: Document 08/29/18 12:00 (Rec: 08/29/18 12:39 [id number]) PT-Bed Mobility Assessment Rolling Type of Rolling Log Rolling Roll to Left Level of Assist Moderate Assistance 1 Person Assistance Supine to Sit Supine to Sit Maximum Assistance 2 Person Assistance Bedrails Scooting Scooting to Edge of Bed Maximum Assistance Scooting Up and Down in Bed Maximum Assistance PT-Transfer Assessment Sit to and From Stand Sit to and from Stand Minimal Assistance Moderate Assistance 1 Person Assistance 2 Person Assistance Use of Upper Extremities Equipment Transfer Assistive Device Gait Belt Front Wheeled Walker Orthotic/Prosthetic Devices or Brace: No Transfers Transfer Destination Bed Chair Transfer Ability Level of Assist Maximum Assistance 2 Person Assistance Use of Upper Extremities Comments Mobility Comments cont needed max A x 2 for transfer but he was able to take steps and improve overall stability. Pt's knees did not buckle this session. Pt also did sit to stand ex with counter support x 8 CGA. Gait Assessment Gait Gait Assistance Required: Moderate Assistance 2 Person Assist Distance (Feet) 6 Able to Maintain Weight Bearing Status Yes During Gait Assistive Devices Assistive Device Gait Belt Front Wheeled Walker Orthotic/Prosthetic Devices or Brace: No Gait Deviations General Gait Pattern Decreased Stride Length Decreased Feet Clearance Flexed Trunk Step-to Gait Factors Limiting Gait Function Factors Limiting Gait Function Decreased Activity Tolerance Decreased Strength Limited Range of Motion Pain Poor Balance Poor Safety Awareness Respiratory Distress Comments Gait Comments Pt's chair set next to closet. He then stood up and amb to sink counter approx 6 feet with FWW mod A x 2. His gait is steadier and also able to hold his FWW with B UEs PT-Balance Assessment Sitting Balance and Reactions Static Sitting Balance Ability Fair Dynamic Sitting Balance Ability Fair Standing Balance and Reactions Static Standing Balance Ability Fair Dynamic Standing Balance Ability Poor Device Used FWW M5 PT-IP Objective Assessments Start: 08/21/18 16:45 Freq: NEEDED Status: Active Protocol: Document 08/22/18 09:45 (Rec: 08/22/18 11:16 [email or web address]) Orientation Orientation/Cognition Level of Alertness Alert Comments unable to assess due to language barrier. Will reassess when dtr is present Gross Range of Motion Upper Extremity ROM Assessment Within Functional Limits Lower Extremity ROM Assessment Bilaterally Impaired Strength Upper Extremity Strength Assessment Within Functional Limits Lower Extremity Strength Assessment Bilaterally Impaired Comments Strength Comments 3- to 3 /5 for B LEs strength Coordination Assessment Assessment Coordination Comments unable to assess due to language barrier. Will reassess when dtr is present Sensation Assessment Comments Sensation Comments unable to assess due to language barrier. Will reassess when dtr is present M6 PT-IP Treatment Start: 08/21/18 16:45 Freq: NEEDED Status: Active Protocol: Document 08/27/18 10:00 AB (Rec: 08/27/18 12:34 AB [id number]) Physical Therapy Treatment Education Education Provided Precautions Safety M7 PT-IP Assessment and Plan Start: 08/21/18 16:45 Freq: NEEDED Status: Active Protocol: Document 08/29/18 12:00 HH (Rec: 08/29/18 12:39 [id number]) PT Summary Assessment and Plan Potential Rehabilitation Potential Fair Status of Condition at Evaluation Stable Summary Impairments Pain ROM Strength Balance Coordination Sensation Tone Cognition Bed Mobility Transfers Gait Activity Tolerance Progress Towards Goals Slow Progress due to Pain Slow Progress due to Medical Issues Slow Progress due to Activity Tolerance Assessment Summary Pt showed improved activity tolerance today. He amb 6 feet with mod A x 2 and did sit to stand 8 times with counter support CGA. Pt will be d/c to [facility] to improve mobility tomorrow. 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
--- NOTE | 2018-08-29 13:26 | PM.PN.1 ---
Subjective Date Patient Seen: 08/29/18 Interval history: The patient is an 82-year-old male status post trans lumbar interbody fusion. His course has been complicated by the development of acute appendicitis. He subsequently developed 2 subsegmental pulmonary emboli. The patient has been transition to oral anticoagulant. He has been on IV antibiotics for his appendicitis. There have been no plans to surgically remove this. The patient has made significant improvement and is now on a regular diet. He will be transitioned to oral antibiotics. He will be [facility] to a [facility] facility. The patient will follow up should he have recurrence significant abdominal pain. today for the 1st time he denies any abdominal pain or chest pain. his breathing is fairly good. He is still having difficulty mobilizing but is making slow but steady progress. Exam Vital Signs (past 8 hours): - 08/29/18 08:00 08/29/18 09:32 08/29/18 11:17 Temperature 98.3 F 98.8 F Pulse Rate 57 L 58 L 55 L Respiratory Rate 17 16 16 Blood Pressure 141/73 H 137/66 Pulse Oximetry 94 94 92 Oxygen Delivery Method Room Air Oxygen Flow Rate 0 Narrative Exam Narrative: Pleasant elderly male in no acute distress Lungs: Clear to auscultation Cardiac exam: Regular rate and rhythm normal S1-S2 Abdomen: Soft nontender nondistended without hepatosplenomegaly Extremities: 1+ edema bilateral Objective Labs Result Diagrams: 08/28/18 08:27 08/26/18 01:00 Assessment & Plan (1) Sepsis: Problem details: Patient had severe sepsis, not present on admission now resolved This was present and treated Current visit: Yes Status: Acute (2) Hyperlipidemia: Problem details: Chronic, continue statin Current visit: Yes Status: Acute (3) Hypertension: Problem details: Chronic, present on admission Current visit: Yes Status: Acute (4) Type 2 myocardial infarction: Problem details: Acute, present as of august 24, 2018 no further symptomatology at this time. Current visit: Yes Status: Acute (5) Type 2 diabetes mellitus: Problem details: Type 2 diabetes, present on admission. Continue his insulin as written. Current visit: Yes Status: Acute (6) Acute pulmonary embolus: Problem details: Patient is status post trans lumbar interbody fusion revision with subsequent development of pulmonary embolus. He is currently being treated with IV heparin would consider transitioning him to Lovenox and Coumadin once we are certain he is not going to surgery. Continue IV heparin for now. Hopefully can transition tomorrow Heparin will be discontinued today. Will start Xarelto today as well. Current visit: Yes Status: Acute (7) Appendicitis: Problem details: Acute appendicitis will continue IV antibiotics. There appears to be no plans for immediate surgical intervention. Patient has some nausea last evening. This may be related to Flagyl. Will defer to surgery whether they want to continue Flagyl or pursue Zosyn alone. Per surgery will switch to oral antibiotics to include Cipro and Flagyl. He will complete a course of 4 days from today. Current visit: Yes Status: Acute (8) S/P lumbar fusion: Problem details: Improving nicely Anticipated discharge to [facility] nursing [facility] indwelling him tomorrow. Current visit: No Status: Acute Quality VTE Deep Vein Thrombosis/Pulmonary Embolism Present on Admission: No
--- NOTE | 2018-08-29 13:30 | P.PN_ITS ---
Subjective Date Patient Seen: 08/29/18 Interval history: The patient is an 82-year-old male status post trans lumbar interbody fusion. His course has been complicated by the development of acute appendicitis. He subsequently developed 2 subsegmental pulmonary emboli. The patient has been transition to oral anticoagulant. He has been on IV antibiotics for his appendicitis. There have been no plans to surgically remove this. The patient has made significant improvement and is now on a regular diet. He will be transitioned to oral antibiotics. [facility] The patient will follow up should he have recurrence significant abdominal pain. today for the 1st time he denies any abdominal pain or chest pain. his breathing is fairly good. He is still having difficulty mobilizing but is making slow but steady progress. Exam Vital Signs (past 8 hours): - 08/29/18 08:00 08/29/18 09:32 08/29/18 11:17 Temperature 98.3 F 98.8 F Pulse Rate 57 L 58 L 55 L Respiratory Rate 17 16 16 Blood Pressure 141/73 H 137/66 Pulse Oximetry 94 94 92 Oxygen Delivery Method Room Air Oxygen Flow Rate 0 Narrative Exam Narrative: Pleasant elderly male in no acute distress Lungs: Clear to auscultation Cardiac exam: Regular rate and rhythm normal S1-S2 Abdomen: Soft nontender nondistended without hepatosplenomegaly Extremities: 1+ edema bilateral Objective Labs Result Diagrams: 08/28/18 08:27 08/26/18 01:00 Assessment & Plan (1) Sepsis: Problem details: Patient had severe sepsis, not present on admission now resolved This was present and treated Current visit: Yes Status: Acute (2) Hyperlipidemia: Problem details: Chronic, continue statin Current visit: Yes Status: Acute (3) Hypertension: Problem details: Chronic, present on admission Current visit: Yes Status: Acute (4) Type 2 myocardial infarction: Problem details: Acute, present as of august 24, 2018 no further symptomatology at this time. Current visit: Yes Status: Acute (5) Type 2 diabetes mellitus: Problem details: Type 2 diabetes, present on admission. Continue his insulin as written. Current visit: Yes Status: Acute (6) Acute pulmonary embolus: Problem details: Patient is status post trans lumbar interbody fusion revision with subsequent development of pulmonary embolus. He is currently being treated with IV heparin would consider transitioning him to Lovenox and Coumadin once we are certain he is not going to surgery. Continue IV heparin for now. Hopefully can transition tomorrow Heparin will be discontinued today. Will start Xarelto today as well. Current visit: Yes Status: Acute (7) Appendicitis: Problem details: Acute appendicitis will continue IV antibiotics. There appears to be no plans for immediate surgical intervention. Patient has some nausea last evening. This may be related to Flagyl. Will defer to surgery whether they want to continue Flagyl or pursue Zosyn alone. Per surgery will switch to oral antibiotics to include Cipro and Flagyl. He will complete a course of 4 days from today. Current visit: Yes Status: Acute (8) S/P lumbar fusion: Problem details: Improving nicely Anticipated discharge to [facility] nursing [facility] indwelling him tomorrow. Current visit: No Status: Acute Quality VTE Deep Vein Thrombosis/Pulmonary Embolism Present on Admission: No
--- NOTE | 2018-08-29 13:52 | CM.DPC ---
DCP Cont: Called [facility] and left a voicemail message for Anne in Admissions. Informed her of our plans to discharge this patient tomorrow. Also stated we will call them tomorrow with an update. Faxed today's progress notes to her attention. Fax confirmation scanned in. Suzanne Blake, Care Store Receiver
--- NOTE | 2018-08-29 14:10 | OT.IP.TRT ---
Current Diagnoses Sepsis, unspecified organism (08/21/18) Type 2 diabetes mellitus without complications (08/21/18) Hyperlipidemia, unspecified (08/21/18) Essential (primary) hypertension (08/21/18) Myocardial infarction type 2 (08/21/18) Atherosclerotic heart disease of [place] coronary artery without angina pectoris (08/21/18) Other pulmonary embolism without acute cor pulmonale (08/21/18) Pneumonia, unspecified organism (08/21/18) Unspecified appendicitis (08/21/18) Unspecified osteoarthritis, unspecified site (08/21/18) Other spondylosis with radiculopathy, lumbar region (08/21/18) Spinal stenosis, lumbar region without neurogenic claudication (08/21/18) Arthrodesis status (08/21/18) Surgery Performed Operation Date: 08/21/18 08:45 Actual Procedures p L4-5 HWR, L3-4 TLIF, L2-3 Laminectomy, L3-4,L4-5 PSF w/Instru.(Not Applicable) - Ed Quezada MD Occupational Therapy Treatment Note M2 OT-IP Current Condition Start: 08/22/18 16:08 Freq: Status: Active Protocol: Document 08/26/18 14:23 [facility] (Rec: 08/26/18 14:46 [facility] [id number]) Occupational Therapy Current Condition Current Condition Evaluation Date 08/26/18 Treatment Diagnosis spinal stenosis, acute appendicitis, PE Diagnosis Onset Date 08/21/18 Weight Bearing Status Weight Bearing Status Weight Bear as Tolerated M3 OT- IP Subjective and Pain Start: 08/22/18 16:08 Freq: Status: Active Protocol: Document 08/29/18 14:10 [facility] (Rec: 08/29/18 16:36 [facility] [id number]) OT- Subjective Occupational Therapy Visit Type Type Patient Unavailable Visit Start Time 14:10 Notes Attempted to see pt, but he was working with P.T. Pt too fatigued for OT session later in PM. Per chart notes, d/c plan is SNF tomorrow for further rehab services. No charge.
--- NOTE | 2018-08-29 14:39 | PT.IPTN ---
Current Diagnoses Sepsis, unspecified organism (08/21/18) Type 2 diabetes mellitus without complications (08/21/18) Hyperlipidemia, unspecified (08/21/18) Essential (primary) hypertension (08/21/18) Myocardial infarction type 2 (08/21/18) Atherosclerotic heart disease of [place] coronary artery without angina pectoris (08/21/18) Other pulmonary embolism without acute cor pulmonale (08/21/18) Pneumonia, unspecified organism (08/21/18) Unspecified appendicitis (08/21/18) Unspecified osteoarthritis, unspecified site (08/21/18) Other spondylosis with radiculopathy, lumbar region (08/21/18) Spinal stenosis, lumbar region without neurogenic claudication (08/21/18) Arthrodesis status (08/21/18) Surgery Performed Operation Date: 08/21/18 08:45 Actual Procedures p L4-5 HWR, L3-4 TLIF, L2-3 Laminectomy, L3-4,L4-5 PSF w/Instru.(Not Applicable) - Ed Quezada MD Physical Therapy Treatment Note M2 PT-IP Current Condition Start: 08/21/18 16:45 Freq: NEEDED Status: Active Protocol: Document 08/22/18 09:45 (Rec: 08/22/18 11:16 [email or web address]) Physical Therapy Current Condition Current Condition Evaluation Date 08/21/18 Treatment Diagnosis L4-L5 HWR, L3-4 TLIF, L2-3 laminectomy, L3-5 PSF, impaired mobility Onset Date 08/21/18 Precautions Lumbar Precautions Log Roll No Twisting Limit Bending Lifting Restriction of 10 lbs Gait Belt above Incisional Area Weight Bearing Status Weight Bearing Status Weight Bear as Tolerated M3 PT-IP Subjective Start: 08/21/18 16:45 Freq: NEEDED Status: Active Protocol: Document 08/29/18 14:20 [facility] (Rec: 08/29/18 14:39 SA [email or web address]) Subjective Physical Therapy Visit Type Type Treatment Note Visit Start Time 13:52 Visit Stop Time 14:19 Total Visit Minutes 27 Notes Pt's Daughter present for translation this afternoon. Number of MANAGER HEART FAILURE Visits 1 Physical Therapy Visit Comments Patient Comments I'm feeling stronger today. Therapy Pain Assessment Pain When Pain Assessed During Mobility Pain Present Pain Present Pain Reported Location Back Intensity 3 Pain Management Techniques Modification of Treatment Re-positioning Timing of Activity with Medications M4 PT-IP Mobility and Gait Start: 08/21/18 16:45 Freq: NEEDED Status: Active Protocol: Document 08/29/18 14:20 SA (Rec: 08/29/18 14:39 SA [email or web address]) PT-Bed Mobility Assessment Sit to Supine Sit to Supine Maximum Assistance 2 Person Assistance Scooting Scooting to Edge of Bed Maximum Assistance Scooting Up and Down in Bed Maximum Assistance PT-Transfer Assessment Sit to and From Stand Sit to and from Stand Minimal Assistance Moderate Assistance 2 Person Assistance Use of Upper Extremities Equipment Transfer Assistive Device Gait Belt Front Wheeled Walker Orthotic/Prosthetic Devices or Brace: No Transfers Transfer Destination Bed Chair Transfer Technique Stand Step Pivot Transfer Ability Level of Assist Minimal Assistance Moderate Assistance 2 Person Assistance Comments Mobility Comments Pt Min-Mod A x 2 with sit to stands and Min A x 1 and mod A x 1 for stand pivot txs. Completed 4 sit to stands from chair to sink with static standing and postural correction. Gait Assessment Gait Gait Assistance Required: Minimum Assistance Moderate Assistance 2 Person Assist Distance (Feet) 10 Able to Maintain Weight Bearing Status Yes During Gait Assistive Devices Assistive Device Gait Belt Front Wheeled Walker Orthotic/Prosthetic Devices or Brace: No Gait Deviations General Gait Pattern Decreased Stride Length Decreased Feet Clearance Flexed Trunk Step-to Gait Factors Limiting Gait Function Factors Limiting Gait Function Decreased Activity Tolerance Decreased Strength Limited Range of Motion Pain Poor Balance Poor Safety Awareness Respiratory Distress Comments Gait Comments Positioned pt's chair in corner by window and pt walked diagonally across the room to closet with Min-Mod A x 2 and daughter pushng chair behind. Pt was very pleased with progress. Stair Climbing Assessment Comments Stair Climbing Comments unable PT-Balance Assessment Sitting Balance and Reactions Static Sitting Balance Ability Fair Dynamic Sitting Balance Ability Fair Standing Balance and Reactions Static Standing Balance Ability Fair Dynamic Standing Balance Ability Poor Device Used FWW M5 PT-IP Objective Assessments Start: 08/21/18 16:45 Freq: NEEDED Status: Active Protocol: Document 08/22/18 09:45 (Rec: 08/22/18 11:16 [email or web address]) Orientation Orientation/Cognition Level of Alertness Alert Comments unable to assess due to language barrier. Will reassess when dtr is present Gross Range of Motion Upper Extremity ROM Assessment Within Functional Limits Lower Extremity ROM Assessment Bilaterally Impaired Strength Upper Extremity Strength Assessment Within Functional Limits Lower Extremity Strength Assessment Bilaterally Impaired Comments Strength Comments 3- to 3 /5 for B LEs strength Coordination Assessment Assessment Coordination Comments unable to assess due to language barrier. Will reassess when dtr is present Sensation Assessment Comments Sensation Comments unable to assess due to language barrier. Will reassess when dtr is present M6 PT-IP Treatment Start: 08/21/18 16:45 Freq: NEEDED Status: Active Protocol: Document 08/29/18 14:20 SA (Rec: 08/29/18 14:39 SA [email or web address]) Physical Therapy Treatment Education Education Provided Precautions Safety Other Treatments Other Treatment Performed Repeated sit to stands as an exercise. M7 PT-IP Assessment and Plan Start: 08/21/18 16:45 Freq: NEEDED Status: Active Protocol: Document 08/29/18 14:20 SA (Rec: 08/29/18 14:39 SA [email or web address]) PT Summary Assessment and Plan Summary Assessment Summary Pt completed 3 sit to stands chair<>FWW and 4 sit to stands chair<>counter with Min-Mod A x 2. Stand pivot tx chair> EOB with Min-Mod A x 2. Sit to supine with Max A x 2. Pt's daughter there for translation and pt talkative and interactive. 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
[2018-08-29] MEDS: metroNIDAZOLE 500 MG TABLET PO ×2 (16:17→21:43)
[2018-08-29] MEDS: hydrOXYzine pamoate 25 MG CAPSULE PO (16:23)
[2018-08-29] MEDS: CIPROFLOXACIN 500 MG TABLET PO (21:14)
[2018-08-29] MEDS: SODIUM CHLORIDE 0.9% FLUSH 10 ML IV (21:15)
[2018-08-29] MEDS: TIMOLOL 0.5% OPHTH 1 DROPS EYE-BOTH (21:41)
[2018-08-30] VITALS (11 sets, daily range): BP systolic 133–147; BP diastolic 63–79; PULSE 53–64; RESP 14–20; TEMP 36.7–36.8; O2SAT 92–96
[2018-08-30] MEDS: hydrOXYzine pamoate 25 MG CAPSULE PO ×3 (00:03→13:31)
[2018-08-30] MEDS: OXYCODONE IR 5 MG TABLET PO ×4 (00:04→13:31)
[2018-08-30] MEDS: TEMAZEPAM 15 MG CAPSULE PO (00:04)
--- NOTE | 2018-08-30 01:06 | RT ---
PT IS REFUSING HOSPITAL BIFLEX
--- NOTE | 2018-08-30 04:36 | PC.NURSE ---
Addendum entered by Sherri Casillas R.N. 08/30/18 06:41: Up to BSC with Javed lift 3 PA. Pt very weak and required maxs assist to stand. Now awake on RA sats 93% Original Note: Assumed care of pt at 2300 on 08/29/18. Pt sleeping during bedside hand-off. Awakens to voice. Steve at bedside helping with translation. Pt declines need for sales and business development manager service. Medicating per mar. Using urinal to void. IV HL. At approx 0400, Steve leaves unit. O2 sats 90% RA, increased to 92% on 2L NC. Bed alarm on. Call light within reach.
[2018-08-30] MEDS: BUDESONIDE 60 PUFF/DEVICE INHALER INH (06:01)
[2018-08-30] MEDS: CIPROFLOXACIN 500 MG TABLET PO (06:32)
[2018-08-30] MEDS: ACETAMINOPHEN 325 MG TABLET 650 MG PO (08:08)
[2018-08-30] MEDS: NITROGLYCERIN 0.4 MG SL TAB SL ×2 (08:08→08:18)
[2018-08-30] MEDS: MORPHINE 2 MG/ML INJ IV (08:58)
[2018-08-30] MEDS: SENNOSIDES 8.6 MG TABLET 17.2 MG PO (08:59)
[2018-08-30] MEDS: DOCUSATE 250 MG CAPSULE PO (08:59)
[2018-08-30] MEDS: GABAPENTIN 600 MG TABLET PO (08:59)
[2018-08-30] MEDS: metroNIDAZOLE 500 MG TABLET PO ×2 (09:00→13:31)
[2018-08-30] MEDS: SODIUM CHLORIDE 0.9% FLUSH 10 ML IV (09:00)
[2018-08-30] MEDS: TIMOLOL 0.5% OPHTH 1 DROPS EYE-BOTH (09:01)
[2018-08-30] MEDS: RIVAROXABAN 10 MG TABLET 15 MG PO (09:01)
[2018-08-30 10:10] LABS: Creatine Kinase 37 U/L (55-170)
--- NOTE | 2018-08-30 10:12 | PC.NURSE ---
PRESSURE INJURIES: PATIENT HAD DARK RED NON-BLANCHABLE ERYTHEMA TO COCCYX, WITH STAGE 2 SUPERFICIAL SKIN LOSS TO RIGHT COCCYX, SUPERFICIAL SKIN LOSS TO CENTRAL COCCYX AND INTACT, WRINKLED/RAISED SKIN TO LEFT COCCYX (NOT BROKEN). PHOTOS OBTAINED. NOTIFIED. SKIN PREP THEN 2X2 ALLYVN BOARDER FOAM DRSGS X3 PLACED OVER SITES. PRIMARY NURSE, YASMEEN NOTIFIED ALSO.
--- NOTE | 2018-08-30 10:12 | PC.NURSE ---
Day shift: Color pictures of pressure injuries placed in Pt's chart. Will inform MD they are there now.
[2018-08-30 10:23] LABS: Troponin I 0.017 ng/mL (0.01-0.034)
--- NOTE | 2018-08-30 10:45 | PM.DS.1 ---
History of Present Illness Date Patient Seen: 08/30/18 Time Patient Seen: 10:49 Chief complaint: Translaminar Interbody Fusion/Laminotomy Narrative: Patient is an 82 year old male with PMH of HTN, DM, obesity, CVA, chronic angina, and dypsnea who is HD#10, POD#9 s/p L3-4, L4-5 TLIF, revision laminectomy and posterior screw fixation. Discharge Providers Date of admission: 08/21/18 06:24 Discharge Date: 08/30/18 Primary care physician: Jacob Kamara MD Consults: 08/19/18 11:39 Consult to Assistant Professor Of Psychology Routine Comment: 08/21/18 07:56 Consult to Respiratory Therapy Evaluate & Treat Comment: Physician Instructions: Evaluate and treat 08/21/18 13:49 Consult to Occupational Therapy Evaluate & Treat Comment: Physician Instructions: Evaluate and treat Consult to Physical Therapy Evaluate & Treat Comment: Physician Instructions: Evaluate and Treat 08/21/18 15:33 Consult to Respiratory Therapy Evaluate & Treat Comment: Physician Instructions: Evaluate and treat 08/23/18 17:14 Consult to Speech Therapy Evaluate & Treat Comment: Possible aspiration after surgery?? Physician Instructions: Evaluate and treat 08/24/18 12:53 Consult to General Surgery Routine Comment: Consulting Provider: Melyssa Seaman Reason for consultation: Appendicitis Has provider been notified: Yes 08/25/18 17:08 Consult to Dietitian, Adult Routine Comment: Reason For Exam: assessed at high risk Discharge provider: Bree Springer PA-C Summary Discharge Diagnosis: s/p L3-4, L4-5 TLIF, revision laminectomy and posterior screw fixation Hospital Course: Indications: Patient has been having chronic back pain and worsening lumbar radiculopathy. Patient underwent L4-5 lumbar fusion with good improved strength in his legs initially. Patient had multiple falls over the last 6 weeks and worsening mobility. Repeat CT lumbar spine with myelogram shows worsened spinal stenosis. Patient failed multiple conservative management with worsening pain weakness and numbness in her lower extremity. Patient has been having difficulty performing activity of daily living. After discussing risks benefits of treatment options, patient elected proceed with surgery. After informed consent patient was taken to the operating room for L3-4, L4-5 TLIF, revision laminectomy and posterior screw fixation. His post op course has been complicated by sepsis secondary to appendicitis and pulmonary embolism. His sepsis has resolved and was treated with IV antibiotics and has now transitioned to oral Cipro and Flagyl. He is taking Xarelto 15mg BID for anticoagulation. His pain is well managed with oxycodone and vistaril for spasms. He has had difficulty with ambulation and has been using a Javed lift. No difficulty with voiding and has had bowel movements. Due to his complicated medical course and difficulty mobilizing he requires transfer to a SNF. Status at Discharge Cognitive/behavioral status at discharge: oriented Exam Vital Signs (past 8 hours): - 08/30/18 04:00 08/30/18 06:01 08/30/18 06:37 Temperature 98.1 F Pulse Rate 64 60 Respiratory Rate 18 20 Blood Pressure 142/77 H Pulse Oximetry 92 92 93 08/30/18 08:00 08/30/18 08:08 08/30/18 08:10 Temperature 98.3 F 98.0 F Pulse Rate 59 L 61 57 L Respiratory Rate 18 Blood Pressure 142/77 H 147/79 H 147/79 H Pulse Oximetry 93 93 08/30/18 08:17 08/30/18 08:18 08/30/18 08:27 Temperature Pulse Rate 62 63 58 L Respiratory Rate Blood Pressure 144/63 H 144/63 H 137/66 Pulse Oximetry Oxygen Delivery Method Room Air Oxygen Flow Rate 0 Narrative Exam Narrative: Patient resting comfortably in bed in no acute distress. Dressing in place over lumbar incision is C/D/I. Able to dorsiflex/plantar flex the foot freely. Intact sensation in distal lower extremities. 2+ DP pulses. No calf tenderness. Objective Labs Result Diagrams: 08/28/18 08:27 08/26/18 01:00 Labs: Laboratory Results - last 24 hr 08/30/18 09:45 Total Creatine Kinase 37 L D CK-MB (CK-2) TNP CK-MB (CK-2) Rel Index TNP Troponin I 0.017 Discharge Plan Discharge Plan Patient Disposition: SNF Other facility: [facility] Consult as needed: Dental, Hearing, Mental health, Podiatry and Vision I certify the postop hospital detention care is medically necessary on a continuing basis for any conditions for which he/ she received care during this hospitalization.: Yes The receiving facility has agreed to accept transfer and provide medical treatment.: Yes Discharge Med Rec/Prescriptions Prescriptions: New ciprofloxacin HCl [Cipro] 500 mg Tablet 500 mg PO 0700,2100 4 Days Qty: 8 RF: 0 hydroxyzine pamoate 25 mg Capsule 25 mg PO Q6HR PRN (Reason: Muscle Spasm) Qty: 30 RF: 0 metronidazole 500 mg Tablet 500 mg PO TID 4 Days Qty: 12 RF: 0 oxycodone 5 mg Tablet 5 mg PO Q4-6H PRN (Reason: Pain, Severe (7-10)) Qty: 40 RF: 0 rivaroxaban 20 mg tablet 20 mg PO DAILY Qty: 30 RF: 0 Xarelto 15 mg tablet 15 mg PO BID Qty: 38 RF: 0 Continued carvedilol 25 mg Tablet 25 mg PO BID RF: 0 sennosides [Senokot] 8.6 mg Tablet 8.6 mg PO DAILY PRN (Reason: Constipation) RF: 0 polyethylene glycol 3350 17 gram Powder In Packet 17 g PO DAILY RF: 0 lisinopril 20 mg Tablet 20 mg PO BID RF: 0 hydrocortisone [Proctosol HC] 2.5 % Cream With Perineal Applicator 1 applic NE BID PRN (Reason: Hemorrhoids or Pain) RF: 0 amlodipine 10 mg Tablet 10 mg PO BEDTIME RF: 0 timolol 0.5 % Drops 1 drp EYE-BOTH BID RF: 0 ranitidine HCl 150 mg Tablet 150 mg PO BID RF: 0 gabapentin 300 mg Capsule 600 mg PO TID RF: 0 doxazosin 4 mg Tablet 4 mg PO BEDTIME RF: 0 albuterol sulfate [Ventolin HFA] 90 mcg/actuation Hfa Aerosol Inhaler 2 puff INHALATION Q4-6H PRN (Reason: wheezing, shortness of breath) RF: 0 clotrimazole 1 % Cream 1 applic TOPICAL DAILY RF: 0 finasteride 5 mg Tablet 5 mg PO DAILY RF: 0 rosuvastatin 20 mg Tablet 20 mg PO QPM RF: 0 lactulose 10 gram/15 mL Solution 10 g PO BID RF: 0 Pulmicort Flexhaler 90 mcg/actuation Aerosol Powdr Breath Activated 1 inh INHALATION BID RF: 0 Basaglar KwikPen U-100 Insulin 100 unit/mL (3 mL) Insulin Pen 38 unit SUBCUT BEDTIME RF: 0 diclofenac sodium 1 % Gel 2 g TOPICAL QID PRN (Reason: Pain) RF: 0 magnesium oxide 400 mg magnesium Tablet 800 mg PO BEDTIME RF: 0 acetaminophen 325 mg Tablet 650 mg PO Q6HR PRN (Reason: Pain, Mild (1-3)) Qty: 30 RF: 0 temazepam 15 mg Capsule 15 mg PO BEDTIME PRN (Reason: Insomnia) Qty: 30 RF: 0 Discontinued aspirin 81 mg Tablet,Delayed Release (Dr/Ec) 81 mg PO DAILY RF: 0 tramadol 50 mg Tablet 50 mg PO Q6H PRN (Reason: Pain) RF: 0 Follow up/Referrals: Ed Quezada MD [Physician] - Jacob Kamara MD [Primary Care Provider] - Discharge Health Status Multidrug resistant organism: No MDRO Precautions: [place] Provider Discharge Instructions Diet: Diet as Tolerated and Carb-consistent/Diabetic Activity: Weight bear as tolerated. Cold/Heat Therapy: Ice packs PRN Skin/Wound/Dressing Care Dressing: Leave dressing in place until post op appointment. May be changed if soiled. [facility] Rehab type: Physical therapy and Occupational therapy Restrictions to mobility: No bending, lifting or twisting. Visit Report/Discharge Packet Instructions: DI for Transforaminal Lumbar Interbody Fusion Discharge Data Primary Care Provider: Jacob Kamara Attending Provider: Ed Quezada Admit Date/Time: 08/21/18 06:24 Quality VTE Deep Vein Thrombosis/Pulmonary Embolism Present on Admission: No
--- NOTE | 2018-08-30 10:51 | PM.PN.1 ---
Subjective Date Patient Seen: 08/30/18 Interval history: Karlos Valentino is an 82-year-old male with a past medical history significant for CAD status post FL, hypertension, hyperlipidemia, diabetes mellitus type 2, insulin using, chronic constipation on lactulose, GERD, BPH who presented for revision TLIF. Hospital medicine team was consulted for fever. Patient was found to have acute appendicitis and two right subsegmental PEs. The patient is resting in bed comfortably and in no acute distress. He endorses chest pressure radiates from shoulder to shoulder which is unchanged per his usual chronic angina but with mild shortness of breath. He received nitroglycerin sublingual x3 with very little improvement. EKG unchanged and troponin negative. He also endorses mild abdominal pain that has improved. Likely secondary to 2 right subsegmental PE's and chronic angina. He otherwise denies headache, cough, shortness of breath, nausea, vomiting, fever, chills, dysuria, diarrhea or constipation. He is voiding and eliminating without difficulty. He is up ambulating with assistance. Exam Vital Signs (past 8 hours): - 08/30/18 04:00 08/30/18 06:01 08/30/18 06:37 Temperature 98.1 F Pulse Rate 64 60 Respiratory Rate 18 20 Blood Pressure 142/77 H Pulse Oximetry 92 92 93 08/30/18 08:00 08/30/18 08:08 08/30/18 08:10 Temperature 98.3 F 98.0 F Pulse Rate 59 L 61 57 L Respiratory Rate 18 Blood Pressure 142/77 H 147/79 H 147/79 H Pulse Oximetry 93 93 08/30/18 08:17 08/30/18 08:18 08/30/18 08:27 Temperature Pulse Rate 62 63 58 L Respiratory Rate Blood Pressure 144/63 H 144/63 H 137/66 Pulse Oximetry Oxygen Delivery Method Room Air Oxygen Flow Rate 0 Narrative Exam Narrative: General: Elderly gentleman lying in bed in mild distress, well developed, appropriately interactive. HEENT: Normocephalic, atraumatic. External ears without defect. Pupils equal, round, and reactive to light. Anicteric sclerae, moist conjunctivae, and no lid lag. Neck: Supple with full range of motion. No lymphadenopathy or thyromegaly. Cardiovascular: Heart sounds distant but appears to be regular rhythm and rate without murmurs, rubs, or gallops appreciated. Pulmonary: Diminished throughout with occasional rhonchi. Normal respiratory effort with no use of accessory muscles. Abdomen: Soft, obese, bowel sounds present, mild tenderness to palpation in mid abdomen, nondistended. No hepatosplenomegaly or masses appreciated. Extremities: No clubbing, cyanosis, or edema. Skin: Normal temperature, turgor, and texture; no rash, ulcers, or subcutaneous nodules appreciated. Neurological: Cranial nerves grossly intact. Psychiatric: Normal mood and affect. Alert and oriented to person, place, and time. Objective Labs Result Diagrams: 08/28/18 08:27 08/26/18 01:00 Labs: Laboratory Results - last 24 hr 08/30/18 09:45 Total Creatine Kinase 37 L D CK-MB (CK-2) TNP CK-MB (CK-2) Rel Index TNP Troponin I 0.017 Assessment & Plan Assessment & Plan narrative: Karlos Valentino is an 82-year-old male with a past medical history significant for CAD status post FL, hypertension, hyperlipidemia, diabetes mellitus type 2, insulin using, chronic constipation on lactulose, GERD, BPH who presented for revision TLIF. Hospital medicine team was consulted for fever. Patient was found to have acute appendicitis and two right subsegmental PEs. 1. Acute severe sepsis, not present on admission. Resolved. -Patient meets sepsis criteria with fever, hypotension, no leukocytosis but high a procalcitonin 5.58 with source both pulmonary and urinary. -Started early goal-directed therapy including: IV fluids and broad-spectrum antibiotics. -Did not check lactic acid as patient just underwent significant surgery. 2. Right subsegmental pulmonary emboli, not present on admission. Stable. -CTA demonstrated to right subsegmental PEs. Chest x-ray demonstrated bilateral infiltrate on chronic atelectasis. -Continue Xarelto 15 mg twice daily for 21 days then switch to 20 mg once daily for 3 months total of therapy. 3. Acute appendicitis, not present on admission. Resolving. -WBC 9.6 with 88.9% PMNs and Procalcitonin elevated at 5.58 and peaked at 18.26 then trended down. -General surgery was consulted and recommended conservative management. Continue Flagyl and ciprofloxacin per general surgery. 4. Lumbar osteoarthritis status post revision TLIF, present on admission. Active. -Continue pain and postoperative management per Ortho. -Incision and bandage are clean, dry, intact. No surrounding erythema. 5. Coronary artery disease status post FL, chronic, present on admission. Stable. -Patient endorses chronic chest pain/pressure mostly at night that is unchanged. Troponin within normal limits at 0.022. -EKG demonstrated sinus rhythm, heart rate 67 borderline normal axis, significantly increased NC interval at 380 ms , otherwise normal intervals, incomplete right bundle branch block, q waves in V1-3, no acute ischemic changes such as ST elevation or depression. -Continue to monitor closely on telemetry. -Held cardiac meds including aspirin, amlodipine, carvedilol and lisinopril. Will restart as blood pressure allows. 6. Hypertension, chronic, present on admission. Stable. -Held amlodipine 10 mg daily at bedtime, carvedilol 25 mg twice daily, and lisinopril 20 mg twice daily. Will restart antihypertensives as blood pressure permits. 7. Hyperlipidemia, chronic, present on admission. Presumed stable. -Continue rosuvastatin 20 mg daily at bedtime. Aspirin has been held due to spinal surgery. 8. Diabetes mellitus type 2, insulin using, chronic, present on admission. Stable. -Ordered hemoglobin A1c, pending. -Decreased Lantus from 38 units to 25 units daily at bedtime as patient is not eating his usual amount of PO intake. -Ordered blood glucose checks ACHS and medium dose correctional scale insulin. -Continue gabapentin 600 mg 3 times daily. 9. Chronic constipation on lactulose, present on admission. Stable. -Continue lactulose 10 g twice daily. As needed bowel regimen in place. 10. GERD, chronic, present on admission. Stable. -Continue ranitidine 150 mg twice daily. 11. BPH, chronic, present on admission. Stable. -Continue finasteride 5 mg daily and doxazosin 4 mg daily at bedtime. Thank you for consulting our services. We will sign off at this time. Quality VTE Deep Vein Thrombosis/Pulmonary Embolism Present on Admission: No
--- NOTE | 2018-08-30 11:14 | CM.DPC ---
DCP Cont: Faxed signed med list and PASSR to [facility]. Fax confirmation scanned in. Suzanne lBake, Care English Instructor
--- NOTE | 2018-08-30 12:07 | OT.IP.TRT ---
Current Diagnoses Sepsis, unspecified organism (08/21/18) Type 2 diabetes mellitus without complications (08/21/18) Hyperlipidemia, unspecified (08/21/18) Essential (primary) hypertension (08/21/18) Myocardial infarction type 2 (08/21/18) Atherosclerotic heart disease of [place] coronary artery without angina pectoris (08/21/18) Other pulmonary embolism without acute cor pulmonale (08/21/18) Pneumonia, unspecified organism (08/21/18) Unspecified appendicitis (08/21/18) Unspecified osteoarthritis, unspecified site (08/21/18) Other spondylosis with radiculopathy, lumbar region (08/21/18) Spinal stenosis, lumbar region without neurogenic claudication (08/21/18) Arthrodesis status (08/21/18) Surgery Performed Operation Date: 08/21/18 08:45 Actual Procedures p L4-5 HWR, L3-4 TLIF, L2-3 Laminectomy, L3-4,L4-5 PSF w/Instru.(Not Applicable) - Ed Quezada MD Occupational Therapy Treatment Note M2 OT-IP Current Condition Start: 08/22/18 16:08 Freq: Status: Active Protocol: Document 08/26/18 14:23 [facility] (Rec: 08/26/18 14:46 [facility] [id number]) Occupational Therapy Current Condition Current Condition Evaluation Date 08/26/18 Treatment Diagnosis spinal stenosis, acute appendicitis, PE Diagnosis Onset Date 08/21/18 Weight Bearing Status Weight Bearing Status Weight Bear as Tolerated M3 OT- IP Subjective and Pain Start: 08/22/18 16:08 Freq: Status: Active Protocol: Document 08/30/18 11:53 [facility] (Rec: 08/30/18 12:07 [facility] [id number]) OT- Subjective Occupational Therapy Visit Type Type Treatment Note Visit Start Time 11:11 Visit Stop Time 11:36 Total Visit Minutes 25 Occupational Therapy Visit Comments Patient Comments Pt willing to get up. Pt stating having chest pain , nursing aware and was just given medication for pain. OT Pain Assessment Pain When Pain Assessed At Rest Pain Present Pain Present Pain Reported Location Chest Intensity 6 Scale Used Numeric (1 - 10) M4 OT- IP ADL's Start: 08/22/18 16:08 Freq: Status: Active Protocol: Document 08/30/18 11:53 [facility] (Rec: 08/30/18 12:07 [facility] [id number]) OT ADL-Grooming General Evaluation Grooming Ability Moderate Assistance Comments OT Grooming Comments Pt feeling weak today and therefore needing more assist for grooming needs today. OT ADL-Oral Care General Eval Oral Care Ability Independent OT ADL-Dressing General Eval Lower Body Dressing Ability Maximum Assistance Areas Needing Assistance Socks Comments OT Dressing Comments MAX A for pants and socks total, pt able to assist to stand at sink with MODA X2, MOD AX1 to stand and another to help with pants management needs, initially having to have pt sit down to thread pant legs. M5 OT- IP IADL's Start: 08/22/18 16:08 Freq: Status: Active Protocol: Document 08/26/18 14:23 [facility] (Rec: 08/26/18 14:46 [facility] [id number]) OT-Instrumental Activities of Daily Living Home Safety Awareness Home Safety Comments Pt's family did all IADl needs prior. M6 OT- IP Functional Cognition Start: 08/22/18 16:08 Freq: Status: Active Protocol: Document 08/30/18 11:53 [facility] (Rec: 08/30/18 12:07 [facility] [id number]) Cognitive Factors Limiting Selfcare Function Cognitive Ability Level of Alertness Alert Patient Orientation Name Place Situation Attention Span Ability Capable of Focused Attention Capable of Sustained Attention Ability to Follow Commands Able to Follow One Step Commands Cognitive Comments Cognitive Assessment Comments Pt [place]ien speaking only therefore pt's daughter there to translate. Pt able to follow one step command today as having more pain and harder time to focus. M7 OT- IP Mobility and Balance Start: 08/22/18 16:08 Freq: Status: Active Protocol: Document 08/30/18 11:53 [facility] (Rec: 08/30/18 12:07 [facility] [id number]) OT- Bed Mobility Assessment Rolling Type of Rolling Roll to Left Level of Assistance Maximum Assistance 2 Person Assistance Supine to Sit Supine to Sit Assist Maximum Assistance 2 Person Assistance OT-Transfer Assessment Sit to and From Stand Sit to and from Stand Moderate Assistance 2 Person Assistance Transfers Transfer Ability Maximum Assistance 2 Person Assistance Technique Transfer Destination Chair Devices Transfer Assistive Devices Gait Belt Front Wheeled Walker Comments Mobility Comments Today pt more tires as heaving chest pain earlier and now needing MODA x 2 to stand and more assist to help keep LUE on th FWW handle and guide FWW and help keep pt upright as taking a few steps towards the sink. OT- Balance Assessment Sitting Balance and Reactions Static Sitting Balance Ability Good Dynamic Sitting Balance Ability Fair Standing Balance and Reactions Static Standing Balance Ability Fair M8 OT- IP Objective Assessments Start: 08/22/18 16:08 Freq: Status: Active Protocol: Document 08/28/18 13:44 [facility] (Rec: 08/28/18 14:05 [facility] [id number]) OT Gross Range of Motion Upper Extremity Range of Motion Assessment Bilaterally Impaired ROM Impairments RUE now able to raise with elbow flexed 0-45 degrees, WFL for fingers and wrist due to less swelling. AAROM for RUE arm movement to help strength RUE for functional needs. Unable to work with SUMEET as having 2 IV in his arm. OT Strength Comments Strength Comments BUE 3-/5 OT- Coordination Assessment Comments Coordination Comments Pt able to close right hand all the way and touch each digit now. M9 OT- IP Assessment and Plan Start: 08/22/18 16:08 Freq: Status: Active Protocol: Document 08/30/18 11:53 [facility] (Rec: 08/30/18 12:07 [facility] [id number]) OT Summary Assessment and Plan Potential Rehabilitation Potential Good Analytic Complexity at Evaluation Low Summary OT Impairments Pain Strength Balance Coordination Sensation Functional Mobility Self-Feeding Grooming Dressing Toileting Bathing Toilet Transfers Shower Transfers Progress Towards Goals Progressing Toward Goals Slow Progress due to Activity Tolerance Assessment Summary Pt looking to go to skilled rehab today. Discharge Recommendations OT Discharge Recommendations SNF Rehab Home Equipment Needs defer to SNF
--- NOTE | 2018-08-30 12:24 | PT.IPTN ---
Current Diagnoses Sepsis, unspecified organism (08/21/18) Type 2 diabetes mellitus without complications (08/21/18) Hyperlipidemia, unspecified (08/21/18) Essential (primary) hypertension (08/21/18) Myocardial infarction type 2 (08/21/18) Atherosclerotic heart disease of [place] coronary artery without angina pectoris (08/21/18) Other pulmonary embolism without acute cor pulmonale (08/21/18) Pneumonia, unspecified organism (08/21/18) Unspecified appendicitis (08/21/18) Unspecified osteoarthritis, unspecified site (08/21/18) Other spondylosis with radiculopathy, lumbar region (08/21/18) Spinal stenosis, lumbar region without neurogenic claudication (08/21/18) Arthrodesis status (08/21/18) Surgery Performed Operation Date: 08/21/18 08:45 Actual Procedures p L4-5 HWR, L3-4 TLIF, L2-3 Laminectomy, L3-4,L4-5 PSF w/Instru.(Not Applicable) - Ed Quezada MD Physical Therapy Treatment Note M2 PT-IP Current Condition Start: 08/21/18 16:45 Freq: NEEDED Status: Active Protocol: Document 08/22/18 09:45 HH (Rec: 08/22/18 11:16 [email or web address]) Physical Therapy Current Condition Current Condition Evaluation Date 08/21/18 Treatment Diagnosis L4-L5 HWR, L3-4 TLIF, L2-3 laminectomy, L3-5 PSF, impaired mobility Onset Date 08/21/18 Precautions Lumbar Precautions Log Roll No Twisting Limit Bending Lifting Restriction of 10 lbs Gait Belt above Incisional Area Weight Bearing Status Weight Bearing Status Weight Bear as Tolerated M3 PT-IP Subjective Start: 08/21/18 16:45 Freq: NEEDED Status: Active Protocol: Document 08/30/18 11:10 HH (Rec: 08/30/18 12:24 [email or web address]) Subjective Physical Therapy Visit Type Type Treatment Note Visit Start Time 11:10 Visit Stop Time 11:35 Total Visit Minutes 25 Notes Per RN, pt c/o chest pain this am and had nitroglycerin already. Co-tx with OT this session. Pt's 2 Daughters, and present for translation this morning Physical Therapy Visit Comments Patient Comments i had some chest pain and not as strong today. Therapy Pain Assessment Pain When Pain Assessed During Mobility Pain Present Pain Present Pain Reported Location Chest Intensity 4 Scale Used Numeric (1 - 10) Description Aching Back Intensity 3 Pain Management Techniques Modification of Treatment Re-positioning Timing of Activity with Medications M4 PT-IP Mobility and Gait Start: 08/21/18 16:45 Freq: NEEDED Status: Active Protocol: Document 08/30/18 11:10 HH (Rec: 08/30/18 12:24 HH [email or web address]) PT-Bed Mobility Assessment Rolling Type of Rolling Log Rolling Roll to Left Level of Assist Moderate Assistance 1 Person Assistance Supine to Sit Supine to Sit Maximum Assistance 2 Person Assistance Bedrails Sit to Supine Sit to Supine Maximum Assistance 2 Person Assistance Scooting Scooting to Edge of Bed Maximum Assistance Scooting Up and Down in Bed Maximum Assistance PT-Transfer Assessment Sit to and From Stand Sit to and from Stand Moderate Assistance 2 Person Assistance Equipment Transfer Assistive Device Gait Belt Front Wheeled Walker Orthotic/Prosthetic Devices or Brace: No Transfers Transfer Destination Bed Chair Transfer Technique Stand Step Pivot Transfer Ability Level of Assist Moderate Assistance Maximum Assistance 2 Person Assistance Use of Upper Extremities Comments Mobility Comments Pt appears weaker today. Pt stood up 4 times in total at EOB/ next to counter. He buckled twice due to weakness. Gait Assessment Gait Gait Assistance Required: Moderate Assistance Maximum Assistance 2 Person Assist Distance (Feet) 5 Able to Maintain Weight Bearing Status Yes During Gait Assistive Devices Assistive Device Gait Belt Front Wheeled Walker Orthotic/Prosthetic Devices or Brace: No Gait Deviations General Gait Pattern Decreased Stride Length Decreased Feet Clearance Flexed Trunk Step-to Gait Factors Limiting Gait Function Factors Limiting Gait Function Decreased Activity Tolerance Decreased Strength Limited Range of Motion Pain Poor Balance Poor Safety Awareness Respiratory Distress Comments Gait Comments Positioned bed diagonally against room door. Pt got up from bed and amb to sink counter with mod/max A x 2. Pt has increased difficult time to bead picker his LLE and appeared to be weaker in general this session. Pt did c /o slight chest pain since this am. Stair Climbing Assessment Comments Stair Climbing Comments unable PT-Balance Assessment Sitting Balance and Reactions Static Sitting Balance Ability Fair Dynamic Sitting Balance Ability Fair Standing Balance and Reactions Static Standing Balance Ability Fair Dynamic Standing Balance Ability Poor Device Used FWW M5 PT-IP Objective Assessments Start: 08/21/18 16:45 Freq: NEEDED Status: Active Protocol: Document 08/22/18 09:45 HH (Rec: 04/18/19 11:16 [email or web address]) Orientation Orientation/Cognition Level of Alertness Alert Comments unable to assess due to language barrier. Will reassess when dtr is present Gross Range of Motion Upper Extremity ROM Assessment Within Functional Limits Lower Extremity ROM Assessment Bilaterally Impaired Strength Upper Extremity Strength Assessment Within Functional Limits Lower Extremity Strength Assessment Bilaterally Impaired Comments Strength Comments 3- to 3 /5 for B LEs strength Coordination Assessment Assessment Coordination Comments unable to assess due to language barrier. Will reassess when dtr is present Sensation Assessment Comments Sensation Comments unable to assess due to language barrier. Will reassess when dtr is present M6 PT-IP Treatment Start: 08/21/18 16:45 Freq: NEEDED Status: Active Protocol: Document 08/29/18 14:20 SA (Rec: 08/29/18 14:39 SA [email or web address]) Physical Therapy Treatment Education Education Provided Precautions Safety Other Treatments Other Treatment Performed Repeated sit to stands as an exercise. M7 PT-IP Assessment and Plan Start: 08/21/18 16:45 Freq: NEEDED Status: Active Protocol: Document 08/30/18 11:10 (Rec: 08/30/18 12:24 [email or web address]) PT Summary Assessment and Plan Potential Rehabilitation Potential Fair Status of Condition at Evaluation Stable Summary Impairments Pain ROM Strength Balance Coordination Sensation Tone Cognition Bed Mobility Transfers Gait Activity Tolerance Assessment Summary Pt appears slightly weaker today possibly due to his new c/o chest pain. He buckled twice for this session but overall still showed significiant improvements since IE. Pt will be d/c to [facility] at 2pm today with BLS transportation to improve mobility. Goals Bed Mobility Goal Minimal Assistance Transfer Goal Minimal Assistance Front Wheeled Walker Gait Goal Minimal Assistance Front Wheel Walker Gait Distance 10 Days to Meet Goals 10 Frequency of Treatment Frequency Of Treatment Twice a Day Treatment Plan Physical Therapy Treatment Plan Bed Mobility Training Transfer Training Gait Training Therapeutic Exercise Balance Retraining Post Op Education Discharge Planning Hot or Cold Pack Other Recommendations and Next Treatment bed mobility, transfers, amb Focus as marlon attempt gait training as marlon ( from closet to window if possible, might need UE support on his L key attendant) Recommendations To Nursing Amount of Assist Needed Mechanical Lift Discharge Recommendations PT Discharge Recommendations SNF Rehab
--- NOTE | 2018-08-30 12:41 | CM.DPNOTE ---
DC Note: DC order to SNF is in place today; MONA Giron completed DC orders, completed and signed the med list and printed Rx for schedule II narcotic. This BARREL SCRAPER contacted Anne, nitesh at [facility] P# [phone], updated w/DC today and they are prepared to accept pt for admission. Suzanne [facility], faxed all necessary DC ppk to include the completed PASRR to [facility] F# [phone]. Suzanne also arranged BLS through [facility] for 1400 p/u time. This BARREL SCRAPER updated pt and his family about DC order and reviewed DCP; all agreeable to this plan and pt thrilled to hear he can leave the hospital today. This BARREL SCRAPER reviewed IMM w/pt w/assist from joint DPOA spouse Yolanda and dtr Anne, IMM signed by dtr Anne per pt and spouse request. P: DC to [facility] via BLS today. TRINA Pardo
--- NOTE | 2018-08-30 13:07 | CM.DPC ---
DCP Cont: Faxed discharge summary to [facility], Attn: Berta Michael at fax # [phone]. Fax confirmation scanned in. Suzanne Blake, [employer] P[employer] Coremaker
--- NOTE | 2018-08-30 13:59 | PC.NURSE ---
Day shift: Pt left unit with [facility] at approx 1400. Report given to Elaina at [facility] as well as transport persons. Pt medicated for pain prior to transport as well. Chart/packet is with transport ppl. scrips in packet. Family aware of the transport and are leaving now to meet Pt at the SNF.
--- NOTE | 2018-08-30 15:21 | CM.DPC ---
DCP Cont: Faxed discharge summary and order to [facility] at fax # [phone]. Fax confirmation scanned in. [facility]
== END 2018-08-30 14:01 | DRG 453 ==
LOC: AC 14:32 → ICU 08-23 12:09 → AC 08-26 15:10
PROVIDERS: Family Medicine; Internal Medicine; Physician Assistant; Surgery; Admitting Provider Orthopaedic Surgery Orthopaedic Surgery of the Spine; Family Provider Internal Medicine; PCP Internal Medicine; Visit Provider Orthopaedic Surgery Orthopaedic Surgery of the Spine
PROC: 0SG00AJ Fusion of Lumbar Vertebral Joint with Interbody Fusion Device, Posterior Approach, Anterior Column, Open Approach (ICD-10-PCS; principal; 2018-08-21 08:45)
DX: T84.226A Displacement of internal fixation device of vertebrae, initial encounter (principal); R65.20 Severe sepsis without septic shock; T83.511A Infection and inflammatory reaction due to indwelling urethral catheter, initial encounter; A41.9 Sepsis, unspecified organism; I21.A1 Myocardial infarction type 2; I26.99 Other pulmonary embolism without acute cor pulmonale; J98.11 Atelectasis; M96.0 Pseudarthrosis after fusion or arthrodesis; K35.80 Unspecified acute appendicitis; M48.062 Spinal stenosis, lumbar region with neurogenic claudication; M54.16 Radiculopathy, lumbar region; I95.9 Hypotension, unspecified; E66.9 Obesity, unspecified; Z68.35 Body mass index [BMI] 35.0-35.9, adult; E11.9 Type 2 diabetes mellitus without complications; G47.33 Obstructive sleep apnea (adult) (pediatric); K21.9 Gastro-esophageal reflux disease without esophagitis; K59.00 Constipation, unspecified; M62.838 Other muscle spasm
CPT/HCPCS: 36415; 71045; 71275; 72100; 74177; 76000; 80048; 80053; 81001; 82550; 82553; 82962; 83036; 83735; 84145; 84484; 85014; 85018; 85025; 85610; 85730; 86060; 87040; 87086; 87449; 87633; 87797; 93005; 93010; 93306; 93970; 94640; 94660; 94760; 97110; 97163; 97167; 97530; 97535; C1776; C9290; J0131; J0330; J0690; J0696; J1170; J1642; J1644; J2250; J2270; J2405; J2543; J2704; J3010; Q9957; Q9967